=== PATIENT | male | born 1955 | race Caucasian/White ===

== ENCOUNTER 2017-10-23 11:50 | Inpatient (IN) | payer MEDICAID ==
--- NOTE | 2017-10-23 12:35 | C.PDOC ---
History Of Present Illness <Esmer Cruz - Last Filed: 10/23/17 15:45> <Chandler Cottrell - Last Filed: 10/24/17 00:23> 62 year old male with a PMHx of HTN, EtOH abuse, BPH, and hiatal hernia presents to the ED with complaints of generalized myalgia since this morning. Patient states last drink was yesterday. Patient is poor historian. Patient denies fever, nausea, vomiting, diarrhea, focal pain, or any other complaints at this time. POOR HISTORIAN CO GEN MYALGIA SINCE THIS MORNING. NO FEVER. PMH of HTN, EtOH abuse, BPH, HIATAL HERNIA. PS LAST DRINK YESTERDAY. DENIES FOCAL PAIN, NVD ROS LIMITED EXAM MOD DIST HEENT NO FASICULATION LUNGS NEG ABD NEG CV RRR SINUS TACH NEURO +INTENTION TREMOR RUE "I ALWAYS HAVE THIS" NO SZ, AO3, CALM APPROPRIATE\\ REMAINDER NEG (Esmer Cruz) History Per: Patient History/Exam Limitations: other (patient poor historian) Onset/Duration Of Symptoms: Hrs Current Symptoms Are (Timing): Still Present Recent travel outside of the [place]: No Additional History Per: Prior Records <Esmer Cruz - Last Filed: 10/23/17 15:45> <Chandler Cottrell - Last Filed: 10/24/17 00:23> Time Seen by Provider: 10/23/17 11:55 Past Medical History Reviewed: Historical Data, Nursing Documentation, Vital Signs - Medical History PMH: Benign Prostatic Hyperplasia, Depression, Gastritis, HTN Surgical History: Appendectomy Family History: States: Unknown Family Hx - Social History Hx Tobacco Use: No Hx Alcohol Use: Yes Hx Substance Use: No - Immunization History Hx Tetanus Toxoid Vaccination: No Hx Influenza Vaccination: No Hx Pneumococcal Vaccination: No <Esmer Cruz - Last Filed: 10/23/17 15:45> Vital Signs: Last Vital Signs Temp 98.9 F 10/23/17 23:31 Pulse 105 H 10/23/17 23:31 Resp 16 10/23/17 23:31 BP 103/65 10/23/17 23:31 Pulse Ox 97 10/23/17 23:31 - [facility] Procedures ALCOHOL DETOXIFICATION (07/27/14) DETOXIFICATION SERVICES FOR SUBSTANCE ABUSE TREATMENT (10/11/17) Review Of Systems Review Of Systems: ROS cannot be obtained secondary to pt's inabilty to answer questions. (ROS limited, patient poor historian) <Esmre Cruz - Last Filed: 10/23/17 15:45> Physical Exam - Physical Exam Appears: Non-toxic, In Acute Distress (Patient appears to be in moderate ) Skin: Warm, Dry Head: Atraumatic, Normacephalic, No Tenderness Eye(s): bilateral: Normal Inspection, PERRL, EOMI Oral Mucosa: Moist Tongue: Other (no fasiculation) Neck: Supple Chest: Symmetrical, No Deformity Cardiovascular: Rhythm Regular (sinus tachycardia ), No Murmur Respiratory: No Rales, No Rhonchi, No Wheezing, Other (clear to auscultation bilaterally) Gastrointestinal/Abdominal: Soft, No Tenderness, No Distention, No Guarding, No Rebound Extremity: Normal ROM, No Tenderness Neurological/Psych: Oriented x3, No Normal Speech, Other (Patient is calm and appropriate. + intention tremor, patient states "I always have this.") <Esmer Cruz - Last Filed: 10/23/17 15:45> ED Course And Treatment - Laboratory Results Result Diagrams: 10/23/17 13:17 10/23/17 13:43 ECG: Interpreted By Me ECG Rhythm: Sinus Tachycardia Rate From EC O2 Sat by Pulse Oximetry: 98 (RA) Pulse Ox Interpretation: Normal - Radiology CXR: Interpreted by Me, Viewed By Me CXR Interpretation: Yes: No Acute Disease Nexus Criteria: Negative Progress Note: CXR, labs, and blood work were ordered. Patient was given Toradol. <Esmer Cruz - Last Filed: 10/23/17 15:45> - Laboratory Results Result Diagrams: 10/23/17 13:17 10/23/17 13:43 <Chandler Cottrell - Last Filed: 10/24/17 00:23> Progress - Data Reviewed Data Reviewed: Lab, Diagnostic imaging, EKG, Old records <Esmer Cruz - Last Filed: 10/23/17 15:45> <Chandler Cottrell - Last Filed: 10/24/17 00:23> - Re-Evaluation Re-evaluation Note: 10/23/17 15:45 EXAM IMPROVED, TREMORS RESOLVED. D/W DR Radha VALADEZ AWARE OF ER FINDINGS WILL ADMIT (Esmer Cruz) Medical Decision Making <Esmer Cruz - Last Filed: 10/23/17 15:45> <Chandler Cottrell - Last Filed: 10/24/17 00:23> Medical Decision Makin: blood tranfusion pending, this MD explained extensively risks and benefits to pt, and written consent acquired Librium 50 mg for tremulousness from ETOH w/d ordered and prn for floor ordered. (Chandler Cottrell) Disposition Counseled Patient/Family Regarding: Studies Performed, Diagnosis - Disposition Disposition Time: 15:43 - POA Present On Arrival: None <Esmer Cruz - Last Filed: 10/23/17 15:45> <Chandler Cottrell - Last Filed: 10/24/17 00:23> - Disposition Disposition: HOSPITALIZED Condition: STABLE - Clinical Impression Clinical Impression: Alcohol withdrawal, Abdominal pain - Scribe Statement The provider has reviewed the documentation as recorded by the Scribe <AnthonyEsmer - Last Filed: 10/23/17 15:45> <Chandler Cottrell - Last Filed: 10/24/17 00:23> - Scribe Statement Noa Pruitt All medical record entries made by the Scribe were at my direction and personally dictated by me. I have reviewed the chart and agree that the record accurately reflects my personal performance of the history, physical exam, medical decision making, and the department course for this patient. I have also personally directed, reviewed, and agree with the discharge instructions and disposition. (Esmer Cruz) Decision To Admit - Pt Status Changed To: Hospital Disposition Of: Observation - . Bed Request Type: Telemetry Admitting Physician: Manish Valadez <Esmer Cruz - Last Filed: 10/23/17 15:45> <Chandler Cottrell - Last Filed: 10/24/17 00:23> - . Patient Diagnosis: Alcohol withdrawal, Abdominal pain
[2017-10-23] MEDS ORDERED: Sodium Chloride 0.9% 1,000 ML IV ONE (12:37)
[2017-10-23 13:24] LABS: BASO # 0.1 K/uL (0.0-0.2); BASO % 0.9 % (0.0-2.0); EOS # 0.1 K/uL (0.0-0.7); EOS % 1.6 % (0.0-4.0); HEMATOCRIT 25.9 % (35.0-51.0); LYMPH # 0.3 K/uL (1.0-4.3); LYMPH % 3.5 % (20.0-40.0); MEAN CELL VOLUME 72.5 fL (80.0-94.0); MEAN CORPUSCULAR HEMOGLOBIN 22.1 pg (27.0-31.0); MEAN CORPUSCULAR HGB CONC 30.5 g/dL (33.0-37.0); MEAN PLATELET VOLUME 8.5 fL (7.2-11.7); MONO # 0.3 K/uL (0.0-0.8); MONO % 3.1 % (0.0-10.0); NRBC % 0.1 % (0.0-2.0); RED CELL DISTRIBUTION WIDTH 20.7 % (11.5-14.5); WHITE BLOOD COUNT 9.1 K/uL (4.8-10.8)
[2017-10-23 13:29] LABS: PLATELET COUNT 393 K/uL (130-400)
[2017-10-23 13:33] LABS: RBC URINE 1 /hpf (0-3); URINE BILIRUBIN NEGATIVE (NEGATIVE); URINE BLOOD NEGATIVE (NEGATIVE); URINE COLOR Amber (YELLOW); URINE GLUCOSE (UA) NORMAL (Normal); URINE KETONE TRACE mg/dL (NEGATIVE); URINE LEUKOCYTE ESTERASE NEG Leu/uL (Negative); URINE PROTEIN NEGATIVE (NEGATIVE)
[2017-10-23 13:46] LABS: BASOPHIL 1 % (0-2); EOSINOPHIL 2 % (0-4); NEUTROPHIL 84 % (50-75); TOTAL CELLS COUNTED 100
[2017-10-23 14:00] LABS: ALKALINE PHOSPHATASE 79 U/L (38-126); ALT/SGPT 44 U/L (21-72); AST/SGOT 24 U/L (17-59); BILIRUBIN,TOTAL 0.6 mg/dL (0.2-1.3); BLOOD UREA NITROGEN 16 mg/dL (9-20); CARBON DIOXIDE 27 mmol/L (22-30); CHLORIDE 104 mmol/L (98-107); GFR AFRICAN-AMERICAN > 60; GLUCOSE,RANDOM 94 mg/dL (75-110); SODIUM 135 mmol/L (132-148); TOTAL PROTEIN 6.8 g/dL (6.3-8.3)
[2017-10-23 14:01] LABS: ALB/GLOB RATIO 0.8 (1.0-2.1)
--- NOTE | 2017-10-23 14:23 | RAD ---
PROCEDURE: CHEST RADIOGRAPH, 1 VIEW HISTORY: SOB COMPARISON: 07/21/2014 FINDINGS: LUNGS: Clear. PLEURA: No pneumothorax or pleural fluid seen. CARDIOVASCULAR: No radiographic findings to suggest acute or significant cardiovascular disease. OSSEOUS STRUCTURES: No significant abnormalities. VISUALIZED UPPER ABDOMEN: Normal. OTHER FINDINGS: None. IMPRESSION: No active disease. No acute/significant interval changes. Concordant results with the preliminary interpretation rendered by the emergency department physician procedure.
--- NOTE | 2017-10-23 19:04 | CP.PCM.HP ---
History of Present Illness - History of Present Illness History of Present Illness: A 62-year-old male with PMH-BPH, depression, HTN, alcohol abuse, hiatus hernia and gastritis presents to the ER with C/O-generalized body ache. C/O-generalized body ache since last 1 day. C/ nasal congestion for last 1 day. No C/ bowel bladder disturbances, abdominal pain, fever, chills, rigors, headache, yellowish discoloration of urine and sclera. Patient is a poor historian. He says he has no control over his drinking. His last drink was yesterday. Present on Admission - Present on Admission Any Indicators Present on Admission: No Past Patient History - Past Medical History & Family History Past Medical History?: Yes - Past Social History Smoking Status: Never Smoked - CARDIAC Hx Hypertension: Yes - PULMONARY Hx Respiratory Disorders: No - NEUROLOGICAL Hx Seizures: No - HEENT Hx HEENT Problems: No - RENAL Hx Chronic Kidney Disease: No - ENDOCRINE/METABOLIC Hx Endocrine Disorders: No - HEMATOLOGICAL/ONCOLOGICAL Hx Human Immunodeficiency Virus (HIV): No - INTEGUMENTARY Hx Dermatological Problems: No - MUSCULOSKELETAL/RHEUMATOLOGICAL Hx Musculoskeletal Disorders: No Hx Falls: No - GASTROINTESTINAL Hx Gastritis: Yes - GENITOURINARY/GYNECOLOGICAL Hx Sexually Transmitted Disorders: No - PSYCHIATRIC Hx Depression: Yes Hx Substance Use: No - SURGICAL HISTORY Hx Appendectomy: Yes - ANESTHESIA Hx Anesthesia: Yes Hx Anesthesia Reactions: No Hx Malignant Hyperthermia: No Meds Allergies/Adverse Reactions: Allergies Allergy/AdvReac Type Severity Reaction Status Date / Time No Known Allergies Allergy Verified 06/07/16 20:08 Physical Exam - Constitutional Appears: Well - Head Exam Head Exam: ATRAUMATIC, NORMAL INSPECTION, NORMOCEPHALIC - Eye Exam Eye Exam: EOMI, Normal appearance, PERRL Pupil Exam: NORMAL ACCOMODATION, PERRL - ENT Exam ENT Exam: Mucous Membranes Moist, Normal Exam - Neck Exam Neck exam: Positive for: Normal Inspection - Respiratory Exam Respiratory Exam: Decreased Breath Sounds - Cardiovascular Exam Cardiovascular Exam: REGULAR RHYTHM, +S1, +S2 - GI/Abdominal Exam GI & Abdominal Exam: Diminished Bowel Sounds, Soft - Rectal Exam Rectal Exam: Deferred Results - Vital Signs Recent Vital Signs: Last Vital Signs Temp 98.5 F 10/23/17 18:00 Pulse 104 H 10/23/17 18:00 Resp 16 10/23/17 18:00 BP 107/74 10/23/17 18:00 Pulse Ox 96 10/23/17 18:00 - Labs Result Diagrams: 10/30/17 06:46 10/30/17 06:46 Labs: Laboratory Results - last 24 hr 10/23/17 10/23/17 10/23/17 12:38 13:17 13:17 WBC 9.1 RBC 3.57 L Hgb 7.9 L Hct 25.9 L MCV 72.5 L MCH 22.1 L MCHC 30.5 L RDW 20.7 H Plt Count 393 D MPV 8.5 Neut % (Auto) 90.9 H Lymph % (Auto) 3.5 L [place] % (Auto) 3.1 Eos % (Auto) 1.6 Baso % (Auto) 0.9 Neut # 8.3 H Lymph # 0.3 L [place] # 0.3 Eos # 0.1 Baso # 0.1 Neutrophils % (Manual) 84 H Band Neutrophils % 9 H Lymphocytes % (Manual) 4 L Monocytes % (Manual) TEST NOT PERFORMED Eosinophils % (Manual) 2 Basophils % (Manual) 1 Platelet Estimate Normal Hypochromasia (manual) Moderate Poikilocytosis (manual Slight Anisocytosis (manual) Moderate Ovalocytes Slight Sodium Potassium Chloride Carbon Dioxide Anion Gap BUN Creatinine Est GFR ( Amer) Est GFR (Non-Af Amer) POC Glucose (mg/dL) Random Glucose Calcium Total Bilirubin AST ALT Alkaline Phosphatase Total Protein Albumin Globulin Albumin/Globulin Ratio Urine Color Damari Urine Clarity Hazy Urine pH 5.0 Ur Specific [place] 1.021 Urine Protein Negative Urine Glucose (UA) Normal Urine Ketones Trace Urine Blood Negative Urine Nitrate Negative Urine Bilirubin Negative Urine Urobilinogen 2.0 Ur Leukocyte Esterase Neg Urine RBC (Auto) 1 Ur Squamous Epith Cells 1 Amorphous Sediment Rare H Hyaline Casts 6-10 H Influenza Typ A,B (EIA) Negative for flu a/b 10/23/17 10/23/17 13:43 13:55 WBC RBC Hgb Hct MCV MCH MCHC RDW Plt Count MPV Neut % (Auto) Lymph % (Auto) [place] % (Auto) Eos % (Auto) Baso % (Auto) Neut # Lymph # [place] # Eos # Baso # Neutrophils % (Manual) Band Neutrophils % Lymphocytes % (Manual) Monocytes % (Manual) Eosinophils % (Manual) Basophils % (Manual) Platelet Estimate Hypochromasia (manual) Poikilocytosis (manual Anisocytosis (manual) Ovalocytes Sodium 135 Potassium 4.0 Chloride 104 Carbon Dioxide 27 Anion Gap 9 L BUN 16 Creatinine 1.1 Est GFR ( Amer) > 60 Est GFR (Non-Af Amer) > 60 POC Glucose (mg/dL) 92 Random Glucose 94 Calcium 8.0 L Total Bilirubin 0.6 AST 24 ALT 44 Alkaline Phosphatase 79 Total Protein 6.8 Albumin 3.1 L Globulin 3.7 Albumin/Globulin Ratio 0.8 L Urine Color Urine Clarity Urine pH Ur Specific [place] Urine Protein Urine Glucose (UA) Urine Ketones Urine Blood Urine Nitrate Urine Bilirubin Urine Urobilinogen Ur Leukocyte Esterase Urine RBC (Auto) Ur Squamous Epith Cells Amorphous Sediment Hyaline Casts Influenza Typ A,B (EIA)
[2017-10-23] MEDS ORDERED: Naproxen 550 mg Tab PO ONE (20:15)
[2017-10-23] MEDS: Naproxen 550 mg Tab PO PRN (20:18)
[2017-10-23 21:17] LABS: INR 1.2
[2017-10-24 00:47] LABS: FOLATE 8.3 ng/mL
--- NOTE | 2017-10-24 07:51 | CP.PCM.PN ---
Addendum entered and electronically signed by Jaime Zhang DO 10/24/17 14:10: spoke to Dr. Cooley; he is recommending that the patient f/u with [facility] on [facility] for outpatient rehabilitation f/u UDS to see if he has taken any opiates; if not will be OK to give naltrexone here in hospital; however he will need to f/u with psychiatrist/ rehab facility as an outpatient to continue with medical therapy for EtOH addiction. Addendum entered and electronically signed by Jaime Zhang DO 10/24/17 13:02: patient responded appropriately to 1unit [facility] Original Note: <Jaime Zhang - Last Filed: 10/24/17 11:30> Subjective - Date & Time of Evaluation Date of Evaluation: 10/24/17 Time of Evaluation: 11:32 - Subjective Subjective: PGY2 Medicine Note for Dr. Radha Valadez; all management as per Dr. Radha Valadez This patient was seen and examined at bedside; denies fevers/chills, IRWIN, SOB, abdominal pain, N/V/D, dysuria/freq/urg or lower extremity pain. States he has no self control over drinking and desires medication to aid him in quitting his addiction; will consult psychiatry. Objective - Vital Signs/Intake and Output Vital Signs (last 24 hours): Temp Pulse Resp BP Pulse Ox 98.4 F 95 H 20 99/64 L 98 10/24/17 03:30 10/24/17 03:40 10/24/17 03:30 10/24/17 03:30 10/24/17 03:30 Intake and Output: 10/24/17 10/24/17 06:59 18:59 Intake Total 425 Output Total 800 Balance -375 - Medications Medications: Current Medications Allopurinol (Zyloprim) 100 mg PO DAILY [place] Chlordiazepoxide (Librium) 50 mg PO Q4H PRN PRN Reason: Agitation Enoxaparin Sodium (Lovenox) 40 mg SC DAILY [facility] Finasteride (Proscar) 5 mg PO DAILY [facility] Folic Acid (Folic Acid) 1 mg PO DAILY [facility] Losartan Potassium (Cozaar) 100 mg PO DAILY [facility] Metoprolol Tartrate (Lopressor) 50 mg PO BID [facility] Multivitamins (Hexavitamin) 1 tab PO DAILY [facility] Naproxen (Anaprox Ds) 500 mg PO BID PRN PRN Reason: Pain, moderate (4-7) Last Admin: 10/23/17 20:18 Dose: 500 mg Pantoprazole Sodium (Protonix Ec Tab) 40 mg PO DAILY [place] Tamsulosin HCl (Flomax) 0.8 mg PO DAILY [facility] Thiamine HCl (Vitamin B1 Tab) 100 mg PO BID [place] - Labs Labs: 10/23/17 13:17 10/23/17 13:43 PT 13.3 SECONDS (9.7-12.2) H 10/23/17 21:03 INR 1.2 10/23/17 21:03 APTT 29 SECONDS (21-34) 10/23/17 21:03 - Constitutional Appears: Non-toxic - Head Exam Head Exam: ATRAUMATIC - Eye Exam Eye Exam: EOMI - ENT Exam ENT Exam: Mucous Membranes Moist - Neck Exam Neck Exam: Full ROM - Respiratory Exam Respiratory Exam: Clear to Ausculation Bilateral - Cardiovascular Exam Cardiovascular Exam: REGULAR RHYTHM - GI/Abdominal Exam GI & Abdominal Exam: Soft - Extremities Exam Extremities Exam: absent: Calf Tenderness - Back Exam Back Exam: absent: CVA tenderness (L), CVA tenderness (R) - Neurological Exam Neurological Exam: Awake - Psychiatric Exam Psychiatric exam: Normal Affect - Skin Skin Exam: Warm Assessment and Plan - Assessment and Plan (Free Text) Assessment: EtOH Withdrawal -Thiamine/Folate/MV daily -Librium Taper -once stable patient can be d/c home/to outpatient rehab as per psych on previous admission; he does not meet inpatient criteria -patient is not in DT/having seizures/actively withdrawing on current taper -patient is tolerating PO Pancytopenia most likely 2/2 to chronic EtOH Bone marrow toxicity -patient has no active bleeding; hgb is lower than previous admissions; s/p 1 unit of PRBC -will continue to monitor; patient advised to stop drinking -f/u heme onc recs Type 4 paraesophageal hernia -patient will likely need surgical repair; surgery recommended outpatient tx on last admission -patient was optimized for surgery as per cardiology on last admission - No cardiovascular contraindication to the planned surgery as outpatient ECHO (10/15/17): LV is normal size, EF 60-65%, LV diastolic function is abnormal - Grade I abnormal relaxation pattern. Mild tricuspid regurgitation noted. CHF (diastolic dysfunction);chronic as per last ECHO (10/15/17): LV is normal size, EF 60-65%, LV diastolic function is abnormal - Grade I abnormal relaxation pattern. Mild tricuspid regurgitation noted. - Pt refused prescriptions for Beta lucinda/ALEXANDER inhibitor - advised patient to follow up with outpatient call center assistant, Dr. Awad recommended because he saw patient in hospital Prophylaxis Protonix Lovenox Heart Healthy Diet All management as per Dr. Radha Valadez All medical management as per Dr. Radha Valadez <Manish Valadez S - Last Filed: 11/01/17 13:19> Objective - Vital Signs/Intake and Output Vital Signs (last 24 hours): Temp Pulse Resp BP Pulse Ox 98.7 F 84 20 106/67 95 11/01/17 07:35 11/01/17 09:31 11/01/17 07:35 11/01/17 09:31 11/01/17 07:35 - Labs Labs: 10/30/17 06:46 10/30/17 06:46 PT 13.3 SECONDS (9.7-12.2) H 10/23/17 21:03 INR 1.2 10/23/17 21:03 APTT 29 SECONDS (21-34) 10/23/17 21:03 Attending/Attestation - Attestation I have personally seen and examined this patient.: Yes I have fully participated in the care of the patient.: Yes I have reviewed all pertinent clinical information, including history, physical exam and plan: Yes Notes (Text): Patient examined. Patient has no self control over drinking and desires any medications to help him quit drinking. Psychiatric consultation. EKG normal. Chest x-ray normal. Laboratory investigations normal. Thiamine, folic acid and chlordiazepoxide. Supportive care.
[2017-10-24] MEDS: Enoxaparin 40 mg Syringe SC SCH (10:16)
[2017-10-24] MEDS: Multiple Vitamins Tab PO SCH (10:16)
[2017-10-24] MEDS: Pantoprazole 40 mg EC Tab PO SCH (10:17)
[2017-10-24 11:35] LABS: BASO # 0.1 K/uL (0.0-0.2); EOS # 0.6 K/uL (0.0-0.7); EOS % 8.8 % (0.0-4.0); HEMATOCRIT 29.9 % (35.0-51.0); LYMPH # 1.1 K/uL (1.0-4.3); LYMPH % 16.5 % (20.0-40.0); MEAN CELL VOLUME 74.7 fL (80.0-94.0); MEAN CORPUSCULAR HEMOGLOBIN 22.6 pg (27.0-31.0); MEAN CORPUSCULAR HGB CONC 30.2 g/dL (33.0-37.0); MEAN PLATELET VOLUME 8.7 fL (7.2-11.7); MONO # 0.5 K/uL (0.0-0.8); NRBC % 0.1 % (0.0-2.0); RED CELL DISTRIBUTION WIDTH 20.9 % (11.5-14.5); WHITE BLOOD COUNT 6.4 K/uL (4.8-10.8)
--- NOTE | 2017-10-24 13:30 | CP.PCM.CON ---
History of Present Illness - History of Present Illness History of Present Illness: INFECTIOUS DISEASE CONSULT; HPI 62 year old male with a PMHx of HTN, EtOH abuse, Gastritis, BPH, hiatal hernia and depression who presents to the ED with complaints of generalized myalgia since 1day Patient states last drink was yesterday. Patient is poor historian.pt c/o nasal congestion,running nose and sinus congestion. Patient denies fever, nausea, vomiting, diarrhea, focal pain, or any other complaints at this time except for abdominal pains. PT ADMITTED 10/09/17 FOR ABDOMINAL PAINS AND FOUND TO HAVE GRADE 1V PARAESOPHAGEAL HERNIA.PT LEFT HOSPITAL AMA. CXR ON ADMISSION SHOWS NAD. patient also was found to have low H&H on admission with a hemoglobin of 7.9. Patient received 1 unit of packed red blood cells. Patient alcohol level was less than 10. Patient also was found to have eosinophilia of 8% on cbc. PMH: Benign Prostatic Hyperplasia, Depression, Gastritis, HTN, Grade IV paraesophageal hernia Meds: As per EMR Surgical History: Appendectomy Family History: States: Unknown Family Hx - Social History Hx Tobacco Use: No Hx Alcohol Use: Yes Hx Substance Use: No - Immunization History Hx Tetanus Toxoid Vaccination: No Hx Influenza Vaccination: No Hx Pneumococcal Vaccination: No Allergy;NKA Review of Systems - Constitutional Constitutional: Lethargy. absent: Headache - EENT Eyes: Dry Eye. absent: Other Visual Disturbances Nose/Mouth/Throat: Nasal Congestion, Post Nasal Drip, Sinus Pressure, Dry Mouth , Neck Pain - Cardiovascular Cardiovascular: absent: Chest Pain, Dyspnea - Respiratory Respiratory: Excessive Mucous Production. absent: Cough, Change in Mucous Color - Gastrointestinal Gastrointestinal: Abdominal Pain. absent: Constipation, Diarrhea, Nausea, Vomiting - Genitourinary Genitourinary: absent: Dysuria, Hematuria - Musculoskeletal Musculoskeletal: Arthralgias, Myalgias, Neck Pain - Neurological Neurological: absent: Dizziness, Headaches - Hematologic/Lymphatic Hematologic: As Per HPI. absent: Easy Bruising, Lymphadenopathy Past Patient History - Past Medical History & Family History Past Medical History?: Yes - Past Social History Smoking Status: Never Smoked - CARDIAC Hx Hypertension: Yes - PULMONARY Hx Respiratory Disorders: No - NEUROLOGICAL Hx Seizures: No - HEENT Hx HEENT Problems: No - RENAL Hx Chronic Kidney Disease: No - ENDOCRINE/METABOLIC Hx Endocrine Disorders: No - HEMATOLOGICAL/ONCOLOGICAL Hx Human Immunodeficiency Virus (HIV): No - INTEGUMENTARY Hx Dermatological Problems: No - MUSCULOSKELETAL/RHEUMATOLOGICAL Hx Falls: Yes - GASTROINTESTINAL Hx Gastritis: Yes - GENITOURINARY/GYNECOLOGICAL Hx Sexually Transmitted Disorders: No - PSYCHIATRIC Hx Substance Use: No - SURGICAL HISTORY Hx Appendectomy: Yes - ANESTHESIA Hx Anesthesia: Yes Hx Anesthesia Reactions: No Hx Malignant Hyperthermia: No Meds Allergies/Adverse Reactions: Allergies Allergy/AdvReac Type Severity Reaction Status Date / Time No Known Allergies Allergy Verified 06/07/16 20:08 - Medications Medications: Current Medications Allopurinol (Zyloprim) 100 mg PO DAILY [facility] Last Admin: 10/24/17 10:17 Dose: 100 mg Chlordiazepoxide (Librium) 50 mg PO Q4H PRN PRN Reason: Agitation Enoxaparin Sodium (Lovenox) 40 mg SC DAILY [facility] Last Admin: 10/24/17 10:16 Dose: 40 mg Finasteride (Proscar) 5 mg PO DAILY [facility] Last Admin: 10/24/17 10:17 Dose: 5 mg Folic Acid (Folic Acid) 1 mg PO DAILY [facility] Last Admin: 10/24/17 10:16 Dose: 1 mg Losartan Potassium (Cozaar) 100 mg PO DAILY [facility] Last Admin: 10/24/17 10:15 Dose: 100 mg Metoprolol Tartrate (Lopressor) 50 mg PO BID [facility] Last Admin: 10/24/17 10:20 Dose: 50 mg Multivitamins (Hexavitamin) 1 tab PO DAILY [facility] Last Admin: 10/24/17 10:16 Dose: 1 tab Naproxen (Anaprox Ds) 500 mg PO BID PRN PRN Reason: Pain, moderate (4-7) Last Admin: 10/23/17 20:18 Dose: 500 mg Pantoprazole Sodium (Protonix Ec Tab) 40 mg PO DAILY [facility] Last Admin: 10/24/17 10:17 Dose: 40 mg Tamsulosin HCl (Flomax) 0.8 mg PO DAILY [facility] Last Admin: 10/24/17 10:15 Dose: 0.8 mg Thiamine HCl (Vitamin B1 Tab) 100 mg PO BID [facility] Last Admin: 10/24/17 10:20 Dose: 100 mg Physical Exam - Constitutional Appears: No Acute Distress - Head Exam Head Exam: NORMAL INSPECTION - Eye Exam Eye Exam: EOMI, PERRL - ENT Exam ENT Exam: Normal Oropharynx - Neck Exam Neck exam: Positive for: Normal Inspection - Respiratory Exam Respiratory Exam: Clear to Auscultation Bilateral - Cardiovascular Exam Cardiovascular Exam: REGULAR RHYTHM, +S1, +S2 - GI/Abdominal Exam GI & Abdominal Exam: Normal Bowel Sounds, Soft. absent: Organomegaly - Extremities Exam Extremities exam: Positive for: pedal pulses present. Negative for: calf tenderness, pedal edema - Neurological Exam Neurological exam: Alert, CN II-XII Intact, Reflexes Normal - Psychiatric Exam Psychiatric exam: Normal Mood - Skin Skin Exam: Normal Color, Pallor, Warm Results - Vital Signs Recent Vital Signs: Last Vital Signs Temp 98.2 F 10/24/17 07:00 Pulse 90 10/24/17 07:00 Resp 20 10/24/17 07:00 BP 113/74 10/24/17 07:00 Pulse Ox 98 10/24/17 07:00 - Labs Result Diagrams: 10/24/17 11:31 10/23/17 13:43 Labs: Laboratory Results - last 24 hr 10/23/17 10/23/17 10/23/17 12:38 13:17 13:17 WBC RBC Hgb Hct MCV MCH MCHC RDW Plt Count MPV Neut % (Auto) Lymph % (Auto) [place] % (Auto) Eos % (Auto) Baso % (Auto) Neut # Lymph # [place] # Eos # Baso # Neutrophils % (Manual) 84 H Band Neutrophils % 9 H Lymphocytes % (Manual) 4 L Monocytes % (Manual) TEST NOT PERFORMED Eosinophils % (Manual) 2 Basophils % (Manual) 1 Platelet Estimate Normal Hypochromasia (manual) Moderate Poikilocytosis (manual Slight Anisocytosis (manual) Moderate Ovalocytes Slight Retic Count PT INR APTT Sodium Potassium Chloride Carbon Dioxide Anion Gap BUN Creatinine Est GFR ( Amer) Est GFR (Non-Af Amer) POC Glucose (mg/dL) Random Glucose Calcium Ferritin Total Bilirubin AST ALT Alkaline Phosphatase Total Creatine Kinase Total Protein Albumin Globulin Albumin/Globulin Ratio Vitamin B12 Folate Urine Color [place]ari Urine Clarity Hazy Urine pH 5.0 Ur Specific [place] 1.021 Urine Protein Negative Urine Glucose (UA) Normal Urine Ketones Trace Urine Blood Negative Urine Nitrate Negative Urine Bilirubin Negative Urine Urobilinogen 2.0 Ur Leukocyte Esterase Neg Urine RBC (Auto) 1 Ur Squamous Epith Cells 1 Amorphous Sediment Rare H Hyaline Casts 6-10 H Alcohol, Quantitative Influenza Typ A,B (EIA) Negative for flu a/b Blood Type Antibody Screen 10/23/17 10/23/17 10/23/17 13:43 13:55 20:20 WBC RBC Hgb Hct MCV MCH MCHC RDW Plt Count MPV Neut % (Auto) Lymph % (Auto) [place] % (Auto) Eos % (Auto) Baso % (Auto) Neut # Lymph # [place] # Eos # Baso # Neutrophils % (Manual) Band Neutrophils % Lymphocytes % (Manual) Monocytes % (Manual) Eosinophils % (Manual) Basophils % (Manual) Platelet Estimate Hypochromasia (manual) Poikilocytosis (manual Anisocytosis (manual) Ovalocytes Retic Count PT INR APTT Sodium 135 Potassium 4.0 Chloride 104 Carbon Dioxide 27 Anion Gap 9 L BUN 16 Creatinine 1.1 Est GFR ( Amer) > 60 Est GFR (Non-Af Amer) > 60 POC Glucose (mg/dL) 92 Random Glucose 94 Calcium 8.0 L Ferritin Total Bilirubin 0.6 AST 24 ALT 44 Alkaline Phosphatase 79 Total Creatine Kinase 31 L Total Protein 6.8 Albumin 3.1 L Globulin 3.7 Albumin/Globulin Ratio 0.8 L Vitamin B12 Folate Urine Color Urine Clarity Urine pH Ur Specific [place] Urine Protein Urine Glucose (UA) Urine Ketones Urine Blood Urine Nitrate Urine Bilirubin Urine Urobilinogen Ur Leukocyte Esterase Urine RBC (Auto) Ur Squamous Epith Cells Amorphous Sediment Hyaline Casts Alcohol, Quantitative Influenza Typ A,B (EIA) Blood Type Antibody Screen 10/23/17 10/23/17 10/23/17 20:55 21:03 23:33 WBC RBC Hgb Hct MCV MCH MCHC RDW Plt Count MPV Neut % (Auto) Lymph % (Auto) [place] % (Auto) Eos % (Auto) Baso % (Auto) Neut # Lymph # [place] # Eos # Baso # Neutrophils % (Manual) Band Neutrophils % Lymphocytes % (Manual) Monocytes % (Manual) Eosinophils % (Manual) Basophils % (Manual) Platelet Estimate Hypochromasia (manual) Poikilocytosis (manual Anisocytosis (manual) Ovalocytes Retic Count 2.2 H PT 13.3 H INR 1.2 APTT 29 Sodium Potassium Chloride Carbon Dioxide Anion Gap BUN Creatinine Est GFR ( Amer) Est GFR (Non-Af Amer) POC Glucose (mg/dL) Random Glucose Calcium Ferritin Total Bilirubin AST ALT Alkaline Phosphatase Total Creatine Kinase Total Protein Albumin Globulin Albumin/Globulin Ratio Vitamin B12 Folate Urine Color Urine Clarity Urine pH Ur Specific [place] Urine Protein Urine Glucose (UA) Urine Ketones Urine Blood Urine Nitrate Urine Bilirubin Urine Urobilinogen Ur Leukocyte Esterase Urine RBC (Auto) Ur Squamous Epith Cells Amorphous Sediment Hyaline Casts Alcohol, Quantitative Influenza Typ A,B (EIA) Blood Type B POSITIVE Antibody Screen Negative 10/23/17 10/24/17 10/24/17 23:33 02:57 11:31 WBC 6.4 RBC 4.00 L Hgb 9.0 L Hct 29.9 L MCV 74.7 L D MCH 22.6 L MCHC 30.2 L RDW 20.9 H Plt Count 362 MPV 8.7 Neut % (Auto) 65.7 Lymph % (Auto) 16.5 L [place] % (Auto) 8.0 Eos % (Auto) 8.8 H Baso % (Auto) 1.0 Neut # 4.2 Lymph # 1.1 [place] # 0.5 Eos # 0.6 Baso # 0.1 Neutrophils % (Manual) Band Neutrophils % Lymphocytes % (Manual) Monocytes % (Manual) Eosinophils % (Manual) Basophils % (Manual) Platelet Estimate Hypochromasia (manual) Poikilocytosis (manual Anisocytosis (manual) Ovalocytes Retic Count PT INR APTT Sodium Potassium Chloride Carbon Dioxide Anion Gap BUN Creatinine Est GFR ( Amer) Est GFR (Non-Af Amer) POC Glucose (mg/dL) Random Glucose Calcium Ferritin 19.4 Total Bilirubin AST ALT Alkaline Phosphatase Total Creatine Kinase Total Protein Albumin Globulin Albumin/Globulin Ratio Vitamin B12 511 Folate 8.3 Urine Color Urine Clarity Urine pH Ur Specific [place] Urine Protein Urine Glucose (UA) Urine Ketones Urine Blood Urine Nitrate Urine Bilirubin Urine Urobilinogen Ur Leukocyte Esterase Urine RBC (Auto) Ur Squamous Epith Cells Amorphous Sediment Hyaline Casts Alcohol, Quantitative < 10 Influenza Typ A,B (EIA) Blood Type Antibody Screen - Imaging and Cardiology Chest x-ray Status: Report reviewed by me (no active disease) Assessment & Plan (1) Acute viral syndrome Status: Acute (2) Abdominal pain Status: Acute (3) Alcohol abuse Status: Acute (4) Anemia Status: Acute (5) Hiatal hernia without gangrene and obstruction Status: Acute (6) Alcohol dependence Status: Chronic Priority: High - Assessment and Plan (Free Text) Plan: PLAN; ATYPICAL TITERS. INFLUENZA a AND b ANTIBODY. CT OF THE SINUSES WITHOUT CONTRAST RULE OUT SINUSITIS. START TAMIFLU 75 MG BY MOUTH TWICE A DAY FOR 5 DAYS. 10/24/17 ADD iv [id number] MG ONCE A DAY DAILY. 10/24/17 HEMATOLOGY WORKUP FOR ANEMIA STOOLS FOR OVA AND PARASITES 3 FOR EOSINOPHILIA. PATIENT HAS CHRONIC GASTRITIS FROM ALCOHOL ABUSE. CONSIDER EGD TO RULE OUT h. PYLORI GASTRITIS/VERSUS PEPTIC ULCER DISEASE. PER PMD. wILL FOLLOW ALONG WITH YOU AND MAKE RECOMMENDATIONS NEEDED.
--- NOTE | 2017-10-24 14:11 | CP.PCM.PCO ---
Physician Communication Note - Physician Communication Note Physician Communication Note: Spoke with Dr. Lainez. Recommend IOP in [place] where he can get NLTX
--- NOTE | 2017-10-24 18:39 | CP.PCM.PN ---
Subjective - Date & Time of Evaluation Date of Evaluation: 10/24/17 Time of Evaluation: 12:20 - Subjective Subjective: clinically same Objective - Vital Signs/Intake and Output Vital Signs (last 24 hours): Temp Pulse Resp BP Pulse Ox 98.1 F 80 20 111/72 96 10/24/17 15:17 10/24/17 15:17 10/24/17 15:17 10/24/17 15:17 10/24/17 15:17 Intake and Output: 10/24/17 10/24/17 06:59 18:59 Intake Total 425 Output Total 800 Balance -375 - Medications Medications: Current Medications Allopurinol (Zyloprim) 100 mg PO DAILY [facility] Last Admin: 10/24/17 10:17 Dose: 100 mg Chlordiazepoxide (Librium) 50 mg PO Q4H PRN PRN Reason: Agitation Enoxaparin Sodium (Lovenox) 40 mg SC DAILY [facility] Last Admin: 10/24/17 10:16 Dose: 40 mg Finasteride (Proscar) 5 mg PO DAILY [facility] Last Admin: 10/24/17 10:17 Dose: 5 mg Folic Acid (Folic Acid) 1 mg PO DAILY [facility] Last Admin: 10/24/17 10:16 Dose: 1 mg Losartan Potassium (Cozaar) 100 mg PO DAILY [facility] Last Admin: 10/24/17 10:15 Dose: 100 mg Metoprolol Tartrate (Lopressor) 50 mg PO BID [facility] Last Admin: 10/24/17 17:30 Dose: 50 mg Multivitamins (Hexavitamin) 1 tab PO DAILY [facility] Last Admin: 10/24/17 10:16 Dose: 1 tab Naproxen (Anaprox Ds) 500 mg PO BID PRN PRN Reason: Pain, moderate (4-7) Last Admin: 10/23/17 20:18 Dose: 500 mg Pantoprazole Sodium (Protonix Ec Tab) 40 mg PO DAILY [facility] Last Admin: 10/24/17 10:17 Dose: 40 mg Tamsulosin HCl (Flomax) 0.8 mg PO DAILY [facility] Last Admin: 10/24/17 10:15 Dose: 0.8 mg Thiamine HCl (Vitamin B1 Tab) 100 mg PO BID [facility] Last Admin: 10/24/17 17:30 Dose: 100 mg - Labs Labs: 10/24/17 11:31 10/23/17 13:43 PT 13.3 SECONDS (9.7-12.2) H 10/23/17 21:03 INR 1.2 10/23/17 21:03 APTT 29 SECONDS (21-34) 10/23/17 21:03 - Constitutional Appears: Well - Head Exam Head Exam: ATRAUMATIC, NORMAL INSPECTION, NORMOCEPHALIC - Eye Exam Eye Exam: EOMI, Normal appearance, PERRL Pupil Exam: NORMAL ACCOMODATION, PERRL - ENT Exam ENT Exam: Mucous Membranes Moist, Normal Exam - Neck Exam Neck Exam: Full ROM, Normal Inspection. absent: Lymphadenopathy - Respiratory Exam Respiratory Exam: Decreased Breath Sounds - Cardiovascular Exam Cardiovascular Exam: REGULAR RHYTHM, +S1, +S2 - GI/Abdominal Exam GI & Abdominal Exam: Soft, Diminished Bowel Sounds - Rectal Exam Rectal Exam: Deferred Assessment and Plan (1) Abdominal pain Status: Acute (2) Abdominal pain Status: Acute (3) Acute pansinusitis Status: Acute (4) Acute viral syndrome Status: Acute (5) Alcohol abuse Status: Acute (6) Alcohol intoxication Status: Acute (7) Alcohol intoxication Status: Acute (8) Alcohol withdrawal Status: Acute (9) Anemia Status: Acute (10) BPH (benign prostatic hyperplasia) Status: Acute (11) Dehydration Status: Acute (12) Depressed Status: Acute (13) Gastritis due to alcohol without hemorrhage Status: Acute (14) HTN (hypertension) Status: Acute (15) HTN (hypertension) Status: Acute (16) Hiatal hernia without gangrene and obstruction Status: Acute (17) Prophylactic measure Status: Acute (18) Renal insufficiency Status: Acute (19) Withdrawal symptoms, alcohol Status: Acute (20) Alcohol dependence Status: Chronic - Assessment and Plan (Free Text) Plan: Patient examined. Dr. Rodas consult done. Advised CT of sinuses to rule out sinusitis. Avelox 400 mg once a day. Influenza A and B antibody negative. Continue thiamine, multivitamins, folic acid and chlordiazepoxide. Metoprolol and losartan. Supportive care.
--- NOTE | 2017-10-24 19:34 | CP.PCM.CON ---
History of Present Illness - History of Present Illness History of Present Illness: 62 year old male with a history of HTN, BPH, alcoholism, admitted with fatigue and diffuse body aches, found to be anemic. The patient does report to intermittent hematchozia and dark stool. He continues to drink daily and says he gets shaky when he stops. He is s/p PRBC transfusion and reports to feeling better. Past medical history: HTN, BPH, alcoholism Past surgical history: Appendectomy Family history: Denies hematologic and oncologic problems Social history: Denies tobacco, drinks rum daily, denies illicit drug use. Allergies: NKA Review of systems: All remaining review of systems including HEENT, cardiovacsular, respiratory, gastrointestinal, genitourinnary, musculoskeletal, dermatologic, neurologic, and psychiatric are negative unless mentioned in the HPI. Past Patient History - Past Medical History & Family History Past Medical History?: Yes - Past Social History Smoking Status: Never Smoked - CARDIAC Hx Hypertension: Yes - PULMONARY Hx Respiratory Disorders: No - NEUROLOGICAL Hx Seizures: No - HEENT Hx HEENT Problems: No - RENAL Hx Chronic Kidney Disease: No - ENDOCRINE/METABOLIC Hx Endocrine Disorders: No - HEMATOLOGICAL/ONCOLOGICAL Hx Human Immunodeficiency Virus (HIV): No - INTEGUMENTARY Hx Dermatological Problems: No - MUSCULOSKELETAL/RHEUMATOLOGICAL Hx Falls: Yes - GASTROINTESTINAL Hx Gastritis: Yes - GENITOURINARY/GYNECOLOGICAL Hx Sexually Transmitted Disorders: No - PSYCHIATRIC Hx Substance Use: No - SURGICAL HISTORY Hx Appendectomy: Yes - ANESTHESIA Hx Anesthesia: Yes Hx Anesthesia Reactions: No Hx Malignant Hyperthermia: No Meds Allergies/Adverse Reactions: Allergies Allergy/AdvReac Type Severity Reaction Status Date / Time No Known Allergies Allergy Verified 06/07/16 20:08 - Medications Medications: Current Medications Allopurinol (Zyloprim) 100 mg PO DAILY [facility] Last Admin: 10/24/17 10:17 Dose: 100 mg Chlordiazepoxide (Librium) 50 mg PO Q4H PRN PRN Reason: Agitation Enoxaparin Sodium (Lovenox) 40 mg SC DAILY [facility] Last Admin: 10/24/17 10:16 Dose: 40 mg Ferric Sodium Gluconate Complex (Ferrlecit) 125 mg IVPB DAILY [facility] Stop: 11/01/17 20:01 Finasteride (Proscar) 5 mg PO DAILY [facility] Last Admin: 10/24/17 10:17 Dose: 5 mg Folic Acid (Folic Acid) 1 mg PO DAILY [facility] Last Admin: 10/24/17 10:16 Dose: 1 mg Losartan Potassium (Cozaar) 100 mg PO DAILY [facility] Last Admin: 10/24/17 10:15 Dose: 100 mg Metoprolol Tartrate (Lopressor) 50 mg PO BID [facility] Last Admin: 10/24/17 17:30 Dose: 50 mg Multivitamins (Hexavitamin) 1 tab PO DAILY [facility] Last Admin: 10/24/17 10:16 Dose: 1 tab Naproxen (Anaprox Ds) 500 mg PO BID PRN PRN Reason: Pain, moderate (4-7) Last Admin: 10/23/17 20:18 Dose: 500 mg Pantoprazole Sodium (Protonix Ec Tab) 40 mg PO DAILY [facility] Last Admin: 10/24/17 10:17 Dose: 40 mg Tamsulosin HCl (Flomax) 0.8 mg PO DAILY [facility] Last Admin: 10/24/17 10:15 Dose: 0.8 mg Thiamine HCl (Vitamin B1 Tab) 100 mg PO BID [facility] Last Admin: 10/24/17 17:30 Dose: 100 mg Physical Exam - Head Exam Head Exam: ATRAUMATIC - Eye Exam Eye Exam: Normal appearance - ENT Exam ENT Exam: Mucous Membranes Dry - Respiratory Exam Respiratory Exam: NORMAL BREATHING PATTERN - Cardiovascular Exam Cardiovascular Exam: +S1, +S2 - GI/Abdominal Exam GI & Abdominal Exam: Normal Bowel Sounds - Extremities Exam Extremities exam: Positive for: normal inspection - Neurological Exam Neurological exam: Oriented x3 - Psychiatric Exam Psychiatric exam: Normal Affect, Normal Mood - Skin Skin Exam: Warm Results - Vital Signs Recent Vital Signs: Last Vital Signs Temp 98.1 F 10/24/17 15:17 Pulse 80 10/24/17 15:17 Resp 20 10/24/17 15:17 BP 111/72 10/24/17 15:17 Pulse Ox 96 10/24/17 15:17 - Labs Result Diagrams: 10/24/17 11:31 10/23/17 13:43 Labs: Laboratory Results - last 24 hr 10/23/17 10/23/17 10/23/17 20:20 20:55 21:03 WBC RBC Hgb Hct MCV MCH MCHC RDW Plt Count MPV Neut % (Auto) Lymph % (Auto) [place] % (Auto) Eos % (Auto) Baso % (Auto) Neut # Lymph # [place] # Eos # Baso # Retic Count PT 13.3 H INR 1.2 APTT 29 Ferritin Total Creatine Kinase 31 L Vitamin B12 Folate Alcohol, Quantitative Blood Type B POSITIVE Antibody Screen Negative 10/23/17 10/23/17 10/24/17 23:33 23:33 02:57 WBC RBC Hgb Hct MCV MCH MCHC RDW Plt Count MPV Neut % (Auto) Lymph % (Auto) [place] % (Auto) Eos % (Auto) Baso % (Auto) Neut # Lymph # [place] # Eos # Baso # Retic Count 2.2 H PT INR APTT Ferritin 19.4 Total Creatine Kinase Vitamin B12 511 Folate 8.3 Alcohol, Quantitative < 10 Blood Type Antibody Screen 10/24/17 11:31 WBC 6.4 RBC 4.00 L Hgb 9.0 L Hct 29.9 L MCV 74.7 L D MCH 22.6 L MCHC 30.2 L RDW 20.9 H Plt Count 362 MPV 8.7 Neut % (Auto) 65.7 Lymph % (Auto) 16.5 L [place] % (Auto) 8.0 Eos % (Auto) 8.8 H Baso % (Auto) 1.0 Neut # 4.2 Lymph # 1.1 [place] # 0.5 Eos # 0.6 Baso # 0.1 Retic Count PT INR APTT Ferritin Total Creatine Kinase Vitamin B12 Folate Alcohol, Quantitative Blood Type Antibody Screen Assessment & Plan (1) Anemia Assessment and Plan: work up consistent with iron deficiency anemia s/p PRBC transfusion will start IV iron will need GI evaluation for EGD/colonoscopy; can be done as outpatient if H/H stabilizes Thank you for this interesting consult. Status: Acute
[2017-10-24] MEDS: Ferric Sodium Gluconat Complex 62.5 mg/5 ml Vial IVPB SCH (20:35)
--- NOTE | 2017-10-24 22:21 | CARD ---
APPROVED REPORT EKG Measurement Heart [id number] <Conclusion> Sinus tachycardia Otherwise normal ECG
[2017-10-24] MEDS: Moxifloxacin IV 400mg/250ml NS 400 MG/250 ML BAG IVPB SCH (23:09)
[2017-10-25] MEDS: Pantoprazole 40 mg EC Tab PO SCH (10:38)
[2017-10-25] MEDS: Multiple Vitamins Tab PO SCH (10:39)
[2017-10-25] MEDS: Enoxaparin 40 mg Syringe SC SCH (10:39)
--- NOTE | 2017-10-25 11:15 | CP.PCM.PN ---
<Jay Hargrove - Last Filed: 10/25/17 13:40> Subjective - Date & Time of Evaluation Date of Evaluation: 10/25/17 Time of Evaluation: 10:59 - Subjective Subjective: PGY2 Medicine Note for Dr. Radha Valadez's service: Patient seen and examined at bedside. Nursing reports no acute events overnight. Patient reports a lifelong history of drinking, and admits struggling to control his addiction. Per EMR, psychiatrist, Dr. Cooley, spoke with patient yesterday, and recommends outpatient follow with [facility] for outpatient rehab. Pt reported runny nose, congestion, and myalgias last night. Patient says these symptoms started "the previous day." Pt denies fever, chills, abdominal pain, nausea, vomiting, diarrhea, focal pain. Objective - Vital Signs/Intake and Output Vital Signs (last 24 hours): Temp Pulse Resp BP Pulse Ox 98.7 F 85 20 142/82 95 10/24/17 23:15 10/25/17 04:16 10/24/17 23:15 10/24/17 23:15 10/24/17 23:15 Intake and Output: 10/25/17 10/25/17 06:59 18:59 Intake Total 450 Output Total 300 Balance 150 - Medications Medications: Current Medications Allopurinol (Zyloprim) 100 mg PO DAILY [facility] Last Admin: 10/25/17 10:38 Dose: 100 mg Chlordiazepoxide (Librium) 50 mg PO Q4H PRN PRN Reason: Agitation Enoxaparin Sodium (Lovenox) 40 mg SC DAILY [facility] Last Admin: 10/25/17 10:39 Dose: 40 mg Finasteride (Proscar) 5 mg PO DAILY [facility] Last Admin: 10/25/17 10:39 Dose: 5 mg Folic Acid (Folic Acid) 1 mg PO DAILY [facility] Last Admin: 10/25/17 10:39 Dose: 1 mg Moxifloxacin HCl (Avelox Iv 400mg/250ml Ns) 400 mg in 250 mls @ 167 mls/hr IVPB Q24H [facility] Last Admin: 10/24/17 23:09 Dose: 167 mls/hr Ferric Sodium Gluconate Complex 125 mg/ Sodium Chloride 110 mls @ 110 mls/hr IVPB DAILY [facility] Stop: 11/02/17 11:01 Losartan Potassium (Cozaar) 100 mg PO DAILY [facility] Last Admin: 10/25/17 10:38 Dose: 100 mg Metoprolol Tartrate (Lopressor) 50 mg PO BID [facility] Last Admin: 10/25/17 10:39 Dose: 50 mg Multivitamins (Hexavitamin) 1 tab PO DAILY [facility] Last Admin: 10/25/17 10:39 Dose: 1 tab Naproxen (Anaprox Ds) 500 mg PO BID PRN PRN Reason: Pain, moderate (4-7) Last Admin: 10/23/17 20:18 Dose: 500 mg Oseltamivir Phosphate (Tamiflu Cap) 75 mg PO BID [facility] Stop: 10/29/17 22:47 Last Admin: 10/25/17 10:38 Dose: 75 mg Pantoprazole Sodium (Protonix Ec Tab) 40 mg PO DAILY [facility] Last Admin: 10/25/17 10:38 Dose: 40 mg Tamsulosin HCl (Flomax) 0.8 mg PO DAILY [facility] Last Admin: 10/25/17 10:38 Dose: 0.8 mg Thiamine HCl (Vitamin B1 Tab) 100 mg PO BID [facility] Last Admin: 10/25/17 10:39 Dose: 100 mg - Labs Labs: 10/24/17 11:31 10/23/17 13:43 PT 13.3 SECONDS (9.7-12.2) H 10/23/17 21:03 INR 1.2 10/23/17 21:03 APTT 29 SECONDS (21-34) 10/23/17 21:03 - Constitutional Appears: Non-toxic, No Acute Distress Assessment and Plan - Assessment and Plan (Free Text) Plan: EtOH Withdrawal Alcohol level: < 10 on admission -Thiamine/Folate/MV daily - Librium PRN -once stable patient can be d/c home/to outpatient rehab as per psych on previous admission; he does not meet inpatient criteria -patient is not in DT/having seizures/actively withdrawing -patient is tolerating PO - lipase 73 Myalgia/Congestion Pt afebrile, No WBC 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 Tirado, verito cabrales - start IV iron ( - 11/02) Type 4 paraesophageal hernia -patient will likely need surgical repair; surgery recommended outpatient tx on last admission, pt left AMA -patient was optimized for surgery as per cardiology on last admission - No cardiovascular contraindication to the planned surgery as outpatient ECHO (10/15/17): LV is normal size, EF 60-65%, LV diastolic function is abnormal - Grade I abnormal relaxation pattern. Mild tricuspid regurgitation noted. CHF (diastolic dysfunction);chronic as per last ECHO (10/15/17): LV is normal size, EF 60-65%, LV diastolic function is abnormal - Grade I abnormal relaxation pattern. Mild tricuspid regurgitation noted. Metoprolol 50mg PO BID Cozaar 100mg PO Daily BPH Tamsulosin 0.8mg PO Daily Finasteride 5mg PO Daily Electrolyte Abnormality MG 1.6, repleted Prophylaxis Protonix Lovenox Heart Healthy Diet Jay Hargrove PGY-2 All management as per Dr. Radha Valadez <Manish Valadez - Last Filed: 11/01/17 13:26> Objective - Vital Signs/Intake and Output Vital Signs (last 24 hours): Temp Pulse Resp BP Pulse Ox 98.7 F 84 20 106/67 95 11/01/17 07:35 11/01/17 09:31 11/01/17 07:35 11/01/17 09:31 11/01/17 07:35 - Labs Labs: 10/30/17 06:46 10/30/17 06:46 PT 13.3 SECONDS (9.7-12.2) H 10/23/17 21:03 INR 1.2 10/23/17 21:03 APTT 29 SECONDS (21-34) 10/23/17 21:03 Assessment and Plan (1) Abdominal pain Status: Acute (2) Abdominal pain Status: Acute (3) Acute pansinusitis Status: Acute (4) Acute viral syndrome Status: Acute (5) Alcohol abuse Status: Acute (6) Alcohol intoxication Status: Acute (7) Alcohol intoxication Status: Acute (8) Alcohol withdrawal Status: Acute (9) Anemia Status: Acute (10) BPH (benign prostatic hyperplasia) Status: Acute (11) Dehydration Status: Acute (12) Depressed Status: Acute (13) Gastritis due to alcohol without hemorrhage Status: Acute (14) HTN (hypertension) Status: Acute (15) HTN (hypertension) Status: Acute (16) Hiatal hernia without gangrene and obstruction Status: Acute (17) Prophylactic measure Status: Acute (18) Renal insufficiency Status: Acute (19) Withdrawal symptoms, alcohol Status: Acute (20) Alcohol dependence Status: Chronic Attending/Attestation - Attestation I have personally seen and examined this patient.: Yes I have fully participated in the care of the patient.: Yes I have reviewed all pertinent clinical information, including history, physical exam and plan: Yes Notes (Text): Patient examined. Dr. Tirado consult done. Workup consistent with iron deficiency anemia. Will require GI evaluation with EGD/colonoscopy as an outpatient. Moxifloxacin started. Thiamine, multivitamin, folic acid and chlordiazepoxide. Oseltamivir for 7 days. Supportive care.
[2017-10-25] MEDS: Ferric Sodium Gluconat Complex 125 MG in Sodium Chloride 0.9% 100 ML IVPB SCH (12:07)
[2017-10-25 13:02] LABS: BASO # 0.1 K/uL (0.0-0.2); BASO % 1.3 % (0.0-2.0); EOS # 0.6 K/uL (0.0-0.7); EOS % 9.3 % (0.0-4.0); HEMATOCRIT 28.8 % (35.0-51.0); LYMPH # 1.5 K/uL (1.0-4.3); LYMPH % 24.4 % (20.0-40.0); MEAN CELL VOLUME 75.1 fL (80.0-94.0); MEAN CORPUSCULAR HEMOGLOBIN 22.4 pg (27.0-31.0); MEAN CORPUSCULAR HGB CONC 29.8 g/dL (33.0-37.0); MEAN PLATELET VOLUME 8.8 fL (7.2-11.7); MONO # 0.6 K/uL (0.0-0.8); MONO % 9.2 % (0.0-10.0); NRBC % 0.2 % (0.0-2.0); RED CELL DISTRIBUTION WIDTH 20.7 % (11.5-14.5); WHITE BLOOD COUNT 6.3 K/uL (4.8-10.8)
[2017-10-25 13:06] LABS: ALKALINE PHOSPHATASE 69 U/L (38-126); ALT/SGPT 39 U/L (21-72); AST/SGOT 21 U/L (17-59); BILIRUBIN,TOTAL 0.4 mg/dL (0.2-1.3); BLOOD UREA NITROGEN 14 mg/dL (9-20); CALCIUM 8.1 mg/dl (8.6-10.4); CARBON DIOXIDE 29 mmol/L (22-30); CHLORIDE 106 mmol/L (98-107); GFR AFRICAN-AMERICAN > 60; GLUCOSE,RANDOM 68 mg/dL (75-110); MAGNESIUM 1.6 mg/dL (1.6-2.3); PHOSPHOROUS 4.5 mg/dL (2.5-4.5); POTASSIUM 4.5 mmol/L (3.6-5.2); SODIUM 140 mmol/L (132-148)
[2017-10-25 13:10] LABS: ALB/GLOB RATIO 0.8 (1.0-2.1)
[2017-10-25] MEDS ORDERED: Magnesium Sulfate 1 gm in D5W 1 GM/100 ML BAG IVPB ONE (13:28)
[2017-10-25] MEDS: Ferric Sodium Gluconat Complex 62.5 mg/5 ml Vial IVPB SCH (13:41)
--- NOTE | 2017-10-25 14:24 | CT ---
HISTORY: Sinusitis. COMPARISON: Comparison made with CT scan of the brain dated 04/06/2016. TECHNIQUE: Contiguous helical/transaxial CT images of the paranasal sinuses were obtained. Coronal and sagittal reformats were generated. Radiation dose: Total exam DLP = mGy-cm. This CT exam was performed using one or more of the following dose reduction techniques: Automated exposure control, adjustment of the mA and/or kV according to patient size, and/or use of iterative reconstruction technique. . FINDINGS: The paranasal sinuses are well-developed. Re- demonstrated is complete opacification of the left maxillary sinus with sclerosis and thickening of the posterolateral wall consistent with chronic inflammation. There is mild mucosal thickening within the right maxillary antrum improved since prior exam. Sclerosis and thickening of the posterolateral and to a lesser degree anterolateral wall of the right maxillary antrum noted. Mild moderate mucosal thickening within the ethmoid air complex extending superiorly into the left aspect of the frontal sinus which is completely opacified. Minor mucosal thickening inferior margin right frontal sinus. There is also mild mucosal thickening within sphenoid sinus. The ostiomeatal complexes are occluded. Additionally, there is occlusion of the frontal recesses . Sphenoethmoidal recesses are patent. IMPRESSION: There is complete opacification of the left maxillary antrum and left chamber frontal sinus with moderate mucosal thickening ethmoid air complex thickening. There is also mild mucosal thickening right maxillary antrum and minor mucosal thickening in the sphenoid sinus the ostiomeatal complexes are occluded as are both frontal recesses
--- NOTE | 2017-10-25 19:44 | CP.PCM.PN ---
Subjective - Date & Time of Evaluation Date of Evaluation: 10/25/17 Time of Evaluation: 11:40 - Subjective Subjective: clinically same Objective - Vital Signs/Intake and Output Vital Signs (last 24 hours): Temp Pulse Resp BP Pulse Ox 98.3 F 80 20 125/79 95 10/25/17 16:00 10/25/17 18:19 10/25/17 16:00 10/25/17 18:19 10/25/17 16:00 Intake and Output: 10/25/17 10/26/17 18:59 06:59 Intake Total 700 Output Total 800 Balance -100 - Medications Medications: Current Medications Allopurinol (Zyloprim) 100 mg PO DAILY [facility] Last Admin: 10/25/17 10:38 Dose: 100 mg Chlordiazepoxide (Librium) 50 mg PO Q4H PRN PRN Reason: Agitation Enoxaparin Sodium (Lovenox) 40 mg SC DAILY [facility] Last Admin: 10/25/17 10:39 Dose: 40 mg Finasteride (Proscar) 5 mg PO DAILY [facility] Last Admin: 10/25/17 10:39 Dose: 5 mg Folic Acid (Folic Acid) 1 mg PO DAILY [facility] Last Admin: 10/25/17 10:39 Dose: 1 mg Moxifloxacin HCl (Avelox Iv 400mg/250ml Ns) 400 mg in 250 mls @ 167 mls/hr IVPB Q24H [facility] Last Admin: 10/24/17 23:09 Dose: 167 mls/hr Ferric Sodium Gluconate Complex 125 mg/ Sodium Chloride 110 mls @ 110 mls/hr IVPB DAILY [facility] Stop: 11/02/17 11:01 Last Admin: 10/25/17 12:07 Dose: 110 mls/hr Losartan Potassium (Cozaar) 100 mg PO DAILY [facility] Last Admin: 10/25/17 10:38 Dose: 100 mg Metoprolol Tartrate (Lopressor) 50 mg PO BID [facility] Last Admin: 10/25/17 18:19 Dose: 50 mg Multivitamins (Hexavitamin) 1 tab PO DAILY [facility] Last Admin: 10/25/17 10:39 Dose: 1 tab Naproxen (Anaprox Ds) 500 mg PO BID PRN PRN Reason: Pain, moderate (4-7) Last Admin: 10/23/17 20:18 Dose: 500 mg Oseltamivir Phosphate (Tamiflu Cap) 75 mg PO BID [facility] Stop: 10/29/17 22:47 Last Admin: 10/25/17 18:19 Dose: 75 mg Pantoprazole Sodium (Protonix Ec Tab) 40 mg PO DAILY [facility] Last Admin: 10/25/17 10:38 Dose: 40 mg Tamsulosin HCl (Flomax) 0.8 mg PO DAILY [facility] Last Admin: 10/25/17 10:38 Dose: 0.8 mg Thiamine HCl (Vitamin B1 Tab) 100 mg PO BID [facility] Last Admin: 10/25/17 18:18 Dose: 100 mg - Labs Labs: 10/25/17 12:53 10/25/17 12:53 PT 13.3 SECONDS (9.7-12.2) H 10/23/17 21:03 INR 1.2 10/23/17 21:03 APTT 29 SECONDS (21-34) 10/23/17 21:03 - Constitutional Appears: Well - Head Exam Head Exam: ATRAUMATIC, NORMAL INSPECTION, NORMOCEPHALIC - Eye Exam Eye Exam: EOMI, Normal appearance, PERRL Pupil Exam: NORMAL ACCOMODATION, PERRL - ENT Exam ENT Exam: Mucous Membranes Moist, Normal Exam - Neck Exam Neck Exam: Full ROM, Normal Inspection. absent: Lymphadenopathy - Respiratory Exam Respiratory Exam: Decreased Breath Sounds - Cardiovascular Exam Cardiovascular Exam: REGULAR RHYTHM, +S1, +S2 - GI/Abdominal Exam GI & Abdominal Exam: Soft, Diminished Bowel Sounds - Rectal Exam Rectal Exam: Deferred Assessment and Plan (1) Abdominal pain Status: Acute (2) Abdominal pain Status: Acute (3) Acute pansinusitis Status: Acute (4) Acute viral syndrome Status: Acute (5) Alcohol abuse Status: Acute (6) Alcohol intoxication Status: Acute (7) Alcohol intoxication Status: Acute (8) Alcohol withdrawal Status: Acute (9) Anemia Status: Acute (10) BPH (benign prostatic hyperplasia) Status: Acute (11) Dehydration Status: Acute (12) Depressed Status: Acute (13) Gastritis due to alcohol without hemorrhage Status: Acute (14) HTN (hypertension) Status: Acute (15) HTN (hypertension) Status: Acute (16) Hiatal hernia without gangrene and obstruction Status: Acute (17) Prophylactic measure Status: Acute (18) Renal insufficiency Status: Acute (19) Withdrawal symptoms, alcohol Status: Acute (20) Alcohol dependence Status: Chronic - Assessment and Plan (Free Text) Plan: Patient examined. CT of sinuses suggestive of complete opacification of the left maxillary antrum and left chamber of frontal sinus with moderate mucosal thickening of ethmoidal air complex. Mild mucosal thickening of the right maxillary antrum noted. Continue oseltamivir and moxifloxacin. Chlordiazepoxide. Thiamine, multivitamins and folic acid. Supportive care.
--- NOTE | 2017-10-25 20:50 | CP.PCM.PN ---
Subjective - Date & Time of Evaluation Date of Evaluation: 10/25/17 Time of Evaluation: 17:00 - Subjective Subjective: Feeling better Objective - Vital Signs/Intake and Output Vital Signs (last 24 hours): Temp Pulse Resp BP Pulse Ox 98.3 F 80 20 125/79 95 10/25/17 16:00 10/25/17 18:19 10/25/17 16:00 10/25/17 18:19 10/25/17 16:00 Intake and Output: 10/25/17 10/26/17 18:59 06:59 Intake Total 700 Output Total 800 Balance -100 - Medications Medications: Current Medications Allopurinol (Zyloprim) 100 mg PO DAILY [facility] Last Admin: 10/25/17 10:38 Dose: 100 mg Chlordiazepoxide (Librium) 50 mg PO Q4H PRN PRN Reason: Agitation Enoxaparin Sodium (Lovenox) 40 mg SC DAILY [facility] Last Admin: 10/25/17 10:39 Dose: 40 mg Finasteride (Proscar) 5 mg PO DAILY [facility] Last Admin: 10/25/17 10:39 Dose: 5 mg Folic Acid (Folic Acid) 1 mg PO DAILY [facility] Last Admin: 10/25/17 10:39 Dose: 1 mg Moxifloxacin HCl (Avelox Iv 400mg/250ml Ns) 400 mg in 250 mls @ 167 mls/hr IVPB Q24H [facility] Last Admin: 10/24/17 23:09 Dose: 167 mls/hr Ferric Sodium Gluconate Complex 125 mg/ Sodium Chloride 110 mls @ 110 mls/hr IVPB DAILY [facility] Stop: 11/02/17 11:01 Last Admin: 10/25/17 12:07 Dose: 110 mls/hr Losartan Potassium (Cozaar) 100 mg PO DAILY [facility] Last Admin: 10/25/17 10:38 Dose: 100 mg Metoprolol Tartrate (Lopressor) 50 mg PO BID [facility] Last Admin: 10/25/17 18:19 Dose: 50 mg Multivitamins (Hexavitamin) 1 tab PO DAILY [facility] Last Admin: 10/25/17 10:39 Dose: 1 tab Naproxen (Anaprox Ds) 500 mg PO BID PRN PRN Reason: Pain, moderate (4-7) Last Admin: 10/23/17 20:18 Dose: 500 mg Oseltamivir Phosphate (Tamiflu Cap) 75 mg PO BID [facility] Stop: 10/29/17 22:47 Last Admin: 10/25/17 18:19 Dose: 75 mg Pantoprazole Sodium (Protonix Ec Tab) 40 mg PO DAILY [facility] Last Admin: 10/25/17 10:38 Dose: 40 mg Tamsulosin HCl (Flomax) 0.8 mg PO DAILY [facility] Last Admin: 10/25/17 10:38 Dose: 0.8 mg Thiamine HCl (Vitamin B1 Tab) 100 mg PO BID [facility] Last Admin: 10/25/17 18:18 Dose: 100 mg - Labs Labs: 10/25/17 12:53 10/25/17 12:53 PT 13.3 SECONDS (9.7-12.2) H 10/23/17 21:03 INR 1.2 10/23/17 21:03 APTT 29 SECONDS (21-34) 10/23/17 21:03 - Head Exam Head Exam: ATRAUMATIC - Eye Exam Eye Exam: Normal appearance - ENT Exam ENT Exam: Mucous Membranes Dry - Respiratory Exam Respiratory Exam: NORMAL BREATHING PATTERN - Cardiovascular Exam Cardiovascular Exam: +S1, +S2 - GI/Abdominal Exam GI & Abdominal Exam: Normal Bowel Sounds Assessment and Plan (1) Anemia Assessment & Plan: work up consistent with iron deficiency anemia s/p PRBC transfusion will start IV iron will need GI evaluation for EGD/colonoscopy; can be done as outpatient if H/H stabilizes Status: Acute
[2017-10-25] MEDS: Moxifloxacin IV 400mg/250ml NS 400 MG/250 ML BAG IVPB SCH (22:26)
--- NOTE | 2017-10-25 23:03 | CP.PCM.PN ---
Subjective - Date & Time of Evaluation Date of Evaluation: 10/25/17 Time of Evaluation: 23:03 - Subjective Subjective: afebrile, Feeling much better Less myalgias. +ve nasal congestion. Still complains off abdominal pains, but no nausea vomiting or diarrhea. Objective - Vital Signs/Intake and Output Vital Signs (last 24 hours): Temp Pulse Resp BP Pulse Ox 98.3 F 80 20 125/79 95 10/25/17 16:00 10/25/17 18:19 10/25/17 16:00 10/25/17 18:19 10/25/17 16:00 Intake and Output: 10/25/17 10/26/17 18:59 06:59 Intake Total 700 Output Total 800 Balance -100 - Medications Medications: Current Medications Allopurinol (Zyloprim) 100 mg PO DAILY [facility] Last Admin: 10/25/17 10:38 Dose: 100 mg Chlordiazepoxide (Librium) 50 mg PO Q4H PRN PRN Reason: Agitation Enoxaparin Sodium (Lovenox) 40 mg SC DAILY [facility] Last Admin: 10/25/17 10:39 Dose: 40 mg Finasteride (Proscar) 5 mg PO DAILY [facility] Last Admin: 10/25/17 10:39 Dose: 5 mg Folic Acid (Folic Acid) 1 mg PO DAILY [facility] Last Admin: 10/25/17 10:39 Dose: 1 mg Moxifloxacin HCl (Avelox Iv 400mg/250ml Ns) 400 mg in 250 mls @ 167 mls/hr IVPB Q24H [facility] Last Admin: 10/25/17 22:26 Dose: 167 mls/hr Ferric Sodium Gluconate Complex 125 mg/ Sodium Chloride 110 mls @ 110 mls/hr IVPB DAILY [facility] Stop: 11/02/17 11:01 Last Admin: 10/25/17 12:07 Dose: 110 mls/hr Losartan Potassium (Cozaar) 100 mg PO DAILY [facility] Last Admin: 10/25/17 10:38 Dose: 100 mg Metoprolol Tartrate (Lopressor) 50 mg PO BID [facility] Last Admin: 10/25/17 18:19 Dose: 50 mg Multivitamins (Hexavitamin) 1 tab PO DAILY [facility] Last Admin: 10/25/17 10:39 Dose: 1 tab Naproxen (Anaprox Ds) 500 mg PO BID PRN PRN Reason: Pain, moderate (4-7) Last Admin: 10/23/17 20:18 Dose: 500 mg Oseltamivir Phosphate (Tamiflu Cap) 75 mg PO BID [facility] Stop: 10/29/17 22:47 Last Admin: 10/25/17 18:19 Dose: 75 mg Pantoprazole Sodium (Protonix Ec Tab) 40 mg PO DAILY [facility] Last Admin: 10/25/17 10:38 Dose: 40 mg Tamsulosin HCl (Flomax) 0.8 mg PO DAILY [facility] Last Admin: 10/25/17 10:38 Dose: 0.8 mg Thiamine HCl (Vitamin B1 Tab) 100 mg PO BID [facility] Last Admin: 10/25/17 18:18 Dose: 100 mg - Labs Labs: 10/25/17 12:53 10/25/17 12:53 PT 13.3 SECONDS (9.7-12.2) H 10/23/17 21:03 INR 1.2 10/23/17 21:03 APTT 29 SECONDS (21-34) 10/23/17 21:03 - Constitutional Appears: No Acute Distress - Head Exam Head Exam: NORMAL INSPECTION - Eye Exam Eye Exam: EOMI, PERRL - ENT Exam ENT Exam: Normal Oropharynx - Neck Exam Neck Exam: Normal Inspection. absent: Meningismus - Respiratory Exam Respiratory Exam: Clear to Ausculation Bilateral, NORMAL BREATHING PATTERN - Cardiovascular Exam Cardiovascular Exam: REGULAR RHYTHM, +S1, +S2 - GI/Abdominal Exam GI & Abdominal Exam: Soft, Tenderness (epigastric and upper quadrants.), Normal Bowel Sounds. absent: Organomegaly, Rebound - Extremities Exam Extremities Exam: Normal Capillary Refill, Pedal Edema. absent: Calf Tenderness - Neurological Exam Neurological Exam: Awake, CN II-XII Intact, Oriented x3 - Psychiatric Exam Psychiatric exam: Normal Mood - Skin Skin Exam: Normal Color, Warm Assessment and Plan (1) Acute pansinusitis Assessment & Plan: CT sinuse-10/25/17 Complete opacification of left maxillary antrum/left frontal sinus with thickening of ethmoid air complex thickening. Also mild mucosal thickening of right maxillary antrum sphenoid sinus/osteomeatal complexes are excluded. ( see full report ) Continue IV Avelox 400 mg once a day daily.10/24/17. CAN SWITCH TO BY MOUTH ONCE ABDOMINAL PAIN RESOLVED. ENT EVALUATION IF OK WITH PMD. Status: Acute (2) Acute viral syndrome Assessment & Plan: CONTINUE BY MOUTH TAMIFLU 75 MG TWICE A DAY FOR 5 DAYS. F/U INFLUENZA a AND b SEROLOGY. Status: Acute (3) Abdominal pain Assessment & Plan: GI WORKUP /?SURGERY EVAL FOR LARGE PARA-ESOPHAGEAL HERNIA. Status: Acute (4) Alcohol abuse Assessment & Plan: PSYCH ON BOARD. Status: Acute (5) Anemia Assessment & Plan: PER HEMATOLOGY. Status: Acute (6) Hiatal hernia without gangrene and obstruction Status: Acute (7) Alcohol dependence Status: Chronic
--- NOTE | 2017-10-26 09:40 | CP.PCM.PN ---
<Jaime Zhang - Last Filed: 10/26/17 13:59> Subjective - Date & Time of Evaluation Date of Evaluation: 10/26/17 Time of Evaluation: 09:39 - Subjective Subjective: PGY2 Medicine Note for Dr. Radha Valadez; all management as per Dr. Radha Valadez Patient seen and examined at bedside; reports improved nasal congestion although still has trouble breathing through nose; denies any other symptoms; denies fevers/chills, IRWIN, CP, SOb, abdominal pain, N/V/d, tremors, dysuria/freq/ urg, or lower extremity pain. Objective - Vital Signs/Intake and Output Vital Signs (last 24 hours): Temp Pulse Resp BP Pulse Ox 98.4 F 84 20 133/81 97 10/26/17 07:55 10/26/17 07:55 10/26/17 07:55 10/26/17 07:55 10/26/17 07:55 Intake and Output: 10/26/17 10/26/17 06:59 18:59 Intake Total 500 Output Total 750 Balance -250 - Medications Medications: Current Medications Allopurinol (Zyloprim) 100 mg PO DAILY [facility] Last Admin: 10/25/17 10:38 Dose: 100 mg Chlordiazepoxide (Librium) 50 mg PO Q4H PRN PRN Reason: Agitation Enoxaparin Sodium (Lovenox) 40 mg SC DAILY [facility] Last Admin: 10/25/17 10:39 Dose: 40 mg Finasteride (Proscar) 5 mg PO DAILY [facility] Last Admin: 10/25/17 10:39 Dose: 5 mg Fluticasone Propionate (Flonase) 2 spr ULISES Q3H [facility] Folic Acid (Folic Acid) 1 mg PO DAILY [facility] Last Admin: 10/25/17 10:39 Dose: 1 mg Moxifloxacin HCl (Avelox Iv 400mg/250ml Ns) 400 mg in 250 mls @ 167 mls/hr IVPB Q24H [facility] Last Admin: 10/25/17 22:26 Dose: 167 mls/hr Ferric Sodium Gluconate Complex 125 mg/ Sodium Chloride 110 mls @ 110 mls/hr IVPB DAILY [facility] Stop: 11/02/17 11:01 Last Admin: 10/25/17 12:07 Dose: 110 mls/hr Losartan Potassium (Cozaar) 100 mg PO DAILY [facility] Last Admin: 10/25/17 10:38 Dose: 100 mg Metoprolol Tartrate (Lopressor) 50 mg PO BID [facility] Last Admin: 10/25/17 18:19 Dose: 50 mg Multivitamins (Hexavitamin) 1 tab PO DAILY [facility] Last Admin: 10/25/17 10:39 Dose: 1 tab Naproxen (Anaprox Ds) 500 mg PO BID PRN PRN Reason: Pain, moderate (4-7) Last Admin: 10/23/17 20:18 Dose: 500 mg Oseltamivir Phosphate (Tamiflu Cap) 75 mg PO BID [facility] Stop: 10/29/17 22:47 Last Admin: 10/25/17 18:19 Dose: 75 mg Pantoprazole Sodium (Protonix Ec Tab) 40 mg PO DAILY [facility] Last Admin: 10/25/17 10:38 Dose: 40 mg Tamsulosin HCl (Flomax) 0.8 mg PO DAILY [facility] Last Admin: 10/25/17 10:38 Dose: 0.8 mg Thiamine HCl (Vitamin B1 Tab) 100 mg PO BID [facility] Last Admin: 10/25/17 18:18 Dose: 100 mg - Labs Labs: 10/25/17 12:53 10/25/17 12:53 PT 13.3 SECONDS (9.7-12.2) H 10/23/17 21:03 INR 1.2 10/23/17 21:03 APTT 29 SECONDS (21-34) 10/23/17 21:03 - Constitutional Appears: Non-toxic - Eye Exam Eye Exam: EOMI - ENT Exam ENT Exam: Mucous Membranes Moist - Neck Exam Neck Exam: Full ROM - Respiratory Exam Respiratory Exam: Clear to Ausculation Bilateral, NORMAL BREATHING PATTERN. absent: Rales, Rhonchi, Wheezes - Cardiovascular Exam Cardiovascular Exam: REGULAR RHYTHM, +S1, +S2 - GI/Abdominal Exam GI & Abdominal Exam: Soft, Normal Bowel Sounds - Extremities Exam Extremities Exam: Full ROM, Pedal Edema. absent: Calf Tenderness - Back Exam Back Exam: absent: CVA tenderness (L), CVA tenderness (R) - Neurological Exam Neurological Exam: Alert, Awake, Oriented x3 - Psychiatric Exam Psychiatric exam: Normal Affect - Skin Skin Exam: Warm Assessment and Plan - Assessment and Plan (Free Text) Assessment: EtOH Withdrawal;resolved Alcohol level: < 10 on admission -Thiamine/Folate/MV daily - Librium PRN -once stable patient can be d/c home/to outpatient rehab as per psych on previous admission; he does not meet inpatient criteria -patient is not in DT/having seizures/actively withdrawing -patient is tolerating PO - lipase 73 Myalgia/Congestion Pt afebrile, No WBC Dr. 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 Tirado, help appreciated - start IV iron ( - 11/02) Type 4 paraesophageal hernia -patient will likely need surgical repair; surgery recommended outpatient tx on last admission, pt left AMA -patient was optimized for surgery as per cardiology on last admission - No cardiovascular contraindication to the planned surgery as outpatient ECHO (10/15/17): LV is normal size, EF 60-65%, LV diastolic function is abnormal - Grade I abnormal relaxation pattern. Mild tricuspid regurgitation noted. CHF (diastolic dysfunction);chronic as per last ECHO (10/15/17): LV is normal size, EF 60-65%, LV diastolic function is abnormal - Grade I abnormal relaxation pattern. Mild tricuspid regurgitation noted. Metoprolol 50mg PO BID Cozaar 100mg PO Daily BPH Tamsulosin 0.8mg PO Daily Finasteride 5mg PO Daily Electrolyte Abnormality MG 1.6, repleted Prophylaxis Protonix Lovenox Heart Healthy Diet Dispo: once patient has been out of EtOH withdrawal for the day he can be d/c home can take augmentin 875mg PO BID for a total of 10 days Flonase as needed Sodium Chloride/Salt water Sprays as needed as well +/- Netti Pot All management as per Dr. Radha Valadez <Manish Valadez - Last Filed: 11/01/17 13:31> Objective - Vital Signs/Intake and Output Vital Signs (last 24 hours): Temp Pulse Resp BP Pulse Ox 98.7 F 84 20 106/67 95 11/01/17 07:35 11/01/17 09:31 11/01/17 07:35 11/01/17 09:31 11/01/17 07:35 - Labs Labs: 10/30/17 06:46 10/30/17 06:46 PT 13.3 SECONDS (9.7-12.2) H 10/23/17 21:03 INR 1.2 10/23/17 21:03 APTT 29 SECONDS (21-34) 10/23/17 21:03 Assessment and Plan (1) Abdominal pain Status: Acute (2) Abdominal pain Status: Acute (3) Acute pansinusitis Status: Acute (4) Acute viral syndrome Status: Acute (5) Alcohol abuse Status: Acute (6) Alcohol intoxication Status: Acute (7) Alcohol intoxication Status: Acute (8) Alcohol withdrawal Status: Acute (9) Anemia Status: Acute (10) BPH (benign prostatic hyperplasia) Status: Acute (11) Dehydration Status: Acute (12) Depressed Status: Acute (13) Gastritis due to alcohol without hemorrhage Status: Acute (14) HTN (hypertension) Status: Acute (15) HTN (hypertension) Status: Acute (16) Hiatal hernia without gangrene and obstruction Status: Acute (17) Prophylactic measure Status: Acute (18) Renal insufficiency Status: Acute (19) Withdrawal symptoms, alcohol Status: Acute (20) Alcohol dependence Status: Chronic Attending/Attestation - Attestation I have personally seen and examined this patient.: Yes I have fully participated in the care of the patient.: Yes I have reviewed all pertinent clinical information, including history, physical exam and plan: Yes Notes (Text): Patient examined. Condition still present. Mildly reduced. Overall patient is feeling better. Continue oseltamivir and moxifloxacin. Chlordiazepoxide, thiamine, folic acid and multivitamins stop Supportive care.
[2017-10-26] MEDS: Fluticasone Nasal 50 mcg/Spray NAS SCH ×2 (10:00→18:09)
[2017-10-26] MEDS ORDERED: Influenza Vaccine 60 mcg/0.5 mL SYR (4YR UP) IM ONE (10:00)
[2017-10-26] MEDS: Pantoprazole 40 mg EC Tab PO SCH (10:31)
[2017-10-26] MEDS: Multiple Vitamins Tab PO SCH (10:31)
[2017-10-26] MEDS: Ferric Sodium Gluconat Complex 125 MG in Sodium Chloride 0.9% 100 ML IVPB SCH (10:31)
[2017-10-26] MEDS: Enoxaparin 40 mg Syringe SC SCH (10:32)
--- NOTE | 2017-10-26 17:42 | CP.PCM.PN ---
Subjective - Date & Time of Evaluation Date of Evaluation: 10/26/17 Time of Evaluation: 10:20 - Subjective Subjective: clinically same Objective - Vital Signs/Intake and Output Vital Signs (last 24 hours): Temp Pulse Resp BP Pulse Ox 98.4 F 84 20 133/81 97 10/26/17 07:55 10/26/17 07:55 10/26/17 07:55 10/26/17 07:55 10/26/17 07:55 Intake and Output: 10/26/17 10/26/17 06:59 18:59 Intake Total 500 650 Output Total 750 700 Balance -250 -50 - Medications Medications: Current Medications Allopurinol (Zyloprim) 100 mg PO DAILY [facility] Last Admin: 10/26/17 10:31 Dose: 100 mg Chlordiazepoxide (Librium) 50 mg PO Q4H PRN PRN Reason: Agitation Enoxaparin Sodium (Lovenox) 40 mg SC DAILY [facility] Last Admin: 10/26/17 10:32 Dose: 40 mg Finasteride (Proscar) 5 mg PO DAILY [facility] Last Admin: 10/26/17 10:31 Dose: 5 mg Fluticasone Propionate (Flonase) 0 spr ULISES BID [facility] Last Admin: 10/26/17 10:00 Dose: Not Given Folic Acid (Folic Acid) 1 mg PO DAILY [facility] Last Admin: 10/26/17 10:31 Dose: 1 mg Moxifloxacin HCl (Avelox Iv 400mg/250ml Ns) 400 mg in 250 mls @ 167 mls/hr IVPB Q24H [facility] Last Admin: 10/25/17 22:26 Dose: 167 mls/hr Ferric Sodium Gluconate Complex 125 mg/ Sodium Chloride 110 mls @ 110 mls/hr IVPB DAILY [facility] Stop: 11/02/17 11:01 Last Admin: 10/26/17 10:31 Dose: 110 mls/hr Losartan Potassium (Cozaar) 100 mg PO DAILY [facility] Last Admin: 10/26/17 10:32 Dose: 100 mg Metoprolol Tartrate (Lopressor) 50 mg PO BID [facility] Last Admin: 10/26/17 10:31 Dose: 50 mg Multivitamins (Hexavitamin) 1 tab PO DAILY [facility] Last Admin: 10/26/17 10:31 Dose: 1 tab Naproxen (Anaprox Ds) 500 mg PO BID PRN PRN Reason: Pain, moderate (4-7) Last Admin: 10/23/17 20:18 Dose: 500 mg Oseltamivir Phosphate (Tamiflu Cap) 75 mg PO BID [facility] Stop: 10/29/17 22:47 Last Admin: 10/26/17 10:32 Dose: 75 mg Pantoprazole Sodium (Protonix Ec Tab) 40 mg PO DAILY [facility] Last Admin: 10/26/17 10:31 Dose: 40 mg Tamsulosin HCl (Flomax) 0.8 mg PO DAILY [facility] Last Admin: 10/26/17 10:31 Dose: 0.8 mg Thiamine HCl (Vitamin B1 Tab) 100 mg PO BID [facility] Last Admin: 10/26/17 10:31 Dose: 100 mg - Labs Labs: 10/25/17 12:53 10/25/17 12:53 PT 13.3 SECONDS (9.7-12.2) H 10/23/17 21:03 INR 1.2 10/23/17 21:03 APTT 29 SECONDS (21-34) 10/23/17 21:03 - Constitutional Appears: Well - Head Exam Head Exam: ATRAUMATIC, NORMAL INSPECTION, NORMOCEPHALIC - Eye Exam Eye Exam: EOMI, Normal appearance, PERRL Pupil Exam: NORMAL ACCOMODATION, PERRL - ENT Exam ENT Exam: Mucous Membranes Moist, Normal Exam - Neck Exam Neck Exam: Full ROM, Normal Inspection. absent: Lymphadenopathy - Respiratory Exam Respiratory Exam: Clear to Ausculation Bilateral, NORMAL BREATHING PATTERN - Cardiovascular Exam Cardiovascular Exam: REGULAR RHYTHM, +S1, +S2. absent: Murmur - GI/Abdominal Exam GI & Abdominal Exam: Soft, Normal Bowel Sounds. absent: Tenderness - Rectal Exam Rectal Exam: Deferred Assessment and Plan (1) Abdominal pain Status: Acute (2) Abdominal pain Status: Acute (3) Acute pansinusitis Status: Acute (4) Acute viral syndrome Status: Acute (5) Alcohol abuse Status: Acute (6) Alcohol intoxication Status: Acute (7) Alcohol intoxication Status: Acute (8) Alcohol withdrawal Status: Acute (9) Anemia Status: Acute (10) BPH (benign prostatic hyperplasia) Status: Acute (11) Dehydration Status: Acute (12) Depressed Status: Acute (13) Gastritis due to alcohol without hemorrhage Status: Acute (14) HTN (hypertension) Status: Acute (15) HTN (hypertension) Status: Acute (16) Hiatal hernia without gangrene and obstruction Status: Acute (17) Prophylactic measure Status: Acute (18) Renal insufficiency Status: Acute (19) Withdrawal symptoms, alcohol Status: Acute (20) Alcohol dependence Status: Chronic - Assessment and Plan (Free Text) Plan: Patient examined. Patient states he has mild abdominal discomfort. Continue antibiotics moxifloxacin and oseltamivir. Chlordiazepoxide and thiamine. Multivitamins, metoprolol and losartan. Supportive care.
--- NOTE | 2017-10-26 21:26 | CP.PCM.PN ---
Subjective - Date & Time of Evaluation Date of Evaluation: 10/26/17 Time of Evaluation: 16:00 - Subjective Subjective: Has abdominal discomfort Objective - Vital Signs/Intake and Output Vital Signs (last 24 hours): Temp Pulse Resp BP Pulse Ox 98.1 F 67 20 123/79 95 10/26/17 15:00 10/26/17 15:00 10/26/17 15:00 10/26/17 15:00 10/26/17 15:00 Intake and Output: 10/26/17 10/27/17 18:59 06:59 Intake Total 650 Output Total 700 Balance -50 - Medications Medications: Current Medications Allopurinol (Zyloprim) 100 mg PO DAILY [facility] Last Admin: 10/26/17 10:31 Dose: 100 mg Chlordiazepoxide (Librium) 50 mg PO Q4H PRN PRN Reason: Agitation Enoxaparin Sodium (Lovenox) 40 mg SC DAILY [facility] Last Admin: 10/26/17 10:32 Dose: 40 mg Finasteride (Proscar) 5 mg PO DAILY [facility] Last Admin: 10/26/17 10:31 Dose: 5 mg Fluticasone Propionate (Flonase) 0 spr ULISES BID [facility] Last Admin: 10/26/17 18:09 Dose: 1 spray Folic Acid (Folic Acid) 1 mg PO DAILY [facility] Last Admin: 10/26/17 10:31 Dose: 1 mg Moxifloxacin HCl (Avelox Iv 400mg/250ml Ns) 400 mg in 250 mls @ 167 mls/hr IVPB Q24H [facility] Last Admin: 10/25/17 22:26 Dose: 167 mls/hr Ferric Sodium Gluconate Complex 125 mg/ Sodium Chloride 110 mls @ 110 mls/hr IVPB DAILY [facility] Stop: 11/02/17 11:01 Last Admin: 10/26/17 10:31 Dose: 110 mls/hr Losartan Potassium (Cozaar) 100 mg PO DAILY [facility] Last Admin: 10/26/17 10:32 Dose: 100 mg Metoprolol Tartrate (Lopressor) 50 mg PO BID [facility] Last Admin: 10/26/17 18:09 Dose: 50 mg Multivitamins (Hexavitamin) 1 tab PO DAILY [facility] Last Admin: 10/26/17 10:31 Dose: 1 tab Naproxen (Anaprox Ds) 500 mg PO BID PRN PRN Reason: Pain, moderate (4-7) Last Admin: 10/23/17 20:18 Dose: 500 mg Oseltamivir Phosphate (Tamiflu Cap) 75 mg PO BID [facility] Stop: 10/29/17 22:47 Last Admin: 10/26/17 18:09 Dose: 75 mg Pantoprazole Sodium (Protonix Ec Tab) 40 mg PO DAILY [facility] Last Admin: 10/26/17 10:31 Dose: 40 mg Tamsulosin HCl (Flomax) 0.8 mg PO DAILY [facility] Last Admin: 10/26/17 10:31 Dose: 0.8 mg Thiamine HCl (Vitamin B1 Tab) 100 mg PO BID [facility] Last Admin: 10/26/17 18:10 Dose: 100 mg - Labs Labs: 10/25/17 12:53 10/25/17 12:53 PT 13.3 SECONDS (9.7-12.2) H 10/23/17 21:03 INR 1.2 10/23/17 21:03 APTT 29 SECONDS (21-34) 10/23/17 21:03 - Head Exam Head Exam: ATRAUMATIC - Eye Exam Eye Exam: Normal appearance - ENT Exam ENT Exam: Mucous Membranes Dry - Respiratory Exam Respiratory Exam: NORMAL BREATHING PATTERN - Cardiovascular Exam Cardiovascular Exam: +S1, +S2 - GI/Abdominal Exam GI & Abdominal Exam: Normal Bowel Sounds Assessment and Plan (1) Anemia Assessment & Plan: work up consistent with iron deficiency anemia s/p PRBC transfusion will start IV iron will need GI evaluation for EGD/colonoscopy; can be done as outpatient if H/H stabilizes Status: Acute
[2017-10-26] MEDS: Moxifloxacin IV 400mg/250ml NS 400 MG/250 ML BAG IVPB SCH (22:06)
--- NOTE | 2017-10-27 07:12 | CP.PCM.PN ---
<Maurice Serrano - Last Filed: 10/27/17 10:58> Subjective - Date & Time of Evaluation Date of Evaluation: 10/27/17 Time of Evaluation: 09:25 - Subjective Subjective: Medicine note- Dr. Valadez's service Patient was seen and examined at bedside. Patient reports that he does not feel well. Patient states he is tolerating a liquid diet and is trying to tolerate more solid food. He denies any nausea, vomiting, fevers, chills. No events overnight, per nursing. Objective - Vital Signs/Intake and Output Vital Signs (last 24 hours): Temp Pulse Resp BP Pulse Ox 98.1 F 61 20 123/79 95 10/26/17 15:00 10/27/17 04:50 10/26/17 15:00 10/26/17 15:00 10/26/17 15:00 Intake and Output: 10/27/17 10/27/17 06:59 18:59 Intake Total 700 Balance 700 - Medications Medications: Current Medications Allopurinol (Zyloprim) 100 mg PO DAILY [facility] Last Admin: 10/26/17 10:31 Dose: 100 mg Chlordiazepoxide (Librium) 50 mg PO Q4H PRN PRN Reason: Agitation Enoxaparin Sodium (Lovenox) 40 mg SC DAILY [facility] Last Admin: 10/26/17 10:32 Dose: 40 mg Finasteride (Proscar) 5 mg PO DAILY [facility] Last Admin: 10/26/17 10:31 Dose: 5 mg Fluticasone Propionate (Flonase) 0 spr ULISES BID [facility] Last Admin: 10/26/17 18:09 Dose: 1 spray Folic Acid (Folic Acid) 1 mg PO DAILY [facility] Last Admin: 10/26/17 10:31 Dose: 1 mg Moxifloxacin HCl (Avelox Iv 400mg/250ml Ns) 400 mg in 250 mls @ 167 mls/hr IVPB Q24H [facility] Last Admin: 10/26/17 22:06 Dose: 167 mls/hr Ferric Sodium Gluconate Complex 125 mg/ Sodium Chloride 110 mls @ 110 mls/hr IVPB DAILY [facility] Stop: 11/02/17 11:01 Last Admin: 10/26/17 10:31 Dose: 110 mls/hr Losartan Potassium (Cozaar) 100 mg PO DAILY [facility] Last Admin: 12/14/17 10:32 Dose: 100 mg Metoprolol Tartrate (Lopressor) 50 mg PO BID [facility] Last Admin: 10/26/17 18:09 Dose: 50 mg Multivitamins (Hexavitamin) 1 tab PO DAILY [facility] Last Admin: 10/26/17 10:31 Dose: 1 tab Naproxen (Anaprox Ds) 500 mg PO BID PRN PRN Reason: Pain, moderate (4-7) Last Admin: 10/23/17 20:18 Dose: 500 mg Oseltamivir Phosphate (Tamiflu Cap) 75 mg PO BID [facility] Stop: 10/29/17 22:47 Last Admin: 10/26/17 18:09 Dose: 75 mg Pantoprazole Sodium (Protonix Ec Tab) 40 mg PO DAILY [facility] Last Admin: 10/26/17 10:31 Dose: 40 mg Tamsulosin HCl (Flomax) 0.8 mg PO DAILY [facility] Last Admin: 10/26/17 10:31 Dose: 0.8 mg Thiamine HCl (Vitamin B1 Tab) 100 mg PO BID [facility] Last Admin: 10/26/17 18:10 Dose: 100 mg - Labs Labs: 10/25/17 12:53 10/25/17 12:53 PT 13.3 SECONDS (9.7-12.2) H 10/23/17 21:03 INR 1.2 10/23/17 21:03 APTT 29 SECONDS (21-34) 10/23/17 21:03 - Constitutional Appears: Non-toxic, No Acute Distress - Head Exam Head Exam: ATRAUMATIC, NORMAL INSPECTION, NORMOCEPHALIC - Eye Exam Pupil Exam: NORMAL ACCOMODATION - ENT Exam ENT Exam: Mucous Membranes Moist - Respiratory Exam Respiratory Exam: Clear to Ausculation Bilateral, NORMAL BREATHING PATTERN. absent: Rhonchi, Wheezes - Cardiovascular Exam Cardiovascular Exam: REGULAR RHYTHM, +S1, +S2 - GI/Abdominal Exam GI & Abdominal Exam: Soft, Tenderness, Normal Bowel Sounds. absent: Guarding, Diminished Bowel Sounds, Hypoactive Bowel Sounds - Extremities Exam Extremities Exam: Normal Capillary Refill, Normal Inspection - Neurological Exam Neurological Exam: Alert, Awake, Oriented x3 - Psychiatric Exam Psychiatric exam: Normal Affect, Normal Mood - Skin Skin Exam: Dry, Intact, Normal Color, Warm Assessment and Plan - Assessment and Plan (Free Text) Assessment: EtOH Withdrawal;resolved Alcohol level: < 10 on admission -Thiamine/Folate/MV daily - Librium PRN -once stable patient can be d/c home/to outpatient rehab as per psych on previous admission; he does not meet inpatient criteria -patient is not in DT/having seizures/actively withdrawing -patient is tolerating PO - lipase 73 Myalgia/Congestion Pt afebrile, No WBC Dr. 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 Tirado, help appreciated - start IV iron ( - 11/02) Type 4 paraesophageal hernia -patient will likely need surgical repair; surgery recommended outpatient tx on last admission, pt left AMA -patient was optimized for surgery as per cardiology on last admission - No cardiovascular contraindication to the planned surgery as outpatient ECHO (10/15/17): LV is normal size, EF 60-65%, LV diastolic function is abnormal - Grade I abnormal relaxation pattern. Mild tricuspid regurgitation noted. CHF (diastolic dysfunction);chronic as per last ECHO (10/15/17): LV is normal size, EF 60-65%, LV diastolic function is abnormal - Grade I abnormal relaxation pattern. Mild tricuspid regurgitation noted. Metoprolol 50mg PO BID Cozaar 100mg PO Daily BPH Tamsulosin 0.8mg PO Daily Finasteride 5mg PO Daily Electrolyte Abnormality MG 1.6, repleted Prophylaxis Protonix Lovenox Heart Healthy Diet Dispo: once patient has been out of EtOH withdrawal for the day he can be d/c home can take augmentin 875mg PO BID for a total of 10 days Flonase as needed Sodium Chloride/Salt water Sprays as needed as well +/- Netti Pot All management as per Dr. Radha Valadez <Manish Valadez - Last Filed: 11/01/17 13:35> Objective - Vital Signs/Intake and Output Vital Signs (last 24 hours): Temp Pulse Resp BP Pulse Ox 98.7 F 84 20 106/67 95 11/01/17 07:35 11/01/17 09:31 11/01/17 07:35 11/01/17 09:31 11/01/17 07:35 - Labs Labs: 10/30/17 06:46 10/30/17 06:46 PT 13.3 SECONDS (9.7-12.2) H 10/23/17 21:03 INR 1.2 10/23/17 21:03 APTT 29 SECONDS (21-34) 10/23/17 21:03 Assessment and Plan (1) Abdominal pain Status: Acute (2) Abdominal pain Status: Acute (3) Acute pansinusitis Status: Acute (4) Acute viral syndrome Status: Acute (5) Alcohol abuse Status: Acute (6) Alcohol intoxication Status: Acute (7) Alcohol intoxication Status: Acute (8) Alcohol withdrawal Status: Acute (9) Anemia Status: Acute (10) BPH (benign prostatic hyperplasia) Status: Acute (11) Dehydration Status: Acute (12) Depressed Status: Acute (13) Gastritis due to alcohol without hemorrhage Status: Acute (14) HTN (hypertension) Status: Acute (15) HTN (hypertension) Status: Acute (16) Hiatal hernia without gangrene and obstruction Status: Acute (17) Prophylactic measure Status: Acute (18) Renal insufficiency Status: Acute (19) Withdrawal symptoms, alcohol Status: Acute (20) Alcohol dependence Status: Chronic Attending/Attestation - Attestation I have personally seen and examined this patient.: Yes I have fully participated in the care of the patient.: Yes I have reviewed all pertinent clinical information, including history, physical exam and plan: Yes Notes (Text): Patient examined. Patient is slightly uncomfortable. Continue antibiotic moxifloxacin and oseltamivir. Metoprolol, losartan. Chlordiazepoxide, thiamine, folic acid, iron and multivitamins. Supportive care.
[2017-10-27 07:54] LABS: BASO # 0.1 K/uL (0.0-0.2); BASO % 1.3 % (0.0-2.0); EOS # 0.4 K/uL (0.0-0.7); EOS % 5.5 % (0.0-4.0); HEMATOCRIT 30.2 % (35.0-51.0); LYMPH % 27.9 % (20.0-40.0); MEAN CELL VOLUME 75.5 fL (80.0-94.0); MEAN CORPUSCULAR HEMOGLOBIN 22.9 pg (27.0-31.0); MEAN CORPUSCULAR HGB CONC 30.3 g/dL (33.0-37.0); MEAN PLATELET VOLUME 8.4 fL (7.2-11.7); MONO # 0.9 K/uL (0.0-0.8); MONO % 12.3 % (0.0-10.0); NRBC % 0.3 % (0.0-2.0); RED CELL DISTRIBUTION WIDTH 21.2 % (11.5-14.5); WHITE BLOOD COUNT 7.1 K/uL (4.8-10.8)
[2017-10-27 08:09] LABS: ALKALINE PHOSPHATASE 67 U/L (38-126); ALT/SGPT 40 U/L (21-72); AST/SGOT 22 U/L (17-59); BILIRUBIN,TOTAL 0.4 mg/dL (0.2-1.3); BLOOD UREA NITROGEN 13 mg/dL (9-20); CALCIUM 8.3 mg/dl (8.6-10.4); CARBON DIOXIDE 29 mmol/L (22-30); CHLORIDE 104 mmol/L (98-107); GFR AFRICAN-AMERICAN > 60; GLUCOSE,RANDOM 70 mg/dL (75-110); MAGNESIUM 1.6 mg/dL (1.6-2.3); PHOSPHOROUS 4.9 mg/dL (2.5-4.5); POTASSIUM 4.1 mmol/L (3.6-5.2); SODIUM 138 mmol/L (132-148)
[2017-10-27 08:11] LABS: ALB/GLOB RATIO 1.1 (1.0-2.1)
[2017-10-27] MEDS: Pantoprazole 40 mg EC Tab PO SCH (11:47)
[2017-10-27] MEDS: Multiple Vitamins Tab PO SCH (11:48)
[2017-10-27] MEDS: Fluticasone Nasal 50 mcg/Spray NAS SCH ×2 (11:48→17:38)
[2017-10-27] MEDS: Enoxaparin 40 mg Syringe SC SCH (11:49)
[2017-10-27] MEDS: Ferric Sodium Gluconat Complex 125 MG in Sodium Chloride 0.9% 100 ML IVPB SCH (13:49)
--- NOTE | 2017-10-27 19:32 | CP.PCM.PN ---
Subjective - Date & Time of Evaluation Date of Evaluation: 10/27/17 Time of Evaluation: 09:20 - Subjective Subjective: clinically same Objective - Vital Signs/Intake and Output Vital Signs (last 24 hours): Temp Pulse Resp BP Pulse Ox 98.2 F 75 18 125/82 95 10/27/17 16:00 10/27/17 16:00 10/27/17 16:00 10/27/17 16:00 10/27/17 16:00 Intake and Output: 10/27/17 10/28/17 18:59 06:59 Intake Total 700 Output Total 1000 Balance -300 - Medications Medications: Current Medications Allopurinol (Zyloprim) 100 mg PO DAILY [facility] Last Admin: 10/27/17 11:48 Dose: 100 mg Chlordiazepoxide (Librium) 50 mg PO Q4H PRN PRN Reason: Agitation Enoxaparin Sodium (Lovenox) 40 mg SC DAILY [facility] Last Admin: 10/27/17 11:49 Dose: 40 mg Finasteride (Proscar) 5 mg PO DAILY [facility] Last Admin: 10/27/17 11:48 Dose: 5 mg Fluticasone Propionate (Flonase) 0 spr ULISES BID [facility] Last Admin: 10/27/17 17:38 Dose: 1 spray Folic Acid (Folic Acid) 1 mg PO DAILY [facility] Last Admin: 10/27/17 11:48 Dose: 1 mg Moxifloxacin HCl (Avelox Iv 400mg/250ml Ns) 400 mg in 250 mls @ 167 mls/hr IVPB Q24H [facility] Last Admin: 10/26/17 22:06 Dose: 167 mls/hr Ferric Sodium Gluconate Complex 125 mg/ Sodium Chloride 110 mls @ 110 mls/hr IVPB DAILY [facility] Stop: 11/02/17 11:01 Last Admin: 10/27/17 13:49 Dose: 110 mls/hr Losartan Potassium (Cozaar) 100 mg PO DAILY [facility] Last Admin: 10/27/17 11:48 Dose: 100 mg Metoprolol Tartrate (Lopressor) 50 mg PO BID [facility] Last Admin: 10/27/17 17:32 Dose: 50 mg Multivitamins (Hexavitamin) 1 tab PO DAILY [facility] Last Admin: 10/27/17 11:48 Dose: 1 tab Naproxen (Anaprox Ds) 500 mg PO BID PRN PRN Reason: Pain, moderate (4-7) Last Admin: 10/23/17 20:18 Dose: 500 mg Oseltamivir Phosphate (Tamiflu Cap) 75 mg PO BID [facility] Stop: 10/29/17 22:47 Last Admin: 10/27/17 17:32 Dose: 75 mg Pantoprazole Sodium (Protonix Ec Tab) 40 mg PO DAILY [facility] Last Admin: 10/27/17 11:47 Dose: 40 mg Tamsulosin HCl (Flomax) 0.8 mg PO DAILY [facility] Last Admin: 10/27/17 11:48 Dose: 0.8 mg Thiamine HCl (Vitamin B1 Tab) 100 mg PO BID [facility] Last Admin: 10/27/17 17:40 Dose: 100 mg - Labs Labs: 10/27/17 07:39 10/27/17 07:39 PT 13.3 SECONDS (9.7-12.2) H 10/23/17 21:03 INR 1.2 10/23/17 21:03 APTT 29 SECONDS (21-34) 10/23/17 21:03 - Constitutional Appears: Well - Head Exam Head Exam: ATRAUMATIC, NORMAL INSPECTION, NORMOCEPHALIC - Eye Exam Eye Exam: EOMI, Normal appearance, PERRL Pupil Exam: NORMAL ACCOMODATION, PERRL - ENT Exam ENT Exam: Mucous Membranes Moist, Normal Exam - Neck Exam Neck Exam: Full ROM, Normal Inspection. absent: Lymphadenopathy - Respiratory Exam Respiratory Exam: Clear to Ausculation Bilateral, NORMAL BREATHING PATTERN - Cardiovascular Exam Cardiovascular Exam: REGULAR RHYTHM, +S1, +S2. absent: Murmur - GI/Abdominal Exam GI & Abdominal Exam: Soft, Normal Bowel Sounds. absent: Tenderness - Rectal Exam Rectal Exam: Deferred Assessment and Plan (1) Abdominal pain Status: Acute (2) Abdominal pain Status: Acute (3) Acute pansinusitis Status: Acute (4) Acute viral syndrome Status: Acute (5) Alcohol abuse Status: Acute (6) Alcohol intoxication Status: Acute (7) Alcohol intoxication Status: Acute (8) Alcohol withdrawal Status: Acute (9) Anemia Status: Acute (10) BPH (benign prostatic hyperplasia) Status: Acute (11) Dehydration Status: Acute (12) Depressed Status: Acute (13) Gastritis due to alcohol without hemorrhage Status: Acute (14) HTN (hypertension) Status: Acute (15) HTN (hypertension) Status: Acute (16) Hiatal hernia without gangrene and obstruction Status: Acute (17) Prophylactic measure Status: Acute (18) Renal insufficiency Status: Acute (19) Withdrawal symptoms, alcohol Status: Acute (20) Alcohol dependence Status: Chronic - Assessment and Plan (Free Text) Plan: Patient examined. Patient is better. Able to take orally liquids and some solids. Repeat laboratory investigation shows an Hb of 9.1. Continue antibiotics, chlordiazepoxide and thiamine. Supportive care.
--- NOTE | 2017-10-27 22:00 | CP.PCM.PN ---
Subjective - Date & Time of Evaluation Date of Evaluation: 10/27/17 Time of Evaluation: 18:15 - Subjective Subjective: Tolerating more PO intake Objective - Vital Signs/Intake and Output Vital Signs (last 24 hours): Temp Pulse Resp BP Pulse Ox 98.2 F 75 18 125/82 95 10/27/17 16:00 10/27/17 16:00 10/27/17 16:00 10/27/17 16:00 10/27/17 16:00 Intake and Output: 10/27/17 10/28/17 18:59 06:59 Intake Total 700 Output Total 1000 Balance -300 - Medications Medications: Current Medications Allopurinol (Zyloprim) 100 mg PO DAILY [facility] Last Admin: 10/27/17 11:48 Dose: 100 mg Chlordiazepoxide (Librium) 50 mg PO Q4H PRN PRN Reason: Agitation Enoxaparin Sodium (Lovenox) 40 mg SC DAILY [facility] Last Admin: 10/27/17 11:49 Dose: 40 mg Finasteride (Proscar) 5 mg PO DAILY [facility] Last Admin: 10/27/17 11:48 Dose: 5 mg Fluticasone Propionate (Flonase) 0 spr ULISES BID [facility] Last Admin: 10/27/17 17:38 Dose: 1 spray Folic Acid (Folic Acid) 1 mg PO DAILY [facility] Last Admin: 10/27/17 11:48 Dose: 1 mg Moxifloxacin HCl (Avelox Iv 400mg/250ml Ns) 400 mg in 250 mls @ 167 mls/hr IVPB Q24H [facility] Last Admin: 10/26/17 22:06 Dose: 167 mls/hr Ferric Sodium Gluconate Complex 125 mg/ Sodium Chloride 110 mls @ 110 mls/hr IVPB DAILY [facility] Stop: 11/02/17 11:01 Last Admin: 10/27/17 13:49 Dose: 110 mls/hr Losartan Potassium (Cozaar) 100 mg PO DAILY [facility] Last Admin: 10/27/17 11:48 Dose: 100 mg Metoprolol Tartrate (Lopressor) 50 mg PO BID [facility] Last Admin: 10/27/17 17:32 Dose: 50 mg Multivitamins (Hexavitamin) 1 tab PO DAILY [facility] Last Admin: 10/27/17 11:48 Dose: 1 tab Naproxen (Anaprox Ds) 500 mg PO BID PRN PRN Reason: Pain, moderate (4-7) Last Admin: 10/23/17 20:18 Dose: 500 mg Oseltamivir Phosphate (Tamiflu Cap) 75 mg PO BID [facility] Stop: 10/29/17 22:47 Last Admin: 10/27/17 17:32 Dose: 75 mg Pantoprazole Sodium (Protonix Ec Tab) 40 mg PO DAILY [facility] Last Admin: 10/27/17 11:47 Dose: 40 mg Tamsulosin HCl (Flomax) 0.8 mg PO DAILY [facility] Last Admin: 10/27/17 11:48 Dose: 0.8 mg Thiamine HCl (Vitamin B1 Tab) 100 mg PO BID [facility] Last Admin: 10/27/17 17:40 Dose: 100 mg - Labs Labs: 10/27/17 07:39 10/27/17 07:39 PT 13.3 SECONDS (9.7-12.2) H 10/23/17 21:03 INR 1.2 10/23/17 21:03 APTT 29 SECONDS (21-34) 10/23/17 21:03 - Head Exam Head Exam: ATRAUMATIC - Eye Exam Eye Exam: Normal appearance - ENT Exam ENT Exam: Mucous Membranes Dry - Respiratory Exam Respiratory Exam: NORMAL BREATHING PATTERN - Cardiovascular Exam Cardiovascular Exam: +S1, +S2 - GI/Abdominal Exam GI & Abdominal Exam: Normal Bowel Sounds Assessment and Plan (1) Anemia Assessment & Plan: work up consistent with iron deficiency anemia s/p PRBC transfusion on IV iron will need GI evaluation for EGD/colonoscopy Status: Acute
--- NOTE | 2017-10-27 22:43 | CP.PCM.PN ---
Subjective - Date & Time of Evaluation Date of Evaluation: 10/27/17 Time of Evaluation: 22:43 - Subjective Subjective: AFEBRILE, STATES HE IS TRYING TO EAT MORE. C/O ABDOMINAL DISCOMFORT. MYALGIA IMPROVED LESS NASAL CONGESTION. Objective - Vital Signs/Intake and Output Vital Signs (last 24 hours): Temp Pulse Resp BP Pulse Ox 98.2 F 75 18 125/82 95 10/27/17 16:00 10/27/17 16:00 10/27/17 16:00 10/27/17 16:00 10/27/17 16:00 Intake and Output: 10/27/17 10/28/17 18:59 06:59 Intake Total 700 Output Total 1000 Balance -300 - Medications Medications: Current Medications Allopurinol (Zyloprim) 100 mg PO DAILY [facility] Last Admin: 10/27/17 11:48 Dose: 100 mg Chlordiazepoxide (Librium) 50 mg PO Q4H PRN PRN Reason: Agitation Enoxaparin Sodium (Lovenox) 40 mg SC DAILY [facility] Last Admin: 10/27/17 11:49 Dose: 40 mg Finasteride (Proscar) 5 mg PO DAILY [facility] Last Admin: 10/27/17 11:48 Dose: 5 mg Fluticasone Propionate (Flonase) 0 spr ULISES BID [facility] Last Admin: 10/27/17 17:38 Dose: 1 spray Folic Acid (Folic Acid) 1 mg PO DAILY [facility] Last Admin: 10/27/17 11:48 Dose: 1 mg Moxifloxacin HCl (Avelox Iv 400mg/250ml Ns) 400 mg in 250 mls @ 167 mls/hr IVPB Q24H [facility] Last Admin: 10/26/17 22:06 Dose: 167 mls/hr Ferric Sodium Gluconate Complex 125 mg/ Sodium Chloride 110 mls @ 110 mls/hr IVPB DAILY [facility] Stop: 11/02/17 11:01 Last Admin: 10/27/17 13:49 Dose: 110 mls/hr Losartan Potassium (Cozaar) 100 mg PO DAILY [facility] Last Admin: 10/27/17 11:48 Dose: 100 mg Metoprolol Tartrate (Lopressor) 50 mg PO BID [facility] Last Admin: 10/27/17 17:32 Dose: 50 mg Multivitamins (Hexavitamin) 1 tab PO DAILY [facility] Last Admin: 10/27/17 11:48 Dose: 1 tab Naproxen (Anaprox Ds) 500 mg PO BID PRN PRN Reason: Pain, moderate (4-7) Last Admin: 10/23/17 20:18 Dose: 500 mg Oseltamivir Phosphate (Tamiflu Cap) 75 mg PO BID [facility] Stop: 10/29/17 22:47 Last Admin: 10/27/17 17:32 Dose: 75 mg Pantoprazole Sodium (Protonix Ec Tab) 40 mg PO DAILY [facility] Last Admin: 10/27/17 11:47 Dose: 40 mg Tamsulosin HCl (Flomax) 0.8 mg PO DAILY [facility] Last Admin: 10/27/17 11:48 Dose: 0.8 mg Thiamine HCl (Vitamin B1 Tab) 100 mg PO BID [facility] Last Admin: 10/27/17 17:40 Dose: 100 mg - Labs Labs: 10/27/17 07:39 10/27/17 07:39 PT 13.3 SECONDS (9.7-12.2) H 10/23/17 21:03 INR 1.2 10/23/17 21:03 APTT 29 SECONDS (21-34) 10/23/17 21:03 - Constitutional Appears: No Acute Distress - Head Exam Head Exam: NORMAL INSPECTION - Eye Exam Eye Exam: EOMI, PERRL - ENT Exam ENT Exam: Normal Oropharynx - Neck Exam Neck Exam: Normal Inspection. absent: Meningismus - Respiratory Exam Respiratory Exam: Clear to Ausculation Bilateral, NORMAL BREATHING PATTERN - Cardiovascular Exam Cardiovascular Exam: REGULAR RHYTHM, +S1, +S2 - GI/Abdominal Exam GI & Abdominal Exam: Soft, Tenderness (MILD TENDERNESS EPIGASTRIUM. ), Normal Bowel Sounds - Extremities Exam Extremities Exam: Normal Capillary Refill. absent: Calf Tenderness, Pedal Edema - Psychiatric Exam Psychiatric exam: Normal Mood - Skin Skin Exam: Normal Color, Warm Assessment and Plan (1) Acute pansinusitis Assessment & Plan: CT sinuse-10/25/17 Complete opacification of left maxillary antrum/left frontal sinus with thickening of ethmoid air complex thickening. Also mild mucosal thickening of right maxillary antrum sphenoid sinus/osteomeatal complexes are excluded. ( see full report ) Continue IV Avelox 400 mg once a day daily.10/24/17. CAN SWITCH TO BY MOUTH AUGMENTIN 875 BID X 10DAYS ONCE ABLE TO TOLERATE FOOD. Status: Acute (2) Acute viral syndrome Assessment & Plan: COMPLETE PO TAMIFLUE 75MG PO BID X TOTAL OF 5 DAYS. 10/24/17. Status: Acute (3) Abdominal pain Status: Acute (4) Alcohol abuse Status: Acute (5) Anemia Status: Acute (6) Hiatal hernia without gangrene and obstruction Status: Acute (7) Alcohol dependence Status: Chronic
[2017-10-27] MEDS: Moxifloxacin IV 400mg/250ml NS 400 MG/250 ML BAG IVPB SCH (22:49)
[2017-10-28] MEDS: Multiple Vitamins Tab PO SCH (09:34)
[2017-10-28] MEDS: Pantoprazole 40 mg EC Tab PO SCH (09:34)
[2017-10-28] MEDS: Fluticasone Nasal 50 mcg/Spray NAS SCH ×2 (09:34→17:22)
[2017-10-28] MEDS: Enoxaparin 40 mg Syringe SC SCH (09:35)
[2017-10-28] MEDS: Ferric Sodium Gluconat Complex 125 MG in Sodium Chloride 0.9% 100 ML IVPB SCH (09:57)
--- NOTE | 2017-10-28 16:36 | CP.PCM.PN ---
Subjective - Date & Time of Evaluation Date of Evaluation: 10/28/17 Time of Evaluation: 09:40 - Subjective Subjective: clinically same Objective - Vital Signs/Intake and Output Vital Signs (last 24 hours): Temp Pulse Resp BP Pulse Ox 97.9 F 73 20 120/72 97 10/28/17 09:02 10/28/17 09:02 10/28/17 09:02 10/28/17 09:02 10/28/17 09:02 Intake and Output: 10/28/17 10/28/17 06:59 18:59 Intake Total 490 Output Total 300 Balance -300 490 - Medications Medications: Current Medications Allopurinol (Zyloprim) 100 mg PO DAILY [facility] Last Admin: 10/28/17 09:34 Dose: 100 mg Chlordiazepoxide (Librium) 50 mg PO Q4H PRN PRN Reason: Agitation Enoxaparin Sodium (Lovenox) 40 mg SC DAILY [facility] Last Admin: 10/28/17 09:35 Dose: 40 mg Finasteride (Proscar) 5 mg PO DAILY [facility] Last Admin: 10/28/17 09:34 Dose: 5 mg Fluticasone Propionate (Flonase) 0 spr ULISES BID [facility] Last Admin: 10/28/17 09:34 Dose: 1 spray Folic Acid (Folic Acid) 1 mg PO DAILY [facility] Last Admin: 10/28/17 09:34 Dose: 1 mg Moxifloxacin HCl (Avelox Iv 400mg/250ml Ns) 400 mg in 250 mls @ 167 mls/hr IVPB Q24H [facility] Last Admin: 10/27/17 22:49 Dose: 167 mls/hr Ferric Sodium Gluconate Complex 125 mg/ Sodium Chloride 110 mls @ 110 mls/hr IVPB DAILY [facility] Stop: 11/02/17 11:01 Last Admin: 10/28/17 09:57 Dose: 110 mls/hr Losartan Potassium (Cozaar) 100 mg PO DAILY [facility] Last Admin: 10/28/17 09:34 Dose: 100 mg Metoprolol Tartrate (Lopressor) 50 mg PO BID [facility] Last Admin: 10/28/17 09:34 Dose: 50 mg Multivitamins (Hexavitamin) 1 tab PO DAILY [facility] Last Admin: 10/28/17 09:34 Dose: 1 tab Naproxen (Anaprox Ds) 500 mg PO BID PRN PRN Reason: Pain, moderate (4-7) Last Admin: 10/23/17 20:18 Dose: 500 mg Oseltamivir Phosphate (Tamiflu Cap) 75 mg PO BID [facility] Stop: 10/29/17 22:47 Last Admin: 10/28/17 09:34 Dose: 75 mg Pantoprazole Sodium (Protonix Ec Tab) 40 mg PO DAILY [facility] Last Admin: 10/28/17 09:34 Dose: 40 mg Tamsulosin HCl (Flomax) 0.8 mg PO DAILY [facility] Last Admin: 10/28/17 09:34 Dose: 0.8 mg Thiamine HCl (Vitamin B1 Tab) 100 mg PO BID [facility] Last Admin: 10/28/17 09:38 Dose: 100 mg - Labs Labs: 10/27/17 07:39 10/27/17 07:39 PT 13.3 SECONDS (9.7-12.2) H 10/23/17 21:03 INR 1.2 10/23/17 21:03 APTT 29 SECONDS (21-34) 10/23/17 21:03 - Constitutional Appears: Well - Head Exam Head Exam: ATRAUMATIC, NORMAL INSPECTION, NORMOCEPHALIC - Eye Exam Eye Exam: EOMI, Normal appearance, PERRL Pupil Exam: NORMAL ACCOMODATION, PERRL - ENT Exam ENT Exam: Mucous Membranes Moist, Normal Exam - Neck Exam Neck Exam: Full ROM, Normal Inspection. absent: Lymphadenopathy - Respiratory Exam Respiratory Exam: Decreased Breath Sounds - Cardiovascular Exam Cardiovascular Exam: REGULAR RHYTHM, +S1, +S2 - GI/Abdominal Exam GI & Abdominal Exam: Soft, Diminished Bowel Sounds - Rectal Exam Rectal Exam: Deferred Assessment and Plan (1) Abdominal pain Status: Acute (2) Abdominal pain Status: Acute (3) Acute pansinusitis Status: Acute (4) Acute viral syndrome Status: Acute (5) Alcohol abuse Status: Acute (6) Alcohol intoxication Status: Acute (7) Alcohol intoxication Status: Acute (8) Alcohol withdrawal Status: Acute (9) Anemia Status: Acute (10) BPH (benign prostatic hyperplasia) Status: Acute (11) Dehydration Status: Acute (12) Depressed Status: Acute (13) Gastritis due to alcohol without hemorrhage Status: Acute (14) HTN (hypertension) Status: Acute (15) HTN (hypertension) Status: Acute (16) Hiatal hernia without gangrene and obstruction Status: Acute (17) Prophylactic measure Status: Acute (18) Renal insufficiency Status: Acute (19) Withdrawal symptoms, alcohol Status: Acute (20) Alcohol dependence Status: Chronic - Assessment and Plan (Free Text) Plan: Patient examined. Patient is mild abdominal discomfort but is trying to. Nasal condition is improved. Moxifloxacin and oseltamivir. Losartan metoprolol. Thiamine, multivitamins, folic acid and chlordiazepoxide. Supportive care.
--- NOTE | 2017-10-28 21:05 | CP.PCM.PN ---
Subjective - Date & Time of Evaluation Date of Evaluation: 10/28/17 Time of Evaluation: 19:00 - Subjective Subjective: Feeling better Objective - Vital Signs/Intake and Output Vital Signs (last 24 hours): Temp Pulse Resp BP Pulse Ox 98.8 F 70 20 124/75 94 L 10/28/17 15:24 10/28/17 15:24 10/28/17 15:24 10/28/17 15:24 10/28/17 15:24 Intake and Output: 10/28/17 10/29/17 18:59 06:59 Intake Total 490 Balance 490 - Medications Medications: Current Medications Allopurinol (Zyloprim) 100 mg PO DAILY [facility] Last Admin: 10/28/17 09:34 Dose: 100 mg Chlordiazepoxide (Librium) 50 mg PO Q4H PRN PRN Reason: Agitation Enoxaparin Sodium (Lovenox) 40 mg SC DAILY [facility] Last Admin: 10/28/17 09:35 Dose: 40 mg Finasteride (Proscar) 5 mg PO DAILY [facility] Last Admin: 10/28/17 09:34 Dose: 5 mg Fluticasone Propionate (Flonase) 0 spr ULISES BID [facility] Last Admin: 10/28/17 17:22 Dose: 1 spray Folic Acid (Folic Acid) 1 mg PO DAILY [facility] Last Admin: 10/28/17 09:34 Dose: 1 mg Moxifloxacin HCl (Avelox Iv 400mg/250ml Ns) 400 mg in 250 mls @ 167 mls/hr IVPB Q24H [facility] Last Admin: 10/27/17 22:49 Dose: 167 mls/hr Ferric Sodium Gluconate Complex 125 mg/ Sodium Chloride 110 mls @ 110 mls/hr IVPB DAILY [facility] Stop: 11/02/17 11:01 Last Admin: 10/28/17 09:57 Dose: 110 mls/hr Losartan Potassium (Cozaar) 100 mg PO DAILY [facility] Last Admin: 10/28/17 09:34 Dose: 100 mg Metoprolol Tartrate (Lopressor) 50 mg PO BID [facility] Last Admin: 10/28/17 17:23 Dose: 50 mg Multivitamins (Hexavitamin) 1 tab PO DAILY [facility] Last Admin: 10/28/17 09:34 Dose: 1 tab Naproxen (Anaprox Ds) 500 mg PO BID PRN PRN Reason: Pain, moderate (4-7) Last Admin: 10/23/17 20:18 Dose: 500 mg Oseltamivir Phosphate (Tamiflu Cap) 75 mg PO BID [facility] Stop: 10/29/17 22:47 Last Admin: 10/28/17 17:23 Dose: 75 mg Pantoprazole Sodium (Protonix Ec Tab) 40 mg PO DAILY [facility] Last Admin: 10/28/17 09:34 Dose: 40 mg Tamsulosin HCl (Flomax) 0.8 mg PO DAILY [facility] Last Admin: 10/28/17 09:34 Dose: 0.8 mg Thiamine HCl (Vitamin B1 Tab) 100 mg PO BID [facility] Last Admin: 10/28/17 17:23 Dose: 100 mg - Labs Labs: 10/27/17 07:39 10/27/17 07:39 PT 13.3 SECONDS (9.7-12.2) H 10/23/17 21:03 INR 1.2 10/23/17 21:03 APTT 29 SECONDS (21-34) 10/23/17 21:03 - Head Exam Head Exam: ATRAUMATIC - Eye Exam Eye Exam: Normal appearance - ENT Exam ENT Exam: Mucous Membranes Dry - Respiratory Exam Respiratory Exam: NORMAL BREATHING PATTERN - Cardiovascular Exam Cardiovascular Exam: +S1, +S2 - GI/Abdominal Exam GI & Abdominal Exam: Normal Bowel Sounds Assessment and Plan (1) Anemia Assessment & Plan: work up consistent with iron deficiency anemia s/p PRBC transfusion on IV iron will need GI evaluation for EGD/colonoscopy Status: Acute
[2017-10-28] MEDS: Moxifloxacin IV 400mg/250ml NS 400 MG/250 ML BAG IVPB SCH (23:12)
--- NOTE | 2017-10-29 09:31 | CP.PCM.PN ---
Subjective - Date & Time of Evaluation Date of Evaluation: 10/29/17 Time of Evaluation: 09:20 - Subjective Subjective: clinically same Objective - Vital Signs/Intake and Output Vital Signs (last 24 hours): Temp Pulse Resp BP Pulse Ox 98.0 F 67 20 99/61 L 94 L 10/29/17 09:13 10/29/17 09:13 10/29/17 09:13 10/29/17 09:13 10/29/17 09:13 Intake and Output: 10/29/17 10/29/17 06:59 18:59 Intake Total 610 Output Total 500 Balance 110 - Medications Medications: Current Medications Allopurinol (Zyloprim) 100 mg PO DAILY [facility] Last Admin: 10/28/17 09:34 Dose: 100 mg Chlordiazepoxide (Librium) 50 mg PO Q4H PRN PRN Reason: Agitation Last Admin: 10/29/17 08:45 Dose: 50 mg Enoxaparin Sodium (Lovenox) 40 mg SC DAILY [facility] Last Admin: 10/28/17 09:35 Dose: 40 mg Finasteride (Proscar) 5 mg PO DAILY [facility] Last Admin: 10/28/17 09:34 Dose: 5 mg Fluticasone Propionate (Flonase) 0 spr ULISES BID [facility] Last Admin: 10/28/17 17:22 Dose: 1 spray Folic Acid (Folic Acid) 1 mg PO DAILY [facility] Last Admin: 10/28/17 09:34 Dose: 1 mg Moxifloxacin HCl (Avelox Iv 400mg/250ml Ns) 400 mg in 250 mls @ 167 mls/hr IVPB Q24H [facility] Last Admin: 10/28/17 23:12 Dose: 167 mls/hr Ferric Sodium Gluconate Complex 125 mg/ Sodium Chloride 110 mls @ 110 mls/hr IVPB DAILY [facility] Stop: 11/02/17 11:01 Last Admin: 10/28/17 09:57 Dose: 110 mls/hr Losartan Potassium (Cozaar) 100 mg PO DAILY [facility] Last Admin: 10/28/17 09:34 Dose: 100 mg Metoprolol Tartrate (Lopressor) 50 mg PO BID [facility] Last Admin: 10/28/17 17:23 Dose: 50 mg Multivitamins (Hexavitamin) 1 tab PO DAILY [facility] Last Admin: 10/28/17 09:34 Dose: 1 tab Naproxen (Anaprox Ds) 500 mg PO BID PRN PRN Reason: Pain, moderate (4-7) Last Admin: 10/23/17 20:18 Dose: 500 mg Oseltamivir Phosphate (Tamiflu Cap) 75 mg PO BID [facility] Stop: 10/29/17 22:47 Last Admin: 10/28/17 17:23 Dose: 75 mg Pantoprazole Sodium (Protonix Ec Tab) 40 mg PO DAILY [facility] Last Admin: 10/28/17 09:34 Dose: 40 mg Tamsulosin HCl (Flomax) 0.8 mg PO DAILY [facility] Last Admin: 10/28/17 09:34 Dose: 0.8 mg Thiamine HCl (Vitamin B1 Tab) 100 mg PO BID [facility] Last Admin: 10/28/17 17:23 Dose: 100 mg - Labs Labs: 10/27/17 07:39 10/27/17 07:39 PT 13.3 SECONDS (9.7-12.2) H 10/23/17 21:03 INR 1.2 10/23/17 21:03 APTT 29 SECONDS (21-34) 10/23/17 21:03 - Constitutional Appears: Well - Head Exam Head Exam: ATRAUMATIC, NORMAL INSPECTION, NORMOCEPHALIC - Eye Exam Eye Exam: EOMI, Normal appearance, PERRL Pupil Exam: NORMAL ACCOMODATION, PERRL - ENT Exam ENT Exam: Mucous Membranes Moist, Normal Exam - Neck Exam Neck Exam: Full ROM, Normal Inspection. absent: Lymphadenopathy - Respiratory Exam Respiratory Exam: Decreased Breath Sounds - Cardiovascular Exam Cardiovascular Exam: REGULAR RHYTHM, +S1, +S2 - GI/Abdominal Exam GI & Abdominal Exam: Soft, Diminished Bowel Sounds - Rectal Exam Rectal Exam: Deferred Assessment and Plan (1) Abdominal pain Status: Acute (2) Abdominal pain Status: Acute (3) Acute pansinusitis Status: Acute (4) Acute viral syndrome Status: Acute (5) Alcohol abuse Status: Acute (6) Alcohol intoxication Status: Acute (7) Alcohol intoxication Status: Acute (8) Alcohol withdrawal Status: Acute (9) Anemia Status: Acute (10) BPH (benign prostatic hyperplasia) Status: Acute (11) Dehydration Status: Acute (12) Depressed Status: Acute (13) Gastritis due to alcohol without hemorrhage Status: Acute (14) HTN (hypertension) Status: Acute (15) HTN (hypertension) Status: Acute (16) Hiatal hernia without gangrene and obstruction Status: Acute (17) Prophylactic measure Status: Acute (18) Renal insufficiency Status: Acute (19) Withdrawal symptoms, alcohol Status: Acute (20) Alcohol dependence Status: Chronic - Assessment and Plan (Free Text) Plan: Patient examined. The patient is feeling better. Continue all medications.
[2017-10-29] MEDS: Pantoprazole 40 mg EC Tab PO SCH (10:02)
[2017-10-29] MEDS: Multiple Vitamins Tab PO SCH (10:02)
[2017-10-29] MEDS: Fluticasone Nasal 50 mcg/Spray NAS SCH ×2 (10:02→17:45)
[2017-10-29] MEDS: Enoxaparin 40 mg Syringe SC SCH (10:03)
[2017-10-29] MEDS: Ferric Sodium Gluconat Complex 125 MG in Sodium Chloride 0.9% 100 ML IVPB SCH (10:31)
[2017-10-29 11:14] LABS: BASO # 0.1 K/uL (0.0-0.2); BASO % 1.2 % (0.0-2.0); EOS # 0.2 K/uL (0.0-0.7); EOS % 3.1 % (0.0-4.0); HEMATOCRIT 32.1 % (35.0-51.0); LYMPH # 1.7 K/uL (1.0-4.3); LYMPH % 20.7 % (20.0-40.0); MEAN CORPUSCULAR HEMOGLOBIN 23.7 pg (27.0-31.0); MEAN CORPUSCULAR HGB CONC 30.5 g/dL (33.0-37.0); MEAN PLATELET VOLUME 8.4 fL (7.2-11.7); MONO # 0.9 K/uL (0.0-0.8); MONO % 11.7 % (0.0-10.0); NRBC % 0.2 % (0.0-2.0); RED CELL DISTRIBUTION WIDTH 22.3 % (11.5-14.5); WHITE BLOOD COUNT 8.1 K/uL (4.8-10.8)
[2017-10-29 11:17] LABS: MEAN CELL VOLUME 77.7 fL (80.0-94.0)
[2017-10-29 11:37] LABS: ALB/GLOB RATIO 1.1 (1.0-2.1); ALKALINE PHOSPHATASE 67 U/L (38-126); ALT/SGPT 40 U/L (21-72); AST/SGOT 27 U/L (17-59); BILIRUBIN,TOTAL 0.3 mg/dL (0.2-1.3); BLOOD UREA NITROGEN 16 mg/dL (9-20); CARBON DIOXIDE 27 mmol/L (22-30); CHLORIDE 103 mmol/L (98-107); GFR AFRICAN-AMERICAN > 60; GLUCOSE,RANDOM 133 mg/dL (75-110); MAGNESIUM 1.6 mg/dL (1.6-2.3); PHOSPHOROUS 3.8 mg/dL (2.5-4.5); POTASSIUM 3.9 mmol/L (3.6-5.2); SODIUM 136 mmol/L (132-148); TOTAL PROTEIN 6.1 g/dL (6.3-8.3)
[2017-10-29] MEDS: Naproxen 550 mg Tab PO PRN (17:49)
[2017-10-29] MEDS: Moxifloxacin IV 400mg/250ml NS 400 MG/250 ML BAG IVPB SCH (22:16)
--- NOTE | 2017-10-29 22:38 | CP.PCM.PN ---
Subjective - Date & Time of Evaluation Date of Evaluation: 10/29/17 Time of Evaluation: 22:38 - Subjective Subjective: afebrile, feeling better. c/o abdominal discomfort. states able to tolerate small portions of food. Objective - Vital Signs/Intake and Output Vital Signs (last 24 hours): Temp Pulse Resp BP Pulse Ox 98.1 F 73 20 116/72 95 10/29/17 17:00 10/29/17 20:12 10/29/17 17:00 10/29/17 17:00 10/29/17 17:00 - Medications Medications: Current Medications Allopurinol (Zyloprim) 100 mg PO DAILY [facility] Last Admin: 10/29/17 10:04 Dose: 100 mg Chlordiazepoxide (Librium) 50 mg PO Q4H PRN PRN Reason: Agitation Last Admin: 10/29/17 08:45 Dose: 50 mg Enoxaparin Sodium (Lovenox) 40 mg SC DAILY [facility] Last Admin: 10/29/17 10:03 Dose: 40 mg Finasteride (Proscar) 5 mg PO DAILY [facility] Last Admin: 10/29/17 10:03 Dose: 5 mg Fluticasone Propionate (Flonase) 0 spr ULISES BID [facility] Last Admin: 10/29/17 17:45 Dose: 1 spray Folic Acid (Folic Acid) 1 mg PO DAILY [facility] Last Admin: 10/29/17 10:03 Dose: 1 mg Moxifloxacin HCl (Avelox Iv 400mg/250ml Ns) 400 mg in 250 mls @ 167 mls/hr IVPB Q24H [facility] Last Admin: 10/29/17 22:16 Dose: 167 mls/hr Ferric Sodium Gluconate Complex 125 mg/ Sodium Chloride 110 mls @ 110 mls/hr IVPB DAILY [facility] Stop: 11/02/17 11:01 Last Admin: 10/29/17 10:31 Dose: 110 mls/hr Losartan Potassium (Cozaar) 100 mg PO DAILY [facility] Last Admin: 10/29/17 10:04 Dose: Not Given Metoprolol Tartrate (Lopressor) 50 mg PO BID [facility] Last Admin: 10/29/17 17:51 Dose: Not Given Multivitamins (Hexavitamin) 1 tab PO DAILY [facility] Last Admin: 10/29/17 10:02 Dose: 1 tab Naproxen (Anaprox Ds) 500 mg PO BID PRN PRN Reason: Pain, moderate (4-7) Last Admin: 10/29/17 17:49 Dose: 500 mg Oseltamivir Phosphate (Tamiflu Cap) 75 mg PO BID [facility] Stop: 10/29/17 22:47 Last Admin: 10/29/17 17:46 Dose: 75 mg Pantoprazole Sodium (Protonix Ec Tab) 40 mg PO DAILY [facility] Last Admin: 10/29/17 10:02 Dose: 40 mg Tamsulosin HCl (Flomax) 0.8 mg PO DAILY [facility] Last Admin: 10/29/17 10:02 Dose: 0.8 mg Thiamine HCl (Vitamin B1 Tab) 100 mg PO BID [facility] Last Admin: 10/29/17 17:46 Dose: 100 mg - Labs Labs: 10/29/17 11:07 10/29/17 11:07 PT 13.3 SECONDS (9.7-12.2) H 10/23/17 21:03 INR 1.2 10/23/17 21:03 APTT 29 SECONDS (21-34) 10/23/17 21:03 - Constitutional Appears: No Acute Distress - Head Exam Head Exam: NORMAL INSPECTION - Eye Exam Eye Exam: EOMI, PERRL - ENT Exam ENT Exam: Mucous Membranes Moist, Normal Oropharynx - Neck Exam Neck Exam: Normal Inspection - Respiratory Exam Respiratory Exam: Clear to Ausculation Bilateral - Cardiovascular Exam Cardiovascular Exam: REGULAR RHYTHM, +S1, +S2 - GI/Abdominal Exam GI & Abdominal Exam: Soft, Tenderness (epigastrie and umblical region.) - Extremities Exam Extremities Exam: absent: Calf Tenderness, Pedal Edema - Neurological Exam Neurological Exam: Awake, CN II-XII Intact, Oriented x3 - Psychiatric Exam Psychiatric exam: Normal Mood - Skin Skin Exam: Normal Color, Warm Assessment and Plan (1) Acute pansinusitis Assessment & Plan: CT sinuse-10/25/17 Complete opacification of left maxillary antrum/left frontal sinus with thickening of ethmoid air complex thickening. Also mild mucosal thickening of right maxillary antrum sphenoid sinus/osteomeatal complexes are excluded. ( see full report ) Continue IV Avelox 400 mg once a day daily.10/24/17. x 21days can switch to po augmentin 875mg po bid on discharge for rest of the days left. Status: Acute (2) Acute viral syndrome Assessment & Plan: Influenza negative at admission - influenza a/b antibodies were elevated - Tamiflu treatment completed Legionella negative Status: Acute (3) Abdominal pain Assessment & Plan: as per GI/ AND SURGERY. Status: Acute (4) Alcohol abuse Status: Acute (5) Anemia Assessment & Plan: HEMATOLOGY ON BOARD. Status: Acute (6) Hiatal hernia without gangrene and obstruction Status: Acute (7) Alcohol dependence Status: Chronic
[2017-10-30 06:57] LABS: BASO # 0.1 K/uL (0.0-0.2); BASO % 1.3 % (0.0-2.0); EOS # 0.3 K/uL (0.0-0.7); EOS % 3.5 % (0.0-4.0); HEMATOCRIT 34.7 % (35.0-51.0); LYMPH # 1.8 K/uL (1.0-4.3); LYMPH % 24.5 % (20.0-40.0); MEAN CELL VOLUME 77.2 fL (80.0-94.0); MEAN CORPUSCULAR HEMOGLOBIN 23.7 pg (27.0-31.0); MEAN CORPUSCULAR HGB CONC 30.6 g/dL (33.0-37.0); MEAN PLATELET VOLUME 8.2 fL (7.2-11.7); MONO # 0.8 K/uL (0.0-0.8); MONO % 11.3 % (0.0-10.0); NRBC % 0.2 % (0.0-2.0); RED CELL DISTRIBUTION WIDTH 23.4 % (11.5-14.5); WHITE BLOOD COUNT 7.5 K/uL (4.8-10.8)
[2017-10-30 07:31] LABS: ALB/GLOB RATIO 1.1 (1.0-2.1); ALKALINE PHOSPHATASE 71 U/L (38-126); ALT/SGPT 40 U/L (21-72); AST/SGOT 33 U/L (17-59); BILIRUBIN,TOTAL 0.3 mg/dL (0.2-1.3); BLOOD UREA NITROGEN 19 mg/dL (9-20); CALCIUM 8.4 mg/dl (8.6-10.4); CARBON DIOXIDE 29 mmol/L (22-30); CHLORIDE 105 mmol/L (98-107); GFR AFRICAN-AMERICAN > 60; GLUCOSE,RANDOM 79 mg/dL (75-110); MAGNESIUM 1.8 mg/dL (1.6-2.3); PHOSPHOROUS 4.7 mg/dL (2.5-4.5); POTASSIUM 4.5 mmol/L (3.6-5.2); SODIUM 139 mmol/L (132-148); TOTAL PROTEIN 6.3 g/dL (6.3-8.3)
[2017-10-30] MEDS: Enoxaparin 40 mg Syringe SC SCH (09:44)
[2017-10-30] MEDS: Multiple Vitamins Tab PO SCH (09:44)
[2017-10-30] MEDS: Pantoprazole 40 mg EC Tab PO SCH (09:44)
[2017-10-30] MEDS: Fluticasone Nasal 50 mcg/Spray NAS SCH ×2 (09:46→20:22)
[2017-10-30] MEDS: Ferric Sodium Gluconat Complex 125 MG in Sodium Chloride 0.9% 100 ML IVPB SCH (09:51)
--- NOTE | 2017-10-30 12:45 | CP.PCM.PN ---
<Lance Stpehens S - Last Filed: 10/30/17 12:40> Subjective - Date & Time of Evaluation Date of Evaluation: 10/30/17 Time of Evaluation: 12:41 - Subjective Subjective: Progress Note for Dr. Valadez's Service Pt was seen and examined at bedside today. He reports that he does not feel well. He continues to have abdominal pain and states that he is only able to tolerate small amounts of food at a time. He explains that he feels like his throat is full when he swallows, detailing a globus sensation. He states that he was told he would need an EGD once he is discharged as this is an outpatient procedure. He denies F/C/CP/SOB/V/D/C. He does have abdominal pain that is located on the left side, upper and lower quadrants. Objective - Vital Signs/Intake and Output Vital Signs (last 24 hours): Temp Pulse Resp BP Pulse Ox 97.9 F 79 20 126/70 98 10/30/17 08:02 10/30/17 08:02 10/30/17 08:02 10/30/17 08:02 10/30/17 08:02 Intake and Output: 10/30/17 10/30/17 06:59 18:59 Intake Total 610 Output Total 200 Balance 410 - Medications Medications: Current Medications Allopurinol (Zyloprim) 100 mg PO DAILY [facility] Last Admin: 10/30/17 09:44 Dose: 100 mg Chlordiazepoxide (Librium) 50 mg PO Q4H PRN PRN Reason: Agitation Last Admin: 10/29/17 08:45 Dose: 50 mg Enoxaparin Sodium (Lovenox) 40 mg SC DAILY [facility] Last Admin: 10/30/17 09:44 Dose: 40 mg Finasteride (Proscar) 5 mg PO DAILY [facility] Last Admin: 10/30/17 09:44 Dose: 5 mg Fluticasone Propionate (Flonase) 0 spr ULISES BID [facility] Last Admin: 10/30/17 09:46 Dose: 1 spray Folic Acid (Folic Acid) 1 mg PO DAILY [facility] Last Admin: 10/30/17 09:44 Dose: 1 mg Moxifloxacin HCl (Avelox Iv 400mg/250ml Ns) 400 mg in 250 mls @ 167 mls/hr IVPB Q24H [facility] Last Admin: 10/29/17 22:16 Dose: 167 mls/hr Ferric Sodium Gluconate Complex 125 mg/ Sodium Chloride 110 mls @ 110 mls/hr IVPB DAILY [facility] Stop: 11/02/17 11:01 Last Admin: 10/30/17 09:51 Dose: 110 mls/hr Losartan Potassium (Cozaar) 100 mg PO DAILY [facility] Metoprolol Tartrate (Lopressor) 50 mg PO BID [facility] Last Admin: 10/30/17 09:46 Dose: 50 mg Multivitamins (Hexavitamin) 1 tab PO DAILY [facility] Last Admin: 10/30/17 09:44 Dose: 1 tab Naproxen (Anaprox Ds) 500 mg PO BID PRN PRN Reason: Pain, moderate (4-7) Last Admin: 10/29/17 17:49 Dose: 500 mg Pantoprazole Sodium (Protonix Ec Tab) 40 mg PO DAILY [facility] Last Admin: 10/30/17 09:44 Dose: 40 mg Tamsulosin HCl (Flomax) 0.8 mg PO DAILY [facility] Last Admin: 10/30/17 09:44 Dose: 0.8 mg Thiamine HCl (Vitamin B1 Tab) 100 mg PO BID [facility] Last Admin: 10/30/17 09:44 Dose: 100 mg - Labs Labs: 10/30/17 06:46 10/30/17 06:46 PT 13.3 SECONDS (9.7-12.2) H 10/23/17 21:03 INR 1.2 10/23/17 21:03 APTT 29 SECONDS (21-34) 10/23/17 21:03 - Constitutional Appears: No Acute Distress - Head Exam Head Exam: ATRAUMATIC, NORMAL INSPECTION - Eye Exam Eye Exam: EOMI Pupil Exam: NORMAL ACCOMODATION - ENT Exam ENT Exam: Mucous Membranes Moist - Respiratory Exam Respiratory Exam: Clear to Ausculation Bilateral. absent: Rales, Rhonchi, Wheezes - Cardiovascular Exam Cardiovascular Exam: REGULAR RHYTHM, +S1 - GI/Abdominal Exam GI & Abdominal Exam: Soft, Tenderness (TTP on left side). absent: Mass, Rebound - Neurological Exam Neurological Exam: Alert, Awake, Oriented x3 - Skin Skin Exam: Dry, Intact, Warm Assessment and Plan - Assessment and Plan (Free Text) Plan: EtOH Withdrawal- resolved Asymptomatic - patient is not in DT/having seizures/actively withdrawing Alcohol level: < 10 on admission -Thiamine/Folate/MV daily - Librium PRN - once stable patient can be d/c home/to outpatient rehab as per psych on previous admission; he does not meet inpatient criteria - patient is tolerating PO- small meals - lipase 73 10/25/17 Myalgia/Congestion Pt afebrile, No WBC Dr. Rodas, ID data power consultant Avelox 400mg IV DAily -can switch to Augmentin 875mg PO BID for 10 days upon d/c CT sinus shows pansinusitis mycoplasma negative Influenza negative at admission - influenza a/b antibodies were elevated - Tamiflu treatment completed Legionella negative Pancytopenia most likely 2/2 to chronic EtOH Bone marrow toxicity -Improving- hgb 10.6 (10/30/2017) -patient has no active bleeding; hgb is lower than previous admissions; s/p 1 unit of PRBC - Hgb stable this AM form yesterday - stool occult: negative; Hemoccult at bedside negative -will continue to monitor; patient advised to stop drinking - Consult placed to Heme onc, Dr. Tirado, help appreciated start IV iron ( - 11/02) Type 4 paraesophageal hernia -patient will likely need surgical repair; surgery recommended outpatient tx on last admission, pt left AMA -patient was optimized for surgery as per cardiology on last admission - No cardiovascular contraindication to the planned surgery as outpatient ECHO (10/15/17): LV is normal size, EF 60-65%, LV diastolic function is abnormal - Grade I abnormal relaxation pattern. Mild tricuspid regurgitation noted. CHF (diastolic dysfunction);chronic as per last ECHO (10/15/17): LV is normal size, EF 60-65%, LV diastolic function is abnormal - Grade I abnormal relaxation pattern. Mild tricuspid regurgitation noted. Metoprolol 50mg PO BID Cozaar 100mg PO Daily BPH Tamsulosin 0.8mg PO Daily Finasteride 5mg PO Daily Electrolyte Abnormality Resolved MG 1.8 Prophylaxis Protonix Lovenox Heart Healthy Diet Psych evaluated this patient and recommending IOP in where he can get NLTX. Dr. Valadez would like an evaluation of this patient prior to discharge. Dispo: once patient has been out of EtOH withdrawal for the day he can be d/c home can take augmentin 875mg PO BID for a total of 10 days Flonase as needed Sodium Chloride/Salt water Sprays as needed as well +/- Netti Pot Case discussed with Dr. Valadez. All management as per Dr. Radha Valadez <RoryManish - Last Filed: 11/01/17 13:55> Objective - Vital Signs/Intake and Output Vital Signs (last 24 hours): Temp Pulse Resp BP Pulse Ox 98.7 F 84 20 106/67 95 11/01/17 07:35 11/01/17 09:31 11/01/17 07:35 11/01/17 09:31 11/01/17 07:35 - Labs Labs: 10/30/17 06:46 10/30/17 06:46 PT 13.3 SECONDS (9.7-12.2) H 10/23/17 21:03 INR 1.2 10/23/17 21:03 APTT 29 SECONDS (21-34) 10/23/17 21:03 Assessment and Plan (1) Abdominal pain Status: Acute (2) Abdominal pain Status: Acute (3) Acute pansinusitis Status: Acute (4) Acute viral syndrome Status: Acute (5) Alcohol abuse Status: Acute (6) Alcohol intoxication Status: Acute (7) Alcohol intoxication Status: Acute (8) Alcohol withdrawal Status: Acute (9) Anemia Status: Acute (10) BPH (benign prostatic hyperplasia) Status: Acute (11) Dehydration Status: Acute (12) Depressed Status: Acute (13) Gastritis due to alcohol without hemorrhage Status: Acute (14) HTN (hypertension) Status: Acute (15) HTN (hypertension) Status: Acute (16) Hiatal hernia without gangrene and obstruction Status: Acute (17) Prophylactic measure Status: Acute (18) Renal insufficiency Status: Acute (19) Withdrawal symptoms, alcohol Status: Acute (20) Alcohol dependence Status: Chronic Attending/Attestation - Attestation I have personally seen and examined this patient.: Yes I have fully participated in the care of the patient.: Yes I have reviewed all pertinent clinical information, including history, physical exam and plan: Yes Notes (Text): Patient examined. Patient is feeling better. Today is the last day of oseltamivir. Moxifloxacin. Antihypertensive meds. Thiamine, multivitamins, chlordiazepoxide and folic acid. Supportive care.
--- NOTE | 2017-10-30 18:30 | CP.PCM.PN ---
Subjective - Date & Time of Evaluation Date of Evaluation: 10/30/17 Time of Evaluation: 18:30 - Subjective Subjective: AFEBRILE , NO NEW COMPLAINTS. LABS REVIEWED; LFTS N. Objective - Vital Signs/Intake and Output Vital Signs (last 24 hours): Temp Pulse Resp BP Pulse Ox 98.4 F 66 18 100/64 95 10/30/17 15:21 10/30/17 15:21 10/30/17 15:21 10/30/17 15:21 10/30/17 15:21 Intake and Output: 10/30/17 10/30/17 06:59 18:59 Intake Total 610 Output Total 200 Balance 410 - Medications Medications: Current Medications Allopurinol (Zyloprim) 100 mg PO DAILY [facility] Last Admin: 10/30/17 09:44 Dose: 100 mg Chlordiazepoxide (Librium) 50 mg PO Q4H PRN PRN Reason: Agitation Last Admin: 10/29/17 08:45 Dose: 50 mg Enoxaparin Sodium (Lovenox) 40 mg SC DAILY [facility] Last Admin: 10/30/17 09:44 Dose: 40 mg Finasteride (Proscar) 5 mg PO DAILY [facility] Last Admin: 10/30/17 09:44 Dose: 5 mg Fluticasone Propionate (Flonase) 0 spr ULISES BID [facility] Last Admin: 10/30/17 09:46 Dose: 1 spray Folic Acid (Folic Acid) 1 mg PO DAILY [facility] Last Admin: 10/30/17 09:44 Dose: 1 mg Moxifloxacin HCl (Avelox Iv 400mg/250ml Ns) 400 mg in 250 mls @ 167 mls/hr IVPB Q24H [facility] Last Admin: 10/29/17 22:16 Dose: 167 mls/hr Ferric Sodium Gluconate Complex 125 mg/ Sodium Chloride 110 mls @ 110 mls/hr IVPB DAILY [facility] Stop: 11/02/17 11:01 Last Admin: 10/30/17 09:51 Dose: 110 mls/hr Losartan Potassium (Cozaar) 100 mg PO DAILY [facility] Metoprolol Tartrate (Lopressor) 50 mg PO BID [facility] Multivitamins (Hexavitamin) 1 tab PO DAILY [facility] Last Admin: 10/30/17 09:44 Dose: 1 tab Naproxen (Anaprox Ds) 500 mg PO BID PRN PRN Reason: Pain, moderate (4-7) Last Admin: 10/29/17 17:49 Dose: 500 mg Pantoprazole Sodium (Protonix Ec Tab) 40 mg PO DAILY [facility] Last Admin: 10/30/17 09:44 Dose: 40 mg Tamsulosin HCl (Flomax) 0.8 mg PO DAILY [facility] Last Admin: 10/30/17 09:44 Dose: 0.8 mg Thiamine HCl (Vitamin B1 Tab) 100 mg PO BID [facility] Last Admin: 10/30/17 18:25 Dose: 100 mg - Labs Labs: 10/30/17 06:46 10/30/17 06:46 PT 13.3 SECONDS (9.7-12.2) H 10/23/17 21:03 INR 1.2 10/23/17 21:03 APTT 29 SECONDS (21-34) 10/23/17 21:03 - Constitutional Appears: No Acute Distress - Head Exam Head Exam: NORMAL INSPECTION - Eye Exam Eye Exam: EOMI, PERRL - ENT Exam ENT Exam: Normal Oropharynx - Neck Exam Neck Exam: Normal Inspection - Respiratory Exam Respiratory Exam: Clear to Ausculation Bilateral - Cardiovascular Exam Cardiovascular Exam: REGULAR RHYTHM, +S1, +S2 - GI/Abdominal Exam GI & Abdominal Exam: Soft, Tenderness (EPIGASTRIC AND UMBLICAL REGION), Normal Bowel Sounds - Extremities Exam Extremities Exam: Normal Capillary Refill. absent: Calf Tenderness, Pedal Edema - Neurological Exam Neurological Exam: Awake, CN II-XII Intact, Normal Gait, Oriented x3, Reflexes Normal - Psychiatric Exam Psychiatric exam: Normal Mood - Skin Skin Exam: Normal Color, Warm Assessment and Plan (1) Acute pansinusitis Assessment & Plan: Continue IV Avelox 400 mg once a day daily.10/24/17. x 21days can switch to po augmentin 875mg po bid on discharge for rest of the days left. Status: Acute Status: Acute (2) Acute viral syndrome Assessment & Plan: Influenza negative at admission - influenza a/b antibodies were elevated - Tamiflu treatment completed Legionella negative Status: Acute Status: Acute (3) Abdominal pain Assessment & Plan: PER GI/SURGERY. Status: Acute (4) Alcohol abuse Status: Acute (5) Anemia Assessment & Plan: W/U PER HEMATOLOGY. ON IRON SUPPLEMENTS Status: Acute (6) Hiatal hernia without gangrene and obstruction Status: Acute (7) Alcohol dependence Status: Chronic
--- NOTE | 2017-10-30 19:23 | CP.PCM.PN ---
Subjective - Date & Time of Evaluation Date of Evaluation: 10/30/17 Time of Evaluation: 10:20 - Subjective Subjective: clinically same Objective - Vital Signs/Intake and Output Vital Signs (last 24 hours): Temp Pulse Resp BP Pulse Ox 98.4 F 66 18 100/64 95 10/30/17 15:21 10/30/17 15:21 10/30/17 15:21 10/30/17 15:21 10/30/17 15:21 - Medications Medications: Current Medications Allopurinol (Zyloprim) 100 mg PO DAILY [facility] Last Admin: 10/30/17 09:44 Dose: 100 mg Chlordiazepoxide (Librium) 50 mg PO Q4H PRN PRN Reason: Agitation Last Admin: 10/29/17 08:45 Dose: 50 mg Enoxaparin Sodium (Lovenox) 40 mg SC DAILY [facility] Last Admin: 10/30/17 09:44 Dose: 40 mg Finasteride (Proscar) 5 mg PO DAILY [facility] Last Admin: 10/30/17 09:44 Dose: 5 mg Fluticasone Propionate (Flonase) 0 spr ULISES BID [facility] Last Admin: 10/30/17 09:46 Dose: 1 spray Folic Acid (Folic Acid) 1 mg PO DAILY [facility] Last Admin: 10/30/17 09:44 Dose: 1 mg Moxifloxacin HCl (Avelox Iv 400mg/250ml Ns) 400 mg in 250 mls @ 167 mls/hr IVPB Q24H [facility] Last Admin: 10/29/17 22:16 Dose: 167 mls/hr Ferric Sodium Gluconate Complex 125 mg/ Sodium Chloride 110 mls @ 110 mls/hr IVPB DAILY [facility] Stop: 11/02/17 11:01 Last Admin: 10/30/17 09:51 Dose: 110 mls/hr Losartan Potassium (Cozaar) 100 mg PO DAILY [facility] Metoprolol Tartrate (Lopressor) 50 mg PO BID [facility] Multivitamins (Hexavitamin) 1 tab PO DAILY [facility] Last Admin: 10/30/17 09:44 Dose: 1 tab Naproxen (Anaprox Ds) 500 mg PO BID PRN PRN Reason: Pain, moderate (4-7) Last Admin: 10/29/17 17:49 Dose: 500 mg Pantoprazole Sodium (Protonix Ec Tab) 40 mg PO DAILY [facility] Last Admin: 10/30/17 09:44 Dose: 40 mg Tamsulosin HCl (Flomax) 0.8 mg PO DAILY [facility] Last Admin: 10/30/17 09:44 Dose: 0.8 mg Thiamine HCl (Vitamin B1 Tab) 100 mg PO BID [facility] Last Admin: 10/30/17 18:25 Dose: 100 mg - Labs Labs: 10/30/17 06:46 10/30/17 06:46 PT 13.3 SECONDS (9.7-12.2) H 10/23/17 21:03 INR 1.2 10/23/17 21:03 APTT 29 SECONDS (21-34) 10/23/17 21:03 - Constitutional Appears: Well - Head Exam Head Exam: ATRAUMATIC, NORMAL INSPECTION, NORMOCEPHALIC - Eye Exam Eye Exam: EOMI, Normal appearance, PERRL Pupil Exam: NORMAL ACCOMODATION, PERRL - ENT Exam ENT Exam: Mucous Membranes Moist, Normal Exam - Neck Exam Neck Exam: Full ROM, Normal Inspection. absent: Lymphadenopathy - Respiratory Exam Respiratory Exam: Decreased Breath Sounds - Cardiovascular Exam Cardiovascular Exam: REGULAR RHYTHM, +S1, +S2 - GI/Abdominal Exam GI & Abdominal Exam: Soft, Diminished Bowel Sounds - Rectal Exam Rectal Exam: Deferred Assessment and Plan (1) Abdominal pain Status: Acute (2) Abdominal pain Status: Acute (3) Acute pansinusitis Status: Acute (4) Acute viral syndrome Status: Acute (5) Alcohol abuse Status: Acute (6) Alcohol intoxication Status: Acute (7) Alcohol intoxication Status: Acute (8) Alcohol withdrawal Status: Acute (9) Anemia Status: Acute (10) BPH (benign prostatic hyperplasia) Status: Acute (11) Dehydration Status: Acute (12) Depressed Status: Acute (13) Gastritis due to alcohol without hemorrhage Status: Acute (14) HTN (hypertension) Status: Acute (15) HTN (hypertension) Status: Acute (16) Hiatal hernia without gangrene and obstruction Status: Acute (17) Prophylactic measure Status: Acute (18) Renal insufficiency Status: Acute (19) Withdrawal symptoms, alcohol Status: Acute (20) Alcohol dependence Status: Chronic - Assessment and Plan (Free Text) Plan: Patient examined. Patient is feeling better. No fresh complaints. Continue losartan and metoprolol. Moxifloxacin. Thiamine, folic acid, multivitamins and chlordiazepoxide.
[2017-10-30] MEDS: Moxifloxacin IV 400mg/250ml NS 400 MG/250 ML BAG IVPB SCH (22:04)
--- NOTE | 2017-10-31 00:09 | CP.PCM.PN ---
Subjective - Date & Time of Evaluation Date of Evaluation: 10/30/17 Time of Evaluation: 19:30 - Subjective Subjective: Feeling better Objective - Vital Signs/Intake and Output Vital Signs (last 24 hours): Temp Pulse Resp BP Pulse Ox 98.4 F 76 18 104/69 95 10/30/17 15:21 10/30/17 22:09 10/30/17 15:21 10/30/17 22:09 10/30/17 15:21 Intake and Output: 10/30/17 10/31/17 18:59 06:59 Intake Total 800 Output Total 600 Balance 200 - Medications Medications: Current Medications Allopurinol (Zyloprim) 100 mg PO DAILY [facility] Last Admin: 10/30/17 09:44 Dose: 100 mg Chlordiazepoxide (Librium) 50 mg PO Q4H PRN PRN Reason: Agitation Last Admin: 10/29/17 08:45 Dose: 50 mg Enoxaparin Sodium (Lovenox) 40 mg SC DAILY [facility] Last Admin: 10/30/17 09:44 Dose: 40 mg Finasteride (Proscar) 5 mg PO DAILY [facility] Last Admin: 10/30/17 09:44 Dose: 5 mg Fluticasone Propionate (Flonase) 0 spr ULISES BID [facility] Last Admin: 10/30/17 20:22 Dose: 1 spray Folic Acid (Folic Acid) 1 mg PO DAILY [facility] Last Admin: 10/30/17 09:44 Dose: 1 mg Moxifloxacin HCl (Avelox Iv 400mg/250ml Ns) 400 mg in 250 mls @ 167 mls/hr IVPB Q24H [facility] Last Admin: 10/30/17 22:04 Dose: 167 mls/hr Ferric Sodium Gluconate Complex 125 mg/ Sodium Chloride 110 mls @ 110 mls/hr IVPB DAILY [facility] Stop: 11/02/17 11:01 Last Admin: 10/30/17 09:51 Dose: 110 mls/hr Losartan Potassium (Cozaar) 100 mg PO DAILY [facility] Metoprolol Tartrate (Lopressor) 50 mg PO BID [facility] Last Admin: 10/30/17 22:08 Dose: Not Given Multivitamins (Hexavitamin) 1 tab PO DAILY [facility] Last Admin: 10/30/17 09:44 Dose: 1 tab Naproxen (Anaprox Ds) 500 mg PO BID PRN PRN Reason: Pain, moderate (4-7) Last Admin: 10/29/17 17:49 Dose: 500 mg Pantoprazole Sodium (Protonix Ec Tab) 40 mg PO DAILY [facility] Last Admin: 10/30/17 09:44 Dose: 40 mg Tamsulosin HCl (Flomax) 0.8 mg PO DAILY [facility] Last Admin: 10/30/17 09:44 Dose: 0.8 mg Thiamine HCl (Vitamin B1 Tab) 100 mg PO BID [facility] Last Admin: 10/30/17 18:25 Dose: 100 mg - Labs Labs: 10/30/17 06:46 10/30/17 06:46 PT 13.3 SECONDS (9.7-12.2) H 10/23/17 21:03 INR 1.2 10/23/17 21:03 APTT 29 SECONDS (21-34) 10/23/17 21:03 - Head Exam Head Exam: ATRAUMATIC - Eye Exam Eye Exam: Normal appearance - ENT Exam ENT Exam: Mucous Membranes Dry - Respiratory Exam Respiratory Exam: NORMAL BREATHING PATTERN - Cardiovascular Exam Cardiovascular Exam: +S1, +S2 - GI/Abdominal Exam GI & Abdominal Exam: Normal Bowel Sounds Assessment and Plan (1) Anemia Assessment & Plan: work up consistent with iron deficiency anemia s/p PRBC transfusion on IV iron will need GI evaluation for EGD/colonoscopy Status: Acute
[2017-10-31 01:33] VITALS: RESP 20
[2017-10-31] MEDS: Enoxaparin 40 mg Syringe SC SCH (09:57)
[2017-10-31] MEDS: Pantoprazole 40 mg EC Tab PO SCH (09:57)
[2017-10-31] MEDS: Multiple Vitamins Tab PO SCH (09:57)
[2017-10-31] MEDS: Fluticasone Nasal 50 mcg/Spray NAS SCH ×2 (09:59→17:29)
[2017-10-31] MEDS: Ferric Sodium Gluconat Complex 125 MG in Sodium Chloride 0.9% 100 ML IVPB SCH (10:37)
--- NOTE | 2017-10-31 14:36 | CP.PCM.PCO ---
Physician Communication Note - Physician Communication Note Physician Communication Note: Pt has been here 7 days. No need for detox. SW to refer to rehab or IOP
--- NOTE | 2017-10-31 14:58 | CP.PCM.PN ---
<Lance Stephens S - Last Filed: 10/31/17 14:55> Subjective - Date & Time of Evaluation Date of Evaluation: 10/31/17 Time of Evaluation: 14:56 - Subjective Subjective: Progress Note for Dr. Valadez's Service Pt was seen and examined at bedside today. He reports that he does not feel well. He continues to have abdominal pain. He denies F/C/CP/SOB/V/D/C. He does have abdominal pain that is located on the left side, upper and lower quadrants. I discussed with the patient his living arrangement for when he is discharged. He insists that he must stay in the hospital because he does not have anywhere to go. I explained to him that he is not acutely ill and there is no reason for him to be hospitalized. He explains that he cannot walk so he is unable to leave the hospital. Objective - Vital Signs/Intake and Output Vital Signs (last 24 hours): Temp Pulse Resp BP Pulse Ox 98.7 F 72 20 94/60 L 96 10/31/17 07:40 10/31/17 08:00 10/31/17 07:40 10/31/17 07:40 10/31/17 07:40 Intake and Output: 10/31/17 10/31/17 06:59 18:59 Intake Total 800 Output Total 1600 Balance -800 - Medications Medications: Current Medications Allopurinol (Zyloprim) 100 mg PO DAILY [facility] Last Admin: 10/31/17 09:57 Dose: 100 mg Finasteride (Proscar) 5 mg PO DAILY [facility] Last Admin: 10/31/17 09:57 Dose: 5 mg Fluticasone Propionate (Flonase) 0 spr ULISES BID [facility] Last Admin: 10/31/17 09:59 Dose: 1 spray Folic Acid (Folic Acid) 1 mg PO DAILY [facility] Last Admin: 10/31/17 09:57 Dose: 1 mg Moxifloxacin HCl (Avelox Iv 400mg/250ml Ns) 400 mg in 250 mls @ 167 mls/hr IVPB Q24H [facility] Last Admin: 10/30/17 22:04 Dose: 167 mls/hr Ferric Sodium Gluconate Complex 125 mg/ Sodium Chloride 110 mls @ 110 mls/hr IVPB DAILY [facility] Stop: 11/02/17 11:01 Last Admin: 10/31/17 10:37 Dose: 110 mls/hr Losartan Potassium (Cozaar) 100 mg PO DAILY [facility] Last Admin: 10/31/17 09:58 Dose: Not Given Metoprolol Tartrate (Lopressor) 50 mg PO BID [facility] Last Admin: 10/31/17 10:00 Dose: Not Given Multivitamins (Hexavitamin) 1 tab PO DAILY [facility] Last Admin: 10/31/17 09:57 Dose: 1 tab Naproxen (Anaprox Ds) 500 mg PO BID PRN PRN Reason: Pain, moderate (4-7) Last Admin: 10/29/17 17:49 Dose: 500 mg Pantoprazole Sodium (Protonix Ec Tab) 40 mg PO DAILY [facility] Last Admin: 10/31/17 09:57 Dose: 40 mg Tamsulosin HCl (Flomax) 0.8 mg PO DAILY [facility] Last Admin: 10/31/17 09:57 Dose: 0.8 mg Thiamine HCl (Vitamin B1 Tab) 100 mg PO BID [facility] Last Admin: 10/31/17 09:57 Dose: 100 mg - Labs Labs: 10/30/17 06:46 10/30/17 06:46 PT 13.3 SECONDS (9.7-12.2) H 10/23/17 21:03 INR 1.2 10/23/17 21:03 APTT 29 SECONDS (21-34) 10/23/17 21:03 - Constitutional Appears: No Acute Distress - Head Exam Head Exam: ATRAUMATIC, NORMAL INSPECTION - Eye Exam Eye Exam: EOMI - ENT Exam ENT Exam: Mucous Membranes Moist - Respiratory Exam Respiratory Exam: Clear to Ausculation Bilateral, NORMAL BREATHING PATTERN - Cardiovascular Exam Cardiovascular Exam: REGULAR RHYTHM, +S1, +S2 - GI/Abdominal Exam GI & Abdominal Exam: Soft, Tenderness (mildly tender with deep palpation), Hyperactive Bowel Sounds - Neurological Exam Neurological Exam: Alert, Awake, Oriented x3 - Skin Skin Exam: Dry, Intact Assessment and Plan - Assessment and Plan (Free Text) Plan: EtOH Withdrawal- resolved Asymptomatic - patient is not in DT/having seizures/actively withdrawing Alcohol level: < 10 on admission -Thiamine/Folate/MV daily - Librium PRN - patient is tolerating PO- small meals - lipase 73 10/25/17 - Pt is stable and does not meet criteria for inpatient detox. He was evaluated by Dr. Ozden and will need outpatient rehab. Myalgia/Congestion Pt afebrile, No WBC Dr. Rodas, [place] aerodynamic consultant Avelox 400mg IV DAily -can switch to Augmentin 875mg PO BID for 10 days upon d/c CT sinus shows pansinusitis mycoplasma negative Influenza negative at admission - influenza a/b antibodies were elevated - Tamiflu treatment completed Legionella negative Naproxen PRN pain Pancytopenia most likely 2/2 to chronic EtOH Bone marrow toxicity -Improving- hgb 10.6 (10/30/2017) -patient has no active bleeding; hgb is lower than previous admissions; s/p 1 unit of PRBC - Hgb stable this AM form yesterday - stool occult: negative; Hemoccult at bedside negative -will continue to monitor; patient advised to stop drinking - Consult placed to Heme onc, Dr. Tirado, help appreciated start IV iron ( - 11/02)- iron deficiency anemia Type 4 paraesophageal hernia -patient will likely need surgical repair; surgery recommended outpatient tx on last admission, pt left AMA -patient was optimized for surgery as per cardiology on last admission - No cardiovascular contraindication to the planned surgery as outpatient ECHO (10/15/17): LV is normal size, EF 60-65%, LV diastolic function is abnormal - Grade I abnormal relaxation pattern. Mild tricuspid regurgitation noted. -He will need follow up with GI for EGD outpatient Gout Controlled Allopurinol 100mg PO daily CHF (diastolic dysfunction);chronic as per last ECHO (10/15/17): LV is normal size, EF 60-65%, LV diastolic function is abnormal - Grade I abnormal relaxation pattern. Mild tricuspid regurgitation noted. Metoprolol 50mg PO BID Cozaar 100mg PO Daily BPH Tamsulosin 0.8mg PO Daily Finasteride 5mg PO Daily Electrolyte Abnormality Resolved MG 1.8 Prophylaxis Protonix Lovenox Heart Healthy Diet Patient has been evaluated by psych and he does not meet inpatient detox criteria. He was evaluated by PT and [facility] was recommended. Case was discussed with s/w who is trying to find him placement at [facility]. Patient will be discharged once he is accepted. Case discussed with Dr. Valadez. All management as per Dr. Radha Valadez <Manish Valadez - Last Filed: 11/01/17 14:00> Objective - Vital Signs/Intake and Output Vital Signs (last 24 hours): Temp Pulse Resp BP Pulse Ox 98.7 F 84 20 106/67 95 11/01/17 07:35 11/01/17 09:31 11/01/17 07:35 11/01/17 09:31 11/01/17 07:35 - Labs Labs: 10/30/17 06:46 10/30/17 06:46 PT 13.3 SECONDS (9.7-12.2) H 10/23/17 21:03 INR 1.2 10/23/17 21:03 APTT 29 SECONDS (21-34) 10/23/17 21:03 Assessment and Plan (1) Abdominal pain Status: Acute (2) Abdominal pain Status: Acute (3) Acute pansinusitis Status: Acute (4) Acute viral syndrome Status: Acute (5) Alcohol abuse Status: Acute (6) Alcohol intoxication Status: Acute (7) Alcohol intoxication Status: Acute (8) Alcohol withdrawal Status: Acute (9) Anemia Status: Acute (10) BPH (benign prostatic hyperplasia) Status: Acute (11) Dehydration Status: Acute (12) Depressed Status: Acute (13) Gastritis due to alcohol without hemorrhage Status: Acute (14) HTN (hypertension) Status: Acute (15) HTN (hypertension) Status: Acute (16) Hiatal hernia without gangrene and obstruction Status: Acute (17) Prophylactic measure Status: Acute (18) Renal insufficiency Status: Acute (19) Withdrawal symptoms, alcohol Status: Acute (20) Alcohol dependence Status: Chronic Attending/Attestation - Attestation I have personally seen and examined this patient.: Yes I have fully participated in the care of the patient.: Yes I have reviewed all pertinent clinical information, including history, physical exam and plan: Yes Notes (Text): Patient examined. Patient continues to have abdominal pain. Patient's wants to stay in the hospital as he has nowhere else to go. Patient has been explained that he will does not require further hospital stay. Laboratory investigation shows a raised hemoglobin to 10.6. Continue all medications. Moxifloxacin, thiamine.
--- NOTE | 2017-10-31 18:47 | CP.PCM.PN ---
Subjective - Date & Time of Evaluation Date of Evaluation: 10/31/17 Time of Evaluation: 14:00 - Subjective Subjective: Feeling better Objective - Vital Signs/Intake and Output Vital Signs (last 24 hours): Temp Pulse Resp BP Pulse Ox 98.5 F 78 20 102/74 94 L 10/31/17 16:00 10/31/17 16:00 10/31/17 16:00 10/31/17 16:00 10/31/17 16:00 Intake and Output: 10/31/17 10/31/17 06:59 18:59 Intake Total 800 Output Total 1600 Balance -800 - Medications Medications: Current Medications Allopurinol (Zyloprim) 100 mg PO DAILY [facility] Last Admin: 10/31/17 09:57 Dose: 100 mg Enoxaparin Sodium (Lovenox) 40 mg SC DAILY [facility] Finasteride (Proscar) 5 mg PO DAILY [facility] Last Admin: 10/31/17 09:57 Dose: 5 mg Fluticasone Propionate (Flonase) 0 spr ULISES BID [facility] Last Admin: 10/31/17 17:29 Dose: 1 spray Folic Acid (Folic Acid) 1 mg PO DAILY [facility] Last Admin: 10/31/17 09:57 Dose: 1 mg Ferric Sodium Gluconate Complex 125 mg/ Sodium Chloride 110 mls @ 110 mls/hr IVPB DAILY [facility] Stop: 11/02/17 11:01 Last Admin: 10/31/17 10:37 Dose: 110 mls/hr Losartan Potassium (Cozaar) 100 mg PO DAILY [facility] Last Admin: 10/31/17 09:58 Dose: Not Given Metoprolol Tartrate (Lopressor) 50 mg PO BID [facility] Last Admin: 10/31/17 17:29 Dose: Not Given Moxifloxacin HCl (Avelox) 400 mg PO Q24H [facility] Multivitamins (Hexavitamin) 1 tab PO DAILY [facility] Last Admin: 10/31/17 09:57 Dose: 1 tab Naproxen (Anaprox Ds) 500 mg PO BID PRN PRN Reason: Pain, moderate (4-7) Last Admin: 10/29/17 17:49 Dose: 500 mg Pantoprazole Sodium (Protonix Ec Tab) 40 mg PO DAILY [facility] Last Admin: 10/31/17 09:57 Dose: 40 mg Tamsulosin HCl (Flomax) 0.8 mg PO DAILY [facility] Last Admin: 10/31/17 09:57 Dose: 0.8 mg Thiamine HCl (Vitamin B1 Tab) 100 mg PO BID [facility] Last Admin: 10/31/17 17:29 Dose: 100 mg - Labs Labs: 10/30/17 06:46 10/30/17 06:46 PT 13.3 SECONDS (9.7-12.2) H 10/23/17 21:03 INR 1.2 10/23/17 21:03 APTT 29 SECONDS (21-34) 10/23/17 21:03 - Head Exam Head Exam: ATRAUMATIC - Eye Exam Eye Exam: Normal appearance - ENT Exam ENT Exam: Mucous Membranes Dry - Respiratory Exam Respiratory Exam: NORMAL BREATHING PATTERN - Cardiovascular Exam Cardiovascular Exam: +S1, +S2 - GI/Abdominal Exam GI & Abdominal Exam: Normal Bowel Sounds Assessment and Plan (1) Anemia Assessment & Plan: work up consistent with iron deficiency anemia s/p PRBC transfusion on IV iron outpatient GI evaluation for EGD/colonoscopy Status: Acute
--- NOTE | 2017-10-31 19:17 | CP.PCM.PN ---
Subjective - Date & Time of Evaluation Date of Evaluation: 10/31/17 Time of Evaluation: 11:20 - Subjective Subjective: clinically same Objective - Vital Signs/Intake and Output Vital Signs (last 24 hours): Temp Pulse Resp BP Pulse Ox 98.5 F 78 20 102/74 94 L 10/31/17 16:00 10/31/17 16:00 10/31/17 16:00 10/31/17 16:00 10/31/17 16:00 - Medications Medications: Current Medications Allopurinol (Zyloprim) 100 mg PO DAILY [facility] Last Admin: 10/31/17 09:57 Dose: 100 mg Enoxaparin Sodium (Lovenox) 40 mg SC DAILY [facility] Finasteride (Proscar) 5 mg PO DAILY [facility] Last Admin: 10/31/17 09:57 Dose: 5 mg Fluticasone Propionate (Flonase) 0 spr ULISES BID [facility] Last Admin: 10/31/17 17:29 Dose: 1 spray Folic Acid (Folic Acid) 1 mg PO DAILY [facility] Last Admin: 10/31/17 09:57 Dose: 1 mg Ferric Sodium Gluconate Complex 125 mg/ Sodium Chloride 110 mls @ 110 mls/hr IVPB DAILY [facility] Stop: 11/02/17 11:01 Last Admin: 10/31/17 10:37 Dose: 110 mls/hr Losartan Potassium (Cozaar) 100 mg PO DAILY [facility] Last Admin: 10/31/17 09:58 Dose: Not Given Metoprolol Tartrate (Lopressor) 50 mg PO BID [facility] Last Admin: 10/31/17 17:29 Dose: Not Given Moxifloxacin HCl (Avelox) 400 mg PO Q24H [facility] Multivitamins (Hexavitamin) 1 tab PO DAILY [facility] Last Admin: 10/31/17 09:57 Dose: 1 tab Naproxen (Anaprox Ds) 500 mg PO BID PRN PRN Reason: Pain, moderate (4-7) Last Admin: 10/29/17 17:49 Dose: 500 mg Pantoprazole Sodium (Protonix Ec Tab) 40 mg PO DAILY [facility] Last Admin: 10/31/17 09:57 Dose: 40 mg Tamsulosin HCl (Flomax) 0.8 mg PO DAILY [facility] Last Admin: 10/31/17 09:57 Dose: 0.8 mg Thiamine HCl (Vitamin B1 Tab) 100 mg PO BID [facility] Last Admin: 10/31/17 17:29 Dose: 100 mg - Labs Labs: 10/30/17 06:46 10/30/17 06:46 PT 13.3 SECONDS (9.7-12.2) H 10/23/17 21:03 INR 1.2 10/23/17 21:03 APTT 29 SECONDS (21-34) 10/23/17 21:03 - Constitutional Appears: Well - Head Exam Head Exam: ATRAUMATIC, NORMAL INSPECTION, NORMOCEPHALIC - Eye Exam Eye Exam: EOMI, Normal appearance, PERRL Pupil Exam: NORMAL ACCOMODATION, PERRL - ENT Exam ENT Exam: Mucous Membranes Moist, Normal Exam - Neck Exam Neck Exam: Full ROM, Normal Inspection. absent: Lymphadenopathy - Respiratory Exam Respiratory Exam: Decreased Breath Sounds - Cardiovascular Exam Cardiovascular Exam: REGULAR RHYTHM, +S1, +S2 - GI/Abdominal Exam GI & Abdominal Exam: Soft, Diminished Bowel Sounds - Rectal Exam Rectal Exam: Deferred Assessment and Plan (1) Abdominal pain Status: Acute (2) Abdominal pain Status: Acute (3) Acute pansinusitis Status: Acute (4) Acute viral syndrome Status: Acute (5) Alcohol abuse Status: Acute (6) Alcohol intoxication Status: Acute (7) Alcohol intoxication Status: Acute (8) Alcohol withdrawal Status: Acute (9) Anemia Status: Acute (10) BPH (benign prostatic hyperplasia) Status: Acute (11) Dehydration Status: Acute (12) Depressed Status: Acute (13) Gastritis due to alcohol without hemorrhage Status: Acute (14) HTN (hypertension) Status: Acute (15) HTN (hypertension) Status: Acute (16) Hiatal hernia without gangrene and obstruction Status: Acute (17) Prophylactic measure Status: Acute (18) Renal insufficiency Status: Acute (19) Withdrawal symptoms, alcohol Status: Acute (20) Alcohol dependence Status: Chronic - Assessment and Plan (Free Text) Plan: Patient examined. Patient is fit for discharge. Continue moxifloxacin orally. Thiamine, multivitamin, folic acid and supportive care.
[2017-11-01 07:52] VITALS: TEMP 98.7; O2SAT 95
[2017-11-01] MEDS ORDERED: Ferric Sodium Gluconat Complex 62.5 mg/5 ml Vial ONE (09:23)
[2017-11-01] MEDS: Multiple Vitamins Tab PO SCH (09:55)
[2017-11-01] MEDS: Pantoprazole 40 mg EC Tab PO SCH (09:55)
[2017-11-01] MEDS: Fluticasone Nasal 50 mcg/Spray NAS SCH (09:56)
[2017-11-01] MEDS ORDERED: Enoxaparin 40 mg Syringe SC SCH (10:00)
[2017-11-01] MEDS: Ferric Sodium Gluconat Complex 125 MG in Sodium Chloride 0.9% 100 ML IVPB SCH (10:10)
[2017-11-01 10:35] VITALS: BP 106/67; PULSE 84
--- NOTE | 2017-11-01 14:55 | CP.PCM.PN ---
Subjective - Date & Time of Evaluation Date of Evaluation: 11/01/17 Time of Evaluation: 10:50 - Subjective Subjective: Patient wanted to leave AMA. He said he had "things to do" and wanted to leave. He stated he would follow up with Dr. Radha Valadez in his clinic today at 3PM. Patient was awake alert and oriented. His risks were explained to him and he signed the AMA form. This form was also signed by his nurse and placed in the chart. His IVs were removed. Objective - Vital Signs/Intake and Output Vital Signs (last 24 hours): Temp Pulse Resp BP Pulse Ox 98.7 F 84 20 106/67 95 11/01/17 07:35 11/01/17 09:31 11/01/17 07:35 11/01/17 09:31 11/01/17 07:35 - Labs Labs: 10/30/17 06:46 10/30/17 06:46 PT 13.3 SECONDS (9.7-12.2) H 10/23/17 21:03 INR 1.2 10/23/17 21:03 APTT 29 SECONDS (21-34) 10/23/17 21:03
--- NOTE | 2017-11-03 08:13 | PCM.HF ---
Heart Failure Core Measure - Heart Failure Ejection Fraction: 40 % or Greater ALEXANDER Inhibitor Prescribed: No Contraindication/Reason for not providing: on alexander Beta-Timothy Prescribed: Metoprolol Succinate Angiotensin II Receptor Timothy Prescribed: Yes AnticoagulationTherapy for Atrial Fibrillation/Atrialflutter: No Contraindication/Reason for not providing: no hx of a fib / thrombocytopenia Aldosterone Antagonist Prescribed: No Contraindication/Reason for not providing: EF>45 Hydralazine Nitrate Prescribed: No Contraindication/Reason for not providing: EF>45 Implantable Cardioverter Defibrillator Therapy: No Contraindication/Reason for not providing: EF>45 Cardiac Resynchronization Therapy Prescribed: No Contraindication/Reason for not providing: EF>45 - Follow up Will be discharged to: Home Follow Up Date (must be within 7 days from discharge): 11/03/17 Follow Up Time: 09:00
== END 2017-11-01 11:20 | disposition left against medical advice (07) | DRG 749 ==
LOC: C.ER 11:50 → C.9E 15:44 → C.6T 23:14 → OBSVTOIN 10-26 13:35 → C.6T 10-27 10:40
PROVIDERS: ADMIT Internal Medicine Nephrology; ATTEND Internal Medicine Nephrology
PROC: 30233N1 Transfusion of Nonautologous Red Blood Cells into Peripheral Vein, Percutaneous Approach (ICD-10-PCS; principal; 2017-10-24)
DX: F10.220 Alcohol dependence with intoxication, uncomplicated (principal); D61.818 Other pancytopenia; D72.1 Eosinophilia; I50.32 Chronic diastolic (congestive) heart failure; I07.1 Rheumatic tricuspid insufficiency; I11.0 Hypertensive heart disease with heart failure; E86.0 Dehydration; F10.230 Alcohol dependence with withdrawal, uncomplicated; D50.9 Iron deficiency anemia, unspecified; B34.9 Viral infection, unspecified; J01.40 Acute pansinusitis, unspecified; K29.20 Alcoholic gastritis without bleeding; K44.9 Diaphragmatic hernia without obstruction or gangrene; N28.9 Disorder of kidney and ureter, unspecified; N40.0 Benign prostatic hyperplasia without lower urinary tract symptoms; Z90.49 Acquired absence of other specified parts of digestive tract

== ENCOUNTER 2017-11-12 18:08 | Emergency (ER) | payer MEDICAID ==
--- NOTE | 2017-11-12 19:10 | C.PDOC ---
History Of Present Illness <Kayla Morejon - Last Filed: 11/12/17 21:54> <Chandler Cottrell - Last Filed: 11/13/17 04:48> 62 year old male with a Hx of arthritis and ETOH abuse presents to the ER with a complaint of upper back pain, bilateral shoulder pain, and right leg pain for the past 2 days. Patient reports he has been taking naproxen with no relief to pain. Denies recent trauma, weakness, or numbness. (Kayla Morejon) History Per: Patient History/Exam Limitations: no limitations Onset/Duration Of Symptoms: Days Current Symptoms Are (Timing): Still Present Recent travel outside of the [place]: No <Kayla Morejon - Last Filed: 11/12/17 21:54> <Chandler Cottrell - Last Filed: 11/13/17 04:48> Time Seen by Provider: 11/12/17 18:19 Chief Complaint (Nursing): Back Pain Past Medical History Reviewed: Historical Data, Nursing Documentation, Vital Signs - Medical History PMH: Benign Prostatic Hyperplasia, Depression, Gastritis, HTN Surgical History: Appendectomy Family History: States: Unknown Family Hx - Social History Hx Tobacco Use: No Hx Alcohol Use: Yes Hx Substance Use: No - Immunization History Hx Tetanus Toxoid Vaccination: No Hx Influenza Vaccination: No Hx Pneumococcal Vaccination: No <Kayla Morejon - Last Filed: 11/12/17 21:54> Vital Signs: Last Vital Signs Temp 98 F 11/13/17 03:13 Pulse 64 11/13/17 03:13 Resp 16 11/13/17 03:13 BP 130/83 11/13/17 03:13 Pulse Ox 98 11/13/17 03:13 - [facility] Procedures ALCOHOL DETOXIFICATION (07/27/14) DETOXIFICATION SERVICES FOR SUBSTANCE ABUSE TREATMENT (10/11/17) TRANSFUSE NONAUT RED BLOOD CELLS IN PERIPH VEIN, PERC (10/26/17) Review Of Systems Musculoskeletal: Positive for: Shoulder Pain, Back Pain, Leg Pain Neurological: Negative for: Weakness, Numbness <Kayla Morejon - Last Filed: 11/12/17 21:54> Physical Exam - Physical Exam Appears: Non-toxic, No Acute Distress, Other (ETOH on breath) Skin: Normal Color, Warm, Dry Head: Atraumatic, Normacephalic, No Abrasion, No Laceration Eye(s): bilateral: Normal Inspection, EOMI Nose: Normal Oral Mucosa: Moist Neck: Normal ROM Chest: Symmetrical Cardiovascular: Rhythm Regular Respiratory: Normal Breath Sounds, No Wheezing Back: Normal Inspection, No Vertebral Tenderness, Paraspinal Tenderness ( Trapezius) Extremity: Normal ROM, Tenderness (Bilateral shoulders, mildly to right knee), No Deformity, No Swelling Neurological/Psych: Oriented x3, Normal Speech Gait: Steady <Kayla Morejon - Last Filed: 11/12/17 21:54> ED Course And Treatment O2 Sat by Pulse Oximetry: 95 (room air) Pulse Ox Interpretation: Normal <Kayla Morejon - Last Filed: 11/12/17 21:54> Reevaluation Time: 06:00 Reassessment Condition: Improved <Chandler Cottrell - Last Filed: 11/13/17 04:48> Medical Decision Making <Kayla Morejon - Last Filed: 11/12/17 21:54> <Chandler Cottrell - Last Filed: 11/13/17 04:48> Medical Decision Making: Plan: * Toradol On reevaluation, patient is sleeping and in no distress. Patient states he is homeless and has nowhere to go. Attempt to contact [facility], however patient is mildly intoxicated and will not accept. Plan is to let patient rest and sober in safe ED. 2200 Patient care transferred to DR Cottrell (Kayla Morejon) signed over @ 2200, pending sobriety in AM 0600 well, stable gait (Chandler Cottrell) Disposition Counseled Patient/Family Regarding: Diagnosis, Need For Followup, Rx Given - Disposition Disposition Time: 22:00 - POA Present On Arrival: None <Kayla Morejon - Last Filed: 11/12/17 21:54> Doctor Will See Patient In The: Office Counseled Patient/Family Regarding: Studies Performed - Disposition Disposition Time: 06:00 <Chandler Cottrell Last Filed: 11/13/17 04:48> - Disposition Referrals: [facility] [Outside] [facility] [Outside] Condition: GOOD Prescriptions: Cane 1 each MC DAILY #1 each Ibuprofen [Motrin] 600 mg PO Q8 #30 tab Instructions: Alcohol Intoxication (DC), Arthralgia (ED) Forms: 1Lay (Azeri) Print Language: KHMER - Clinical Impression Clinical Impression: Arthralgia, Alcohol abuse, Alcohol intoxication - PA / CHILD CENTER ASSISTANT / Resident Statement MD/DO has reviewed & agrees with the documentation as recorded. - Scribe Statement The provider has reviewed the documentation as recorded by the Scribe <Kayla Morejon - Last Filed: 11/12/17 21:54> <Chandler Cottrell - Last Filed: 11/13/17 04:48> - Scribe Statement Sabino Lyon All medical record entries made by the Scribe were at my direction and personally dictated by me. I have reviewed the chart and agree that the record accurately reflects my personal performance of the history, physical exam, medical decision making, and the department course for this patient. I have also personally directed, reviewed, and agree with the discharge instructions and disposition. (Kayla Morejon)
[2017-11-12 23:34] VITALS: RESP 16; TEMP 98; O2SAT 98
[2017-11-13 05:57] VITALS: BP 132/82; PULSE 65
== END 2017-11-13 06:00 | disposition home or self-care (01) ==
LOC: C.ER 18:08
DX: M25.512 Pain in left shoulder (principal); M25.511 Pain in right shoulder; F10.129 Alcohol abuse with intoxication, unspecified; Y90.9 Presence of alcohol in blood, level not specified; Z59.0 Homelessness
CPT/HCPCS: 96372; 99285; J1885

== ENCOUNTER 2017-11-15 21:38 | Emergency (ER) | payer MEDICAID ==
--- NOTE | 2017-11-15 22:46 | C.PDOC ---
History Of Present Illness 62 year old male presents to the ED c/o CP and depression. Patient arrives to the ED intoxicated, with ETOH on breath. Patient denies SI/HI, hallucinations, physical complaints. Pt is undomiciled. Chief Complaint (Nursing): Chest Pain History Per: Patient History/Exam Limitations: no limitations Onset/Duration Of Symptoms: Hrs Current Symptoms Are (Timing): Gone Pain Scale Rating Of: 2 Quality: Sharp, "Pain" Modifying Factors: None Exacerbating Factors: None Recent travel outside of the [place]: No Additional History Per: Patient Past Medical History Reviewed: Historical Data, Nursing Documentation, Vital Signs Vital Signs: Last Vital Signs Temp 97.9 F 11/15/17 22:48 Pulse 81 11/16/17 05:52 Resp 16 11/16/17 05:52 BP 108/58 L 11/16/17 05:52 Pulse Ox 95 11/16/17 05:52 - Medical History PMH: Benign Prostatic Hyperplasia, Depression, Gastritis, HTN Denies: Diabetes, Hepatitis, HIV, Chronic Kidney Disease, Seizures, Sexually Transmitted Disease Surgical History: Appendectomy - [facility] Procedures ALCOHOL DETOXIFICATION (07/27/14) DETOXIFICATION SERVICES FOR SUBSTANCE ABUSE TREATMENT (10/11/17) TRANSFUSE NONAUT RED BLOOD CELLS IN PERIPH VEIN, PERC (10/26/17) Family History: States: Unknown Family Hx - Social History Hx Tobacco Use: No Hx Alcohol Use: Yes Hx Substance Use: No - Immunization History Hx Tetanus Toxoid Vaccination: No Hx Influenza Vaccination: No Hx Pneumococcal Vaccination: No Review Of Systems Constitutional: Negative for: Fever, Chills Eyes: Negative for: Pain ENT: Negative for: Ear Pain Cardiovascular: Positive for: Chest Pain. Negative for: Palpitations Respiratory: Negative for: Cough, Shortness of Breath, SOB with Excertion Gastrointestinal: Negative for: Nausea, Vomiting, Abdominal Pain, Constipation Genitourinary: Negative for: Dysuria Musculoskeletal: Negative for: Neck Pain Skin: Negative for: Rash Neurological: Negative for: Weakness, Numbness Psych: Negative for: Depression, Suicidal ideation Physical Exam - Physical Exam Appears: Non-toxic, Other (Intoxciated) Skin: Normal Color, Warm, Dry Head: Atraumatic, Normacephalic Eye(s): bilateral: Normal Inspection Ear(s): Bilateral: Normal Nose: No Discharge, No Epistaxis, No Deformity Oral Mucosa: Moist Tongue: Normal Appearing Lips: Normal Appearing Teeth: Normal Dentition Neck: Normal ROM, Supple Chest: Symmetrical Cardiovascular: Rhythm Regular, No Murmur Respiratory: Normal Breath Sounds, No Rales, No Rhonchi, No Wheezing Gastrointestinal/Abdominal: Soft, No Tenderness, No Guarding, No Rebound Extremity: Normal ROM, No Pedal Edema, No Deformity, No Swelling Extremity: Bilateral: Atraumatic Neurological/Psych: Oriented x3 Gait: Steady ED Course And Treatment - Laboratory Results Result Diagrams: 11/15/17 23:55 11/15/17 23:55 ECG: Interpreted By Me, Viewed By Me ECG Rhythm: Sinus Rhythm Interpretation Of ECG: NSR 80 RI 162, Qrs 180, Qt 372, Qtc 429, right axis, no ischemic changes Rate From EC O2 Sat by Pulse Oximetry: 98 (On RA) Pulse Ox Interpretation: Normal Medical Decision Making Medical Decision Making: Plan: * EKG * CXR * labs * unremarkable * Magnesium 1.4 -replaced * * trop neg x 2 * cxr neg * ekg unremarkable Disposition - Disposition [place]errals: [facility] [place] [facility] [place] [facility] [Outside] [facility] [place] [Outside] Disposition: HOME/ ROUTINE Disposition Time: 02:00 Condition: STABLE Additional Instructions: retunr if symptoms return or worsen Instructions: Chest Pain (ED) Forms: General Discharge Instructions, [facility] (Telugu) - Clinical Impression Clinical Impression: Pleuritic pain, Alcohol intoxication - Scribe Statement The provider has reviewed the documentation as recorded by the Scribe Chris Torres All medical record entries made by the Scribe were at my direction and personally dictated by me. I have reviewed the chart and agree that the record accurately reflects my personal performance of the history, physical exam, medical decision making, and the department course for this patient. I have also personally directed, reviewed, and agree with the discharge instructions and disposition.
[2017-11-15 22:53] VITALS: TEMP 97.9
[2017-11-16 00:11] LABS: BASO % 0.7 % (0.0-2.0); EOS # 0.3 K/uL (0.0-0.7); HEMOGLOBIN 11.3 g/dL (12.0-18.0); LYMPH # 1.8 K/uL (1.0-4.3); LYMPH % 36.4 % (20.0-40.0); MEAN CELL VOLUME 80.9 fL (80.0-94.0); MEAN CORPUSCULAR HEMOGLOBIN 25.3 pg (27.0-31.0); MEAN CORPUSCULAR HGB CONC 31.3 g/dL (33.0-37.0); MEAN PLATELET VOLUME 8.1 fL (7.2-11.7); MONO # 0.5 K/uL (0.0-0.8); NEUT # 2.3 K/uL (1.8-7.0); NEUT % 45.9 % (50.0-75.0); RBC 4.46 Mil/uL (4.40-5.90); RED CELL DISTRIBUTION WIDTH 26.9 % (11.5-14.5); WHITE BLOOD COUNT 4.9 K/uL (4.8-10.8)
[2017-11-16 00:33] LABS: ALBUMIN 3.7 g/dL (3.5-5.0); ALT/SGPT 31 U/L (21-72); AST/SGOT 35 U/L (17-59); BLOOD UREA NITROGEN 15 mg/dL (9-20); CALCIUM 8.1 mg/dl (8.6-10.4); GFR AFRICAN-AMERICAN > 60; GFR NON-AFRICAN AMERICAN > 60; MAGNESIUM 1.4 mg/dL (1.6-2.3)
[2017-11-16 00:45] LABS: B-TYPE NATRIURETIC PEPTIDE 81.8 pg/mL (0-900)
[2017-11-16] MEDS: Magnesium Sulfate 1 gm in D5W 1 GM/100 ML BAG IVPB ONE (02:40)
[2017-11-16] MEDS ORDERED: Magnesium Sulfate 1 gm in D5W 1 GM/100 ML BAG IVPB ONE (02:43)
[2017-11-16 05:53] VITALS: BP 108/58; PULSE 81; RESP 16
--- NOTE | 2017-11-16 07:56 | RAD ---
HISTORY: SOB COMPARISON: Chest x-ray 10/23/2017. CT abdomen pelvis 05/31/2014. TECHNIQUE: Chest PA and lateral FINDINGS: LUNGS: No focal consolidation is seen. Mild bibasilar atelectasis. PLEURA: No pleural effusion is identified. CARDIOVASCULAR: Heart size is within normal limits. OSSEOUS STRUCTURES: No acute fracture identified. VISUALIZED UPPER ABDOMEN: [id number] hiatal hernia. OTHER FINDINGS: None. IMPRESSION: Mild bibasilar atelectasis. Again seen is a moderate to large hiatal hernia.
--- NOTE | 2017-11-16 13:59 | CARD ---
APPROVED REPORT EKG Measurement Heart [id number] PA 162P [id number] <Conclusion> Normal sinus rhythm Right axis deviation ST & T wave abnormality, consider inferior ischemia Abnormal ECG
[2017-11-17 02:01] VITALS: O2SAT 98
== END 2017-11-16 07:13 | disposition home or self-care (01) ==
LOC: C.ER 21:38
DX: F10.129 Alcohol abuse with intoxication, unspecified (principal); Y90.8 Blood alcohol level of 240 mg/100 ml or more; R07.81 Pleurodynia; I10 Essential (primary) hypertension; N40.0 Benign prostatic hyperplasia without lower urinary tract symptoms
CPT/HCPCS: 71046; 80053; 80320; 82948; 83735; 83880; 84484; 85025; 93005; 96374; 99285; J3475

== ENCOUNTER 2017-11-17 20:10 | Emergency (ER) | payer MEDICAID ==
[2017-11-17 21:08] VITALS: RESP 20
--- NOTE | 2017-11-17 23:18 | C.PDOC ---
History Of Present Illness <Chandler Cottrell - Last Filed: 11/17/17 23:14> <Katie Ortiz - Last Filed: 11/18/17 05:31> 62 years old obese male brought himself to ED intoxicated and complaints of difficulty urinating because he has a big prostate. Patient admits to excessive alcohol use and denies any physical complaints. ETOH on breath. (Chandler Cottrell) History Per: Patient History/Exam Limitations: no limitations Onset/Duration Of Symptoms: Hrs Current Symptoms Are (Timing): Still Present Modifying Factor(s): Alcohol Associated Symptoms: denies: Anger, Depression, Suicidal Thoughts Involuntary Hold By: None Recent travel outside of the [place]: No <Chandler Cottrell - Last Filed: 11/17/17 23:14> <Katie Ortiz - Last Filed: 11/18/17 05:31> Time Seen by Provider: 11/17/17 22:02 Chief Complaint (Nursing): Substance Abuse Past Medical History Reviewed: Historical Data, Nursing Documentation, Vital Signs - Medical History PMH: Benign Prostatic Hyperplasia, Depression, Gastritis, HTN Surgical History: Appendectomy Family History: States: No Known Family Hx - Social History Hx Tobacco Use: No Hx Alcohol Use: Yes Hx Substance Use: No - Immunization History Hx Tetanus Toxoid Vaccination: No Hx Influenza Vaccination: No Hx Pneumococcal Vaccination: No <Chandler Cottrell - Last Filed: 11/17/17 23:14> Vital Signs: Last Vital Signs Temp 98.2 F 11/18/17 03:51 Pulse 89 11/18/17 03:51 Resp 20 11/18/17 03:51 BP 141/83 11/18/17 03:51 Pulse Ox 95 11/18/17 03:51 - [facility] Procedures ALCOHOL DETOXIFICATION (07/27/14) DETOXIFICATION SERVICES FOR SUBSTANCE ABUSE TREATMENT (10/11/17) TRANSFUSE NONAUT RED BLOOD CELLS IN PERIPH VEIN, PERC (10/26/17) Review Of Systems Genitourinary: Positive for: Dysuria Skin: Negative for: Rash Neurological: Negative for: Weakness Psych: Negative for: Depression, Suicidal ideation <Chandler Cottrell - Last Filed: 11/17/17 23:14> Physical Exam - Physical Exam Appears: Non-toxic, Other (Awkae and alert; ETOH on breath) Skin: Warm, Dry Head: Atraumatic, Normacephalic Eye(s): bilateral: Normal Inspection Oral Mucosa: Moist Neck: Supple Chest: Symmetrical, No Tenderness Cardiovascular: Rhythm Regular Respiratory: No Rales, No Rhonchi, No Wheezing Gastrointestinal/Abdominal: Soft, No Tenderness Neurological/Psych: Oriented x3, Normal Speech, Normal Cognition <Chandler Cottrell - Last Filed: 11/17/17 23:14> ED Course And Treatment O2 Sat by Pulse Oximetry: 93 (Room air ) Pulse Ox Interpretation: Normal <Chandler Cottrell - Last Filed: 11/17/17 23:14> Pulse Ox Interpretation: Normal Reevaluation Time: 05:30 Reassessment Condition: Improved <Katie Ortiz - Last Filed: 11/18/17 05:31> Medical Decision Making <Chandler Cottrell - Last Filed: 11/17/17 23:14> <Katie Ortiz - Last Filed: 11/18/17 05:31> Medical Decision Making: Ordered EKG and Urinalysis. (Chandler Cottrell) Disposition <Chandler Cottrell - Last Filed: 11/17/17 23:14> Counseled Patient/Family Regarding: Studies Performed, Diagnosis - Disposition Disposition Time: 05:30 <Katie Ortiz - Last Filed: 11/18/17 05:31> - Disposition Disposition: HOME/ ROUTINE Condition: FAIR Forms: [facility] (Danish), General Discharge Instructions - Clinical Impression Clinical Impression: Alcohol intoxication - Scribe Statement The provider has reviewed the documentation as recorded by the Scribe <Chandler Cottrell - Last Filed: 11/17/17 23:14> <Katie Ortiz - Last Filed: 11/18/17 05:31> - Scribe Statement Rajendra Franklin All medical record entries made by the Scribe were at my direction and personally dictated by me. I have reviewed the chart and agree that the record accurately reflects my personal performance of the history, physical exam, medical decision making, and the department course for this patient. I have also personally directed, reviewed, and agree with the discharge instructions and disposition. (Chandler Cottrell)
[2017-11-18 06:47] VITALS: BP 129/87; PULSE 104; TEMP 97.9; O2SAT 96
== END 2017-11-18 06:49 | disposition home or self-care (01) ==
LOC: C.ER 20:10
DX: F10.129 Alcohol abuse with intoxication, unspecified (principal); Y90.9 Presence of alcohol in blood, level not specified; N40.1 Benign prostatic hyperplasia with lower urinary tract symptoms

== ENCOUNTER 2017-11-18 21:32 | Emergency (ER) | payer MEDICAID ==
--- NOTE | 2017-11-18 21:34 | C.PDOC ---
History Of Present Illness Patient was brought in to ED by two [employer] after finding him lying on the street. Patient is intoxicated and has a strong smell of ETOH on breath; he admits to drinking alcohol all day. Patient has no obvious signs of trauma and was in the hospital yesterday for similar symptoms. Denies any physical complaints. Time Seen by Provider: 11/18/17 21:34 History Per: Patient History/Exam Limitations: no limitations Onset/Duration Of Symptoms: Hrs Current Symptoms Are (Timing): Still Present Suicide/Self Injury Attempted (Context): None Modifying Factor(s): Alcohol Associated Symptoms: denies: Anger, Suicidal Thoughts Recent travel outside of the [place]: No Past Medical History Reviewed: Historical Data, Nursing Documentation, Vital Signs Vital Signs: Last Vital Signs Temp 97.6 F 11/18/17 21:38 Pulse 84 11/19/17 04:35 Resp 16 11/19/17 04:35 BP 108/74 11/19/17 04:35 Pulse Ox 96 11/19/17 04:35 - Medical History PMH: Benign Prostatic Hyperplasia, Depression, Gastritis, HTN Surgical History: Appendectomy - [facility] Procedures ALCOHOL DETOXIFICATION (07/27/14) DETOXIFICATION SERVICES FOR SUBSTANCE ABUSE TREATMENT (10/11/17) TRANSFUSE NONAUT RED BLOOD CELLS IN PERIPH VEIN, PERC (10/26/17) Family History: States: Unknown Family Hx - Social History Hx Tobacco Use: No Hx Alcohol Use: Yes Hx Substance Use: No - Immunization History Hx Tetanus Toxoid Vaccination: No Hx Influenza Vaccination: No Hx Pneumococcal Vaccination: No Review Of Systems Neurological: Negative for: Weakness Psych: Negative for: Suicidal ideation Physical Exam - Physical Exam Appears: Non-toxic, Other (Awake and alert; Strong ETOH smell on breath) Skin: Warm, Dry Head: Normacephalic Eye(s): bilateral: Normal Inspection Ear(s): Bilateral: Normal Oral Mucosa: Moist Teeth: Other (Poor dentition) Neck: Supple Chest: Symmetrical, No Tenderness Cardiovascular: Rhythm Regular Respiratory: Normal Breath Sounds, No Rales, No Rhonchi, No Wheezing Gastrointestinal/Abdominal: No Bowel Sounds, Soft, No Tenderness Neurological/Psych: Oriented x3, Normal Speech, Normal Cognition ED Course And Treatment - Laboratory Results Result Diagrams: 11/18/17 21:42 11/18/17 21:42 Progress Note: Ordered Urinalysis, blood work, CXR, and CT of Cervical Spine and Head. Disposition Counseled Patient/Family Regarding: Studies Performed, Diagnosis, Need For Followup - Disposition Referrals: [facility] [Outside] Disposition: HOME/ ROUTINE Disposition Time: 21:34 Condition: FAIR Instructions: Alcohol Intoxication (DC) - Clinical Impression Clinical Impression: Alcohol intoxication - Scribe Statement The provider has reviewed the documentation as recorded by the Scribe Rajendra Franklin All medical record entries made by the Trinidadibyon were at my direction and personally dictated by me. I have reviewed the chart and agree that the record accurately reflects my personal performance of the history, physical exam, medical decision making, and the department course for this patient. I have also personally directed, reviewed, and agree with the discharge instructions and disposition.
[2017-11-18 21:37] VITALS: BMI 27.8
[2017-11-18 21:45] LABS: HEMOGLOBIN 11.9 g/dL (12.0-18.0); LYMPH # 2.7 K/uL (1.0-4.3); LYMPH % 43.9 % (20.0-40.0); MONO # 0.6 K/uL (0.0-0.8); NEUT # 2.5 K/uL (1.8-7.0)
[2017-11-18 21:50] LABS: BASO % 0.6 % (0.0-2.0); EOS # 0.3 K/uL (0.0-0.7); EOS % 5.4 % (0.0-4.0); MEAN CELL VOLUME 82.1 fL (80.0-94.0); MEAN CORPUSCULAR HEMOGLOBIN 26.1 pg (27.0-31.0); MEAN CORPUSCULAR HGB CONC 31.8 g/dL (33.0-37.0); MEAN PLATELET VOLUME 8.2 fL (7.2-11.7); MONO % 9.7 % (0.0-10.0); NEUT % 40.4 % (50.0-75.0); NRBC % 0.2 % (0.0-2.0); RBC 4.57 Mil/uL (4.40-5.90); RED CELL DISTRIBUTION WIDTH 27.2 % (11.5-14.5); WHITE BLOOD COUNT 6.2 K/uL (4.8-10.8)
[2017-11-18 21:57] LABS: URINE BILIRUBIN NEGATIVE (NEGATIVE); URINE BLOOD NEGATIVE (NEGATIVE); URINE CLARITY Clear (Clear); URINE COLOR Colorless (YELLOW); URINE GLUCOSE (UA) NORMAL (Normal); URINE LEUKOCYTE ESTERASE NEG Leu/uL (Negative); URINE NITRATE NEGATIVE (NEGATIVE); URINE PROTEIN NEGATIVE (NEGATIVE); URINE UROBILINOGEN NORMAL mg/dL (0.2-1.0)
[2017-11-18 22:03] LABS: ALB/GLOB RATIO 1.1 (1.0-2.1); ALBUMIN 3.9 g/dL (3.5-5.0); ALT/SGPT 25 U/L (21-72); AST/SGOT 25 U/L (17-59); BLOOD UREA NITROGEN 15 mg/dL (9-20); CALCIUM 8.2 mg/dl (8.6-10.4); GFR AFRICAN-AMERICAN > 60; GFR NON-AFRICAN AMERICAN > 60
[2017-11-18] MEDS ORDERED: Sodium Chloride 0.9% 1,000 ML IV ONE (22:04)
[2017-11-18 22:18] LABS: BARBITURATES, UR NEGATIVE (NEGATIVE); BENZODIAZEPINES, UR NEGATIVE (NEGATIVE); PHENCYCLIDINE, UR NEGATIVE (NEGATIVE)
--- NOTE | 2017-11-18 22:28 | CT ---
EXAM: CT Head Without Intravenous Contrast CLINICAL HISTORY: 62 years old, male; Injury or trauma; Fall; Initial encounter; Blunt trauma (contusions or hematomas); Consciousness not specified TECHNIQUE: Axial computed tomography images of the head/brain without intravenous contrast. All CT scans at this facility use one or more dose reduction techniques, viz.: automated exposure control; ma/kV adjustment per patient size (including targeted exams where dose is matched to indication; i.e. head); or iterative reconstruction technique. Coronal and sagittal reformatted images were created and reviewed. COMPARISON: No relevant prior studies available. FINDINGS: Brain: Moderate atrophy. No intracranial hemorrhage. No mass. Minimal decreased attenuation within periventricular white matter. No edema. Ventricles: No hydrocephalus. Bones/joints: No acute fracture. Soft tissues: Unremarkable. Vasculature: Minimal atherosclerotic disease of intracranial arteries. Sinuses: Complete opacification of LEFT frontal, visualized left maxillary sinuses. Partial opacification of LEFT ethmoid sinus. Mild to moderate mucosal thickening/minimal fluid of RIGHT maxillary sinus. Scattered minimal mucosal thickening of remaining sinuses. Mastoid air cells: No mastoid effusion. Orbits: Unremarkable as visualized. IMPRESSION: 1. No intracranial hemorrhage. 2. Nonspecific white matter changes. 3. Sinus disease. 4. Incidental/non-acute findings are described above.
[2017-11-18 22:32] LABS: OPIATES, UR NEGATIVE (NEGATIVE)
--- NOTE | 2017-11-18 22:34 | CT ---
EXAM: CT Cervical Spine Without Intravenous Contrast CLINICAL HISTORY: 62 years old, male; Injury or trauma; Fall; Initial encounter; Sprain or strain, cervical ligaments TECHNIQUE: Axial computed tomography images of the cervical spine without intravenous contrast. All CT scans at this facility use one or more dose reduction techniques, viz.: automated exposure control; ma/kV adjustment per patient size (including targeted exams where dose is matched to indication; i.e. head); or iterative reconstruction technique. Coronal and sagittal reformatted images were created and reviewed. COMPARISON: No relevant prior studies available. FINDINGS: Vertebrae: No acute fracture. Reversal of cervical lordosis. Degenerative anterolisthesis of upper cervical spine. Facet osteoarthrosis. Discs/spinal canal/neural foramina: Mild degenerative disc disease within upper cervical spine. Moderate degenerative disc disease within mid cervical spine. Moderate to severe degenerative disc disease within lower cervical spine. Mild indentation thecal sac/cord mid cervical spine. Mild indentation thecal sac/cord lower cervical spine. Neuroforaminal narrowing with mid and lower cervical spine. Soft tissues: Unremarkable. Vasculature: Mild atherosclerotic disease of aorta. Sinuses: Complete opacification of visualized LEFT maxillary sinus. Partial opacification of visualized LEFT ethmoid sinus. Moderate mucosal thickening/minimal fluid of RIGHT maxillary sinus. Scattered minimal mucosal thickening of remaining sinuses. Mastoid air cells: Minimal fluid within mastoids. Lung apices: Unremarkable as visualized. IMPRESSION: 1. No fracture. 2. Incidental/non-acute findings are described above.
[2017-11-19 06:38] VITALS: TEMP 97.8
[2017-11-19 07:28] VITALS: O2SAT 97
--- NOTE | 2017-11-19 08:19 | RAD ---
PROCEDURE: CHEST RADIOGRAPH, 1 VIEW HISTORY: Detox/Psy COMPARISON: Comparison is made with 11/16/2017 FINDINGS: LUNGS: Left lower lobe opacity is again noted likely represent atelectasis. Large hiatus hernia is again noted at cardiac silhouette PLEURA: No pneumothorax or pleural fluid seen. CARDIOVASCULAR: The cardiac silhouette is enlarged. OSSEOUS STRUCTURES: No significant abnormalities. VISUALIZED UPPER ABDOMEN: Normal. OTHER FINDINGS: None. IMPRESSION: Left lung base opacity likely atelectasis. Re- demonstrated is large hiatus hernia.
[2017-11-19 09:22] VITALS: BP 135/84; PULSE 100; RESP 18
== END 2017-11-19 09:39 | disposition home or self-care (01) ==
LOC: C.ER 21:32
DX: F10.129 Alcohol abuse with intoxication, unspecified (principal); Y90.8 Blood alcohol level of 240 mg/100 ml or more
CPT/HCPCS: 70450; 71045; 72125; 80053; 80320; 80324; 80345; 80346; 80349; 80353; 80358; 80361; 81001; 82948; 83992; 85025; 96360; 99285; J7040

== ENCOUNTER 2017-11-20 20:13 | Emergency (ER) | payer MEDICAID ==
[2017-11-20 20:13] VITALS: BMI 27.8
[2017-11-20 20:41] VITALS: BP 132/75
--- NOTE | 2017-11-20 20:56 | C.PDOC ---
History Of Present Illness 62 year old male, whose PMHx incldues chronic alcoholism, walks into the ED via taxi for evaluation, stating his blood pressure is elevated. Patient has had 5 previous visits over the past 8 days. He admits to alcohol use earlier today and has no other complaints at this time. Patient states he is not homeless. Time Seen by Provider: 11/20/17 20:50 Chief Complaint (Nursing): Substance Abuse History Per: Patient History/Exam Limitations: no limitations Onset/Duration Of Symptoms: Hrs Current Symptoms Are (Timing): Still Present Suicide/Self Injury Attempted (Context): None Modifying Factor(s): Alcohol Associated Symptoms: denies: Suicidal Thoughts, Suicidal Plan Involuntary Hold By: None Recent travel outside of the [place]: No Additional History Per: Patient Past Medical History Reviewed: Historical Data, Nursing Documentation, Vital Signs Vital Signs: Last Vital Signs Temp 98.3 F 11/20/17 20:39 Pulse 98 H 11/20/17 20:39 Resp 20 11/20/17 20:39 BP 132/75 11/20/17 20:39 Pulse Ox 98 11/20/17 21:21 - Medical History PMH: Benign Prostatic Hyperplasia, Depression, Gastritis, HTN Denies: Diabetes, Hepatitis, HIV, Chronic Kidney Disease, Seizures, Sexually Transmitted Disease Surgical History: Appendectomy - [facility] Procedures ALCOHOL DETOXIFICATION (07/27/14) DETOXIFICATION SERVICES FOR SUBSTANCE ABUSE TREATMENT (10/11/17) TRANSFUSE NONAUT RED BLOOD CELLS IN PERIPH VEIN, PERC (10/26/17) Family History: States: Unknown Family Hx - Social History Hx Tobacco Use: No Hx Alcohol Use: Yes Hx Substance Use: No - Immunization History Hx Tetanus Toxoid Vaccination: No Hx Influenza Vaccination: No Hx Pneumococcal Vaccination: No Review Of Systems Constitutional: Positive for: Other (elevated blood pressure ) Psych: Negative for: Suicidal ideation Physical Exam - Physical Exam Appears: Non-toxic, No Acute Distress, Other (obese, evasive ) Skin: Normal Color, Warm, Dry, No Other (obvious injuries ) Head: Atraumatic, Normacephalic Eye(s): bilateral: Normal Inspection Oral Mucosa: Moist Neck: Supple Chest: Symmetrical, No Deformity, No Tenderness Cardiovascular: Rhythm Regular, No Murmur Respiratory: Normal Breath Sounds, No Rales, No Rhonchi, No Wheezing Extremity: Normal ROM, Capillary Refill (less than 2 seconds ) Neurological/Psych: Other (awake, alert and arousable to touch and verbal stimuli ) Gait: Steady ED Course And Treatment O2 Sat by Pulse Oximetry: 98 (on RA) Pulse Ox Interpretation: Normal Medical Decision Making Medical Decision Making: typical alcohol abuse Came to ED in a taxi which he paid for. obviously has money for taxi and liquor considering this is his 5th ED eval for intoxication in the past 8 days and extensive h/o same. and pt coherent and has funds to find alternative arrangements for the night and despite the cold weather is a SAFE discharge to his apartment in [place] Disposition Doctor Will See Patient In The: Office Counseled Patient/Family Regarding: Studies Performed, Diagnosis - Disposition Referrals: [facility] [Outside] [facility] [Outside] [facility] [Outside] [facility] [Outside] Disposition: HOME/ ROUTINE Disposition Time: 20:56 Condition: GOOD Additional Instructions: Ya no abusas del alcohol Sigue con los ayudos del abuso del alcohol: llama o' presenta en las clinicas. Instructions: Abuse of Alcohol (ED) Forms: [facility] (Martiniquais) Print Language: IRAQI - Clinical Impression Clinical Impression: Alcohol abuse, Malingering - Scribe Statement The provider has reviewed the documentation as recorded by the Scribe (Evelia Valadez) Provider Attestation: All medical record entries made by the Scribe were at my direction and personally dictated by me. I have reviewed the chart and agree that the record accurately reflects my personal performance of the history, physical exam, medical decision making, and the department course for this patient. I have also personally directed, reviewed, and agree with the discharge instructions and disposition.
[2017-11-20 22:05] VITALS: PULSE 90; RESP 19; TEMP 97.9; O2SAT 97
== END 2017-11-20 22:06 | disposition home or self-care (01) ==
LOC: C.ER 20:13
DX: F10.10 Alcohol abuse, uncomplicated (principal); Y90.9 Presence of alcohol in blood, level not specified; Z76.5 Malingerer [conscious simulation]

== ENCOUNTER 2018-01-11 23:07 | Emergency (ER) | payer MEDICAID ==
[2018-01-11 23:08] VITALS: BMI 27.8
--- NOTE | 2018-01-12 00:16 | C.PDOC ---
History Of Present Illness <Chandler Cottrell E - Last Filed: 01/12/18 00:36> <Naseem Box - Last Filed: 01/12/18 01:41> 62yo male, brought to ER by EMS for evaluation after patient was found publicly intoxicated. Patient unable to walk and with slurred speech. Patient unable to provide history due to intoxicated state. (Chandler Cottrell) History Per: EMS History/Exam Limitations: intoxication <Chandler Cottrell E - Last Filed: 01/12/18 00:36> <Naseem Box - Last Filed: 01/12/18 01:41> Time Seen by Provider: 01/11/18 23:41 Chief Complaint (Nursing): Substance Abuse Past Medical History Reviewed: Historical Data, Nursing Documentation, Vital Signs - Medical History PMH: Benign Prostatic Hyperplasia, Depression, Gastritis, HTN Denies: Diabetes, Hepatitis, HIV, Chronic Kidney Disease, Seizures, Sexually Transmitted Disease Surgical History: Appendectomy Family History: States: Unknown Family Hx - Social History Hx Tobacco Use: No Hx Alcohol Use: Yes Hx Substance Use: No - Immunization History Hx Tetanus Toxoid Vaccination: No Hx Influenza Vaccination: No Hx Pneumococcal Vaccination: No <Chandler Cottrell - Last Filed: 01/12/18 00:36> Vital Signs: Last Vital Signs Temp 98.3 F 01/11/18 23:20 Pulse 71 01/11/18 23:20 Resp 18 01/11/18 23:20 BP 118/71 01/11/18 23:20 Pulse Ox 98 01/12/18 00:37 - [facility] Procedures ALCOHOL DETOXIFICATION (07/27/14) DETOXIFICATION SERVICES FOR SUBSTANCE ABUSE TREATMENT (10/11/17) TRANSFUSE NONAUT RED BLOOD CELLS IN PERIPH VEIN, PERC (10/26/17) Review Of Systems Review Of Systems: ROS cannot be obtained secondary to pt's inabilty to answer questions. (intoxicated) <Chandler Cottrell - Last Filed: 01/12/18 00:36> Physical Exam - Physical Exam Appears: No Acute Distress Skin: Normal Color, Warm, Dry Head: Atraumatic Cardiovascular: Rhythm Regular Respiratory: Normal Breath Sounds Extremity: No Deformity Neurological/Psych: Other (obtunded) <Chandler Cottrell - Last Filed: 01/12/18 00:36> ED Course And Treatment O2 Sat by Pulse Oximetry: 98 (RA) Pulse Ox Interpretation: Normal - CT Scan/US head CT Other Rad Studies (CT/US): Radiology Report Reviewed (neg) <Chandler Cottrell - Last Filed: 01/12/18 00:36> - CT Scan/US head CT Other Rad Studies (CT/US): Radiology Report Reviewed CT/US Interpretation: EXAM: CT Head Without Intravenous Contrast. CLINICAL HISTORY: 62 years old, male; Pain; Headache and other: Detox; Patient HX: ; Additional info: Intox,. change of ms. TECHNIQUE: Axial computed tomography images of the head/brain without intravenous contrast. All CT scans at. this facility use one or more dose reduction techniques, viz.: automated exposure control; ma/kV. adjustment per patient size (including targeted exams where dose is matched to indication; i.e. head);. or iterative reconstruction technique. COMPARISON: CT - HEAD W/O CONTRAST 2017-11-18 22:01. FINDINGS: Brain: Moderate atrophy. No intracranial hemorrhage. No mass. Minimal decreased attenuation. within periventricular white matter. No definite edema. Ventricles: No hydrocephalus. Bones/joints: No acute fracture. Soft tissues: Unremarkable. Vasculature: Mild atherosclerotic disease of intracranial arteries. Sinuses: Complete opacification of LEFT frontal sinus. Complete opacification of visualized LEFT. maxillary sinus. Moderate mucosal thickening of RIGHT maxillary sinus. Partial opacification of. LEFT ethmoid sinus. Scattered minimal to mild mucosal thickening of remaining sinuses. Mastoid air cells: Minimal fluid within mastoids. Orbits: Unremarkable as visualized. IMPRESSION: 1. Nonspecific white matter changes. Acute infarction may be CT occult within first 24 hours. If a. focal deficit persists, consider followup CT or MRI for further evaluation. 2. Sinus disease. 3. Incidental/non-acute findings are described above. <Naseem Box - Last Filed: 01/12/18 01:41> Medical Decision Making <Chandler Cottrell - Last Filed: 01/12/18 00:36> <Naseem Box - Last Filed: 01/12/18 01:41> Medical Decision Making: Plan: -- CT head w/o contrast 0100: easily arousable to painful stimulus improving head CT neg Signed over to overnight MD (Chandler Cottrell) Disposition - Disposition Disposition Time: 01:00 <Chandler Cottrell - Last Filed: 01/12/18 00:36> <Naseem Box - Last Filed: 01/12/18 01:41> - Disposition Condition: FAIR Forms: [facility] (Grenadian) - Clinical Impression Clinical Impression: Alcohol intoxication - Scribe Statement The provider has reviewed the documentation as recorded by the Scribe (Angelica Alvarez) <Chandler Cottrell - Last Filed: 01/12/18 00:36> <Naseem Box - Last Filed: 01/12/18 01:41> - Scribe Statement Provider Attestation: All medical record entries made by the Scribe were at my direction and personally dictated by me. I have reviewed the chart and agree that the record accurately reflects my personal performance of the history, physical exam, medical decision making, and the department course for this patient. I have also personally directed, reviewed, and agree with the discharge instructions and disposition. (Chandler oCttrell) Physician Patient Turnover Patient Signed Over To: Naseem Box Handoff Comments: dispo in AM when sober <Chandler Cottrell - Last Filed: 01/12/18 00:36>
--- NOTE | 2018-01-12 01:28 | CT ---
EXAM: CT Head Without Intravenous Contrast CLINICAL HISTORY: 62 years old, male; Pain; Headache and other: Detox; Patient HX: 11-18-17; Additional info: Intox, change of ms TECHNIQUE: Axial computed tomography images of the head/brain without intravenous contrast. All CT scans at this facility use one or more dose reduction techniques, viz.: automated exposure control; ma/kV adjustment per patient size (including targeted exams where dose is matched to indication; i.e. head); or iterative reconstruction technique. COMPARISON: CT - HEAD W/O CONTRAST 2017-11-18 22:01 FINDINGS: Brain: Moderate atrophy. No intracranial hemorrhage. No mass. Minimal decreased attenuation within periventricular white matter. No definite edema. Ventricles: No hydrocephalus. Bones/joints: No acute fracture. Soft tissues: Unremarkable. Vasculature: Mild atherosclerotic disease of intracranial arteries. Sinuses: Complete opacification of LEFT frontal sinus. Complete opacification of visualized LEFT maxillary sinus. Moderate mucosal thickening of RIGHT maxillary sinus. Partial opacification of LEFT ethmoid sinus. Scattered minimal to mild mucosal thickening of remaining sinuses. Mastoid air cells: Minimal fluid within mastoids. Orbits: Unremarkable as visualized. IMPRESSION: 1. Nonspecific white matter changes. Acute infarction may be CT occult within first 24 hours. If a focal deficit persists, consider followup CT or MRI for further evaluation. 2. Sinus disease. 3. Incidental/non-acute findings are described above.
[2018-01-12 05:41] VITALS: BP 119/76; PULSE 98; RESP 22; TEMP 98.2; O2SAT 98
== END 2018-01-12 06:13 | disposition home or self-care (01) ==
LOC: C.ER 23:07
DX: F10.129 Alcohol abuse with intoxication, unspecified (principal); Y90.9 Presence of alcohol in blood, level not specified

== ENCOUNTER 2018-08-31 22:44 | Emergency (ER) | payer MEDICAID ==
[2018-08-31 22:44] VITALS: BMI 27.8
--- NOTE | 2018-08-31 23:33 | C.PDOC ---
History Of Present Illness 63 year old male is brought to the ED by EMS for evaluation of urinary retention. Patient states he was drinking tonight and has not been able to void due to having a large prostate. However while in the ED patient voided 300 ccs. Patient denies SI/HI, hallucinations, nausea, vomit, diarrhea, weakness, numbness, dysuria, hematuria. Time Seen by Provider: 08/31/18 23:33 Chief Complaint (Nursing): Male Genitourinary History Per: Patient, EMS History/Exam Limitations: intoxication Onset/Duration Of Symptoms: Hrs Current Symptoms Are (Timing): Still Present Suicide/Self Injury Attempted (Context): None Modifying Factor(s): Alcohol Associated Symptoms: denies: Depression, Suicidal Thoughts, Suicidal Plan Recent travel outside of the [place]: No Additional History Per: Patient, EMS Past Medical History Reviewed: Historical Data, Nursing Documentation, Vital Signs Vital Signs: Last Vital Signs Temp 97.9 F 08/31/18 22:49 Pulse 95 H 08/31/18 22:49 Resp 18 08/31/18 22:49 BP 127/86 08/31/18 22:49 Pulse Ox 95 08/31/18 22:49 - Medical History PMH: Benign Prostatic Hyperplasia, Depression, Gastritis, HTN Denies: Diabetes, Hepatitis, HIV, Chronic Kidney Disease, Seizures, Sexually Transmitted Disease Surgical History: Appendectomy - [facility] Procedures ALCOHOL DETOXIFICATION (07/27/14) DETOXIFICATION SERVICES FOR SUBSTANCE ABUSE TREATMENT (10/11/17) TRANSFUSE NONAUT RED BLOOD CELLS IN PERIPH VEIN, PERC (10/26/17) Family History: States: Unknown Family Hx - Social History Hx Tobacco Use: No Hx Alcohol Use: Yes Hx Substance Use: No - Immunization History Hx Tetanus Toxoid Vaccination: No Hx Influenza Vaccination: No Hx Pneumococcal Vaccination: No Review Of Systems Constitutional: Negative for: Fever, Chills Cardiovascular: Negative for: Chest Pain Respiratory: Negative for: Shortness of Breath Gastrointestinal: Negative for: Nausea, Vomiting, Abdominal Pain Genitourinary: Positive for: Other (retention). Negative for: Dysuria, Hematuria Neurological: Negative for: Weakness, Numbness Psych: Negative for: Depression, Suicidal ideation Physical Exam - Physical Exam Appears: Non-toxic, No Acute Distress Skin: Warm, Dry Head: Normacephalic Eye(s): bilateral: Normal Inspection Neck: Supple Chest: Symmetrical Cardiovascular: Rhythm Regular Respiratory: No Rales, No Rhonchi, No Wheezing Gastrointestinal/Abdominal: Soft, No Tenderness, No Guarding, No Rebound Extremity: Bilateral: Atraumatic, Normal Color And Temperature, Normal ROM Neurological/Psych: Oriented x3, Normal Speech Gait: Steady ED Course And Treatment O2 Sat by Pulse Oximetry: 95 (ON RA) Pulse Ox Interpretation: Normal Reevaluation Time: 05:36 Reassessment Condition: Improved Disposition Counseled Patient/Family Regarding: Studies Performed, Diagnosis, Need For Followup - Disposition Referrals: [facility] at [facility] [Outside] Disposition: HOSPITALIZED Disposition Time: 23:33 Condition: FAIR Instructions: Alcohol Abuse and Alcoholism (DC) Forms: [employer] (Italian) - Clinical Impression Clinical Impression: Alcohol intoxication, Alcohol abuse - Scribe Statement The provider has reviewed the documentation as recorded by the Scribe Chris Torres All medical record entries made by the Scribe were at my direction and personally dictated by me. I have reviewed the chart and agree that the record accurately reflects my personal performance of the history, physical exam, medical decision making, and the department course for this patient. I have also personally directed, reviewed, and agree with the discharge instructions and disposition.
[2018-09-01 02:22] VITALS: RESP 20
[2018-09-01 06:25] VITALS: BP 131/73; PULSE 86; TEMP 98.3; O2SAT 98
== END 2018-09-01 06:28 | disposition home or self-care (01) ==
LOC: C.ER 22:44
DX: F10.129 Alcohol abuse with intoxication, unspecified (principal)

== ENCOUNTER 2018-09-02 19:40 | Emergency (ER) | payer MEDICAID ==
[2018-09-02 19:41] VITALS: BMI 27.8
--- NOTE | 2018-09-02 20:18 | C.PDOC ---
History Of Present Illness 63 year old male presents to the ED for alcohol intoxication. Patient reports drinking all day. Contrary to triage, patient denies any chest pain. He reports he wants a place to rest. Denies any SI/HI. Time Seen by Provider: 09/02/18 20:18 Chief Complaint (Nursing): Chest Pain History Per: Patient History/Exam Limitations: no limitations Current Symptoms Are (Timing): Gone Exacerbating Factors: None Past Medical History Reviewed: Historical Data, Nursing Documentation, Vital Signs Vital Signs: Last Vital Signs Temp 97.9 F 09/02/18 20:00 Pulse 85 09/02/18 20:00 Resp 11 L 09/02/18 20:00 BP 149/92 H 09/02/18 20:00 Pulse Ox 92 L 09/02/18 20:00 - Medical History PMH: Benign Prostatic Hyperplasia, Depression, Gastritis, HTN Denies: Diabetes, Hepatitis, HIV, Chronic Kidney Disease, Seizures, Sexually Transmitted Disease Surgical History: Appendectomy - [facility] Procedures ALCOHOL DETOXIFICATION (07/27/14) DETOXIFICATION SERVICES FOR SUBSTANCE ABUSE TREATMENT (10/11/17) TRANSFUSE NONAUT RED BLOOD CELLS IN PERIPH VEIN, PERC (10/26/17) Family History: States: No Known Family Hx - Social History Hx Tobacco Use: No Hx Alcohol Use: Yes Hx Substance Use: No - Immunization History Hx Tetanus Toxoid Vaccination: No Hx Influenza Vaccination: No Hx Pneumococcal Vaccination: No Review Of Systems Except As Marked, All Systems Reviewed And Found Negative. Cardiovascular: Negative for: Chest Pain, Palpitations Psych: Negative for: Depression, Suicidal ideation Physical Exam - Physical Exam Appears: Non-toxic Skin: Warm, Dry Head: Normacephalic Eye(s): bilateral: Normal Inspection Neck: Supple Chest: Symmetrical, No Tenderness Cardiovascular: Rhythm Regular Respiratory: Normal Breath Sounds, No Rales, No Rhonchi, No Wheezing Gastrointestinal/Abdominal: Soft, No Tenderness Extremity: Normal ROM Neurological/Psych: Oriented x3, Normal Speech Gait: Steady ED Course And Treatment - Laboratory Results Result Diagrams: 09/02/18 20:34 09/02/18 20:34 ECG: Interpreted By Me, Viewed By Me ECG Rhythm: Sinus Rhythm (79), Nonspecific Changes O2 Sat by Pulse Oximetry: 92 (RA) Pulse Ox Interpretation: Normal - Radiology CXR: Interpreted by Me, Viewed By Me CXR Interpretation: No: Infiltrates, Fracture, Pnemothorax Progress Note: Blood and urine collected and sent to the lab for analysis. EKG and CXR ordered and reviewed. Aspirin 325mg PO given. Reevaluation Time: 05:10 Reassessment Condition: Improved Disposition Counseled Patient/Family Regarding: Studies Performed, Diagnosis, Need For F ollowup - Disposition Referrals: [facility] [Outside] Disposition: HOME/ ROUTINE Disposition Time: 20:18 Condition: FAIR Instructions: Alcohol Abuse and Alcoholism (DC) Forms: [employer] (Faroese) - Clinical Impression Clinical Impression: Alcohol intoxication - Scribe Statement The provider has reviewed the documentation as recorded by the Scribe Valencia Ca All medical record entries made by the Scribe were at my direction and personally dictated by me. I have reviewed the chart and agree that the record accurately reflects my personal performance of the history, physical exam, medical decision making, and the department course for this patient. I have also personally directed, reviewed, and agree with the discharge instructions and disposition.
[2018-09-02] MEDS ORDERED: Aspirin 325 mg EC Tablets PO STA (20:19)
[2018-09-02] MEDS ORDERED: Aspirin 325 mg EC Tablets PO ONE (20:39)
[2018-09-02 20:44] LABS: BASO % 1.4 % (0.0-2.0); EOS # 0.2 K/uL (0.0-0.7); EOS % 4.8 % (0.0-4.0); HEMOGLOBIN 12.3 g/dL (12.0-18.0); LYMPH # 0.9 K/uL (1.0-4.3); LYMPH % 29.2 % (20.0-40.0); MEAN CORPUSCULAR HEMOGLOBIN 34.8 pg (27.0-31.0); MEAN CORPUSCULAR HGB CONC 33.8 g/dL (33.0-37.0); MEAN PLATELET VOLUME 8.9 fL (7.2-11.7); MONO # 0.3 K/uL (0.0-0.8); MONO % 11.1 % (0.0-10.0); NEUT # 1.7 K/uL (1.8-7.0); NEUT % 53.5 % (50.0-75.0); NRBC % 0.3 % (0.0-2.0); RBC 3.53 Mil/uL (4.40-5.90); RED CELL DISTRIBUTION WIDTH 16.3 % (11.5-14.5); WHITE BLOOD COUNT 3.2 K/uL (4.8-10.8)
[2018-09-02 20:45] LABS: MEAN CELL VOLUME 102.9 fL (80.0-94.0)
[2018-09-02 20:47] LABS: URINE CLARITY CLEAR (Clear); URINE COLOR YELLOW (YELLOW); URINE GLUCOSE (UA) NORMAL (Normal)
[2018-09-02 20:48] LABS: URINE BILIRUBIN NEGATIVE (NEGATIVE); URINE BLOOD NEGATIVE (NEGATIVE); URINE LEUKOCYTE ESTERASE NEG Leu/uL (Negative); URINE PROTEIN NEGATIVE (NEGATIVE); URINE UROBILINOGEN NORMAL mg/dL (0.2-1.0)
[2018-09-02 20:50] LABS: INR 1.1; PROTHROMBIN TIME 12.1 SECONDS (9.7-12.2)
[2018-09-02 20:53] LABS: ALB/GLOB RATIO 1.3 (1.0-2.1); ALT/SGPT 54 U/L (21-72); AST/SGOT 115 U/L (17-59); BLOOD UREA NITROGEN 12 mg/dL (9-20); CALCIUM 8.6 mg/dl (8.6-10.4); GFR NON-AFRICAN AMERICAN > 60; LIPASE 77 U/L (23-300)
[2018-09-02 21:01] LABS: BARBITURATES, UR NEGATIVE (NEGATIVE); BENZODIAZEPINES, UR NEGATIVE (NEGATIVE); OPIATES, UR NEGATIVE (NEGATIVE); PHENCYCLIDINE, UR NEGATIVE (NEGATIVE)
[2018-09-02 21:04] LABS: B-TYPE NATRIURETIC PEPTIDE 70.6 pg/mL (0-900)
[2018-09-03 04:34] VITALS: RESP 20
[2018-09-03 06:00] VITALS: BP 142/77; PULSE 78; TEMP 97.1; O2SAT 98
--- NOTE | 2018-09-03 08:41 | RAD ---
Date of service: 09/02/2018 HISTORY: chest pain COMPARISON: 02/06/2018 FINDINGS: LUNGS: Large hiatal hernia. Moderate venous congestion. Prominent airspace opacification in the left mid to lower lung zone with associated left pleural effusion. PLEURA: As above. CARDIOVASCULAR: Aortic atherosclerotic calcification present Cardiomegaly. OSSEOUS STRUCTURES: Degenerative changes in the spine and shoulders. VISUALIZED UPPER ABDOMEN: Normal. OTHER FINDINGS: None. IMPRESSION: Large hiatal hernia. Moderate venous congestion. Prominent airspace opacification in the left mid to lower lung zone with associated left pleural effusion.
--- NOTE | 2018-09-04 19:17 | CARD ---
APPROVED REPORT Date of service: 09/02/2018 EKG Measurement Heart [id number] <Conclusion> Normal sinus rhythm Normal ECG
== END 2018-09-03 06:10 | disposition home or self-care (01) ==
LOC: C.ER 19:40
DX: F10.129 Alcohol abuse with intoxication, unspecified (principal); Y90.8 Blood alcohol level of 240 mg/100 ml or more; I10 Essential (primary) hypertension; F32.9 Major depressive disorder, single episode, unspecified; N40.0 Benign prostatic hyperplasia without lower urinary tract symptoms

== ENCOUNTER 2018-09-23 20:50 | Emergency (ER) | payer MEDICAID ==
[2018-09-23 20:50] VITALS: BMI 27.8
[2018-09-23] MEDS ORDERED: Sucralfate 1 gm/10 ml Oral Susp UD PO STA (21:25)
--- NOTE | 2018-09-23 21:31 | C.PDOC ---
History Of Present Illness 63 year old male presents to the ED complaining of sore throat for a few days. Reports he is not able to tolerate PO intake due to the pain. Denies any fever, chills, cough, shortness of breath, n/v/d, or any other associated symptoms. Also notes feeling anxious. Denies any SI/HI. Chief Complaint (Nursing): Anxiety History Per: Patient History/Exam Limitations: no limitations Onset/Duration Of Symptoms: Days Current Symptoms Are (Timing): Still Present PMH - Medical History PMH: Denies: Neuro Disorder, HEENT Problems, GI Disorders, Resp Disorders, MS Disorders - Family History Family History: States: Unknown Family Hx - Immunization History Hx Tetanus Toxoid Vaccination: No Hx Influenza Vaccination: No Hx Pneumococcal Vaccination: No Disposition - Disposition Forms: [employer] (Panamanian) - Scribe Statement The provider has reviewed the documentation as recorded by the Scribe Valencia Ca All medical record entries made by the Scribe were at my direction and personally dictated by me. I have reviewed the chart and agree that the record accurately reflects my personal performance of the history, physical exam, medical decision making, and the department course for this patient. I have also personally directed, reviewed, and agree with the discharge instructions and disposition.
--- NOTE | 2018-09-23 21:34 | C.PDOC ---
History Of Present Illness 63 year old male presents to the ED complaining of sore throat for a few days. Reports he is not able to tolerate PO intake due to the pain. Denies any fever, chills, cough, ear pain, shortness of breath, n/v/d, or any other associated symptoms. Also notes feeling anxious. Denies any SI/HI. Chief Complaint (Nursing): Anxiety History/Exam Limitations: no limitations Onset/Duration Of Symptoms: Days Current Symptoms Are (Timing): Still Present Past Medical History Reviewed: Historical Data, Nursing Documentation, Vital Signs Vital Signs: Last Vital Signs Temp 98.3 F 09/23/18 21:07 Pulse 110 H 09/23/18 21:07 Resp 20 09/23/18 21:07 BP 132/85 09/23/18 21:07 Pulse Ox - Medical History PMH: Benign Prostatic Hyperplasia, Depression, Gastritis, HTN Denies: Diabetes, Hepatitis, HIV, Chronic Kidney Disease, Seizures, Sexually Transmitted Disease Surgical History: Appendectomy - [facility] Procedures ALCOHOL DETOXIFICATION (07/27/14) DETOXIFICATION SERVICES FOR SUBSTANCE ABUSE TREATMENT (10/11/17) TRANSFUSE NONAUT RED BLOOD CELLS IN PERIPH VEIN, PERC (10/26/17) Family History: States: No Known Family Hx - Social History Hx Tobacco Use: No Hx Alcohol Use: Yes Hx Substance Use: No - Immunization History Hx Tetanus Toxoid Vaccination: No Hx Influenza Vaccination: No Hx Pneumococcal Vaccination: No Review Of Systems Except As Marked, All Systems Reviewed And Found Negative. Constitutional: Negative for: Fever, Chills ENT: Positive for: Throat Pain. Negative for: Ear Pain Respiratory: Negative for: Cough, Shortness of Breath Gastrointestinal: Negative for: Nausea, Vomiting, Diarrhea Psych: Positive for: Anxiety. Negative for: Suicidal ideation, Other (homicidal ideation) Physical Exam - Physical Exam Appears: Non-toxic, Other (alcohol smell on breath) Skin: Warm, Dry Head: Normacephalic Eye(s): bilateral: Normal Inspection Ear(s): Bilateral: Normal Nose: Normal Oral Mucosa: Moist Lips: Normal Appearing Gingiva: Normal Appearing Throat: Normal, No Erythema, No Exudate Neck: Decreased ROM, Supple Chest: Symmetrical Cardiovascular: Rhythm Regular Respiratory: Normal Breath Sounds, No Rales, No Rhonchi, No Wheezing Gastrointestinal/Abdominal: Soft, Tenderness (epigastric tenderness), No Guarding, No Rebound Extremity: Normal ROM Neurological/Psych: Oriented x3, Normal Speech Gait: Steady ED Course And Treatment - Laboratory Results Result Diagrams: 09/23/18 22:42 09/23/18 22:42 Medical Decision Making Medical Decision Making: Plan - Bloodwork - Pepcid 20mg PO - Carafate Oral Susp - UA Disposition Counseled Patient/Family Regarding: Diagnosis - Disposition Referrals: [facility] [Outside] Disposition: HOME/ ROUTINE Disposition Time: 05:49 Condition: STABLE Instructions: Alcohol Abuse and Alcoholism (DC) Forms: [facility] (Maori), Gen Discharge Inst Canadian Print Language: MARTINIQUAIS - POA Present On Arrival: None - Clinical Impression Clinical Impression: Alcohol abuse - Scribe Statement The provider has reviewed the documentation as recorded by the Scribe Valencia Ca All medical record entries made by the Scribe were at my direction and person ally dictated by me. I have reviewed the chart and agree that the record accurately reflects my personal performance of the history, physical exam, medical decision making, and the department course for this patient. I have also personally directed, reviewed, and agree with the discharge instructions and disposition.
[2018-09-23 22:45] LABS: BASO # 0.1 K/uL (0.0-0.2); BASO % 1.3 % (0.0-2.0); EOS # 0.3 K/uL (0.0-0.7); EOS % 5.6 % (0.0-4.0); HEMOGLOBIN 12.7 g/dL (12.0-18.0); LYMPH # 1.6 K/uL (1.0-4.3); LYMPH % 31.1 % (20.0-40.0); MEAN CELL VOLUME 98.8 fL (80.0-94.0); MEAN CORPUSCULAR HGB CONC 32.4 g/dL (33.0-37.0); MEAN PLATELET VOLUME 8.4 fL (7.2-11.7); MONO # 0.4 K/uL (0.0-0.8); MONO % 8.5 % (0.0-10.0); NEUT # 2.8 K/uL (1.8-7.0); NEUT % 53.5 % (50.0-75.0); NRBC % 0.2 % (0.0-2.0); RBC 3.98 Mil/uL (4.40-5.90); RED CELL DISTRIBUTION WIDTH 16.1 % (11.5-14.5); WHITE BLOOD COUNT 5.2 K/uL (4.8-10.8)
[2018-09-23 22:49] LABS: URINE BACTERIA OCC (<OCC); URINE BILIRUBIN NEGATIVE (NEGATIVE); URINE BLOOD NEGATIVE (NEGATIVE); URINE CLARITY Clear (Clear); URINE COLOR Yellow (YELLOW); URINE GLUCOSE (UA) NORMAL (Normal); URINE LEUKOCYTE ESTERASE 2+ Leu/uL (Negative); URINE PROTEIN NEGATIVE (NEGATIVE); URINE UROBILINOGEN NORMAL mg/dL (0.2-1.0)
[2018-09-23 23:02] LABS: ALB/GLOB RATIO 1.3 (1.0-2.1); ALBUMIN 3.7 g/dL (3.5-5.0); ALT/SGPT 33 U/L (21-72); AST/SGOT 46 U/L (17-59); BARBITURATES, UR NEGATIVE (NEGATIVE); BENZODIAZEPINES, UR NEGATIVE (NEGATIVE); BLOOD UREA NITROGEN 11 mg/dL (9-20); CALCIUM 8.1 mg/dl (8.6-10.4); GFR NON-AFRICAN AMERICAN > 60; LIPASE 93 U/L (23-300); OPIATES, UR NEGATIVE (NEGATIVE); PHENCYCLIDINE, UR NEGATIVE (NEGATIVE)
[2018-09-24 06:21] VITALS: BP 136/82; PULSE 89; RESP 22; TEMP 98.9; O2SAT 100
== END 2018-09-24 06:14 | disposition home or self-care (01) ==
LOC: C.ER 20:50
DX: F10.10 Alcohol abuse, uncomplicated (principal); Y90.8 Blood alcohol level of 240 mg/100 ml or more

== ENCOUNTER 2018-11-01 14:19 | Emergency (ER) | payer MEDICAID ==
[2018-11-01 14:19] VITALS: BMI 27.8
--- NOTE | 2018-11-01 14:50 | C.PDOC ---
History Of Present Illness Information limited due to intoxication 63 y/o male pt presents to the ER c/o difficulty swallowing. Contrary to triage, pt denies chest pain and SOB. Pt reports he has difficulty swallowing but is able to consume alcohol. Pt has multiple ER visits for same complaint. Pt has not other physical complaints. Time Seen by Provider: 11/01/18 14:49 Chief Complaint (Nursing): Chest Pain History Per: Patient History/Exam Limitations: no limitations Onset/Duration Of Symptoms: Hrs Current Symptoms Are (Timing): Still Present Past Medical History Reviewed: Historical Data, Nursing Documentation, Vital Signs Vital Signs: Last Vital Signs Temp 98.6 F 11/01/18 14:29 Pulse 80 11/01/18 14:29 Resp 19 11/01/18 14:29 BP 161/97 H 11/01/18 14:29 Pulse Ox 97 11/01/18 14:29 - Medical History PMH: Benign Prostatic Hyperplasia, Depression, Gastritis, HTN Surgical History: Appendectomy - [facility] Procedures ALCOHOL DETOXIFICATION (07/27/14) DETOXIFICATION SERVICES FOR SUBSTANCE ABUSE TREATMENT (10/11/17) TRANSFUSE NONAUT RED BLOOD CELLS IN PERIPH VEIN, PERC (10/26/17) Family History: States: No Known Family Hx - Social History Hx Tobacco Use: No Hx Alcohol Use: Yes Hx Substance Use: No - Immunization History Hx Tetanus Toxoid Vaccination: No Hx Influenza Vaccination: No Hx Pneumococcal Vaccination: No Review Of Systems Except As Marked, All Systems Reviewed And Found Negative. ENT: Positive for: Other (difficulty swallowing) Cardiovascular: Negative for: Chest Pain Respiratory: Negative for: Shortness of Breath Physical Exam - Physical Exam Appears: Non-toxic, No Acute Distress, Other (grossly intoxicated ) Skin: Warm, Dry Head: Normacephalic Eye(s): bilateral: Normal Inspection, EOMI Oral Mucosa: Moist Throat: Normal Neck: Normal ROM, Supple Chest: Symmetrical Cardiovascular: Rhythm Regular Respiratory: Normal Breath Sounds, No Rales, No Rhonchi, No Wheezing Gastrointestinal/Abdominal: Soft, No Tenderness Extremity: Normal ROM (x4) Neurological/Psych: Oriented x3, Normal Speech ED Course And Treatment ECG: Interpreted By Me ECG Rhythm: Sinus Rhythm ECG Interpretation: Normal Rate From EC O2 Sat by Pulse Oximetry: 97 (RA) Pulse Ox Interpretation: Normal Progress Note: Impression: alcohol intoxication. Plans: -- keep NPO except meds Progress - Re-Evaluation Re-evaluation Note: 11/01/18 18:56 CLEAR SPEECH STEADY GAIT NO ACUTE INTOX - Data Reviewed Data Reviewed: EKG, Old records Disposition Counseled Patient/Family Regarding: Studies Performed, Diagnosis, Need For Followup - Disposition Referrals: [facility] [Outside] [facility] [Outside] Disposition: HOME/ ROUTINE Disposition Time: 18:57 Condition: IMPROVED Instructions: Alcohol Abuse and Alcoholism (DC) Forms: [employer] (Sri Lankan) - Clinical Impression Clinical Impression: Alcohol abuse - Scribe Statement The provider has reviewed the documentation as recorded by the Scribe Burton Do Provider Attestation: All medical record entries made by the Scribe were at my direction and personally dictated by me. I have reviewed the chart and agree that the record accurately reflects my personal performance of the history, physical exam, medical decision making, and the department course for this patient. I have also personally directed, reviewed, and agree with the discharge instructions and disposition.
[2018-11-01 18:12] VITALS: BP 158/92; PULSE 83; RESP 20; TEMP 98.3
[2018-11-01 18:58] VITALS: O2SAT 97
--- NOTE | 2018-11-02 11:59 | CARD ---
APPROVED REPORT Date of service: 11/01/2018 EKG Measurement Heart [id number] <Conclusion> Normal sinus rhythm Possible Left atrial enlargement Borderline ECG
== END 2018-11-01 19:35 | disposition home or self-care (01) ==
LOC: C.ER 14:19
DX: F10.10 Alcohol abuse, uncomplicated (principal); I10 Essential (primary) hypertension; N40.0 Benign prostatic hyperplasia without lower urinary tract symptoms

== ENCOUNTER 2018-11-04 20:04 | Emergency (ER) | payer MEDICAID ==
[2018-11-04 20:04] VITALS: BMI 27.8
--- NOTE | 2018-11-04 21:14 | C.PDOC ---
History Of Present Illness 63 year old male presents to the ER via EMS for public intoxication, found at [facility], has many prior evaluations for same. Patient has baseline shaking, no seizure activity, shaking increases when he talks. Offers no complaints at this time. Time Seen by Provider: 11/04/18 20:32 Chief Complaint (Nursing): Substance Abuse History Per: Patient, EMS History/Exam Limitations: no limitations Onset/Duration Of Symptoms: Hrs Suicide/Self Injury Attempted (Context): None Modifying Factor(s): Alcohol Involuntary Hold By: None Recent travel outside of the [place]: No Past Medical History Reviewed: Historical Data, Nursing Documentation, Vital Signs Vital Signs: Last Vital Signs Temp 98.4 F 11/04/18 20:10 Pulse 85 11/04/18 20:10 Resp 19 11/04/18 20:10 BP 136/51 L 11/04/18 20:10 Pulse Ox 96 11/04/18 20:10 - Medical History PMH: Benign Prostatic Hyperplasia, Depression, Gastritis, HTN Denies: Diabetes, Hepatitis, HIV, Chronic Kidney Disease, Seizures, Sexually Transmitted Disease Surgical History: Appendectomy - [facility] Procedures ALCOHOL DETOXIFICATION (07/27/14) DETOXIFICATION SERVICES FOR SUBSTANCE ABUSE TREATMENT (10/11/17) TRANSFUSE NONAUT RED BLOOD CELLS IN PERIPH VEIN, PERC (10/26/17) Family History: States: Unknown Family Hx - Social History Hx Tobacco Use: No Hx Alcohol Use: Yes Hx Substance Use: No - Immunization History Hx Tetanus Toxoid Vaccination: No Hx Influenza Vaccination: No Hx Pneumococcal Vaccination: No Review Of Systems Constitutional: Negative for: Fever, Chills Cardiovascular: Negative for: Chest Pain, Palpitations Respiratory: Negative for: Cough, Shortness of Breath Gastrointestinal: Negative for: Nausea, Vomiting Neurological: Positive for: Other (Shaking, baseline) Physical Exam - Physical Exam Appears: Non-toxic, Other (ETOH on breath, stuperous) Skin: Normal Color, Warm, Dry Head: Atraumatic, Normacephalic Eye(s): bilateral: Normal Inspection Oral Mucosa: Moist Chest: Symmetrical, No Tenderness Cardiovascular: Rhythm Regular Respiratory: Normal Breath Sounds, No Rales, No Rhonchi, No Wheezing Gastrointestinal/Abdominal: Soft, No Tenderness Back: No CVA Tenderness Extremity: Normal ROM (x4) Neurological/Psych: Oriented x3, Other (Mild tremors) ED Course And Treatment O2 Sat by Pulse Oximetry: 96 (Room air) Pulse Ox Interpretation: Normal Reevaluation Time: 23:44 Reassessment Condition: Improved Disposition Doctor Will See Patient In The: Office Counseled Patient/Family Regarding: Studies Performed, Diagnosis - Disposition Disposition: HOME/ ROUTINE Disposition Time: 23:44 Condition: GOOD Forms: [facility] (Uzbek) - Clinical Impression Clinical Impression: Alcohol abuse - Scribe Statement The provider has reviewed the documentation as recorded by the Scribyon Lyon All medical record entries made by the Trinidadibyon were at my direction and per sonally dictated by me. I have reviewed the chart and agree that the record accurately reflects my personal performance of the history, physical exam, medical decision making, and the department course for this patient. I have also personally directed, reviewed, and agree with the discharge instructions and disposition.
[2018-11-04 23:51] VITALS: BP 118/82; PULSE 76; RESP 18; TEMP 97.9; O2SAT 97
== END 2018-11-05 00:27 | disposition home or self-care (01) ==
LOC: C.ER 20:04
DX: F10.10 Alcohol abuse, uncomplicated (principal); Y90.9 Presence of alcohol in blood, level not specified

== ENCOUNTER 2018-11-05 01:32 | Emergency (ER) | payer MEDICAID ==
[2018-11-05 01:33] VITALS: BMI 27.8
[2018-11-05 01:58] VITALS: PULSE 89
--- NOTE | 2018-11-05 03:12 | C.PDOC ---
History Of Present Illness 63 year old male presents to the ER requesting a place to spend the night. Patient was seen here earlier and states the shelters were already closed by the time he got there. He is requesting to spend the night in the ER until the snow stops. Denies any complaints at this time. Time Seen by Provider: 11/05/18 02:35 Chief Complaint (Nursing): Medical Clearance History Per: Patient History/Exam Limitations: no limitations Onset/Duration Of Symptoms: Hrs Current Symptoms Are (Timing): Still Present Recent travel outside of the [place]: No Past Medical History Reviewed: Historical Data, Nursing Documentation, Vital Signs Vital Signs: Last Vital Signs Temp 97.7 F 11/05/18 01:42 Pulse 89 11/05/18 01:42 Resp 20 11/05/18 01:42 BP 126/86 11/05/18 01:42 Pulse Ox 96 11/05/18 01:42 - Medical History PMH: Benign Prostatic Hyperplasia, Depression, Gastritis, HTN Denies: Diabetes, Hepatitis, HIV, Chronic Kidney Disease, Seizures, Sexually Transmitted Disease Surgical History: Appendectomy - [facility] Procedures ALCOHOL DETOXIFICATION (07/27/14) DETOXIFICATION SERVICES FOR SUBSTANCE ABUSE TREATMENT (10/11/17) TRANSFUSE NONAUT RED BLOOD CELLS IN PERIPH VEIN, PERC (10/26/17) Family History: States: Unknown Family Hx - Social History Hx Tobacco Use: No Hx Alcohol Use: Yes Hx Substance Use: No - Immunization History Hx Tetanus Toxoid Vaccination: No Hx Influenza Vaccination: No Hx Pneumococcal Vaccination: No Review Of Systems Except As Marked, All Systems Reviewed And Found Negative. Physical Exam - Physical Exam Additional Physical Exam Comments: Constitutional: No acute distress. Head: Normocephalic. Atraumatic. Eyes: PERRL. ENT: Moist mucous membranes. Neck: Supple. Cardiovascular: Regular rate. Radial pulse 2+ bilaterally. Chest: No tenderness. Respiratory: Clear to auscultation bilaterally. GI: Soft. Nontender. Nondistended. Back: No CVA tenderness. Musculoskeletal: No tenderness or swelling of extremities. Skin: No rash. Neurologic: Alert, no focal deficit. ED Course And Treatment O2 Sat by Pulse Oximetry: 96 Disposition - Disposition Disposition: HOME/ ROUTINE Disposition Time: 05:30 Condition: STABLE Forms: [facility] (Wallisian) - Clinical Impression Clinical Impression: Medical assessment - Scribe Statement The provider has reviewed the documentation as recorded by the Trinidadibyon Lyon All medical record entries made by the Selene were at my direction and personally dictated by me. I have reviewed the chart and agree that the record accurately reflects my personal performance of the history, physical exam, medical decision making, and the department course for this patient. I have also personally directed, reviewed, and agree with the discharge instructions and disposition.
[2018-11-05 05:44] VITALS: BP 133/70; RESP 18; TEMP 98.4; O2SAT 97
== END 2018-11-05 06:07 | disposition home or self-care (01) ==
LOC: C.ER 01:32
DX: Z00.00 Encounter for general adult medical examination without abnormal findings (principal); I10 Essential (primary) hypertension; N40.0 Benign prostatic hyperplasia without lower urinary tract symptoms

== ENCOUNTER 2018-11-13 19:04 | Emergency (ER) | payer MEDICAID ==
[2018-11-13 19:04] VITALS: BMI 27.8
--- NOTE | 2018-11-13 21:34 | C.PDOC ---
History Of Present Illness 63 year old male presents to the ER via ems for public intoxication. Patient with bizarre shaking with is voluntary. No seizure activity. Time Seen by Provider: 11/13/18 19:21 Chief Complaint (Nursing): Substance Abuse History Per: Patient, EMS History/Exam Limitations: no limitations Onset/Duration Of Symptoms: Hrs Current Symptoms Are (Timing): Still Present Suicide/Self Injury Attempted (Context): None Modifying Factor(s): Alcohol Involuntary Hold By: None Recent travel outside of the [place]: No Past Medical History Reviewed: Historical Data, Nursing Documentation, Vital Signs Vital Signs: Last Vital Signs Temp 98.7 F 11/13/18 19:12 Pulse 104 H 11/13/18 19:12 Resp 22 11/13/18 19:12 BP 156/99 H 11/13/18 19:12 Pulse Ox 97 11/13/18 19:12 - Medical History PMH: Benign Prostatic Hyperplasia, Depression, Gastritis, HTN Denies: Diabetes, Hepatitis, HIV, Chronic Kidney Disease, Seizures, Sexually Transmitted Disease Surgical History: Appendectomy - [facility] Procedures ALCOHOL DETOXIFICATION (07/27/14) DETOXIFICATION SERVICES FOR SUBSTANCE ABUSE TREATMENT (10/11/17) TRANSFUSE NONAUT RED BLOOD CELLS IN PERIPH VEIN, PERC (10/26/17) Family History: States: Unknown Family Hx - Social History Hx Tobacco Use: No Hx Alcohol Use: Yes Hx Substance Use: No - Immunization History Hx Tetanus Toxoid Vaccination: No Hx Influenza Vaccination: No Hx Pneumococcal Vaccination: No Review Of Systems Constitutional: Positive for: Other (ETOH intoxication). Negative for: Fever, Chills Cardiovascular: Negative for: Chest Pain, Palpitations Respiratory: Negative for: Cough, Shortness of Breath Gastrointestinal: Negative for: Nausea, Vomiting Neurological: Negative for: Weakness, Numbness Physical Exam - Physical Exam Appears: Non-toxic, No Acute Distress, Other ( male, ETOH on breath, voluntary shaking, gave way to sleeping after a few hours) Skin: Normal Color, Warm, Dry Head: Atraumatic, Normacephalic Eye(s): bilateral: Normal Inspection Oral Mucosa: Moist Neck: Normal, Supple Chest: Symmetrical, No Tenderness Cardiovascular: Rhythm Regular Respiratory: Normal Breath Sounds, No Rales, No Rhonchi, No Wheezing Gastrointestinal/Abdominal: Soft, No Tenderness Neurological/Psych: Oriented x3, Normal Speech ED Course And Treatment O2 Sat by Pulse Oximetry: 97 (Room air) Pulse Ox Interpretation: Normal Medical Decision Making Medical Decision Making: persistent alcohol abuse many similar presentations for same Disposition Doctor Will See Patient In The: Office Counseled Patient/Family Regarding: Studies Performed, Diagnosis - Disposition Referrals: Alcoholics Anonymous [Outside] [facility] [place] [Outside] [facility] [Outside] [facility] [employer] [place] [Outside] [facility] [Outside] [place] [employer] [Outside] Disposition: HOME/ ROUTINE Disposition Time: 21:32 Condition: GOOD Instructions: Alcohol Use - When Is Drinking a Problem?, Alcohol Abuse and Alcoholism (DC) Forms: [employer] (Filipino) - Clinical Impression Clinical Impression: Alcohol abuse - Scribe Statement The provider has reviewed the documentation as recorded by the Scribe Sabino Lyon All medical record entries made by the Scribe were at my direction and personally dictated by me. I have reviewed the chart and agree that the record accurately reflects my personal performance of the history, physical exam, medical decision making, and the department course for this patient. I have also personally directed, reviewed, and agree with the discharge instructions and disposition.
[2018-11-13 22:01] VITALS: BP 142/82; PULSE 75; RESP 18; TEMP 98.1
[2018-11-13 23:21] VITALS: O2SAT 97
== END 2018-11-13 22:01 | disposition home or self-care (01) ==
LOC: C.ER 19:04
DX: F10.10 Alcohol abuse, uncomplicated (principal); I10 Essential (primary) hypertension; N40.0 Benign prostatic hyperplasia without lower urinary tract symptoms

== ENCOUNTER 2018-12-15 06:28 | Emergency (ER) | payer MEDICAID ==
[2018-12-15 06:30] VITALS: BMI 27.8
[2018-12-15] MEDS ORDERED: Mineral Oil Enema 135 ml RC ONE (07:22)
--- NOTE | 2018-12-15 07:49 | C.PDOC ---
History Of Present Illness 63 year old male presents to the ED presents to the ED for evaluation of constipation for a few days and rectal pain that began 1 day ago. Denies rectal bleeding, nausea, vomiting, and any other associated symptoms. Time Seen by Provider: 12/15/18 07:13 Chief Complaint (Nursing): Abdominal Pain History Per: Patient History/Exam Limitations: no limitations Onset/Duration Of Symptoms: Days Current Symptoms Are (Timing): Still Present Associated Symptoms: denies: Fever, Chills, Nausea, Vomiting Recent travel outside of the [place]: No Past Medical History Reviewed: Historical Data, Nursing Documentation, Vital Signs Vital Signs: Last Vital Signs Temp 98.6 F 12/15/18 06:48 Pulse 99 H 12/15/18 06:48 Resp 20 12/15/18 06:48 BP 169/85 H 12/15/18 06:48 Pulse Ox 99 12/15/18 06:48 - Medical History PMH: Benign Prostatic Hyperplasia, Depression, Gastritis, HTN Denies: Diabetes, Hepatitis, HIV, Chronic Kidney Disease, Seizures, Sexually Transmitted Disease Surgical History: Appendectomy - [facility] Procedures ALCOHOL DETOXIFICATION (07/27/14) DETOXIFICATION SERVICES FOR SUBSTANCE ABUSE TREATMENT (10/11/17) TRANSFUSE NONAUT RED BLOOD CELLS IN PERIPH VEIN, PERC (10/26/17) Family History: States: Unknown Family Hx - Social History Hx Tobacco Use: No Hx Alcohol Use: Yes Hx Substance Use: No - Immunization History Hx Tetanus Toxoid Vaccination: No Hx Influenza Vaccination: Yes Hx Pneumococcal Vaccination: No Review Of Systems Except As Marked, All Systems Reviewed And Found Negative. Constitutional: Negative for: Fever, Chills Gastrointestinal: Positive for: Constipation. Negative for: Nausea, Vomiting Physical Exam - Physical Exam Appears: Well, Non-toxic, No Acute Distress Skin: Warm, Dry Head: Atraumatic, Normacephalic Eye(s): bilateral: Normal Inspection Oral Mucosa: Moist Neck: Normal ROM Chest: Symmetrical Cardiovascular: Rhythm Regular, No Murmur Respiratory: Normal Breath Sounds, No Rales, No Rhonchi, No Wheezing Gastrointestinal/Abdominal: Normal Exam, Soft, No Tenderness Rectal: Other (hard stool in rectum. light brown color.) Extremity: Normal ROM (x4) Neurological/Psych: Oriented x3, Normal Speech, Normal Cognition ED Course And Treatment O2 Sat by Pulse Oximetry: 99 (RA) Pulse Ox Interpretation: Normal Medical Decision Making Medical Decision Making: Initial plan: -Fleet Enema -Mineral Oil Progress/Update: Patient stable for discharge home. Prescribed Magnesium Citrate and Fleet Enema. Advised to return to the ED if symptoms worsen. Disposition Counseled Patient/Family Regarding: Diagnosis, Need For Followup, Rx Given - Disposition Disposition: HOME/ ROUTINE Disposition Time: 07:47 Condition: STABLE Prescriptions: Magnesium Citrate [[facility] Magnesium Citrate] 300 ml PO ONCE #1 bottle Phosphate Enema [Fleet Enema 135 Ml] 135 ml RC ONCE 1 Days #1 nma Instructions: Constipation in Adults Forms: [facility] (Chilean), Gen Discharge Inst Barbadian - POA Present On Arrival: None - Clinical Impression Clinical Impression: Constipation - Scribe Statement The provider has reviewed the documentation as recorded by the Scribe (Lucy Stroud) Provider Attestation: All medical record entries made by the Scribe were at my direction and personally dictated by me. I have reviewed the chart and agree that the record accurately reflects my personal performance of the history, physical exam, medical decision making, and the department course for this patient. I have also personally directed, reviewed, and agree with the discharge instructions and disposition.
[2018-12-15 08:02] VITALS: BP 164/93; PULSE 90; RESP 17; TEMP 99
[2018-12-15 08:21] VITALS: O2SAT 99
== END 2018-12-15 08:20 | disposition home or self-care (01) ==
LOC: C.ER 06:28
DX: K59.00 Constipation, unspecified (principal); I10 Essential (primary) hypertension; F32.9 Major depressive disorder, single episode, unspecified; N40.0 Benign prostatic hyperplasia without lower urinary tract symptoms

== ENCOUNTER 2018-12-24 17:49 | Inpatient (IN) | payer MEDICAID ==
[2018-12-24 18:14] VITALS: BMI 29.9
--- NOTE | 2018-12-24 19:28 | C.PDOC ---
History Of Present Illness 63 year old male presents to the ED c/o dysphagia that has been going on for the past 3-4 days. Patient reports he is not able to swallow liquids or solids. Patient states he drinks on a regular basis. Patient denies fever, chills, n ausea, vomit, diarrhea, rash, lip swelling, tongue swelling. Time Seen by Provider: 12/24/18 19:28 Chief Complaint (Nursing): ENT Problem History Per: Patient History/Exam Limitations: no limitations Onset/Duration Of Symptoms: Days (3-4) Current Symptoms Are (Timing): Still Present Severity: Moderate Pain Scale Rating Of: 4 Reports Recently: Seen In ED Recent travel outside of the [place]: No Additional History Per: Patient Past Medical History Reviewed: Historical Data, Nursing Documentation, Vital Signs Vital Signs: Last Vital Signs Temp 98.0 F 12/24/18 18:14 Pulse 105 H 12/24/18 18:14 Resp 18 12/24/18 18:14 BP 145/102 H 12/24/18 18:14 Pulse Ox 97 12/24/18 18:14 - Medical History PMH: Benign Prostatic Hyperplasia, Depression, Gastritis, HTN Denies: Diabetes, Hepatitis, HIV, Chronic Kidney Disease, Seizures, Sexually Transmitted Disease Surgical History: Appendectomy - [facility] Procedures ALCOHOL DETOXIFICATION (07/27/14) DETOXIFICATION SERVICES FOR SUBSTANCE ABUSE TREATMENT (10/11/17) TRANSFUSE NONAUT RED BLOOD CELLS IN PERIPH VEIN, PERC (10/26/17) Family History: States: Unknown Family Hx - Social History Hx Tobacco Use: No Hx Alcohol Use: Yes Hx Substance Use: No - Immunization History Hx Tetanus Toxoid Vaccination: No Hx Influenza Vaccination: Yes Hx Pneumococcal Vaccination: No Review Of Systems Constitutional: Negative for: Fever, Chills ENT: Positive for: Other (dysphagia). Negative for: Nose Discharge, Throat Pain, Throat Swelling Cardiovascular: Negative for: Chest Pain, Palpitations Respiratory: Negative for: Shortness of Breath Gastrointestinal: Negative for: Nausea, Vomiting, Abdominal Pain Musculoskeletal: Negative for: Back Pain Skin: Negative for: Rash Neurological: Negative for: Weakness, Numbness Psych: Negative for: Anxiety Physical Exam - Physical Exam Appears: Non-toxic, No Acute Distress Skin: Warm, Dry Head: Normacephalic Eye(s): bilateral: Normal Inspection Oral Mucosa: Moist Lips: Normal Appearing Throat: No Erythema, No Exudate, No Drooling Neck: Supple Chest: Symmetrical Cardiovascular: Rhythm Regular Respiratory: No Rales, No Rhonchi, No Wheezing Gastrointestinal/Abdominal: Soft, No Tenderness, No Guarding, No Rebound Back: Normal Inspection Extremity: Normal ROM Extremity: Bilateral: Atraumatic, Normal Color And Temperature, Normal ROM Neurological/Psych: Oriented x3, Normal Speech, Normal Cognition Gait: Steady ED Course And Treatment - Laboratory Results Result Diagrams: 12/24/18 20:07 12/24/18 20:46 O2 Sat by Pulse Oximetry: 97 (ON RA) Pulse Ox Interpretation: Normal - CT Scan/US CT chest Other Rad Studies (CT/US): Read By Radiologist, Radiology Report Reviewed CT/US Interpretation: EXAM: CT Chest with Intravenous Contrast. CLINICAL HISTORY: Att esophagus. TECHNIQUE: Axial computed tomography images of the chest with intravenous contrast. 0.00 mGy-cm. CONTRAST: With; Visipaque 320- 100ml. COMPARISON: None provided. FINDINGS: BREASTS: Mild bilateral gynecomastia is noted. LUNGS: The lungs are clear. No pulmonary mass. PLEURAL SPACES: No pneumothorax evident. No pleural effusions. HEAR T/VASCULATURE: No cardiomegaly. No pericardial effusion. Minor atherosclerotic vascular plaquing is present. MEDIASTINUM: Mucosal wall thickening throughout the course of the esophagus compatible with diffuse esophagitis. LYMPH NODES: No lymphadenopathy is evident. BONES: No focal osseous abnormality or acute fracture. UPPER ABDOMEN: The visualized upper abdomen demonstrates the presence of a large hiatal hernia containing a partially herniated intrathoracic stomach. There is also hepatomegaly present. The liver measured an estimated 18.5 cm in the midclavicular line. There is associated diffuse hepatic steatosis also present. IMPRESSION: 1. Evidence of diffuse esophagitis. 2. A very large hiatal hernia is noted which contains a partially herniated intrathoracic stomach. 3. Minor atherosclerotic vascular plaquing. 4. Mild bilateral gynecomastia. 5. Hepatomegaly with associated hepatic steatosis. Measurement is given above. . Electronically signed on Dec 24, 2018 11:11:40 PM EST by: Marco Escalera M.D., PRACHI Certified By ABR & CBC[facility]. Fellowship Trained MRI and CT Specialist Progress Note: Plan: - CT chest. - EKG. - Labs. - Protonix 40 mg IVP. - Reglan 10 mg IVP. - IV fluids. - UA Disposition Discussed With : Hillary Pastor Comment: acceptd the pt on her service and took over the care at 12:16 AM Doctor Will See Patient In The: Hospital Counseled Patient/Family Regarding: Studies Performed, Diagnosis - Disposition Disposition: HOSPITALIZED Disposition Time: 19:28 Condition: FAIR Forms: [facility] (Sinhala) - Clinical Impression Clinical Impression: Abdominal pain, Hiatal hernia, Esophagitis, acute - Scribe Statement The provider has reviewed the documentation as recorded by the Scribe Chris Torres All medical record entries made by the Scribe were at my direction and personally dictated by me. I have reviewed the chart and agree that the record accurately reflects my personal performance of the history, physical exam, medical decision making, and the department course for this patient. I have also personally directed, reviewed, and agree with the discharge instructions and disposition. Decision To Admit - Pt Status Changed To: Hospital Disposition Of: Inpatient - Admit Certification Admit to Inpatient:: After my assessment, the patient will require hospitalization for at least two midnights. This is because of the severity of symptoms shown, intensity of services needed, and/or the medical risk in this patient being treated as an outpatient. - InPatient: Physician Admission Certification: I certify that this patient requires 2 or more midnights of care for the following reason:: After my assessment, the patient will require hospitalization for at least two midnights. This is because of the severity of symptoms shown, intensity of services needed, and/or the medical risk in this patient being treated as an outpatient. - . Bed Request Type: Regular Admitting Physician: Hillary Pastor Patient Diagnosis: Abdominal pain, Hiatal hernia, Esophagitis, acute
[2018-12-24] MEDS ORDERED: Sodium Chloride 0.9% 1,000 ML IV ONE (19:29)
[2018-12-24] MEDS ORDERED: Sodium Chloride 0.9% 1,000 ML ONE (20:03)
[2018-12-24 20:10] LABS: BASO # 0.1 K/uL (0.0-0.2); EOS % 0.2 % (0.0-4.0); HEMOGLOBIN 14.4 g/dL (12.0-18.0); LYMPH % 11.3 % (20.0-40.0); MEAN CELL VOLUME 99.4 fL (80.0-94.0); MEAN CORPUSCULAR HEMOGLOBIN 32.9 pg (27.0-31.0); MEAN CORPUSCULAR HGB CONC 33.1 g/dL (33.0-37.0); MONO # 0.9 K/uL (0.0-0.8); MONO % 10.2 % (0.0-10.0); NEUT # 7.1 K/uL (1.8-7.0); NEUT % 77.3 % (50.0-75.0); NRBC % 0.1 % (0.0-2.0); RBC 4.38 Mil/uL (4.40-5.90); RED CELL DISTRIBUTION WIDTH 19.9 % (11.5-14.5); WHITE BLOOD COUNT 9.2 K/uL (4.8-10.8)
[2018-12-24 21:10] LABS: ALB/GLOB RATIO 1.3 (1.0-2.1); ALBUMIN 4.6 g/dL (3.5-5.0); CALCIUM 9.7 mg/dl (8.6-10.4)
[2018-12-24 21:58] LABS: SQUAMOUS EPITHIAL < 1 /hpf (0-5); URINE BACTERIA RARE (<OCC)
[2018-12-24 22:02] LABS: PH,URINE 5.5 (5.0-8.0); URINE BILIRUBIN MODERATE (NEGATIVE); URINE BLOOD NEGATIVE (NEGATIVE); URINE CLARITY CLEAR (Clear); URINE COLOR YELLOW (YELLOW); URINE GLUCOSE (UA) NEGATIVE (Normal); URINE PROTEIN 30 mg/dL (NEGATIVE); URINE UROBILINOGEN 0.2 mg/dL (0.2-1.0)
[2018-12-24 22:03] LABS: URINE LEUKOCYTE ESTERASE NEGATIVE Leu/uL (Negative)
[2018-12-24] MEDS ORDERED: Iodixanol 320 MG/ML 200 ML BOTTLE IV ONE (22:16)
[2018-12-25] MEDS ORDERED: Sodium Chloride 0.9% 1,000 ML IV ONE (00:19)
[2018-12-25] MEDS: Pantoprazole 80 MG in Sodium Chloride 0.9% 100 ML IVP SCH ×2 (00:55→13:03)
[2018-12-25] MEDS: Enoxaparin 40 mg Syringe SC SCH (10:44)
--- NOTE | 2018-12-25 10:57 | CT ---
Date of service: 12/24/2018 CT chest with IV contrast Indication: att esophagus Technique: Contiguous axial images were obtained through the chest with intravenous contrast enhancement. Sagittal and coronal reconstructions were generated and reviewed. This CT exam was performed using 1 or more of the following dose reduction techniques: Automated exposure control, adjustment of the MAA and/or kV according to patient size, and/or use of iterative reconstruction technique. IV contrast: 100 mL Visipaque 320 IV Radiation dose (DLP): 318.18 MGy-cm. Comparison: Chest x-ray performed 09/02/18 Findings: Visualized portions of the inferior thyroid gland appear unremarkable. The mediastinal and hilar vascular structures appear within normal limits. The heart appears within normal limits of size. Irregularly thick-walled esophagus. Fluid within the esophagus consistent with gastroesophageal reflux. Large hiatal hernia with partially herniated intrathoracic stomach. No focal consolidation. No pleural effusion. No pneumothorax. Bilateral gynecomastia. Degenerative changes. Osseous demineralization. Impression: Irregularly thick-walled esophagus, possibly related to esophagitis; correlate clinically and suggest follow-up with endoscopy if indicated. Gastroesophageal reflux. Large hiatal hernia with partially herniated intrathoracic stomach. Hepatomegaly. Hypoattenuation of the liver compatible with hepatic steatosis. Additional findings as above. Preliminary impression was provided by [facility].
[2018-12-25 14:32] LABS: BARBITURATES, UR NEGATIVE (NEGATIVE); BENZODIAZEPINES, UR NEGATIVE (NEGATIVE); OPIATES, UR NEGATIVE (NEGATIVE); PHENCYCLIDINE, UR NEGATIVE (NEGATIVE)
[2018-12-25] MEDS: Pantoprazole 80 MG in Sodium Chloride 0.9% 100 ML IVPB SCH (21:00)
[2018-12-25] MEDS ORDERED: Multivitamin (MVI) 10 ML, Thiamine 100 MG, Folic Acid 1 MG in Sodium Chloride 0.9% 1,00... IV ONE (21:00)
--- NOTE | 2018-12-25 22:17 | PCM.PSYCH ---
Initial Psychiatric Evaluation - Initial Psychiatric Evaluation Type of Admission: Voluntary Legal Status: Capacity Chief Complaint (in patient's own words): I am feeling down.' History of Present Illness and Precipitating Events: Patient seen and chart reviewed. 63 year old male presents to the ED c/o dysphagia that has been going on for the past 3-4 days. Patient reports he is not able to swallow liquids or solids. Patient states he drinks on a regular basis. Today psychiatry was consulted. Patient reports a long history of drinking. He reports drinking 1 pint of alcohol a day. He has been drinking for several years. He states that he has never been to detox or rehab before. He reports being a little uneasy and "shakey" when he doesnt drink. He reports withdrawal symptoms including nausea, shakes, anxiety, headaches and sweating. He denies any prior seizures, blackouts, or DTs. He reports depressed mood but denies any feelings of hopelessness or helplessness. He denies any suicidal ideation or any homicidal ideation. He denies any auditory hallucinations or any paranoia. He denies any tobacco use, and illicit drug use. He is , retired on disability with 2 children who are adults. PMHx: BPH, HTN, gastritis, HTN PSHx:Appendectomy Current Medications: Active Medications Generic Name Dose Route Start Last Admin Trade Name Sera PRN Reason Stop Dose Admin Docusate Sodium 100 mg 12/25/18 14:00 12/25/18 17:31 Colace PO 100 mg TID [facility] Administration Enoxaparin Sodium 40 mg 12/25/18 10:00 12/25/18 10:44 Lovenox SC 40 mg DAILY [facility] Administration Fluconazole 100 mg 12/26/18 10:00 Diflucan PO DAILY [facility] Protocol Pantoprazole Sodium 80 mg/ 100 mls @ 10 mls/hr 12/25/18 21:00 12/25/18 21:00 Sodium Chloride IVPB 10 mls/hr .Q10H [facility] Administration 8 MG/HR Multivitamins/Vitamin C 10 ml/ 1,011.2 mls @ 100 mls/hr 12/25/18 21:00 12/25/18 21:00 Thiamine HCl 100 mg/ Folic IV 12/26/18 07:06 100 mls/hr Acid 1 mg/ Sodium Chloride ONCE ONE Administration Lorazepam 0.25 mg 12/25/18 01:23 12/25/18 01:49 Ativan IVP 0.25 mg Q6H PRN Administration Symptoms of alcohol withdrawl Pneumococcal Polyvalent Vaccine 0.5 ml 12/27/18 10:00 Pneumovax 23 Vaccine IM 12/27/18 10:01 .ONCE ONE Past Psychiatric History - Past Psychiatric History Previous Treatment History: None Pertinent Medical Hx (Current Medical&Sleep Prob, Allergies): Allergies Allergy/AdvReac Type Severity Reaction Status Date / Time No Known Allergies Allergy Verified 12/24/18 18:13 Losartan/Hydrochlorothiazide [Losartan-Hctz 100-12.5 mg Tab] 1 each PO DAILY 02/06/18 Review of Systems - Review of Systems All systems: reviewed and no additional remarkable complaints except - Psychiatric Psychiatric: Anxiety, Irritability. absent: Suicidal Ideation Mental Status Examination - Personal Presentation Personal Presentation: Looks stated age - Affect Affect: Constricted - Motor Activity Motor Activity: Calm - Reliability in Providing Information Reliability in Providing Information: Fair - Speech Speech: Organized - Mood Mood: Anxious - Formal Thought Process Formal Thought Process: No Impairment - Obsessions/Compulsions Obsessions: No Compulsions: No - Cognitive Functions Orientation: Person, Place, Situation, Time Sensorium: Alert Attention/Concentration: Attentive Abstract Thinking: [place] Estimate of Intelligence: Below average Judgement: Imparied, as evidence by: Poor judgement, Intact, as evidence by: Insight regarding need for hospitalization - Risk Risk: Withdrawal, Diminished functioning - Limitations Limitations: Living alone DSM 5 DX - DSM 5 DSM 5 Diagnosis: Alcohol use disorder severe Alcohol withdrawal Depressive disorder - Recommended/Plan of Treatment Treatment Recommendations and Plan of Treatment: Alcohol use disorder severe Alcohol withdrawal Depressive disorder Supportive therapy Psychoeducation Continue Ativan for alcohol withdrawal Remeron for depression Trazodone for insomnia Psychiatric follow-up as needed - Smoking Cessation Smoking Cessation Initiated: No
--- NOTE | 2018-12-26 03:35 | HP ---
12/25/18 The patient is a 63-year-old male.seen and examined at bed side on 12/25/18 . this hand p is for 12/25/18 CHIEF COMPLAINT: Cannot eat or swallow. HISTORY OF PRESENT ILLNESS: Mr. Sandro Miranda is a 63-year-old male with past medical history of BPH, hypercholesterolemia, depression, gastritis, hypertension, came with dysphagia that has been going on for the past three to four days. The patient reports he is not able to swallow liquid or solid. He drinks on a regular basis alcohol. The patient denies fever or chills. No nausea, vomiting, or diarrhea. No rash. No swelling of the legs or tongue. No hematuria or hematochezia. We admitted the patient. Consult called with Dr. Babar Mccarthy, junior java developer and Dr. Lisa Scales for depression. Getting Ativan and lactulose. PAST MEDICAL HISTORY: BPH, hypercholesterolemia, depression, gastritis, hypertension, and appendectomy. FAMILY HISTORY: Unknown. SOCIAL HISTORY: Tobacco, no. Alcohol, yes. Substance abuse, no. As per patient. REVIEW OF SYSTEMS: The patient was seen and examined at the bedside, complaining about dysphagia. No fever. No chest pain. No palpitation. No shortness of breath. No nausea, vomiting, or abdominal pain. No back pain. No rash. No weakness of the lower extremity or anxiety. PHYSICAL EXAMINATION: VITAL SIGNS: Temperature 98, pulse 105, respiratory rate 18, blood pressure 145/102, and pulse oxymetry 97. HEENT: Head: Normocephalic, atraumatic. Eyes: PERRLA. Extraocular muscles intact. Conjunctivae clear. Nose patent. Mucous membranes moist. NECK: Supple. No carotid bruit. No JVD or thyromegaly. CHEST: Bilaterally symmetrical. HEART: S1 and S2 positive. LUNGS: Clear to auscultation. ABDOMEN: Soft. Bowel sounds present. No organomegaly. EXTREMITIES: No edema. No cyanosis. NEUROLOGIC: The patient is awake and alert, follows simple commands. LABORATORY DATA: White blood cells 9.2, hemoglobin 14.4, hematocrit 42.5, platelets 251. Sodium 140, potassium 4.2, BUN 24, creatinine 1.5, glucose 96. ASSESSMENT AND PLAN: Mr. Sandro Miranda is a 63-year-old male with hypochloremia, came with dysphagia. Computerized tomography scan done. It shows diffuse esophagitis, a very large hiatal hernia which contains partially herniated intrathoracic stomach, bilateral mild gynecomastia, hepatomegaly with associated hepatic steatosis, history of benign prostatic hyperplasia, depression, hypertension, gastritis. We admitted the patient. History of constipation, history of ethanol abuse. Gastroenterology consult called, Dr. Mccarthy and consult called with Dr. Lisa Scales for ethanol abuse. Repeat laboratories. We will follow up. Hillary Pastor MD [facility]
[2018-12-26] MEDS: Pantoprazole 80 MG in Sodium Chloride 0.9% 100 ML IVPB SCH (09:09)
[2018-12-26] MEDS: Enoxaparin 40 mg Syringe SC SCH (09:14)
[2018-12-26 11:53] LABS: BASO # 0.1 K/uL (0.0-0.2); BASO % 0.9 % (0.0-2.0); EOS # 0.1 K/uL (0.0-0.7); EOS % 2.3 % (0.0-4.0); HEMOGLOBIN 14.1 g/dL (12.0-18.0); LYMPH # 1.3 K/uL (1.0-4.3); LYMPH % 21.7 % (20.0-40.0); MEAN CORPUSCULAR HEMOGLOBIN 32.3 pg (27.0-31.0); MEAN PLATELET VOLUME 9.3 fL (7.2-11.7); MONO # 0.6 K/uL (0.0-0.8); MONO % 9.9 % (0.0-10.0); NEUT % 65.2 % (50.0-75.0); RBC 4.37 Mil/uL (4.40-5.90); WHITE BLOOD COUNT 6.1 K/uL (4.8-10.8)
[2018-12-26 12:02] LABS: INR 1.3
[2018-12-26 12:13] LABS: IRON 106 ug/dL (49-181)
[2018-12-26 12:23] LABS: LDL CHOLESTEROL 84 mg/dL (0-129)
[2018-12-26 12:24] LABS: % IRON SATURATION 34 (20-55); TOTAL IRON BINDING CAPACITY 310 ug/dL (250-450)
[2018-12-26 12:27] LABS: ALB/GLOB RATIO 1.2 (1.0-2.1); ALBUMIN 4.1 g/dL (3.5-5.0); ALT/SGPT 21 U/L (21-72); AST/SGOT 37 U/L (17-59); BLOOD UREA NITROGEN 14 mg/dL (9-20); CALCIUM 9.2 mg/dl (8.6-10.4); GFR NON-AFRICAN AMERICAN > 60; HDL CHOLESTEROL 88 mg/dL (30-70)
[2018-12-26 13:14] LABS: FOLATE > 20.0 ng/mL
[2018-12-26] MEDS ORDERED: Lidocaine 4% (Laryng-O-Jet) Kit MM ONE (13:50)
[2018-12-26] MEDS ORDERED: Propofol 10 mg/ml Inj (20 ML) ONE (13:51)
[2018-12-27] MEDS ORDERED: Pneumococcal 23-Valent Vaccine IM ONE ×2 (10:00→15:00)
[2018-12-27] MEDS: Enoxaparin 40 mg Syringe SC SCH (10:39)
[2018-12-27] MEDS ORDERED: Barium Sulfate for Susp 96% w/w 176g Bottle PR ONE (11:03)
[2018-12-27] MEDS ORDERED: Barium Sulfate for Susp 98% w/w 340g Bottle ONE (11:03)
--- NOTE | 2018-12-27 11:18 | CP.PCM.CON ---
<Natividad Salgado P - Last Filed: 12/27/18 13:26> History of Present Illness - History of Present Illness History of Present Illness: Consult note for Dr. Hines. A 63 year old male with PMHx of BPH, depression, HTN, alcohol abuse, hiatal hernia and gastritis admitted on 12/24 for dysphagia. Surgery was consulted esophogeal stenosis seen on EGD on 12/26. Patient reports dysphagia to solids for 2-3 weeks that progressively worsened to include inability to tolerate liquids for the past 3-4 days. Associated symptoms include nausea and 50 pound weight loss in the last 3-4 weeks. Patient denies fever, chills, diarrhea, rash, lip swelling, tongue swelling. PMHx: HTN, alcohol use disorder, BPH, depression, hiatal hernia and gastritis PSHx: appendectomy as a child Allergies: NKDA Social: Drinks 1/2 a bottle of vodka "some days", quit smoking one year ago- smoke 1/2ppd for "many years", denies drugs Family: Mother of DM, Father of liver problems PMD: [place] Review of Systems: -Gen: No fever, No chills, No headache, No lethargy, No weakness. -HEENT: +Dysphagia, No dizziness, No change in vision, No sore throat, No nasal congestion, No mucous. -Cardio: No chest pain, No palpitations, No lower extremity edema, No orthopnea. -Resp: No cough, No dyspnea, No hemoptysis, No wheezing, No pain on inspiration. -GI: +nausea/vomiting, No abdominal pain, No diarrhea, No hematochezia, No hematemesis. -: No dysuria, No urinary freq, No incontinence, No hematuria, No change in urinary stream. -MSK: No back pain, No muscle weakness, No radiating pain. -Skin: No itching, No rash, No lesions. -Neuro: No confusion, No numbness, No tingling, No focal weakness, No radicular pain, No syncope. -Psych: + alcohol use Past Patient History - Infectious Disease Hx of Infectious Diseases: None - Past Medical History & Family History Past Medical History?: Yes - Past Social History Smoking Status: Never Smoked - CARDIAC Hx Hypertension: Yes - PULMONARY Hx Respiratory Disorders: No - NEUROLOGICAL Hx Seizures: No - HEENT Hx HEENT Problems: No - RENAL Hx Chronic Kidney Disease: No - ENDOCRINE/METABOLIC Hx Endocrine Disorders: No - HEMATOLOGICAL/ONCOLOGICAL Hx Human Immunodeficiency Virus (HIV): No - INTEGUMENTARY Hx Dermatological Problems: No - MUSCULOSKELETAL/RHEUMATOLOGICAL Hx Musculoskeletal Disorders: No Hx Falls: No - GASTROINTESTINAL Hx Gastritis: Yes - GENITOURINARY/GYNECOLOGICAL Hx Sexually Transmitted Disorders: No - PSYCHIATRIC Hx Depression: Yes Hx Substance Use: No - SURGICAL HISTORY Hx Appendectomy: Yes - ANESTHESIA Hx Anesthesia: Yes Hx Anesthesia Reactions: No Hx Malignant Hyperthermia: No Meds Allergies/Adverse Reactions: Allergies Allergy/AdvReac Type Severity Reaction Status Date / Time No Known Allergies Allergy Verified 12/24/18 18:13 - Medications Medications: Current Medications Amlodipine Besylate (Norvasc) 10 mg PO DAILY [facility] Last Admin: 12/27/18 10:39 Dose: 10 mg Docusate Sodium (Colace) 100 mg PO TID [facility] Last Admin: 12/27/18 10:39 Dose: 100 mg Enoxaparin Sodium (Lovenox) 40 mg SC DAILY [facility] Last Admin: 12/27/18 10:39 Dose: 40 mg Fluconazole (Diflucan) 100 mg PO DAILY [facility]; Protocol Last Admin: 12/27/18 10:39 Dose: 100 mg Lorazepam (Ativan) 0.25 mg IVP Q6H PRN PRN Reason: Symptoms of alcohol withdrawl Last Admin: 12/26/18 18:04 Dose: 0.25 mg Mirtazapine (Remeron) 15 mg PO [facility] Last Admin: 12/26/18 21:48 Dose: 15 mg Pantoprazole Sodium (Protonix Inj) 40 mg IVP Q12H [facility] Last Admin: 12/27/18 07:00 Dose: 40 mg Potassium Chloride (K-Dur 20 Meq Er Tab) 20 meq PO ONCE ONE Stop: 12/27/18 16:01 Trazodone HCl (Desyrel) 50 mg PO [facility] Last Admin: 12/26/18 21:50 Dose: 50 mg Physical Exam - Constitutional Appears: Non-toxic, No Acute Distress - Head Exam Head Exam: ATRAUMATIC, NORMOCEPHALIC - Eye Exam Eye Exam: EOMI, Normal appearance, PERRL - ENT Exam ENT Exam: Mucous Membranes Moist, Normal Oropharynx - Neck Exam Neck exam: Positive for: Full Rom, Normal Inspection - Respiratory Exam Respiratory Exam: Clear to Auscultation Bilateral, NORMAL BREATHING PATTERN. absent: Accessory Muscle Use, Rales, Rhonchi, Wheezes - Cardiovascular Exam Cardiovascular Exam: REGULAR RHYTHM, +S1, +S2 - GI/Abdominal Exam GI & Abdominal Exam: Normal Bowel Sounds, Soft. absent: Distended, Guarding, Rebound, Rigid, Tenderness - Extremities Exam Extremities exam: Positive for: full ROM, normal inspection, pedal edema (trace, LLE), pedal pulses present - Neurological Exam Neurological exam: Alert, CN II-XII Intact, Oriented x3 - Psychiatric Exam Psychiatric exam: Normal Affect - Skin Skin Exam: Dry, Intact, Normal Color, Warm Results - Vital Signs Recent Vital Signs: Last Vital Signs Temp 98.2 F 12/27/18 08:12 Pulse 78 12/27/18 08:12 Resp 20 12/27/18 08:12 BP 132/79 12/27/18 08:12 Pulse Ox 96 12/27/18 08:12 - Labs Result Diagrams: 12/26/18 11:41 12/26/18 11:41 Labs: Laboratory Results - last 24 hr 12/26/18 12/26/18 12/26/18 11:41 11:41 11:41 WBC 6.1 RBC 4.37 L Hgb 14.1 Hct 44.2 MCV 101.0 H MCH 32.3 H MCHC 32.0 L RDW 20.0 H Plt Count 215 MPV 9.3 Neut % (Auto) 65.2 Lymph % (Auto) 21.7 [place] % (Auto) 9.9 Eos % (Auto) 2.3 Baso % (Auto) 0.9 Neut # (Auto) 4.0 Lymph # (Auto) 1.3 [place] # (Auto) 0.6 Eos # (Auto) 0.1 Baso # (Auto) 0.1 PT 14.0 H INR 1.3 APTT 39 H Sodium 139 Potassium 3.5 L Chloride 100 Carbon Dioxide 28 Anion Gap 14 BUN 14 Creatinine 0.9 Est GFR ( Amer) > 60 Est GFR (Non-Af Amer) > 60 Random Glucose 82 Hemoglobin A1c Calcium 9.2 Iron TIBC % Saturation Total Bilirubin 1.2 AST 37 ALT 21 Alkaline Phosphatase 111 Total Protein 7.6 Albumin 4.1 Globulin 3.5 Albumin/Globulin Ratio 1.2 Triglycerides 86 Cholesterol 176 LDL Cholesterol Direct 84 HDL Cholesterol 88 H Vitamin B12 572 Folate > 20.0 TSH 3rd Generation 0.88 HIV 1&2 Antibody Screen 12/26/18 12/26/18 12/26/18 11:41 11:41 11:41 WBC RBC Hgb Hct MCV MCH MCHC RDW Plt Count MPV Neut % (Auto) Lymph % (Auto) [place] % (Auto) Eos % (Auto) Baso % (Auto) Neut # (Auto) Lymph # (Auto) [place] # (Auto) Eos # (Auto) Baso # (Auto) PT INR APTT Sodium Potassium Chloride Carbon Dioxide Anion Gap BUN Creatinine Est GFR ( Amer) Est GFR (Non-Af Amer) Random Glucose Hemoglobin A1c 5.0 Calcium Iron 106 TIBC 310 % Saturation 34 Total Bilirubin AST ALT Alkaline Phosphatase Total Protein Albumin Globulin Albumin/Globulin Ratio Triglycerides Cholesterol LDL Cholesterol Direct HDL Cholesterol Vitamin B12 Folate TSH 3rd Generation HIV 1&2 Antibody Screen Negative Assessment & Plan - Assessment and Plan (Free Text) Assessment: 63 yearold male presents with esophogeal mass with dysphagia Plan: -Requires diagnosis and staging of mass -Repeat biopsy, endoscopic ultrasound, PET scan which can be done outpatient -Patient will follow up with Dr. Harkins, cardiothoracic surgeon -Patient will require feeding tube/jejunostomy -will book and preop patient for monday. -Please document medical clearance Discussed with Dr. Donny Salgado, PGY-1 <Hair Hines - Last Filed: 12/30/18 16:44> Meds - Medications Medications: Current Medications Amlodipine Besylate (Norvasc) 10 mg PO DAILY [facility] Last Admin: 12/30/18 10:47 Dose: 10 mg Docusate Sodium (Colace Liquid) 100 mg PO TID [facility] Last Admin: 12/30/18 13:49 Dose: 100 mg Enoxaparin Sodium (Lovenox) 40 mg SC DAILY [facility] Last Admin: 12/29/18 09:52 Dose: 40 mg Sodium Chloride (Sodium Chloride 0.9%) 1,000 mls @ 125 mls/hr IV .Q8H [facility] Last Admin: 12/30/18 11:57 Dose: 125 mls/hr Mirtazapine (Remeron) 15 mg PO HS [facility] Last Admin: 12/29/18 21:58 Dose: 15 mg Pantoprazole Sodium (Protonix Inj) 40 mg IVP Q12H [facility] Last Admin: 12/30/18 05:56 Dose: 40 mg Trazodone HCl (Desyrel) 50 mg PO HS [facility] Last Admin: 12/29/18 21:58 Dose: 50 mg Results - Vital Signs Recent Vital Signs: Last Vital Signs Temp 98.5 F 12/30/18 08:11 Pulse 67 12/30/18 08:11 Resp 20 12/30/18 08:11 BP 136/80 12/30/18 08:11 Pulse Ox 97 12/30/18 08:11 - Labs Result Diagrams: 12/28/18 11:30 12/28/18 11:30 Attending/Attestation - Attestation I have personally seen and examined this patient.: Yes I have fully participated in the care of the patient.: Yes I have reviewed all pertinent clinical information: Yes Notes (Text): Pt was seen and examined at bedside Agree with above note and assessment Pt with dysphagia and EGD findings of Esophageal stricture Abdomen: Soft, NT, Non distended labs and Radiology reviewed Ass: Dysphagia due to esophageal stricture Plan : F/u path report 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 Risk and benefit explained in detail.
--- NOTE | 2018-12-27 13:22 | RAD ---
Date of service: 12/27/2018 HISTORY: Dysphagia., Esophageal stenosis/narrowing identified on upper endoscopy COMPARISON: 12/24/2018. CT scan TECHNIQUE: Single esophagram was performed. FINDINGS: ESOPHAGUS: Near complete obstructing lesion proximal esophagus approximately 7.5 cm in length. HIATAL HERNIA: Nondiagnostic GASTROESOPHAGEAL REFLUX: Nondiagnostic OTHER FINDINGS: None. IMPRESSION: Near complete obstruction of the proximal esophagus spine annular constricting lesion with only a small lumen and trace contrast identified beyond the lesion certainly primary esophageal neoplasm.
[2018-12-27] MEDS ORDERED: Potassium Chloride 20 mEq ER Tab PO ONE (16:00)
--- NOTE | 2018-12-27 21:45 | PN ---
DATE: 12/27/2018 LOCATION: 351, bed B. SUBJECTIVE: This 63-year-old male post-incomplete upper endoscopy due to obstructive phenomenon is seen and examined in rounds without any significant clinical changes. The entire chart is reviewed. The patient had as ordered upper GI series, official report is still pending. Today's lab result is still pending, but the patient has normal CBC with normal liver function tests. On record, no biopsy could be done as the patient has evidence of small esophageal varices, which may actively bleed during any potential biopsy of this esophageal mass. PHYSICAL EXAMINATION: GENERAL: A 63-year-old male. VITAL SIGNS: Afebrile with pulse of 76, respiratory rate 20 to 22, and blood pressure 136/74. HEENT: Showed pale, dry oral mucous membrane mildly, nonicteric sclerae. LUNGS: Few scattered crepitations. Decreased air entry at bases. HEART: Positive S1 and S2. ABDOMEN: Soft. Bowel sounds are present. No mass or organomegaly. NEUROLOGIC: No reported new neurological deficit. IMPRESSION: 1. 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 2. Known history of hypertension and benign prostatic hypertrophy. 3. Known history of depression. 4. which was confirmed by esophageal x-ray today. SUGGESTIONS: 1. Continue current management. 2. Chest, abdominal and pelvic CAT scan to be repeated. 3. Further recommendation to follow as requested by the cardiothoracic surgeon. Babar Mccarthy MD
--- NOTE | 2018-12-28 07:43 | CP.PCM.PN ---
<Natividad Salgado P - Last Filed: 12/31/18 09:27> Subjective - Date & Time of Evaluation Date of Evaluation: 12/28/18 Time of Evaluation: 07:00 - Subjective Subjective: Progress note for Dr. Hines. Patient was seen and examined at bedside. He is resting in bed comfortably in no acute distress. States he is feeling better. He was able tot tolerate ensure and yogurt yesterday and apple juice this morning. Does report some spitting up, but improved from previous. Denies nausea, vomiting, fever, chills and pain. Objective - Vital Signs/Intake and Output Vital Signs (last 24 hours): Temp Pulse Resp BP Pulse Ox 98.1 F 67 20 124/76 98 12/28/18 00:00 12/28/18 00:00 12/28/18 00:00 12/28/18 00:00 12/28/18 00:00 Intake and Output: 12/28/18 12/28/18 06:59 18:59 Intake Total 300 20 Output Total 300 Balance 300 -280 - Medications Medications: Current Medications Amlodipine Besylate (Norvasc) 10 mg PO DAILY [facility] Last Admin: 12/27/18 10:39 Dose: 10 mg Docusate Sodium (Colace Liquid) 100 mg PO TID [facility] Last Admin: 12/27/18 18:00 Dose: 100 mg Enoxaparin Sodium (Lovenox) 40 mg SC DAILY [facility] Last Admin: 12/27/18 10:39 Dose: 40 mg Fluconazole (Diflucan) 100 mg PO DAILY [facility]; Protocol Last Admin: 12/27/18 10:39 Dose: 100 mg Lorazepam (Ativan) 0.25 mg IVP Q6H PRN PRN Reason: Symptoms of alcohol withdrawl Last Admin: 12/26/18 18:04 Dose: 0.25 mg Mirtazapine (Remeron) 15 mg PO HS [facility] Last Admin: 12/27/18 21:31 Dose: 15 mg Pantoprazole Sodium (Protonix Inj) 40 mg IVP Q12H [facility] Last Admin: 12/28/18 05:43 Dose: 40 mg Trazodone HCl (Desyrel) 50 mg PO HS [facility] Last Admin: 12/27/18 22:15 Dose: 50 mg - Labs Labs: 12/26/18 11:41 12/26/18 11:41 PT 14.0 SECONDS (9.7-12.2) H 12/26/18 11:41 INR 1.3 12/26/18 11:41 APTT 39 SECONDS (21-34) H 12/26/18 11:41 - Constitutional Appears: Non-toxic, No Acute Distress - Head Exam Head Exam: ATRAUMATIC, NORMOCEPHALIC - Eye Exam Eye Exam: Normal appearance - ENT Exam ENT Exam: Mucous Membranes Moist - Neck Exam Neck Exam: Full ROM - Respiratory Exam Respiratory Exam: NORMAL BREATHING PATTERN - GI/Abdominal Exam GI & Abdominal Exam: Soft. absent: Guarding, Rigid, Tenderness, Mass - Extremities Exam Extremities Exam: Full ROM - Neurological Exam Neurological Exam: Alert, Awake, Oriented x3 - Psychiatric Exam Psychiatric exam: Normal Affect - Skin Skin Exam: Dry, Normal Color, Warm Assessment and Plan - Assessment and Plan (Free Text) Assessment: 63 year old male presents with esophogeal mass with dysphagia Plan: -Patient is booked for feeding tube/jejunostomy for Monday12/31/18 -Patient is still undecided on surgery and will talk to his family today. -Medical clearance required. Further recs as per Dr. Donny Salgado, PGY-1 <Hair Hines - Last Filed: 01/06/19 21:35> Objective - Vital Signs/Intake and Output Vital Signs (last 24 hours): Temp Pulse Resp BP Pulse Ox 97.8 F 75 20 137/87 95 01/06/19 15:00 01/06/19 15:00 01/06/19 15:00 01/06/19 15:00 01/06/19 15:00 - Medications Medications: Current Medications Amlodipine Besylate (Norvasc) 10 mg PO DAILY [facility] Last Admin: 01/06/19 11:01 Dose: 10 mg Docusate Sodium (Colace Liquid) 100 mg PO TID [facility] Last Admin: 01/06/19 17:04 Dose: 100 mg Enoxaparin Sodium (Lovenox) 40 mg SC DAILY [facility] Last Admin: 12/29/18 09:52 Dose: 40 mg Lactulose (Enulose) 20 gm PO DAILY PRN PRN Reason: Constipation Last Admin: 01/06/19 14:48 Dose: 20 gm Mirtazapine (Remeron) 15 mg PO [facility] Last Admin: 01/05/19 21:33 Dose: 15 mg Ondansetron HCl (Zofran Inj) 4 mg IVP Q4 PRN PRN Reason: Nausea/Vomiting Pantoprazole Sodium (Protonix Inj) 40 mg IVP Q12H [facility] Last Admin: 01/06/19 17:04 Dose: 40 mg Simethicone (Mylicon Chew Tab) 80 mg PO Q6H PRN PRN Reason: GI distress Trazodone HCl (Desyrel) 50 mg PO [facility] Last Admin: 01/05/19 21:33 Dose: 50 mg - Labs Labs: 01/02/19 06:58 01/02/19 18:23 PT 13.0 SECONDS (9.7-12.2) H 12/31/18 06:24 INR 1.2 12/31/18 06:24 APTT 39 SECONDS (21-34) H 12/26/18 11:41 Attending/Attestation - Attestation I have personally seen and examined this patient.: Yes I have fully participated in the care of the patient.: Yes I have reviewed all pertinent clinical information, including history, physical exam and plan: Yes Notes (Text): Pt was seen and examined at bedside Agree with above note and assessment Pt is stable clinically Want to discuss with family about feeding tube c.w current mx Plan d.w pt in detail.
[2018-12-28] MEDS: Enoxaparin 40 mg Syringe SC SCH (09:42)
[2018-12-28 11:42] LABS: HEMOGLOBIN 13.9 g/dL (12.0-18.0); MEAN CELL VOLUME 100.4 fL (80.0-94.0); MEAN CORPUSCULAR HEMOGLOBIN 32.3 pg (27.0-31.0); MEAN CORPUSCULAR HGB CONC 32.1 g/dL (33.0-37.0); MEAN PLATELET VOLUME 9.2 fL (7.2-11.7); RBC 4.31 Mil/uL (4.40-5.90); RED CELL DISTRIBUTION WIDTH 19.4 % (11.5-14.5); WHITE BLOOD COUNT 6.6 K/uL (4.8-10.8)
[2018-12-28 11:55] LABS: BLOOD UREA NITROGEN 13 mg/dL (9-20); CALCIUM 8.9 mg/dl (8.6-10.4); GFR NON-AFRICAN AMERICAN > 60
--- NOTE | 2018-12-28 13:11 | PN ---
DATE: 12/27/2018 SUBJECTIVE: The patient is a 63-year-old male. The patient was seen and examined on the bedside on 12/27/2018. Looking comfortable. No fever. No chills. No hematuria or hematochezia but upset because he lost some weight. The patient was on clear liquid diet. I advanced for liquid and gave him some nutrients, one can of Boost three times a day. PHYSICAL EXAMINATION VITAL SIGNS: Pulse 73, respiratory rate 20, blood pressure 132/74, temperature 98.6. HEENT: Head: Normocephalic, atraumatic. Eyes: PERRLA. Extraocular muscles are intact. Conjunctivae clear. Nose patent. Mucous membranes moist. NECK: Supple. No carotid bruit, JVD, or thyromegaly. CHEST: Bilaterally symmetrical. HEART: S1 and S2 positive. LUNGS: Clear to auscultation. ABDOMEN: Soft. Bowel sounds present. No organomegaly. EXTREMITIES: No edema. No cyanosis. NEUROLOGICAL: The patient is awake and alert. Moving all four extremities. No focal deficits. MEDICATIONS: Ativan, Colace, trazodone, Diflucan, Lovenox, Norvasc, Protonix, Remeron. LABORATORY DATA: White blood cell 6.1, hemoglobin 14.1, hematocrit 44.2, platelets 215. Sodium 139, potassium 3.5, BUN 14, creatinine 0.9, glucose 82. ASSESSMENT AND PLAN: The patient is a 63-year-old male with hypokalemia replaced, abnormal liver function test. Drug screening negative. Human immunodeficiency virus negative. Came with the dysphagia, seen by Dr. Babar Mccarthy, Bods Developer, went for upper endoscopy. According to Dr. 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 I advanced the diet. Continue present treatment. Waiting for the result of the biopsy. Seen by Dr. Natividad Salgado. The patient is homeless, currently lives in [facility]. History of hiatal hernia and gastritis. The patient lost 50 pounds in three to four weeks. History of alcohol abuse, history of appendectomy. Need ultrasound, PET scan. May be the patient requires a feeding tube or jejunostomy. Need to be followed up with cardiothoracic surgeon. Repeat labs. We will follow up. Hillary Pastor MD MTD[facility]
--- NOTE | 2018-12-28 15:16 | PN ---
DATE: 12/26/2018 SUBJECTIVE: The patient was seen and examined at bedside on 12/26/2018. Looking comfortable. No fever. No chills. No hematuria or hematochezia. No headache. No dizziness. No chest pain. No palpitations, but a little bit anxious that he cannot eat. PHYSICAL EXAMINATION: VITAL SIGNS: Temperature 97.3, pulse 73, blood pressure 159/91, respiratory rate 20. HEENT: Head is normocephalic and atraumatic. Eyes PERRLA. Extraocular muscles are intact. Conjunctivae clear. Nose patent. Mucous membranes are moist. NECK: Supple. No carotid bruits. No JVD or thyromegaly. LUNGS: Clear to auscultation. HEART: S1 and S2 positive. ABDOMEN: Soft. Bowel sounds positive. No organomegaly. EXTREMITIES: No edema. No cyanosis. NEUROLOGIC: The patient is awake and alert. Moving all four extremities. No focal deficits. MEDICATIONS: Ativan, Colace, trazodone, Diflucan, Lovenox, Protonix, Remeron. LABORATORY DATA: White blood cell 6.1, hemoglobin 14.1, hematocrit 44.2, platelets 215. Sodium 130, potassium 3.5, BUN 14, creatinine 0.9, glucose 82. ASSESSMENT AND PLAN: Mr. Sandro Miranda is a 63-year-old male with hypokalemia, replaced; abnormal liver function test, trending down; came with dysphagia, gastrointestinal consult called. The patient was seen by Dr. Babar Mccarthy. He did gastroduodenoscopy, shows esophageal stricture and mass, lesion, esophageal varices. Then esophageal x-ray was done with barium swallow, showed near complete obstruction of the proximal esophagus, supine annular constricting lesion with only a small lumen and trace contrast, identified primarily esophageal neoplasm; history of ethanol abuse; history of large hiatal hernia, which contains partially herniated intrathoracic stomach; bilateral mild gynecomastia; hepatomegaly; history of benign prostatic hypertrophy; depression; hypertension; gastritis; history of constipation. Gastroenterology and Psychiatry is on the case. Repeat labs. We will follow up. Hillary Pastor MD [facility]
--- NOTE | 2018-12-28 15:36 | PN ---
DATE: 12/28/2018 LOCATION: 351, bed B. SUBJECTIVE: This 63-year-old male post upper endoscopy as well as upper GI series with small bowel follow through before seen and examined in rounds with persistent dysphagia, severe. The entire chart is reviewed including the most recent radiology study results. The patient complained of no chest pain, no chills or fevers, or significant shortness of breath. PHYSICAL EXAMINATION: GENERAL: A 63-year-old male. VITAL SIGNS: Afebrile with pulse of 82, respiratory rate 20 to 22 and blood pressure 114/72. HEENT: Showed pale, dry oral mucoid membrane, nonicteric sclerae. LUNGS: Few scattered crepitations. Decreased air entry at bases. HEART: Positive S1 and S2. ABDOMEN: Soft with mild generalized tenderness. No mass or organomegaly. No rebound tenderness or guarding. EXTREMITIES: Without edema, clubbing or cyanosis. NEUROLOGIC: No reported significant clinical changes. IMPRESSION: 1. Dysphagia secondary to esophageal mass lesion. 2. Known history of hypertension, benign prostatic hypertrophy. 3. Reported history of depression. 4. High-grade narrowing of the esophagus secondary to above. SUGGESTIONS: 1. Continue current management. 2. Adjust oral intake. 3. Surgical re-evaluation. The patient has high-grade narrowing of the esophagus. It is difficult to biopsy it due to the presence of what appear to be esophageal varices. Otherwise, the patient will carry excessive high risk of active bleeding. 4. Oncology/Hematology consult. 5. We will follow up closely. Babar Mccarthy MD
--- NOTE | 2018-12-29 08:49 | PN ---
DATE: 12/29/2018 LOCATION: 351, bed B. SUBJECTIVE: This 63-year-old male, seen and examined in rounds without significant clinical changes, with persistent dysphagia, but no reported active bleeding. Surgical evaluation for potential gastrostomy tube insertion was raised. It has to be mentioned that I spoke yesterday with the surgical asst who called me, not the attending manager surgical, explained to him that the patient has esophageal varices attached to or near the esophageal mass lesion and that will make it very difficult and high risky to do any biopsy at the time of my upper endoscopy, I gained his attention to look at my daily notes as well as my endoscopy note. The entire chart is reviewed, and the most recent lab results showed normal CBC as well as normal SMA-18. PHYSICAL EXAMINATION: GENERAL: A 63-year-old male. VITAL SIGNS: Afebrile with pulse of 72, blood pressure of 108/66, respiratory rate 20-22. HEENT: Showed pale dry oral mucous membrane. Nonicteric sclerae. LUNGS: Few scattered crepitation. Decreased air entry at bases. HEART: Positive S1 and S2. ABDOMEN: Soft with slight generalized tenderness. No mass or organomegaly. EXTREMITIES: Without edema, clubbing, or cyanosis. NEUROLOGIC: No reported new neurological deficit, sensory or motor. IMPRESSION: 1. Dysphagia. 2. Esophageal mass lesion with varices. 3. High-grade narrowing of the esophagus at the level of the mass lesion, please see upper gastrointestinal endoscopy as well as upper gastrointestinal series with small bowel follow-through reports. 4. Reported history of hypertension, depression, benign prostatic hypertrophy. SUGGESTIONS: 1. As per the manager surgical, the patient is apparently refusing . 2. No further recommendation at this moment, and the patient to be evaluated fully by the complete surgical team, gastrostomy tube is an option to be inserted surgically. 3. The patient will need oncology, hematology fashion consultant sales. Babar Mccarthy MD
[2018-12-29] MEDS: Enoxaparin 40 mg Syringe SC SCH (09:52)
--- NOTE | 2018-12-29 11:18 | CP.PCM.PN ---
<Aaliyah Callahan - Last Filed: 12/29/18 11:15> Subjective - Date & Time of Evaluation Date of Evaluation: 12/29/18 Time of Evaluation: 07:00 - Subjective Subjective: Surgery: Dr. Hines Pt seen and examined. No acute overnight events. States he feels well and denies any complaints at this time. Pt admits to tolerating liquids. Denies fevers/chills. Objective - Vital Signs/Intake and Output Vital Signs (last 24 hours): Temp Pulse Resp BP Pulse Ox 97.8 F 110 H 20 98/68 L 98 12/29/18 08:39 12/29/18 08:39 12/29/18 08:39 12/29/18 08:39 12/29/18 08:39 Intake and Output: 12/29/18 12/29/18 06:59 18:59 Intake Total 520 Balance 520 - Medications Medications: Current Medications Amlodipine Besylate (Norvasc) 10 mg PO DAILY [facility] Last Admin: 12/29/18 09:52 Dose: Not Given Docusate Sodium (Colace Liquid) 100 mg PO TID [facility] Last Admin: 12/29/18 09:52 Dose: 100 mg Enoxaparin Sodium (Lovenox) 40 mg SC DAILY [facility] Last Admin: 12/29/18 09:52 Dose: 40 mg Mirtazapine (Remeron) 15 mg PO [facility] Last Admin: 12/28/18 22:26 Dose: 15 mg Pantoprazole Sodium (Protonix Inj) 40 mg IVP Q12H [facility] Last Admin: 12/29/18 05:20 Dose: 40 mg Trazodone HCl (Desyrel) 50 mg PO [facility] Last Admin: 12/28/18 22:25 Dose: 50 mg - Labs Labs: 12/28/18 11:30 12/28/18 11:30 PT 14.0 SECONDS (9.7-12.2) H 12/26/18 11:41 INR 1.3 12/26/18 11:41 APTT 39 SECONDS (21-34) H 12/26/18 11:41 - Constitutional Appears: Well, No Acute Distress - Head Exam Head Exam: ATRAUMATIC, NORMOCEPHALIC - Eye Exam Eye Exam: Normal appearance - ENT Exam ENT Exam: Mucous Membranes Moist - Respiratory Exam Respiratory Exam: NORMAL BREATHING PATTERN - Cardiovascular Exam Cardiovascular Exam: RRR - GI/Abdominal Exam GI & Abdominal Exam: Soft. absent: Tenderness - Neurological Exam Neurological Exam: Alert, Awake, Oriented x3 - Skin Skin Exam: Dry, Warm Assessment and Plan - Assessment and Plan (Free Text) Assessment: 63M with obstructing esophageal mass Plan: - plan for feeding jejunostomy Mon - optimize for OR - plan for further definitive surgery pending workup of mass with EUS/biopsy - d/w Dr. Donny Callahan <Hair Hines B - Last Filed: 12/30/18 16:47> Objective - Vital Signs/Intake and Output Vital Signs (last 24 hours): Temp Pulse Resp BP Pulse Ox 98.5 F 67 20 136/80 97 12/30/18 08:11 12/30/18 08:11 12/30/18 08:11 12/30/18 08:11 12/30/18 08:11 Intake and Output: 12/30/18 12/30/18 06:59 18:59 Intake Total 340 1695 Balance 340 1695 - Medications Medications: Current Medications Amlodipine Besylate (Norvasc) 10 mg PO DAILY [facility] Last Admin: 12/30/18 10:47 Dose: 10 mg Docusate Sodium (Colace Liquid) 100 mg PO TID [facility] Last Admin: 12/30/18 13:49 Dose: 100 mg Enoxaparin Sodium (Lovenox) 40 mg SC DAILY [facility] Last Admin: 12/29/18 09:52 Dose: 40 mg Sodium Chloride (Sodium Chloride 0.9%) 1,000 mls @ 125 mls/hr IV .Q8H [facility] Last Admin: 12/30/18 11:57 Dose: 125 mls/hr Mirtazapine (Remeron) 15 mg PO HS [facility] Last Admin: 12/29/18 21:58 Dose: 15 mg Pantoprazole Sodium (Protonix Inj) 40 mg IVP Q12H [facility] Last Admin: 12/30/18 05:56 Dose: 40 mg Trazodone HCl (Desyrel) 50 mg PO HS [facility] Last Admin: 12/29/18 21:58 Dose: 50 mg - Labs Labs: 12/28/18 11:30 12/28/18 11:30 PT 14.0 SECONDS (9.7-12.2) H 12/26/18 11:41 INR 1.3 12/26/18 11:41 APTT 39 SECONDS (21-34) H 12/26/18 11:41 Attending/Attestation - Attestation I have personally seen and examined this patient.: Yes I have fully participated in the care of the patient.: Yes I have reviewed all pertinent clinical information, including history, physical exam and plan: Yes Notes (Text): Pt was seen and examined at bedside Agree with above note and assessment Pt with dysphagia to solid and esophageal stricture Pt is refusing operation Wants to talk to family Will plan for G tube next weeks Plan d.w pt in detail. Risk and benefit explained in detail.
--- NOTE | 2018-12-29 17:39 | RAD ---
Date of service: 12/28/2018 HISTORY: preop COMPARISON: Comparison is made with 09/02/2018 FINDINGS: LUNGS: No evidence of new infiltrate or consolidation in the lungs. PLEURA: No significant pleural effusion identified, no pneumothorax apparent. CARDIOVASCULAR: No aortic atherosclerotic calcification present. Normal cardiac size. No pulmonary vascular congestion. OSSEOUS STRUCTURES: No significant abnormalities. VISUALIZED UPPER ABDOMEN: Normal. OTHER FINDINGS: None. IMPRESSION: No active disease.
--- NOTE | 2018-12-30 08:29 | CP.PCM.PN ---
<Ricardo Londono - Last Filed: 12/30/18 08:25> Subjective - Date & Time of Evaluation Date of Evaluation: 12/30/18 Time of Evaluation: 08:25 - Subjective Subjective: SURGERY NOTE FOR DR. HINES 63M seen and examined at bedside. No acute events overnight. Patient continues to have spit up and not tolerating diet. Objective - Vital Signs/Intake and Output Vital Signs (last 24 hours): Temp Pulse Resp BP Pulse Ox 98.5 F 67 20 136/80 97 12/30/18 08:11 12/30/18 08:11 12/30/18 08:11 12/30/18 08:11 12/30/18 08:11 Intake and Output: 12/30/18 12/30/18 06:59 18:59 Intake Total 340 420 Balance 340 420 - Medications Medications: Current Medications Amlodipine Besylate (Norvasc) 10 mg PO DAILY [facility] Last Admin: 12/29/18 09:52 Dose: Not Given Docusate Sodium (Colace Liquid) 100 mg PO TID [facility] Last Admin: 12/29/18 17:20 Dose: 100 mg Enoxaparin Sodium (Lovenox) 40 mg SC DAILY [facility] Last Admin: 12/29/18 09:52 Dose: 40 mg Mirtazapine (Remeron) 15 mg PO [facility] Last Admin: 12/29/18 21:58 Dose: 15 mg Pantoprazole Sodium (Protonix Inj) 40 mg IVP Q12H [facility] Last Admin: 12/30/18 05:56 Dose: 40 mg Trazodone HCl (Desyrel) 50 mg PO [facility] Last Admin: 12/29/18 21:58 Dose: 50 mg - Labs Labs: 12/28/18 11:30 12/28/18 11:30 PT 14.0 SECONDS (9.7-12.2) H 12/26/18 11:41 INR 1.3 12/26/18 11:41 APTT 39 SECONDS (21-34) H 12/26/18 11:41 - Constitutional Appears: Non-toxic, No Acute Distress - Respiratory Exam Respiratory Exam: Clear to Ausculation Bilateral, NORMAL BREATHING PATTERN - Cardiovascular Exam Cardiovascular Exam: REGULAR RHYTHM, +S1, +S2 - GI/Abdominal Exam GI & Abdominal Exam: Soft. absent: Distended, Firm, Guarding, Rigid, Tendern ess, Rebound - Extremities Exam Extremities Exam: absent: Pedal Edema, Tenderness - Neurological Exam Neurological Exam: Alert, Awake Assessment and Plan - Assessment and Plan (Free Text) Assessment: 63M presents with esophageal stricture 2/2 malignant appearing mass as seen on EGD Plan: - Plan for surgical feeding tube Monday. - Patient will need diagnosis of mass and staging Further recs discuss with Dr. Donny Londono, PGY3 <Hair Hines - Last Filed: 12/30/18 16:48> Objective - Vital Signs/Intake and Output Vital Signs (last 24 hours): Temp Pulse Resp BP Pulse Ox 98.5 F 67 20 136/80 97 12/30/18 08:11 12/30/18 08:11 12/30/18 08:11 12/30/18 08:11 12/30/18 08:11 Intake and Output: 12/30/18 12/30/18 06:59 18:59 Intake Total 340 1695 Balance 340 1695 - Medications Medications: Current Medications Amlodipine Besylate (Norvasc) 10 mg PO DAILY [facility] Last Admin: 12/30/18 10:47 Dose: 10 mg Docusate Sodium (Colace Liquid) 100 mg PO TID [facility] Last Admin: 12/30/18 13:49 Dose: 100 mg Enoxaparin Sodium (Lovenox) 40 mg SC DAILY [facility] Last Admin: 12/29/18 09:52 Dose: 40 mg Sodium Chloride (Sodium Chloride 0.9%) 1,000 mls @ 125 mls/hr IV .Q8H [facility] Last Admin: 12/30/18 11:57 Dose: 125 mls/hr Mirtazapine (Remeron) 15 mg PO HS [facility] Last Admin: 12/29/18 21:58 Dose: 15 mg Pantoprazole Sodium (Protonix Inj) 40 mg IVP Q12H [facility] Last Admin: 12/30/18 05:56 Dose: 40 mg Trazodone HCl (Desyrel) 50 mg PO HS [facility] Last Admin: 12/29/18 21:58 Dose: 50 mg - Labs Labs: 12/28/18 11:30 12/28/18 11:30 PT 14.0 SECONDS (9.7-12.2) H 12/26/18 11:41 INR 1.3 12/26/18 11:41 APTT 39 SECONDS (21-34) H 12/26/18 11:41 Attending/Attestation - Attestation I have personally seen and examined this patient.: Yes I have fully participated in the care of the patient.: Yes I have reviewed all pertinent clinical information, including history, physical exam and plan: Yes Notes (Text): Pt is consenting for feeding tube Will discuss with social service assistant on monday for placement Consent NPO, IVF Plan d.w pt in detail.
[2018-12-30] MEDS ORDERED: Sodium Chloride 0.9% 1,000 ML IV SCH (11:00)
[2018-12-30] MEDS: Sodium Chloride 0.9% 1,000 ML IV SCH (17:40)
--- NOTE | 2018-12-30 18:37 | CP.PCM.CON ---
History of Present Illness - History of Present Illness History of Present Illness: Cardiothoracic Surgery Consult Note A 63 year old male with PMHx of BPH, depression, HTN, alcohol abuse, hiatal hernia and gastritis admitted on 12/24 for dysphagia. Surgery was consulted esophogeal stenosis seen on EGD on 12/26. Patient reports dysphagia to solids for 2-3 weeks that progressively worsened to include inability to tolerate liquids for the past 3-4 days. Associated symptoms include nausea and 50 pound weight loss in the last 3-4 weeks. Patient denies fever, chills, diarrhea, rash, lip swelling, tongue swelling. PMHx: HTN, alcohol use disorder, BPH, depression, hiatal hernia and gastritis PSHx: appendectomy as a child Allergies: NKDA Social: Drinks 1/2 a bottle of vodka "some days", quit smoking one year ago- smoke 1/2ppd for "many years", denies drugs Family: Mother of DM, Father of liver problems PMD: [place] Past Patient History - Infectious Disease Hx of Infectious Diseases: None - Past Medical History & Family History Past Medical History?: Yes - Past Social History Smoking Status: Never Smoked - CARDIAC Hx Hypertension: Yes - PULMONARY Hx Respiratory Disorders: No - NEUROLOGICAL Hx Seizures: No - HEENT Hx HEENT Problems: No - RENAL Hx Chronic Kidney Disease: No - ENDOCRINE/METABOLIC Hx Endocrine Disorders: No - HEMATOLOGICAL/ONCOLOGICAL Hx Human Immunodeficiency Virus (HIV): No - INTEGUMENTARY Hx Dermatological Problems: No - MUSCULOSKELETAL/RHEUMATOLOGICAL Hx Musculoskeletal Disorders: No Hx Falls: No - GASTROINTESTINAL Hx Gastritis: Yes - GENITOURINARY/GYNECOLOGICAL Hx Sexually Transmitted Disorders: No - PSYCHIATRIC Hx Depression: Yes Hx Substance Use: No - SURGICAL HISTORY Hx Appendectomy: Yes - ANESTHESIA Hx Anesthesia: Yes Hx Anesthesia Reactions: No Hx Malignant Hyperthermia: No Meds Allergies/Adverse Reactions: Allergies Allergy/AdvReac Type Severity Reaction Status Date / Time No Known Allergies Allergy Verified 12/24/18 18:13 - Medications Medications: Current Medications Amlodipine Besylate (Norvasc) 10 mg PO DAILY [facility] Last Admin: 12/30/18 10:47 Dose: 10 mg Docusate Sodium (Colace Liquid) 100 mg PO TID [facility] Last Admin: 12/30/18 17:21 Dose: 100 mg Enoxaparin Sodium (Lovenox) 40 mg SC DAILY [facility] Last Admin: 12/29/18 09:52 Dose: 40 mg Sodium Chloride (Sodium Chloride 0.9%) 1,000 mls @ 100 mls/hr IV .Q10H [facility] Mirtazapine (Remeron) 15 mg PO [facility] Last Admin: 12/29/18 21:58 Dose: 15 mg Pantoprazole Sodium (Protonix Inj) 40 mg IVP Q12H [facility] Last Admin: 12/30/18 17:21 Dose: 40 mg Trazodone HCl (Desyrel) 50 mg PO [facility] Last Admin: 12/29/18 21:58 Dose: 50 mg Physical Exam - Constitutional Appears: Non-toxic, No Acute Distress Additional comments: uncomfortable due to spit up - ENT Exam ENT Exam: Mucous Membranes Moist - Respiratory Exam Respiratory Exam: Clear to Auscultation Bilateral, NORMAL BREATHING PATTERN - Cardiovascular Exam Cardiovascular Exam: REGULAR RHYTHM, +S1, +S2 - GI/Abdominal Exam GI & Abdominal Exam: Soft. absent: Distended, Firm, Guarding, Rebound, Rigid, Tenderness - Extremities Exam Extremities exam: Negative for: pedal edema, tenderness - Neurological Exam Neurological exam: Alert, Oriented x3 - Skin Skin Exam: Dry, Intact, Normal Color, Warm Results - Vital Signs Recent Vital Signs: Last Vital Signs Temp 97 F L 12/30/18 16:00 Pulse 88 12/30/18 16:00 Resp 20 12/30/18 16:00 BP 125/82 12/30/18 16:00 Pulse Ox 96 12/30/18 16:00 - Labs Result Diagrams: 12/28/18 11:30 12/28/18 11:30 Assessment & Plan - Assessment and Plan (Free Text) Assessment: 63M presents with esophageal obstruction 2/2 mass Plan: - Plan for surgical feeding tube monday with Dr. Hines - Plan for repeat EGD. Patient needs staging for mass Discussed with Dr. Maryjane Londono, PGY3
--- NOTE | 2018-12-30 20:40 | PN ---
DATE: 12/30/2018 SUBJECTIVE: The patient is 63-year-old male. The patient was seen and examined at bedside on 12/30/2018. Looking comfortable. No fever. No chills. No hematuria or hematochezia, but looking frustrated because he cannot eat, he cannot tolerate diet. No headache. No dizziness. PHYSICAL EXAMINATION: VITAL SIGNS: Temperature 98.5, pulse 57, respiratory rate 20, blood pressure 136/80, pulse oximetry 97%. HEENT: Head: Normocephalic and atraumatic. Eyes: PERRLA. Extraocular muscles are intact. Conjunctivae clear. Nose patent. Mucous membranes are moist. NECK: Supple. No carotid bruits, JVD or thyromegaly. CHEST: Bilaterally symmetrical. HEART: S1 and S2 positive. LUNGS: Clear to auscultation. ABDOMEN: Soft. Bowel sounds positive. No organomegaly. EXTREMITIES: No edema. No cyanosis. NEUROLOGIC: The patient is awake and alert. Moving all four extremities. No focal deficits. MEDICATIONS: Norvasc, Colace, Lovenox, Remeron, Protonix, and trazodone. LABORATORY DATA: White blood cell noted , hemoglobin 13.9, hematocrit 43.3, and platelets 250. Sodium 133, potassium 3.7, BUN 13, creatinine 1.1, and glucose 98. ASSESSMENT AND PLAN: Mr. Sandro Miranda is a 63-year-old male, has esophageal stricture, looks like malignant appearance, seen on EGD by Dr. Mccarthy. Has dysphagia, cannot tolerate food. Waiting for surgical feeding tube placement on Monday. Appreciate Dr. Hines's input. Seen by Dr. Babar Mccarthy, deputy clerk. The patient has high-grade narrowing of the esophagus at the level of the mass lesion, history of ethanol abuse, hypertension, and depression, benign prostatic hypertrophy. Needs biopsy. Gastrointestinal and deep venous thrombosis prophylaxis. Repeat labs. We will follow up. Hillary Pastor MD [facility]
--- NOTE | 2018-12-30 21:05 | PN ---
DATE: 12/29/2018 SUBJECTIVE: The patient is a 63-year-old male. The patient was seen and examined on the bedside on 12/29/2018. Looking comfortable. No fever. No chills. No hematuria. No hematochezia. No headache. No dizziness. No chest pain. No palpitations, but cannot tolerate food due to dysphagia. PHYSICAL EXAMINATION: VITAL SIGNS: Temperature 98.6, pulse 72, blood pressure 110/60, respiratory rate 20. HEENT: Head normocephalic, atraumatic. Eyes: PERRLA. Extraocular muscles intact. Conjunctivae clear. Nose patent. Mucous membranes moist. NECK: Supple. No carotid bruit. No JVD or thyromegaly. CHEST: Bilaterally symmetrical. HEART: S1, S2 positive. LUNGS: Clear to auscultation. ABDOMEN: Soft. Bowel sounds present. No organomegaly. EXTREMITIES: No edema. No cyanosis. NEUROLOGICAL: The patient is awake and alert. Moving all four extremities. No focal deficits. MEDICATIONS: Liquid Colace, trazodone, Lovenox, Norvasc, Protonix, Remeron, LABORATORY DATA: White blood cell 6.6, hemoglobin 13.9, hematocrit 43.3, platelets 215. ASSESSMENT AND PLAN: Mr. Sandro Miranda is a 63-year-old male with history of hypokalemia improved, history of abnormal liver function tests improved, came with the dysphagia. Esophagus x-ray done. Esophagogastroduodenoscopy done by Dr. Babar Mccarthy. The patient has esophageal mass lesion with varices. High-grade narrowing of the esophagus at the level of the mass lesion. Surgical consult called. Looking for placement of PEG tube because the patient lost 50 pounds within one month and making sure that we will get biopsy for final diagnosis. The patient has hypertension, depression, benign prostatic hypertrophy. The patient is homeless. Social workers are on the case. Repeat labs. We will follow up. Hillary Pastor MD MTD[facility]
[2018-12-31] MEDS: Sodium Chloride 0.9% 1,000 ML IV SCH ×2 (03:46→14:00)
[2018-12-31 06:46] LABS: BASO % 0.6 % (0.0-2.0); EOS # 0.2 K/uL (0.0-0.7); EOS % 2.5 % (0.0-4.0); HEMOGLOBIN 13.5 g/dL (12.0-18.0); LYMPH # 1.4 K/uL (1.0-4.3); LYMPH % 21.1 % (20.0-40.0); MEAN CORPUSCULAR HEMOGLOBIN 32.6 pg (27.0-31.0); MEAN CORPUSCULAR HGB CONC 32.3 g/dL (33.0-37.0); MEAN PLATELET VOLUME 9.6 fL (7.2-11.7); MONO # 0.9 K/uL (0.0-0.8); MONO % 13.2 % (0.0-10.0); NEUT # 4.2 K/uL (1.8-7.0); NEUT % 62.6 % (50.0-75.0); NRBC % 0.1 % (0.0-2.0); RBC 4.14 Mil/uL (4.40-5.90); RED CELL DISTRIBUTION WIDTH 18.9 % (11.5-14.5); WHITE BLOOD COUNT 6.8 K/uL (4.8-10.8)
[2018-12-31 06:51] LABS: INR 1.2
[2018-12-31 06:59] LABS: ALB/GLOB RATIO 1.1 (1.0-2.1); ALBUMIN 3.6 g/dL (3.5-5.0); ALT/SGPT 13 U/L (21-72); AST/SGOT 21 U/L (17-59); BLOOD UREA NITROGEN 16 mg/dL (9-20); GFR NON-AFRICAN AMERICAN > 60
--- NOTE | 2018-12-31 07:34 | PN ---
DATE: 12/28/2018 SUBJECTIVE: The patient is a 63-year-old male. The patient was seen and examined on the bedside on 12/28/2018, and he is not sure about his G-tube placement. Want to talk to the family. [place]. Tolerating liquid diet very well. Lost 50 pounds in four weeks. No fever. No chills. No hematuria. No hematochezia. No headache. No dizziness. No chest pain. No palpitations. PHYSICAL EXAMINATION: VITAL SIGNS: Pulse 82, respiratory rate 20, blood pressure 114/72, afebrile. HEENT: Head normocephalic, atraumatic. Eyes: PERRLA. Extraocular muscles are intact. Conjunctivae clear. Nose patent. Mucous membranes moist. NECK: Supple. No carotid bruit. No JVD or thyromegaly. CHEST: Bilaterally symmetrical. HEART: S1 and S2 positive. LUNGS: Clear to auscultation. ABDOMEN: Soft. Bowel sounds present. No organomegaly. EXTREMITIES: No edema. No cyanosis. NEUROLOGICAL: The patient awake and alert. Moving all four extremities. No focal deficits. MEDICATIONS: Colace, trazodone, Lovenox, Norvasc, Protonix, Remeron. LABORATORY DATA: White blood cell is 6.6, hemoglobin 13.9, hematocrit 43.3, platelets 215. Sodium 132, potassium 3.4, BUN 13, creatinine 1.1. ASSESSMENT AND PLAN: The patient is a 63-year-old male with history of hypokalemia, improved; abnormal liver function tests, trending down; toxicology negative; human immunodeficiency virus 1 and 2 antibody screen negative, came with dysphagia, seen by Dr. Babar Mccarthy, Gastroenterology. The patient has dysphagia secondary to esophageal mass lesion, known history of hypertension, benign prostatic hypertrophy, history of depression, high-grade narrowing of the esophagus secondary to esophageal mass lesion. Continue management adjust oral intake. Surgery for the patient. The patient has high-grade narrowing of the esophagus. It is difficult to biopsy due to presence of what appears to be esophageal varices as per Dr. Mccarthy. Discussion done with the patient's nursing staff actually late evening. The patient's family came and Surgical team explained to the family. The patient agreed, now want to go for percutaneous endoscopic gastrostomy tube placement tomorrow. The patient is clear for percutaneous endoscopic gastrostomy tube with moderate risk. Gastrointestinal and deep venous thrombosis prophylaxis. Repeat labs. We will follow up. Hillary Pastor MD
--- NOTE | 2018-12-31 09:40 | CARD ---
APPROVED REPORT Date of service: 12/28/2018 EKG Measurement Heart [id number] <Conclusion> Normal sinus rhythm Normal ECG
--- NOTE | 2018-12-31 15:39 | PN ---
DATE: 12/31/2018 LOCATION: 351, bed B. SUBJECTIVE: This 63-year-old male is seen and examined in rounds without significant clinical changes, still awaiting surgical reevaluation. The entire chart is reviewed and today's lab showed normal CBC with normal SMA-18. PHYSICAL EXAMINATION: GENERAL: A 63-year-old male, awake, alert with complaint of dysphagia. VITAL SIGNS: Afebrile with pulse of 70, respiratory rate 20-22, blood pressure of 140/80. HEENT: Showed pale dry oral mucoid membrane. Nonicteric sclerae. LUNGS: Few scattered crepitation. Decreased air entry at bases. HEART: Positive S1 and S2. ABDOMEN: Soft with mild generalized tenderness. No mass or organomegaly. No rebound tenderness or guarding. EXTREMITIES: Without edema, clubbing or cyanosis. NEUROLOGIC: No reported new neurological deficits, sensory or motor. IMPRESSION: 1. 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 2. Abnormal upper GI with small bowel follow-through. 3. Known history of depression. 4. Known history of hypertension, benign prostatic hypertrophy. SUGGESTIONS: 1. Continue current management. 2. Again, the patient has very high risk of bleeding due to the location of the esophageal mass. 3. Further recommendation to follow and Oncology-Hematology followup is needed. Babar Mccarthy MD
--- NOTE | 2018-12-31 17:19 | CP.PCM.PN ---
<AndreaMakenna - Last Filed: 12/31/18 17:16> Subjective - Date & Time of Evaluation Date of Evaluation: 12/31/18 Time of Evaluation: 12:00 - Subjective Subjective: General Surgery Dr. Hines Pt S&E @bedside. no acute events overnight. plan for J-tube today, however pt anxious and appropriate-sized jejunostomy tube unavailable. plan to reschedule OR in near future. Objective - Vital Signs/Intake and Output Vital Signs (last 24 hours): Temp Pulse Resp BP Pulse Ox 97.4 F L 82 20 130/78 99 12/31/18 16:00 12/31/18 16:00 12/31/18 16:00 12/31/18 16:00 12/31/18 16:00 Intake and Output: 12/31/18 12/31/18 06:59 18:59 Intake Total 1900 810 Balance 1900 810 - Medications Medications: Current Medications Amlodipine Besylate (Norvasc) 10 mg PO DAILY [facility] Last Admin: 12/31/18 11:00 Dose: 10 mg Docusate Sodium (Colace Liquid) 100 mg PO TID [facility] Last Admin: 12/31/18 14:30 Dose: Not Given Enoxaparin Sodium (Lovenox) 40 mg SC DAILY [facility] Last Admin: 12/29/18 09:52 Dose: 40 mg Sodium Chloride (Sodium Chloride 0.9%) 1,000 mls @ 100 mls/hr IV .Q10H [facility] Last Admin: 12/31/18 14:00 Dose: Not Given Mirtazapine (Remeron) 15 mg PO HS [facility] Last Admin: 12/30/18 21:44 Dose: 15 mg Pantoprazole Sodium (Protonix Inj) 40 mg IVP Q12H [facility] Last Admin: 12/31/18 08:51 Dose: 40 mg Trazodone HCl (Desyrel) 50 mg PO HS [facility] Last Admin: 12/30/18 21:43 Dose: 50 mg - Labs Labs: 12/31/18 06:24 12/31/18 06:24 PT 13.0 SECONDS (9.7-12.2) H 12/31/18 06:24 INR 1.2 12/31/18 06:24 APTT 39 SECONDS (21-34) H 12/26/18 11:41 - Constitutional Appears: Non-toxic, No Acute Distress - Head Exam Head Exam: NORMAL INSPECTION - Eye Exam Eye Exam: Normal appearance - ENT Exam ENT Exam: Mucous Membranes Moist - Respiratory Exam Respiratory Exam: NORMAL BREATHING PATTERN. absent: Accessory Muscle Use, Respiratory Distress - Cardiovascular Exam Cardiovascular Exam: REGULAR RHYTHM. absent: Bradycardia, Tachycardia - GI/Abdominal Exam GI & Abdominal Exam: Soft. absent: Distended, Tenderness - Extremities Exam Extremities Exam: Normal Inspection - Neurological Exam Neurological Exam: Alert, Awake, Oriented x3 - Psychiatric Exam Psychiatric exam: Anxious, Normal Affect - Skin Skin Exam: Dry, Intact, Normal Color, Warm Assessment and Plan - Assessment and Plan (Free Text) Assessment: 63 y/o M w/ dysphagia 2/2 esophageal stricture 2/2 malignant appearing mass as seen on EGD Plan: - restart CLD - OR rescheduled once tube available - Patient will need Bx for full workup and staging Pt discussed w/ Dr. Donny Mendez DO PGY3 <Hair Hines - Last Filed: 01/06/19 21:36> Objective - Vital Signs/Intake and Output Vital Signs (last 24 hours): Temp Pulse Resp BP Pulse Ox 97.8 F 75 20 137/87 95 01/06/19 15:00 01/06/19 15:00 01/06/19 15:00 01/06/19 15:00 01/06/19 15:00 - Medications Medications: Current Medications Amlodipine Besylate (Norvasc) 10 mg PO DAILY [facility] Last Admin: 01/06/19 11:01 Dose: 10 mg Docusate Sodium (Colace Liquid) 100 mg PO TID [facility] Last Admin: 01/06/19 17:04 Dose: 100 mg Enoxaparin Sodium (Lovenox) 40 mg SC DAILY [facility] Last Admin: 12/29/18 09:52 Dose: 40 mg Lactulose (Enulose) 20 gm PO DAILY PRN PRN Reason: Constipation Last Admin: 01/06/19 14:48 Dose: 20 gm Mirtazapine (Remeron) 15 mg PO HS [facility] Last Admin: 01/05/19 21:33 Dose: 15 mg Ondansetron HCl (Zofran Inj) 4 mg IVP Q4 PRN PRN Reason: Nausea/Vomiting Pantoprazole Sodium (Protonix Inj) 40 mg IVP Q12H [facility] Last Admin: 01/06/19 17:04 Dose: 40 mg Simethicone (Mylicon Chew Tab) 80 mg PO Q6H PRN PRN Reason: GI distress Trazodone HCl (Desyrel) 50 mg PO HS [facility] Last Admin: 01/05/19 21:33 Dose: 50 mg - Labs Labs: 01/02/19 06:58 01/02/19 18:23 PT 13.0 SECONDS (9.7-12.2) H 12/31/18 06:24 INR 1.2 12/31/18 06:24 APTT 39 SECONDS (21-34) H 12/26/18 11:41 Attending/Attestation - Attestation I have personally seen and examined this patient.: Yes I have fully participated in the care of the patient.: Yes I have reviewed all pertinent clinical information, including history, physical exam and plan: Yes Notes (Text): Pt was seen and examined at bedside Agree with above note and assessment Jejunostomy was rescheduled due to lack of appropriate size of tube c.w current mx Plan d.w pt in detail.
--- NOTE | 2019-01-01 08:42 | CP.PCM.PN ---
<Natividad Salgado P - Last Filed: 01/01/19 17:37> Subjective - Date & Time of Evaluation Date of Evaluation: 01/01/19 Time of Evaluation: 07:00 - Subjective Subjective: Progress note for Dr. Hines. Patient seen and examined at bedside. Tolerating liquids. Denies pain, fever, chills, nausea, and vomiting. Surgery will be rescheduled for tomorrow afternoon. Objective - Vital Signs/Intake and Output Vital Signs (last 24 hours): Temp Pulse Resp BP Pulse Ox 98.7 F 74 20 127/75 97 01/01/19 08:22 01/01/19 08:22 01/01/19 08:22 01/01/19 08:22 01/01/19 08:22 Intake and Output: 01/01/19 01/01/19 06:59 18:59 Intake Total 440 1000 Balance 440 1000 - Medications Medications: Current Medications Amlodipine Besylate (Norvasc) 10 mg PO DAILY [facility] Last Admin: 12/31/18 11:00 Dose: 10 mg Docusate Sodium (Colace Liquid) 100 mg PO TID [facility] Last Admin: 12/31/18 17:50 Dose: 100 mg Enoxaparin Sodium (Lovenox) 40 mg SC DAILY [facility] Last Admin: 12/29/18 09:52 Dose: 40 mg Sodium Chloride (Sodium Chloride 0.9%) 1,000 mls @ 100 mls/hr IV .Q10H [facility] Last Admin: 12/31/18 14:00 Dose: Not Given Mirtazapine (Remeron) 15 mg PO HS [facility] Last Admin: 12/31/18 21:08 Dose: 15 mg Pantoprazole Sodium (Protonix Inj) 40 mg IVP Q12H [facility] Last Admin: 01/01/19 05:13 Dose: 40 mg Trazodone HCl (Desyrel) 50 mg PO HS [facility] Last Admin: 12/31/18 21:09 Dose: 50 mg - Labs Labs: 12/31/18 06:24 12/31/18 06:24 PT 13.0 SECONDS (9.7-12.2) H 12/31/18 06:24 INR 1.2 12/31/18 06:24 APTT 39 SECONDS (21-34) H 12/26/18 11:41 - Constitutional Appears: Non-toxic, No Acute Distress - Head Exam Head Exam: ATRAUMATIC, NORMOCEPHALIC - Eye Exam Eye Exam: Normal appearance - ENT Exam ENT Exam: Mucous Membranes Moist - Neck Exam Neck Exam: Full ROM - Respiratory Exam Respiratory Exam: NORMAL BREATHING PATTERN - Neurological Exam Neurological Exam: Alert, Awake, Oriented x3 - Psychiatric Exam Psychiatric exam: Normal Affect - Skin Skin Exam: Dry, Intact, Normal Color, Warm Assessment and Plan - Assessment and Plan (Free Text) Assessment: 63 y/o M w/ dysphagia 2/2 esophageal stricture 2/2 malignant appearing mass as s een on EGD Plan: - OR rescheduled for tomorrow afternoon - Patient will need Bx for full workup and staging Pt discussed w/ Dr. Donny Salgado, PGY-1 <Hair Hines - Last Filed: 01/06/19 21:38> Objective - Vital Signs/Intake and Output Vital Signs (last 24 hours): Temp Pulse Resp BP Pulse Ox 97.8 F 75 20 137/87 95 01/06/19 15:00 01/06/19 15:00 01/06/19 15:00 01/06/19 15:00 01/06/19 15:00 - Medications Medications: Current Medications Amlodipine Besylate (Norvasc) 10 mg PO DAILY [facility] Last Admin: 01/06/19 11:01 Dose: 10 mg Docusate Sodium (Colace Liquid) 100 mg PO TID [facility] Last Admin: 01/06/19 17:04 Dose: 100 mg Enoxaparin Sodium (Lovenox) 40 mg SC DAILY [facility] Last Admin: 12/29/18 09:52 Dose: 40 mg Lactulose (Enulose) 20 gm PO DAILY PRN PRN Reason: Constipation Last Admin: 01/06/19 14:48 Dose: 20 gm Mirtazapine (Remeron) 15 mg PO HS [facility] Last Admin: 01/05/19 21:33 Dose: 15 mg Ondansetron HCl (Zofran Inj) 4 mg IVP Q4 PRN PRN Reason: Nausea/Vomiting Pantoprazole Sodium (Protonix Inj) 40 mg IVP Q12H [facility] Last Admin: 01/06/19 17:04 Dose: 40 mg Simethicone (Mylicon Chew Tab) 80 mg PO Q6H PRN PRN Reason: GI distress Trazodone HCl (Desyrel) 50 mg PO HS [facility] Last Admin: 01/05/19 21:33 Dose: 50 mg - Labs Labs: 01/02/19 06:58 01/02/19 18:23 PT 13.0 SECONDS (9.7-12.2) H 12/31/18 06:24 INR 1.2 12/31/18 06:24 APTT 39 SECONDS (21-34) H 12/26/18 11:41 Attending/Attestation - Attestation I have personally seen and examined this patient.: Yes I have fully participated in the care of the patient.: Yes I have reviewed all pertinent clinical information, including history, physical exam and plan: Yes Notes (Text): Pt was seen and examined at bedside Agree with above note and assessment Jejunostomy tomorrow Consent NPO/IVF Plan d.w pt in detail. Risk and benefit explained in detail.
[2019-01-01] MEDS: Sodium Chloride 0.9% 1,000 ML IV SCH ×2 (08:53→19:30)
--- NOTE | 2019-01-02 03:26 | PN ---
DATE: 01/01/2019 SUBJECTIVE: The patient is a 63-year-old male. The patient was seen and examined on the bedside on 01/01/2019. Looking comfortable. No fever. No chills. No hematuria. No hematochezia. Tolerating liquid diet. Needs PEG tube. PHYSICAL EXAMINATION: VITAL SIGNS: Temperature 97.7, pulse 74, respiratory rate 20, blood pressure 127/75, pulse oximetry 97%. HEENT: Head: Normocephalic, atraumatic. Eyes: PERRLA. Extraocular muscles intact. Conjunctivae clear. Nose patent. NECK: Supple. No carotid bruit. No JVD or thyromegaly. CHEST: Bilaterally symmetrical. HEART: S1, S2 positive. LUNGS: Clear to auscultation. ABDOMEN: Soft. Bowel sounds present. No organomegaly. EXTREMITIES: No edema. No cyanosis. NEUROLOGICAL: The patient is awake and alert. Moving all four extremities. No focal deficits. MEDICATIONS: Reviewed by ct Norvasc, Colace, Lovenox, NS, Remeron, Protonix, and trazodone. LABORATORY DATA: White blood cell 6.8, hemoglobin 13.5, hematocrit 41.9, and platelets 221. Sodium 138, potassium 4, BUN 60, creatinine 0.9, and glucose 86. ASSESSMENT AND PLAN: Mr. Sandro Miranda is a 63-year-old male with dyspnea, esophageal stricture, looks like malignant, a mass was seen on esophagogastroduodenoscopy. According to Surgery, the patient is going for procedure tomorrow afternoon. Seen by Dr. Babar Mccarthy. Repeat labs. We will follow up. Hillary Pastor MD
[2019-01-02 07:11] LABS: HEMOGLOBIN 12.7 g/dL (12.0-18.0); MEAN CELL VOLUME 100.3 fL (80.0-94.0); MEAN CORPUSCULAR HEMOGLOBIN 33.3 pg (27.0-31.0); MEAN CORPUSCULAR HGB CONC 33.2 g/dL (33.0-37.0); MEAN PLATELET VOLUME 10.2 fL (7.2-11.7); RBC 3.8 Mil/uL (4.40-5.90); RED CELL DISTRIBUTION WIDTH 18.4 % (11.5-14.5); WHITE BLOOD COUNT 6.3 K/uL (4.8-10.8)
[2019-01-02 07:39] LABS: BLOOD UREA NITROGEN 12 mg/dL (9-20); GFR NON-AFRICAN AMERICAN > 60
[2019-01-02] MEDS: Sodium Chloride 0.9% 1,000 ML IV SCH (12:32)
[2019-01-02] MEDS ORDERED: Midazolam 2 MG/2 ML VIAL ONE (15:00)
[2019-01-02] MEDS ORDERED: Propofol 10 mg/ml Inj (20 ML) ONE (15:00)
[2019-01-02] MEDS ORDERED: Neostigmine 1:1000 (1 mg/ml) Inj ONE (15:07)
[2019-01-02] MEDS ORDERED: ceFAZolin 1 gm in NS 1 GM/100 ML BAG IVPB ONE (15:26)
[2019-01-02] MEDS ORDERED: Lidocaine/Epinephrine 1% 1:100000 10 ML IJ ONE (15:26)
[2019-01-02] MEDS ORDERED: metroNIDAZOLE IV 500 mg/100 ml 500 MG/100 ML BAG ONE (15:26)
[2019-01-02] MEDS ORDERED: Bupivacaine 0.25% 20 ML INJ IJ ONE (15:26)
[2019-01-02] MEDS: Bupivacaine Liposomal Inj 20 ml INJ ONE ×3 (15:50→17:08)
[2019-01-02] MEDS: Sodium Chloride 0.9% 20 ML IV ONE ×3 (15:52→17:08)
[2019-01-02] MEDS ORDERED: HYDROmorphone 0.5 mg/0.5 ml ISec IVP PRN (16:11)
[2019-01-02] MEDS ORDERED: Potassium Ch 20mEq in D5-1/2NS 1,000 ML IV SCH (16:30)
--- NOTE | 2019-01-02 17:31 | PCM.SURG1 ---
Surgeon's Initial Post Op Note - Surgeon's Notes Surgeon: Dr. Hines Field Care Advocate: Dr. Oliver PGY-4, [place] OMS-III Type of Anesthesia: General Endo, Local (Exparel) Pre-Operative Diagnosis: Esophageal obstructing mass Operative Findings: Supraumbilical ventral Hernia Post-Operative Diagnosis: Esophageal obstructing mass and supraumbilical ventral hernia Operation Performed: 1) Jejunostomy tube placement 2) supraumbilical ventral hernia repair Specimen/Specimens Removed: Supraumbilical ventral hernia Estimated Blood Loss: EBL {In ML}: 10 Blood Products Given: N/A Drains Used: No Drains (J tube connected to gravity drainage/springer bag) Post-Op Condition: Fair Date of Surgery/Procedure: 01/02/19 Time of Surgery/Procedure: 17:48
[2019-01-02] MEDS: HYDROmorphone 0.5 mg/0.5 ml ISec IVP PRN ×3 (17:32→18:05)
[2019-01-02] MEDS: Lactated Ringer's 1,000 ML IV SCH (19:06)
[2019-01-02] MEDS: Morphine 4 MG/ML VIAL IVP PRN (19:07)
--- NOTE | 2019-01-02 19:25 | PN ---
DATE: 01/02/2019 SUBJECTIVE: The patient is a 63-year-old male. The patient was seen and examined at bedside on 01/02/2019, status post J-tube placement. Looking comfortable. No fever. No chills. No hematuria or hematochezia. No swelling of the leg. No headache or dizziness. No chest pain or palpitation. PHYSICAL EXAMINATION: VITAL SIGNS: Temperature 98.5, pulse 65, blood pressure 154/81, respiratory rate 20. HEENT: Head: Normocephalic, atraumatic. Eyes: PERRLA. Extraocular muscles intact. Conjunctivae clear. Nose patent. NECK: Supple. No carotid bruit, JVD, or thyromegaly. CHEST: Bilaterally symmetrical. HEART: S1, S2 positive. LUNGS: Clear to auscultation. ABDOMEN: Soft, status post J-tube placement. Bowel sounds positive. EXTREMITIES: No edema. No cyanosis. NEUROLOGIC: The patient is awake, alert. Follows simple commands. MEDICATIONS: Trazodone, Dilaudid, Lovenox, Norvasc, Protonix, Remeron, Zofran. LABORATORY DATA: White blood cells 6.3, hemoglobin 12.7, hematocrit 38.1, platelets 241. Sodium 137, potassium 3.5, BUN 12, creatinine 0.9, glucose 74. ASSESSMENT AND PLAN: Mr. Sandro Miranda is a 63-year-old male with hypokalemia replaced, came with dysphagia. Esophagus x-ray done and upper endoscopy done by Dr. Thompson showed that the patient has large hiatal hernia and esophageal obstruction, dysphagia, diffuse esophagitis. Today, the patient went for jejunostomy feeding tube placement by Dr. Hines. Rule out malignancy. History of hypertension, history of ethanol abuse. Noncompliant. Repeat labs. We will follow up. Hillary Pastor MD
--- NOTE | 2019-01-02 21:51 | PN ---
DATE: 01/02/2019 LOCATION: 351, bed B. SUBJECTIVE: This is a 63-year-old male, seen and examined in rounds earlier today without any significant clinical changes or reported active bleeding. The entire chart is reviewed including but not limited to most recent lab and radiology study results, and today's lab results showed normal CBC with low potassium of 3.5 and blood glucose level random is 74. The patient is to be scheduled for possible jejunostomy feeding tube placement. PHYSICAL EXAMINATION: GENERAL: A 63-year-old male. VITAL SIGNS: Afebrile with pulse of 73, respiratory rate 18 to 20. HEENT: Showed pale, dry oral mucous membrane and nonicteric sclerae. LUNGS: Few scattered crepitations. Decreased air entry at bases. HEART: Positive S1 and S2. ABDOMEN: Soft. There was mild generalized tenderness. No mass or organomegaly. No rebound tenderness or guarding. EXTREMITIES: Without edema, clubbing or cyanosis. NEUROLOGIC: No reported new neurological deficits, sensory or motor. IMPRESSION: 1. Dysphagia. 2. Esophageal mass lesion, most likely carcinoma. 3. Known history of depression. 4. Known history of benign prostatic hypertrophy with hypertension. 5. Malnutrition secondary to above. SUGGESTIONS: 1. Continue current management. 2. Agree with jejunostomy tube. 3. Further recommendation to follow. Babar Mccarthy MD
--- NOTE | 2019-01-03 02:00 | PN ---
DATE: 12/31/2018 SUBJECTIVE: The patient is a 63-year-old male. The patient was seen and examined at the bedside on 12/31/2018. Looking comfortable. No fever. No chills. No hematuria, no hematochezia. No headache, no dizziness. No chest pain or palpitation, still cannot eat much, having dysphagia. PHYSICAL EXAMINATION: VITAL SIGNS: Temperature 98.6, heart rate 20, blood pressure 140/80, and pulse 80. HEENT: Head: Normocephalic, atraumatic. Eyes: PERRLA. Extraocular muscles intact. Conjunctivae clear. Nose patent. Mucous membrane moist. NECK: Supple. No carotid bruit, JVD, or thyromegaly. CHEST: Bilaterally symmetrical. HEART: S1, S2 positive. LUNGS: Clear to auscultation. ABDOMEN: Soft. Bowel sounds present. No organomegaly. EXTREMITIES: No edema. No cyanosis. NEUROLOGIC: The patient is awake, alert. Moving all four extremities. No focal deficits. MEDICATIONS: Reviewed by me. LABORATORY DATA: Reviewed by me. ASSESSMENT AND PLAN: Mr. Sandro Miranda is a 63-year-old male with dysphagia, with esophageal mass lesion, most likely cancer of the esophagus. Dr. Thompson did not have biopsy because of esophageal varices. Abnormal upper gastrointestinal with small bowel follow-through. Known history of depression, history of ethanol abuse, hypertension, benign prostatic hypertrophy, and waiting for percutaneous endoscopic gastrostomy tube placement because he cannot eat. Continue present treatment. Gastrointestinal and Surgery is on the case. Waiting for biopsy. Repeat laboratories. We will follow up. Hillary Pastor MD MTDJohn
[2019-01-03] MEDS: Lactated Ringer's 1,000 ML IV SCH ×5 (02:30→17:27)
--- NOTE | 2019-01-03 03:19 | OP ---
PROCEDURE DATE: 01/02/2019 PREOPERATIVE DIAGNOSES: 1. Dysphagia. 2. Esophageal stricture. POSTOPERATIVE DIAGNOSES: 1. Dysphagia. 2. Esophageal stricture. PROCEDURE DONE: 1. Open jejunostomy tube placement. 2. Jejunopexy. 3. Supraumbilical ventral hernial repair 2 x 2 cm size. SURGEON: The procedure was done by in Dr. Hines. PRINT PROJECT MANAGER: Karen Oliver DO, PGY-4 resident. ANESTHESIA: General endotracheal tube anesthesia. ESTIMATED BLOOD LOSS: EBL is around 10 mL. DRAIN: The J-tube was placed to gravity drainage. PATHOLOGY: The ventral hernial sac was sent to the pathology. COMPLICATIONS: None. INTRAOPERATIVE FINDINGS: The patient had a normal looking jejunum and there was no intraperitoneal carcinomatosis, and the patient also had 2 x 1 cm supraumbilical ventral hernia that was excised and the repair was done during the closure. DESCRIPTION OF PROCEDURE: On intraoperative steps, this 63-year-old male was diagnosed with esophageal stricture with dysphagia, and the patient was consented for the open J-tube placement. The patient was brought to the OR, placed supine on the operating table. After induction of the anesthesia, the abdomen was prepped and draped in usual sterile fashion. A supraumbilical midline incision was made and the peritoneal cavity was entered and the incision was extended. During the incision extension, the patient found to have a supraumbilical ventral hernia of 2 x 1 cm size. The hernial sac and content was excised and it was sent off the table for the pathology and now the proximal jejunum was identified. The pursestring suture was taken and a 20-Tunisian J-tube was introduced through the left upper quadrant incision and the same tube was also placed into the pursestring suture site and pursestring suture was tied. A Witzel tunnel was created and now the jejunopexy was done. The jejunum was fixed to the anterior abdominal wall on to the left side of the abdomen with interrupted silk suture and after that the tube was flushed and deemed was functioning without any leakage and the tube was connected to the drainage bed and the abdominal cavity was closed in two layers, the fascia with #1 loop PDS with interrupted Prolene suture at the ventral hernia site and the wound was closed with 0-Vicryl interrupted suture and 4-0 Monocryl continuous suture. Dry sterile dressing was applied. The jejunostomy tube was secured with the skin, and the patient was extubated in OR and sent to the postanesthesia care unit in stable condition. Hair Hines MD
[2019-01-03] MEDS: Morphine 4 MG/ML VIAL IVP PRN ×3 (05:22→22:17)
--- NOTE | 2019-01-03 08:46 | CP.PCM.PN ---
<Natividad Salgado P - Last Filed: 01/03/19 09:23> Subjective - Date & Time of Evaluation Date of Evaluation: 01/03/19 Time of Evaluation: 07:05 - Subjective Subjective: Progress Note for Dr. Hines 63 y/o male POD #1 s/p jejunostomy. Patient was seen and examined at bedside. He complains of having pain around the J tube and rates it 4/10. Morphine is helping with the pain. Patient denies PO intake, however as per nursing, patient was found ingesting sugar and water in the bathroom during the night. He denies bowel movement, but has been passing flatus. Denies fever, chills, chest pain, SOB, nausea, vomiting, diarrhea, dysuria. Objective - Vital Signs/Intake and Output Vital Signs (last 24 hours): Temp Pulse Resp BP Pulse Ox 97.8 F 79 20 165/93 H 97 01/03/19 07:37 01/03/19 07:37 01/03/19 07:37 01/03/19 07:37 01/03/19 07:37 Intake and Output: 01/03/19 01/03/19 06:59 18:59 Intake Total 1250 Output Total 305 Balance 945 - Medications Medications: Current Medications Amlodipine Besylate (Norvasc) 10 mg PO DAILY [facility] Last Admin: 01/02/19 10:48 Dose: 10 mg Docusate Sodium (Colace Liquid) 100 mg PO TID [facility] Last Admin: 01/02/19 18:54 Dose: Not Given Enoxaparin Sodium (Lovenox) 40 mg SC DAILY [facility] Last Admin: 12/29/18 09:52 Dose: 40 mg Lactated Ringer's (Lactated Ringer's) 1,000 mls @ 125 mls/hr IV .Q8H [facility] Last Admin: 01/03/19 05:27 Dose: 125 mls/hr Mirtazapine (Remeron) 15 mg PO HS [facility] Last Admin: 01/02/19 22:07 Dose: Not Given Morphine Sulfate (Morphine) 4 mg IVP Q4 PRN PRN Reason: Pain, moderate (4-7) Last Admin: 01/03/19 05:22 Dose: 4 mg Ondansetron HCl (Zofran Inj) 4 mg IVP Q4 PRN PRN Reason: Nausea/Vomiting Pantoprazole Sodium (Protonix Inj) 40 mg IVP Q12H [facility] Last Admin: 01/03/19 05:23 Dose: 40 mg Trazodone HCl (Desyrel) 50 mg PO HS [facility] Last Admin: 01/02/19 22:06 Dose: Not Given - Labs Labs: 01/02/19 06:58 01/02/19 18:23 PT 13.0 SECONDS (9.7-12.2) H 12/31/18 06:24 INR 1.2 12/31/18 06:24 APTT 39 SECONDS (21-34) H 12/26/18 11:41 - Head Exam Head Exam: ATRAUMATIC, NORMAL INSPECTION, NORMOCEPHALIC - Eye Exam Eye Exam: Normal appearance - Respiratory Exam Respiratory Exam: Clear to Ausculation Bilateral, NORMAL BREATHING PATTERN. absent: Rales, Rhonchi, Wheezes - Cardiovascular Exam Cardiovascular Exam: REGULAR RHYTHM, +S1, +S2 - GI/Abdominal Exam GI & Abdominal Exam: Soft, Tenderness (surrounding incision), Normal Bowel Sounds. absent: Distended, Firm, Rigid, Rebound Additional comments: Dressing is clean, dry and intact. J tube is in place attached to the gravity drainage bag. Minimal j-tube output overnight. - Neurological Exam Neurological Exam: Alert, Awake, Oriented x3 - Psychiatric Exam Psychiatric exam: Normal Affect, Normal Mood - Skin Skin Exam: Intact, Normal Color, Warm Assessment and Plan - Assessment and Plan (Free Text) Assessment: Patient is a 63 y/o male with past medical history of esophageal mass POD #1 s/p jejunostomy. Plan: Start J-tube trickle feeds Start CLD Inspiratory spirometry Encourage ambulation Continue monitoring bowel movements Further recs as per Dr. Hines. Natividad Salgado, PGY-1 <Hair Hines - Last Filed: 01/06/19 21:39> Objective - Vital Signs/Intake and Output Vital Signs (last 24 hours): Temp Pulse Resp BP Pulse Ox 97.8 F 75 20 137/87 95 01/06/19 15:00 01/06/19 15:00 01/06/19 15:00 01/06/19 15:00 01/06/19 15:00 - Medications Medications: Current Medications Amlodipine Besylate (Norvasc) 10 mg PO DAILY [facility] Last Admin: 01/06/19 11:01 Dose: 10 mg Docusate Sodium (Colace Liquid) 100 mg PO TID [facility] Last Admin: 01/06/19 17:04 Dose: 100 mg Enoxaparin Sodium (Lovenox) 40 mg SC DAILY [facility] Last Admin: 12/29/18 09:52 Dose: 40 mg Lactulose (Enulose) 20 gm PO DAILY PRN PRN Reason: Constipation Last Admin: 01/06/19 14:48 Dose: 20 gm Mirtazapine (Remeron) 15 mg PO HS [facility] Last Admin: 01/05/19 21:33 Dose: 15 mg Ondansetron HCl (Zofran Inj) 4 mg IVP Q4 PRN PRN Reason: Nausea/Vomiting Pantoprazole Sodium (Protonix Inj) 40 mg IVP Q12H [facility] Last Admin: 01/06/19 17:04 Dose: 40 mg Simethicone (Mylicon Chew Tab) 80 mg PO Q6H PRN PRN Reason: GI distress Trazodone HCl (Desyrel) 50 mg PO [facility] Last Admin: 01/05/19 21:33 Dose: 50 mg - Labs Labs: 01/02/19 06:58 01/02/19 18:23 PT 13.0 SECONDS (9.7-12.2) H 12/31/18 06:24 INR 1.2 12/31/18 06:24 APTT 39 SECONDS (21-34) H 12/26/18 11:41 Attending/Attestation - Attestation I have personally seen and examined this patient.: Yes I have fully participated in the care of the patient.: Yes I have reviewed all pertinent clinical information, including history, physical exam and plan: Yes Notes (Text): Pt was seen and examined at bedside Agree with above note and assessment Pt is improving, C/o incisional pain EGD tomorrow as per GI team NPO, IVF Plan d.w pt in detail.
--- NOTE | 2019-01-03 09:18 | CP.PCM.CON ---
<Atul Hastings - Last Filed: 01/03/19 09:21> History of Present Illness - History of Present Illness History of Present Illness: PGY6 GI Fellow Consult Note Patient is a 63yo [place]an-speaking male with PMHx significant for alcohol abuse, depression, HTN who presented to the ED with dysphagia. [employer] worker #[id number] used during interaction to communicate with patient. The patient states that for 5-6 weeks he was vomiting with any solid food intake. This progressed to the point where he could only tolerate small amounts of liquids by mouth prompting him to come to the ED. Initial EGD performed 12/26/18 revealed an esophageal stricture/malignant-appearing lesion in the mid-distal esophagus but was not biopsied due to possible identification of varices. Yesterday, a jejunostomy was placed to bypass the esophageal lesion and provide adequate nutrition. Our service has been consulted for a second GI opinion. Patient admits to 50lb weight loss in the last 2 months. No fever, chills, constipation, hematochezia, melena. Does note soreness at surgical site. 12 system ROS performed and negative except where stated in HPI PMHx: See HPI PSHx: Jejunostomy and ventral hernia repair (01/02/19), appendectomy FHx: Mother - DM; Father - from complications of liver disease Social: +Daily EtOH use (1/2 bottle vodka daily), +tobacco use, denies illicit drug use Endo: EGD as described above Past Patient History - Infectious Disease Hx of Infectious Diseases: None - Past Medical History & Family History Past Medical History?: Yes - Past Social History Smoking Status: Never Smoked - CARDIAC Hx Hypertension: Yes - PULMONARY Hx Respiratory Disorders: No - NEUROLOGICAL Hx Seizures: No - HEENT Hx HEENT Problems: No - RENAL Hx Chronic Kidney Disease: No - ENDOCRINE/METABOLIC Hx Endocrine Disorders: No - HEMATOLOGICAL/ONCOLOGICAL Hx Human Immunodeficiency Virus (HIV): No - INTEGUMENTARY Hx Dermatological Problems: No - MUSCULOSKELETAL/RHEUMATOLOGICAL Hx Musculoskeletal Disorders: No Hx Falls: No - GASTROINTESTINAL Hx Gastritis: Yes - GENITOURINARY/GYNECOLOGICAL Hx Sexually Transmitted Disorders: No - PSYCHIATRIC Hx Depression: Yes Hx Substance Use: No - SURGICAL HISTORY Hx Appendectomy: Yes - ANESTHESIA Hx Anesthesia: Yes Hx Anesthesia Reactions: No Hx Malignant Hyperthermia: No Meds Allergies/Adverse Reactions: Allergies Allergy/AdvReac Type Severity Reaction Status Date / Time No Known Allergies Allergy Verified 12/24/18 18:13 - Medications Medications: Current Medications Amlodipine Besylate (Norvasc) 10 mg PO DAILY [facility] Last Admin: 01/02/19 10:48 Dose: 10 mg Docusate Sodium (Colace Liquid) 100 mg PO TID [facility] Last Admin: 01/02/19 18:54 Dose: Not Given Enoxaparin Sodium (Lovenox) 40 mg SC DAILY [facility] Last Admin: 12/29/18 09:52 Dose: 40 mg Lactated Ringer's (Lactated Ringer's) 1,000 mls @ 125 mls/hr IV .Q8H [facility] Last Admin: 01/03/19 05:27 Dose: 125 mls/hr Mirtazapine (Remeron) 15 mg PO [facility] Last Admin: 01/02/19 22:07 Dose: Not Given Morphine Sulfate (Morphine) 4 mg IVP Q4 PRN PRN Reason: Pain, moderate (4-7) Last Admin: 01/03/19 05:22 Dose: 4 mg Ondansetron HCl (Zofran Inj) 4 mg IVP Q4 PRN PRN Reason: Nausea/Vomiting Pantoprazole Sodium (Protonix Inj) 40 mg IVP Q12H [facility] Last Admin: 01/03/19 05:23 Dose: 40 mg Trazodone HCl (Desyrel) 50 mg PO [facility] Last Admin: 01/02/19 22:06 Dose: Not Given Physical Exam - Constitutional Appears: Non-toxic, No Acute Distress - Eye Exam Eye Exam: EOMI, PERRL - ENT Exam ENT Exam: Mucous Membranes Moist - Respiratory Exam Respiratory Exam: Clear to Auscultation Bilateral. absent: Rales, Rhonchi, Wheezes - Cardiovascular Exam Cardiovascular Exam: RRR, +S1, +S2 - GI/Abdominal Exam GI & Abdominal Exam: Normal Bowel Sounds, Soft, Tenderness. absent: Distended, Firm, Guarding, Organomegaly, Rigid Additional comments: Jejunostomy tube in place - Extremities Exam Extremities exam: Positive for: normal inspection. Negative for: pedal edema - Neurological Exam Neurological exam: Alert, Oriented x3 - Psychiatric Exam Psychiatric exam: Normal Affect, Normal Mood - Skin Skin Exam: Dry, Warm Results - Vital Signs Recent Vital Signs: Last Vital Signs Temp 97.8 F 01/03/19 07:37 Pulse 79 01/03/19 07:37 Resp 20 01/03/19 07:37 BP 165/93 H 01/03/19 07:37 Pulse Ox 97 01/03/19 07:37 - Labs Result Diagrams: 01/02/19 06:58 01/02/19 18:23 Labs: Laboratory Results - last 24 hr 01/02/19 18:23 Potassium 3.7 Assessment & Plan - Assessment and Plan (Free Text) Assessment: Patient is a 63yo [place]an-speaking male with PMHx significant for alcohol abuse, depression, HTN who presented to the ED with dysphagia -Dysphagia due to malignant-appearing esophageal lesion -EtOH abuse -Depression -HTN Plan: -[email or web address] worker #[id number] used during interaction to communicate with patient. -Labs and clinical evaluation inconsistent with diagnosis of decompensated cirrhosis; may benefit from abdominal imaging such as U/S to evaluate liver parenchyma -Patient offered repeat EGD today with biopsy - explained benefit of obtaining biopsy in terms of making definitive tissue diagnosis in order to guide therapy along with determining if lesion is malignant -Patient understands severity of disease, including why he needed a feeding tube to bypass the esophageal obstruction to provide adequate nutrition -Risks explained to patient in that without diagnosis, treatment cannot be offered at this juncture and thus his condition can worsen or cause his demise -At present, patient adamantly refusing any further procedures or interventions despite understanding these benefits and risks as explained by me and the 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 Pastor, patient and, with his permission, with his niece Yaa on the telephone - Date & Time Date: 01/03/19 Time: 08:00 <Blair Wright - Last Filed: 01/03/19 14:17> Meds - Medications Medications: Current Medications Amlodipine Besylate (Norvasc) 10 mg PO DAILY [facility] Last Admin: 01/03/19 11:15 Dose: 10 mg Docusate Sodium (Colace Liquid) 100 mg PO TID [facility] Last Admin: 01/03/19 11:15 Dose: Not Given Enoxaparin Sodium (Lovenox) 40 mg SC DAILY [facility] Last Admin: 12/29/18 09:52 Dose: 40 mg Lactated Ringer's (Lactated Ringer's) 1,000 mls @ 125 mls/hr IV .Q8H [facility] Last Admin: 01/03/19 11:15 Dose: Not Given Mirtazapine (Remeron) 15 mg PO [facility] Last Admin: 01/02/19 22:07 Dose: Not Given Morphine Sulfate (Morphine) 4 mg IVP Q4 PRN PRN Reason: Pain, moderate (4-7) Last Admin: 01/03/19 12:17 Dose: 4 mg Ondansetron HCl (Zofran Inj) 4 mg IVP Q4 PRN PRN Reason: Nausea/Vomiting Pantoprazole Sodium (Protonix Inj) 40 mg IVP Q12H [facility] Last Admin: 01/03/19 05:23 Dose: 40 mg Trazodone HCl (Desyrel) 50 mg PO [facility] Last Admin: 01/02/19 22:06 Dose: Not Given Results - Vital Signs Recent Vital Signs: Last Vital Signs Temp 97.8 F 01/03/19 07:37 Pulse 79 01/03/19 07:37 Resp 20 01/03/19 07:37 BP 165/93 H 01/03/19 07:37 Pulse Ox 97 01/03/19 07:37 - Labs Result Diagrams: 01/02/19 06:58 01/02/19 18:23 Labs: Laboratory Results - last 24 hr 01/02/19 18:23 Potassium 3.7 Attending/Attestation - Attestation I have personally seen and examined this patient.: Yes I have fully participated in the care of the patient.: Yes I have reviewed all pertinent clinical information: Yes Notes (Text): 01/03/19 14:03 I have seen and examined patient with GI fellow. Consultation provided as second GI opinion. Agree with above documentation with the following additions. In brief, this is a 63 year old male with history of HTN, depression, ETOH ab use who initially presented to hospital with complaint of dysphagia. He reports progressive dysphagia for the past 5-6 weeks primarily to solid foods with an associated 50 pound weight loss over the past 2 months. He had an EGD performed by Dr. Thompson on 12/26 which revealed a mid/distal esophageal lesion with inability to traverse into stomach. Lesion was not biopsied due to suspicion of adjacent varices. He underwent surgical jejunostomy tube placement for ongoing nutritional support. 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
--- NOTE | 2019-01-03 14:20 | PN ---
DATE: 01/03/2019 LOCATION: 351, bed B. SUBJECTIVE: This 63-year-old male seen and examined in rounds without reported significant clinical changes or active bleeding with status post jejunostomy tube insertion, kept n.p.o. so far for now. The patient still has intermittent period of abdominal pain, on and off. The entire chart is reviewed including most recent lab and radiology study results, but today's lab results still pending. PHYSICAL EXAMINATION: GENERAL: A 63-year-old male, awake. VITAL SIGNS: Afebrile with pulse of 82, respiratory rate 20 to 22, blood pressure of 160/90. HEENT: Showed mildly pale dry oral mucous membrane. Nonicteric sclerae. LUNGS: Few scattered crepitation. Decreased air entry at bases. HEART: Positive S1 and S2. ABDOMEN: Soft with mild generalized tenderness. Jejunostomy tube is in place. No mass or organomegaly. No rebound tenderness or guarding. RECOMMENDATION: Further recommendations to follow. The patient will need peripheral hyperalimentation in addition to his jejunostomy feeding. No further aggressive GI workup. Babar Mccarthy MD
--- NOTE | 2019-01-03 14:45 | CON ---
DATE: 01/03/2019 HISTORY OF PRESENT ILLNESS: This is a 63-year-old man with the radiologic diagnosis of proximal esophageal carcinoma. The patient says that he has lost about 15 to 20 pounds relatively recently in the last couple of weeks. He is not able to really swallow and eat. He also has some loss of appetite. PHYSICAL EXAMINATION: SKIN: No petechiae. No bruises. HEENT: Anicteric. NODES: Nonpalpable in the axillary, cervical, supraclavicular, or inguinal regions. LUNGS: Clear. No vertebral dayana tenderness. The patient is able to lie flat in bed. HEART: S1, S2. ABDOMEN: No liver, no spleen, no tenderness. No rebound. EXTREMITIES: No edema. CENTRAL NERVOUS SYSTEM: No focal finding. LABORATORY DATA: The x-ray shows about a 0.5 cm inlet proximal stricture of the esophagus that is suspicious for carcinoma. ASSESSMENT AND PLAN: At this point what we need is a biopsy of the lesion to confirm a diagnosis. The patient will not be able to get a CAT scan with contrast because he is not able to swallow that contrast very well. So, we will have to get CAT/PET scan as an outpatient. Also, with his working diagnosis of esophageal carcinoma, he will need a CAT/PET scan as an outpatient followed by radiation therapy with chemotherapy weekly with it, either a taxane or [place]-based regimen. So, at this point, we need the biopsy and then as an outpatient. We can proceed with radiation therapy and chemotherapy and the CAT/PET scan, which will rule out distant metastases, but even if he has distant metastases, we have to control the esophagus where most of his symptoms are. So, either way, whether he had metastatic cancer or not, the treatment would include radiation therapy. So, at this point, biopsy of the esophagus is the most important critical issue here. Miguel Gonzalez MD
[2019-01-03] MEDS ORDERED: Simethicone 80 mg Chewtab PO ONE (15:20)
[2019-01-04] MEDS: Lactated Ringer's 1,000 ML IV SCH ×3 (02:04→17:16)
[2019-01-04] MEDS: Morphine 4 MG/ML VIAL IVP PRN ×3 (02:28→17:27)
--- NOTE | 2019-01-04 03:42 | PN ---
DATE: 01/03/2019 SUBJECTIVE: The patient is a 63-year-old male. The patient was seen and examined at the bedside on 01/03/2019. Looking comfortable. No fever. No chills. No hematuria. No hematochezia. No headache. No dizziness. No chest pain. No palpitation. PHYSICAL EXAMINATION: VITAL SIGNS: Noted by me stable. HEENT: Head: Normocephalic, atraumatic. Eyes: PERRLA. Extraocular muscles intact. Conjunctivae clear. Nose patent. Mucous membrane moist. NECK: Supple. No carotid bruit, JVD, or thyromegaly. HEART: S1 and S2 positive. ABDOMEN: Soft, nontender, and nondistended. NEUROLOGIC: aaox3 . f/u simple command LABORATORY DATA: We do not have recent labs today, but I reviewed old labs. ASSESSMENT AND PLAN: Mr. Sandro Miranda is a 63-year-old male with history of dysphagia. Heart rate went slow for jejunal tube. Discussion done with Infectious Disease, Gastroenterology and Surgical Consult called. Repeat labs. We will follow up. Hillary Pastor MD MTDD
[2019-01-04] MEDS ORDERED: Propofol 10 mg/ml Inj (20 ML) ONE (07:45)
[2019-01-04] MEDS ORDERED: Lactated Ringer's 500 ML IV SCH ×2 (08:00→08:15)
--- NOTE | 2019-01-04 09:45 | CP.PCM.PN ---
<Karen Oliver - Last Filed: 01/04/19 09:49> Subjective - Date & Time of Evaluation Date of Evaluation: 01/04/19 Time of Evaluation: 07:00 - Subjective Subjective: GENERAL SURGERY PROGRESS NOTE FOR DR. HINES Patient seen and examined at bedside. Pt reports pain in the abdomen around the incision site. Tube feeds were held for EGD today. Pt denies nausea or vomiting. Objective - Vital Signs/Intake and Output Vital Signs (last 24 hours): Temp Pulse Resp BP Pulse Ox 97.4 F L 75 18 127/81 100 01/04/19 08:07 01/04/19 08:37 01/04/19 08:37 01/04/19 08:37 01/04/19 08:37 Intake and Output: 01/04/19 01/04/19 06:59 18:59 Intake Total 250 400 Output Total 400 Balance -150 400 - Medications Medications: Current Medications Amlodipine Besylate (Norvasc) 10 mg PO DAILY [facility] Last Admin: 01/03/19 11:15 Dose: 10 mg Docusate Sodium (Colace Liquid) 100 mg PO TID [facility] Last Admin: 01/03/19 17:26 Dose: Not Given Enoxaparin Sodium (Lovenox) 40 mg SC DAILY [facility] Last Admin: 12/29/18 09:52 Dose: 40 mg Lactated Ringer's (Lactated Ringer's) 1,000 mls @ 125 mls/hr IV .Q8H [facility] Last Admin: 01/04/19 02:04 Dose: Not Given Lactated Ringer's (Lactated Ringer's 500ml) 500 mls @ 75 mls/hr IV .Q6H40M [facility] Mirtazapine (Remeron) 15 mg PO HS [facility] Last Admin: 01/03/19 22:17 Dose: 15 mg Morphine Sulfate (Morphine) 4 mg IVP Q4 PRN PRN Reason: Pain, moderate (4-7) Last Admin: 01/04/19 09:31 Dose: 4 mg Ondansetron HCl (Zofran Inj) 4 mg IVP Q4 PRN PRN Reason: Nausea/Vomiting Pantoprazole Sodium (Protonix Inj) 40 mg IVP Q12H [facility] Last Admin: 01/04/19 05:38 Dose: 40 mg Simethicone (Mylicon Chew Tab) 80 mg PO Q6H PRN PRN Reason: GI distress Trazodone HCl (Desyrel) 50 mg PO HS [facility] Last Admin: 01/03/19 22:18 Dose: 50 mg - Labs Labs: 01/02/19 06:58 01/02/19 18:23 PT 13.0 SECONDS (9.7-12.2) H 12/31/18 06:24 INR 1.2 12/31/18 06:24 APTT 39 SECONDS (21-34) H 12/26/18 11:41 - Constitutional Appears: Non-toxic, No Acute Distress - Head Exam Head Exam: ATRAUMATIC, NORMAL INSPECTION - Eye Exam Eye Exam: Normal appearance - Respiratory Exam Respiratory Exam: NORMAL BREATHING PATTERN. absent: Respiratory Distress - Cardiovascular Exam Cardiovascular Exam: +S1, +S2 - GI/Abdominal Exam GI & Abdominal Exam: Soft, Tenderness (austin-incisional tenderness). absent: Distended, Firm, Guarding, Rigid Additional comments: Dressing clean/dry/intact J tube in place - Neurological Exam Neurological Exam: Alert, Awake, Oriented x3 - Psychiatric Exam Psychiatric exam: Normal Affect, Normal Mood - Skin Skin Exam: Dry, Normal Color, Warm Assessment and Plan - Assessment and Plan (Free Text) Assessment: 63yo M with obstructing esophageal mass s/p 1) Jejunostomy tube placement 2) supraumbilical ventral hernia repair POD#2 - Repeat EGD was done today which showed a completely obstructing, likely malignant esophageal tumor in the upper 1/3 of the esophagus - Per GI recs, pt should be NPO as lesion is completely obstructing the esophagus - FU pathology from biopsy - Dr. Wesley (thoracic surgery) following - Discussed plan with Dr. Donny Oliver PGY-4 <Hair Hines - Last Filed: 01/06/19 21:41> Objective - Vital Signs/Intake and Output Vital Signs (last 24 hours): Temp Pulse Resp BP Pulse Ox 97.8 F 75 20 137/87 95 01/06/19 15:00 01/06/19 15:00 01/06/19 15:00 01/06/19 15:00 01/06/19 15:00 - Medications Medications: Current Medications Amlodipine Besylate (Norvasc) 10 mg PO DAILY [facility] Last Admin: 01/06/19 11:01 Dose: 10 mg Docusate Sodium (Colace Liquid) 100 mg PO TID [facility] Last Admin: 01/06/19 17:04 Dose: 100 mg Enoxaparin Sodium (Lovenox) 40 mg SC DAILY [facility] Last Admin: 12/29/18 09:52 Dose: 40 mg Lactulose (Enulose) 20 gm PO DAILY PRN PRN Reason: Constipation Last Admin: 01/06/19 14:48 Dose: 20 gm Mirtazapine (Remeron) 15 mg PO [facility] Last Admin: 01/05/19 21:33 Dose: 15 mg Ondansetron HCl (Zofran Inj) 4 mg IVP Q4 PRN PRN Reason: Nausea/Vomiting Pantoprazole Sodium (Protonix Inj) 40 mg IVP Q12H [facility] Last Admin: 01/06/19 17:04 Dose: 40 mg Simethicone (Mylicon Chew Tab) 80 mg PO Q6H PRN PRN Reason: GI distress Trazodone HCl (Desyrel) 50 mg PO [facility] Last Admin: 01/05/19 21:33 Dose: 50 mg - Labs Labs: 01/02/19 06:58 01/02/19 18:23 PT 13.0 SECONDS (9.7-12.2) H 12/31/18 06:24 INR 1.2 12/31/18 06:24 APTT 39 SECONDS (21-34) H 12/26/18 11:41 Attending/Attestation - Attestation I have personally seen and examined this patient.: Yes I have fully participated in the care of the patient.: Yes I have reviewed all pertinent clinical information, including history, physical exam and plan: Yes Notes (Text): Pt was seen and examined at bedside Agree with above note and assessment Pt had EGD today Nearly obstructing esophageal mass Plan d.w CT surgery, Wants to f/u pt as out pt Plan d.w pt in detail.
--- NOTE | 2019-01-04 10:46 | CP.PCM.PN ---
Subjective - Date & Time of Evaluation Date of Evaluation: 01/04/19 Time of Evaluation: 10:43 - Subjective Subjective: Patient seen and examined, no acute events overnight. s/p EGD today showing completely obstructing esophageal mass lesion consistent with presumed malignant lesion, multiple biopsies taken. Objective - Vital Signs/Intake and Output Vital Signs (last 24 hours): Temp Pulse Resp BP Pulse Ox 97.4 F L 75 18 127/81 100 01/04/19 08:07 01/04/19 08:37 01/04/19 08:37 01/04/19 08:37 01/04/19 08:37 Intake and Output: 01/04/19 01/04/19 06:59 18:59 Intake Total 250 400 Output Total 400 Balance -150 400 - Medications Medications: Current Medications Amlodipine Besylate (Norvasc) 10 mg PO DAILY [facility] Last Admin: 01/03/19 11:15 Dose: 10 mg Docusate Sodium (Colace Liquid) 100 mg PO TID [facility] Last Admin: 01/03/19 17:26 Dose: Not Given Enoxaparin Sodium (Lovenox) 40 mg SC DAILY [facility] Last Admin: 12/29/18 09:52 Dose: 40 mg Lactated Ringer's (Lactated Ringer's) 1,000 mls @ 125 mls/hr IV .Q8H [facility] Last Admin: 01/04/19 02:04 Dose: Not Given Mirtazapine (Remeron) 15 mg PO [facility] Last Admin: 01/03/19 22:17 Dose: 15 mg Morphine Sulfate (Morphine) 4 mg IVP Q4 PRN PRN Reason: Pain, moderate (4-7) Last Admin: 01/04/19 09:31 Dose: 4 mg Ondansetron HCl (Zofran Inj) 4 mg IVP Q4 PRN PRN Reason: Nausea/Vomiting Pantoprazole Sodium (Protonix Inj) 40 mg IVP Q12H [facility] Last Admin: 01/04/19 05:38 Dose: 40 mg Simethicone (Mylicon Chew Tab) 80 mg PO Q6H PRN PRN Reason: GI distress Trazodone HCl (Desyrel) 50 mg PO [facility] Last Admin: 01/03/19 22:18 Dose: 50 mg - Labs Labs: 01/02/19 06:58 01/02/19 18:23 PT 13.0 SECONDS (9.7-12.2) H 12/31/18 06:24 INR 1.2 12/31/18 06:24 APTT 39 SECONDS (21-34) H 12/26/18 11:41 Assessment and Plan - Assessment and Plan (Free Text) Assessment: ETOH abuse Depression Dysphagia s/p EGD showing proximal esophageal obstructing mass lesion Plan: - Patient should remain NPO given proximal nature of obstructing mass lesion, he is high risk of aspiration - Continue with jejunostomy tube feeding as tolerated - Follow up EGD biopsy results - Follow up oncology recommendations - Follow up CT surgical recommendations - Further management as per primary GI team. Will sign off case, please reconsult as necessary, thank you.
--- NOTE | 2019-01-04 14:52 | PN ---
DATE: 01/04/2019 LOCATION: 351, bed B. SUBJECTIVE: This 63-year-old male seen and examined and found without significant clinical changes or reported active bleeding, with reported alteration and change of blood pressure, but appeared to be somewhat awake and alert. The entire chart is reviewed including, but not limited to the most recent lab and radiology study results, current, and the previous medication list. The patient had an upper endoscopy added this morning by another culture room worker without contacting me or informing me about the procedure. PLAN: At this point, I will sign off the case and the case to be followed up by the new endoscopist. Babar Mccarthy MD
--- NOTE | 2019-01-05 04:33 | PN ---
DATE: 01/04/2019 SUBJECTIVE: The patient is a 63-year-old male. The patient was seen and examined at the bedside on 01/04/2019, complaining about pain. No fever. No chills. No hematuria. No hematochezia. No headache. No dizziness. No chest pain. No palpitations. Status post EGD showing a complete obstruction of esophagus with esophageal lesion consistent with presumed malignant lesion, multiple biopsies were taken by Dr. Blair Wright. The patient tolerated the procedure very well. PHYSICAL EXAMINATION: VITAL SIGNS: Temperature 97.4, pulse 75, respiratory rate 18, blood pressure 127/81, pulse oxymetry 100%. HEENT: Head: Normocephalic and atraumatic. Eyes: PERRLA. Extraocular muscles intact. Conjunctivae are clear. Nose patent. NECK: Supple. No carotid bruit. No JVD or thyromegaly. CHEST: Bilaterally symmetrical. HEART: S1, S2 positive. LUNGS: Clear to auscultation. ABDOMEN: Soft. Bowel sounds present. No organomegaly. EXTREMITIES: No edema. No cyanosis. NEUROLOGICAL: The patient is awake and alert. Moving all four extremities. No focal deficits. MEDICATIONS: Amlodipine, Colace, Lovenox, Lactated Ringer's, Remeron, morphine, Zofran, Protonix, Mylicon, and trazodone. LABORATORY DATA: White blood cells 6.3, hemoglobin 12.7, hematocrit 38.1, platelets 241. Potassium 3.7. ASSESSMENT AND PLAN: Mr. Sandro Miranda is a 63-year-old male with history of ethanol abuse, depression, dysphagia. He reports esophagogastroduodenoscopy showing presumed esophageal obstruction, mass lesion. According to Gastroenterology, the patient should be nothing by mouth. He is a high risk of aspiration. Continue with jejunostomy tube feeding as tolerated. Follow up Oncology recommendation. Dr. Blair Wright did the upper endoscopy with biopsy and signed of the case. Review Dr. Babar Mccarthy's notes also. Repeat labs. Out of bed, physical therapy. We will follow up. Hillary Pastor MD [facility] # [id number] KRYSTA
[2019-01-05] MEDS: Lactated Ringer's 1,000 ML IV SCH ×3 (05:38→18:20)
--- NOTE | 2019-01-05 12:13 | CON ---
DATE: 01/05/2019 ONCOLOGY CONSULTATION HISTORY OF PRESENT ILLNESS: This is a 63-year-old male with esophageal carcinoma. The patient was able to undergo his procedure yesterday for upper endoscopy. At that time, it was found this is basically completely obstructed in his esophagus. So at this point, several issues: 1. We are awaiting the confirmation of the diagnosis pathology. 2. The patient will require radiation therapy for the next six to seven weeks. He will not able to eat. Personally, he is not eating now and that will worsen his health. At this point, he is going to need a feeding tube to be placed prior to starting chemotherapy. So, I would advise feeding tube, also Port-A-Cath should be considered because with the radiation therapies possible, he will also get chemotherapy weekly with a taxane-based regimen. So at this point, 1. We are awaiting the confirmation of the pathology report. 2. We shall go ahead and put in a feeding tube. 3. Also consider a Port-A-Cath. Miguel Gonzalez MD
[2019-01-05] MEDS: Morphine 4 MG/ML VIAL IVP PRN (15:20)
--- NOTE | 2019-01-06 04:27 | PN ---
DATE: 01/05/2019 SUBJECTIVE: The patient is a 63-year-old male. The patient was seen and examined at the bedside on 01/05/2019. Complaining about abdominal pain. No fever. No chills. No hematuria. No hematochezia. Went for biopsy yesterday with upper endoscopy. His esophagus is completely obstructed as per Dr. Blair Wright. PHYSICAL EXAMINATION: VITAL SIGNS: Temperature 98.9, pulse 76, blood pressure 122/70, respiratory rate 20. HEENT: Head is normocephalic and atraumatic. Eyes: PERRLA. Extraocular muscles intact. Conjunctivae clear. Nose patent. Mucous membrane moist. NECK: Supple. No carotid bruits. No JVD or thyromegaly. CHEST: Bilateral symmetrical. HEART: S1 and S2 positive. LUNGS: Clear to auscultation. ABDOMEN: Soft. Bowel sounds present. No organomegaly. EXTREMITIES: No edema. No cyanosis. NEUROLOGIC: The patient is awake, alert. Moving all four extremities. No focal deficits. MEDICATIONS: Colace, trazodone, Lovenox, morphine, Mylicon chew tablets, Norvasc, Protonix injections, Remeron, Zofran. LABORATORY DATA: We do not have recent labs today, but I reviewed old labs. ASSESSMENT AND PLAN: Mr. Sandro Miranda is a 63-year-old male with hypokalemia, hypoglycemia. Drug screening negative. Serology human immunodeficiency virus 1 and [address] Gonzalez, oncologist. According to him, we are waiting the confirmation of the diagnosis with pathology. The patient may require radiation therapy for the next six to seven weeks. He will not be able to eat. The patient has gastrostomy tube orally. The patient will need also Port-A-Cath because of radiation therapy. Need chemotherapy also. History of ethanol abuse, hypertension, gastroesophageal reflux disease, dyspepsia, dysphagia. Repeat labs. Out of bed. Physical therapy. We will follow up. Hillary Pastor MD
[2019-01-06] MEDS: Morphine 4 MG/ML VIAL IVP PRN (09:08)
--- NOTE | 2019-01-07 01:49 | PN ---
DATE: 01/06/2019 SUBJECTIVE: The patient is a 63-year-old male. The patient was seen and examined at the bedside on 01/06/2019. Complaining about abdominal pain. Wants to eat. No fever. No chills. No hematuria. No hematochezia. No headache or dizziness. No chest pain or palpitation. PHYSICAL EXAMINATION: VITAL SIGNS: Temperature 97.8, pulse 75, blood pressure 113/84, and respiratory rate 20. HEENT: Head: Normocephalic and atraumatic. Eyes: PERRLA. Extraocular muscles intact. Conjunctivae clear. Nose patent. Mucous membrane moist. NECK: Supple. No carotid bruits. No JVD or thyromegaly. CHEST: Bilateral symmetrical. HEART: S1 and S2 positive. LUNGS: Clear to auscultation. ABDOMEN: Soft. Bowel sounds present. No organomegaly. EXTREMITIES: No edema. No cyanosis. NEUROLOGIC: The patient is awake, alert. Moving all four extremities. No focal deficits. MEDICATIONS: Colace, trazodone, Lactated Ringer's, Lovenox, Mycelex Dariel, Norvasc, Protonix, Remeron, and Zofran. LABORATORY DATA: White blood cells 6.3, hemoglobin 12.7, hematocrit 38.1, and platelets 241. Glucose 85, 109. ASSESSMENT AND PLAN: Mr. Sandro Miranda is a 63-year-old male. The patient refused blood workup. I urged to do blood workup but still the patient refused. History of hypokalemia, hypoglycemia, hypertension, came with dysphagia. Electrolyte imbalance. Seen by oncologist. Waiting for the biopsy result of upper endoscopy esophageal biopsy. Need the patient on radiation therapy and chemotherapy as per Dr. Gonzalez. Need Port-A-cath. Repeat labs. We will follow up. Hillary Pastor MD
--- NOTE | 2019-01-07 10:07 | CP.PCM.PN ---
<Emily Vasquez - Last Filed: 01/07/19 10:04> Subjective - Date & Time of Evaluation Date of Evaluation: 01/07/19 Time of Evaluation: 07:00 - Subjective Subjective: Surgery Progress note for Dr. Hines Pt seen and examined at bedside this AM. Patient is only minimally interactive, refusing to engage in conversation. Patient has been refusing tube feeds and labwork. Surgery was contacted by nursing yesterday stating Dr. Pastor wanted surgical re-evaluation for possible portacath placement. Pathology results not yet back Objective - Vital Signs/Intake and Output Vital Signs (last 24 hours): Temp Pulse Resp BP Pulse Ox 98.0 F 70 20 123/69 95 01/07/19 08:39 01/07/19 08:39 01/07/19 08:39 01/07/19 08:39 01/07/19 08:39 - Medications Medications: Current Medications Amlodipine Besylate (Norvasc) 10 mg PO DAILY [facility] Last Admin: 01/07/19 09:40 Dose: 10 mg Docusate Sodium (Colace Liquid) 100 mg PO TID [facility] Last Admin: 01/07/19 09:40 Dose: 100 mg Enoxaparin Sodium (Lovenox) 40 mg SC DAILY [facility] Last Admin: 12/29/18 09:52 Dose: 40 mg Lactulose (Enulose) 20 gm PO DAILY PRN PRN Reason: Constipation Last Admin: 01/06/19 14:48 Dose: 20 gm Mirtazapine (Remeron) [address] [facility] Last Admin: 01/06/19 21:53 Dose: 15 mg Ondansetron HCl (Zofran Inj) 4 mg IVP Q4 PRN PRN Reason: Nausea/Vomiting Pantoprazole Sodium (Protonix Inj) 40 mg IVP Q12H [facility] Last Admin: 01/07/19 05:14 Dose: 40 mg Simethicone (Mylicon Chew Tab) 80 mg PO Q6H PRN PRN Reason: GI distress Trazodone HCl (Desyrel) 50 mg PO HS [facility] Last Admin: 01/06/19 21:53 Dose: 50 mg - Labs Labs: 01/02/19 06:58 01/02/19 18:23 PT 13.0 SECONDS (9.7-12.2) H 12/31/18 06:24 INR 1.2 12/31/18 06:24 APTT 39 SECONDS (21-34) H 12/26/18 11:41 - Constitutional Appears: Well, Non-toxic, No Acute Distress - Head Exam Head Exam: ATRAUMATIC, NORMOCEPHALIC - Eye Exam Eye Exam: Normal appearance. absent: Conjunctival injection, Scleral icterus - ENT Exam ENT Exam: Mucous Membranes Moist, Normal Oropharynx - Respiratory Exam Respiratory Exam: NORMAL BREATHING PATTERN. absent: Accessory Muscle Use, Respiratory Distress - Cardiovascular Exam Cardiovascular Exam: RRR - GI/Abdominal Exam GI & Abdominal Exam: Soft. absent: Distended, Tenderness Additional comments: dressing over jejunostomy tube clean, dry, intact - Neurological Exam Neurological Exam: Alert, Awake - Psychiatric Exam Psychiatric exam: Depressed, Flat Affect - Skin Skin Exam: Dry, Normal Color, Warm Assessment and Plan - Assessment and Plan (Free Text) Assessment: 63M with obstructing esophageal mass of unknown origin POD#5 s/p jejunostomy tube placement for enteral nutrition Plan: Will follow up pathology report May consider portacath placement on Monday pending pathology results and oncology recs, and if patient agrees Continue medical management per primary as patient allows Discussed with Dr. Hines, who agrees with above Emily Vasquez PGY2 <Hair Hines - Last Filed: 01/11/19 17:58> Objective - Vital Signs/Intake and Output Vital Signs (last 24 hours): Temp Pulse Resp BP Pulse Ox 98.8 F 70 20 105/67 95 01/11/19 16:00 01/11/19 16:00 01/11/19 16:00 01/11/19 16:00 01/11/19 16:00 Intake and Output: 01/11/19 01/11/19 06:59 18:59 Intake Total 420 Output Total 250 Balance 170 - Medications Medications: Current Medications Amlodipine Besylate (Norvasc) 10 mg PO DAILY [facility] Last Admin: 01/11/19 10:03 Dose: 10 mg Docusate Sodium (Colace Liquid) 100 mg PO TID [facility] Last Admin: 01/11/19 14:34 Dose: 100 mg Enoxaparin Sodium (Lovenox) 40 mg SC DAILY [facility] Last Admin: 12/29/18 09:52 Dose: 40 mg Lactulose (Enulose) 20 gm PO DAILY PRN PRN Reason: Constipation Last Admin: 01/10/19 10:27 Dose: 20 gm Metoclopramide HCl (Reglan) 10 mg IVP [facility] Last Admin: 01/11/19 12:07 Dose: Not Given Mirtazapine (Remeron) 15 mg PO HS [facility] Last Admin: 01/10/19 21:29 Dose: 15 mg Ondansetron HCl (Zofran Inj) 4 mg IVP Q4 PRN PRN Reason: Nausea/Vomiting Oxycodone/Acetaminophen (Percocet 5/325 Mg Tab) 1 tab PO Q4H PRN PRN Reason: Pain, moderate (4-7) Stop: 01/12/19 18:04 Last Admin: 01/11/19 14:33 Dose: 1 tab Pantoprazole Sodium (Protonix Inj) 40 mg IVP Q12H [facility] Last Admin: 01/11/19 06:48 Dose: Not Given Simethicone (Mylicon Chew Tab) 80 mg PO Q6H PRN PRN Reason: GI distress Trazodone HCl (Desyrel) [address] [facility] Last Admin: 01/10/19 21:29 Dose: 50 mg - Labs Labs: 01/02/19 06:58 01/02/19 18:23 PT 13.0 SECONDS (9.7-12.2) H 12/31/18 06:24 INR 1.2 12/31/18 06:24 APTT 39 SECONDS (21-34) H 12/26/18 11:41 Attending/Attestation - Attestation I have personally seen and examined this patient.: Yes I have fully participated in the care of the patient.: Yes I have reviewed all pertinent clinical information, including history, physical exam and plan: Yes Notes (Text): Pt was seen and examined at bedside Agree with above note and assessment Advance diet to fulls if tolerated Awaiting oncology input. Portacath insertion Plan d.w pt in detail
--- NOTE | 2019-01-08 08:24 | PN ---
DATE: 01/07/2019 SUBJECTIVE: The patient is 63-year-old male. The patient was seen and examined on 01/07/2019. Looking comfortable. No fever. No chills. No nausea, vomiting or diarrhea. No hematuria or hematochezia. No headache. No dizziness. Complaining about abdominal pain. PHYSICAL EXAMINATION: VITAL SIGNS: Temperature 98, pulse 70, respiratory rate 20, blood pressure 122/59, and pulse oximetry 95. HEENT: Head: Normocephalic and atraumatic. Eyes: PERRLA. Extraocular muscles intact. Conjunctivae clear. Nose patent. NECK: Supple. No carotid bruits. No JVD or thyromegaly. CHEST: Bilaterally symmetrical. HEART: S1 and S2 positive. LUNGS: Clear to auscultation. ABDOMEN: Soft. Bowel sounds present. No organomegaly. EXTREMITIES: No edema, no cyanosis. NEUROLOGIC: The patient is awake and alert. Moving all four extremities. No focal deficits. MEDICATIONS: Amlodipine, Colace, Lovenox, lactulose, Remeron, Zofran, pantoprazole, Mylicon chew tablets, and trazodone. LABORATORY DATA: We do no have labs today, but reviewed old labs. The patient refusing most of the time labs. ASSESSMENT AND PLAN: Mr. 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 The patient is scheduled on Monday for Port-A-Cath placement. Continue medical management, Oncology team is on the case. Repeat labs. We will follow up. Hillary Pastor MD
--- NOTE | 2019-01-08 10:35 | CP.PCM.PN ---
<Karen Oliver - Last Filed: 01/08/19 16:20> Subjective - Date & Time of Evaluation Date of Evaluation: 01/08/19 Time of Evaluation: 07:00 - Subjective Subjective: GENERAL SURGERY PROGRESS NOTE FOR DR. NAYLOR Patient seen and examined at bedside. When examined this morning, pt's tube feeds were running at 40cc/hr but were unconnected from the feeding tube and the feeds were running into the trash can. Pt also on CLD however seen drinking milk and other non CLD items. Per nursing, pt noncompliant, frequently refusing lab draws and often unconnects himself from the tube feeds. Pt states that he is able to tolerate liquids if he takes small sips. Pt states that he is passing flatus and had a BM yesterday. Objective - Vital Signs/Intake and Output Vital Signs (last 24 hours): Temp Pulse Resp BP Pulse Ox 98.1 F 66 20 138/86 96 01/08/19 08:00 01/08/19 08:00 01/08/19 08:00 01/08/19 08:00 01/08/19 08:00 Intake and Output: 01/08/19 01/08/19 06:59 18:59 Intake Total 450 Balance 450 - Medications Medications: Current Medications Amlodipine Besylate (Norvasc) 10 mg PO DAILY [facility] Last Admin: 01/08/19 10:25 Dose: 10 mg Docusate Sodium (Colace Liquid) 100 mg PO TID [facility] Last Admin: 01/08/19 10:25 Dose: 100 mg Enoxaparin Sodium (Lovenox) 40 mg SC DAILY [facility] Last Admin: 12/29/18 09:52 Dose: 40 mg Lactulose (Enulose) 20 gm PO DAILY PRN PRN Reason: Constipation Last Admin: 01/06/19 14:48 Dose: 20 gm Mirtazapine (Remeron) 15 mg PO HS [facility] Last Admin: 01/07/19 21:22 Dose: 15 mg Ondansetron HCl (Zofran Inj) 4 mg IVP Q4 PRN PRN Reason: Nausea/Vomiting Pantoprazole Sodium (Protonix Inj) 40 mg IVP Q12H [facility] Last Admin: 01/08/19 05:36 Dose: 40 mg Simethicone (Mylicon Chew Tab) 80 mg PO Q6H PRN PRN Reason: GI distress Trazodone HCl (Desyrel) 50 mg PO HS [facility] Last Admin: 01/07/19 21:21 Dose: 50 mg - Labs Labs: 01/02/19 06:58 01/02/19 18:23 PT 13.0 SECONDS (9.7-12.2) H 12/31/18 06:24 INR 1.2 12/31/18 06:24 APTT 39 SECONDS (21-34) H 12/26/18 11:41 - Constitutional Appears: Non-toxic, No Acute Distress - Head Exam Head Exam: ATRAUMATIC, NORMAL INSPECTION - Eye Exam Eye Exam: EOMI, Normal appearance - Respiratory Exam Respiratory Exam: NORMAL BREATHING PATTERN. absent: Respiratory Distress - Cardiovascular Exam Cardiovascular Exam: +S1, +S2 - GI/Abdominal Exam GI & Abdominal Exam: Soft. absent: Distended, Firm, Guarding, Rigid, Tenderne ss, Rebound Additional comments: Dressing changed J tube in place, unconnected from tube feeds - Neurological Exam Neurological Exam: Alert, Awake - Psychiatric Exam Psychiatric exam: Normal Affect, Normal Mood - Skin Skin Exam: Dry, Normal Color Assessment and Plan - Assessment and Plan (Free Text) Assessment: 63yo M with obstructing esophageal mass (Path = squamous cell carcinoma) s/p Jejunostomy tube placement POD#6 - Pt tentatively booked for portacath tomorrow pending pt agreement and discussion with Dr. Gonzalez - Discussed plan with Dr. Donny Oliver PGY-4 <Hair Naylor - Last Filed: 01/11/19 18:00> Objective - Vital Signs/Intake and Output Vital Signs (last 24 hours): Temp Pulse Resp BP Pulse Ox 98.8 F 70 20 105/67 95 01/11/19 16:00 01/11/19 16:00 01/11/19 16:00 01/11/19 16:00 01/11/19 16:00 Intake and Output: 01/11/19 01/11/19 06:59 18:59 Intake Total 420 Output Total 250 Balance 170 - Medications Medications: Current Medications Amlodipine Besylate (Norvasc) 10 mg PO DAILY [facility] Last Admin: 01/11/19 10:03 Dose: 10 mg Docusate Sodium (Colace Liquid) 100 mg PO TID [facility] Last Admin: 01/11/19 14:34 Dose: 100 mg Enoxaparin Sodium (Lovenox) 40 mg SC DAILY [facility] Last Admin: 12/29/18 09:52 Dose: 40 mg Lactulose (Enulose) 20 gm PO DAILY PRN PRN Reason: Constipation Last Admin: 01/10/19 10:27 Dose: 20 gm Metoclopramide HCl (Reglan) 10 mg IVP [facility]S [facility] Last Admin: 01/11/19 12:07 Dose: Not Given Mirtazapine (Remeron) 15 mg PO [facility] Last Admin: 01/10/19 21:29 Dose: 15 mg Ondansetron HCl (Zofran Inj) 4 mg IVP Q4 PRN PRN Reason: Nausea/Vomiting Oxycodone/Acetaminophen (Percocet 5/325 Mg Tab) 1 tab PO Q4H PRN PRN Reason: Pain, moderate (4-7) Stop: 01/12/19 18:04 Last Admin: 01/11/19 14:33 Dose: 1 tab Pantoprazole Sodium (Protonix Inj) 40 mg IVP Q12H [facility] Last Admin: 01/11/19 06:48 Dose: Not Given Simethicone (Mylicon Chew Tab) 80 mg PO Q6H PRN PRN Reason: GI distress Trazodone HCl (Desyrel) 50 mg PO [facility] Last Admin: 01/10/19 21:29 Dose: 50 mg - Labs Labs: 01/02/19 06:58 01/02/19 18:23 PT 13.0 SECONDS (9.7-12.2) H 12/31/18 06:24 INR 1.2 12/31/18 06:24 APTT 39 SECONDS (21-34) H 12/26/18 11:41 Attending/Attestation - Attestation I have personally seen and examined this patient.: Yes I have fully participated in the care of the patient.: Yes I have reviewed all pertinent clinical information, including history, physical exam and plan: Yes Notes (Text): Pt was seen and examined at bedside Agree with above note and assessment Pt with esophageal cancer Portacath insertion tomorrow consent NPO, IVF Plan d.w pt in detail Risk and benefit explained in detail.
--- NOTE | 2019-01-08 12:45 | CP.PCM.CON ---
History of Present Illness - History of Present Illness History of Present Illness: Mr Miranda is a 63 year old male with a newly diagnosed esophageal mass. He was admitted to [facility] on December 24, 2018 with dysphagia. He had been vomiting food for 5-6 weeks prior to admission and was not able to tolerate solids. A CT of the chest on December 24, 2018 revealed an irregularly thickened esophageal walled esophagus. An upper endoscopy on December 26, 2018 revealed a malignant appearing lesion narrowing the lumen with severe stenosis. On January 02, 2019, he had a J - tube placed. 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 He will need PET scan as an outpatient for staging and localization of his disease. We were asked to see him for radiation therapy Review of Systems - Constitutional Constitutional: Weight Loss - Gastrointestinal Gastrointestinal: Nausea, Vomiting Past Patient History - Infectious Disease Hx of Infectious Diseases: None - Past Medical History & Family History Past Medical History?: Yes - Past Social History Smoking Status: Former Smoker Alcohol: Other (was an alcoholic) Home Situation {Lives}: Alone - CARDIAC Hx Hypertension: Yes - PULMONARY Hx Respiratory Disorders: No - NEUROLOGICAL Hx Seizures: No - HEENT Hx HEENT Problems: No - RENAL Hx Chronic Kidney Disease: No - ENDOCRINE/METABOLIC Hx Endocrine Disorders: No - HEMATOLOGICAL/ONCOLOGICAL Hx Human Immunodeficiency Virus (HIV): No - INTEGUMENTARY Hx Dermatological Problems: No - MUSCULOSKELETAL/RHEUMATOLOGICAL Hx Musculoskeletal Disorders: No Hx Falls: No - GASTROINTESTINAL Hx Gastritis: Yes - GENITOURINARY/GYNECOLOGICAL Hx Sexually Transmitted Disorders: No - PSYCHIATRIC Hx Depression: Yes Hx Substance Use: No - SURGICAL HISTORY Hx Appendectomy: Yes - ANESTHESIA Hx Anesthesia: Yes Hx Anesthesia Reactions: No Hx Malignant Hyperthermia: No Meds Allergies/Adverse Reactions: Allergies Allergy/AdvReac Type Severity Reaction Status Date / Time No Known Allergies Allergy Verified 12/24/18 18:13 - Medications Medications: Current Medications Amlodipine Besylate (Norvasc) 10 mg PO DAILY [facility] Last Admin: 01/08/19 10:25 Dose: 10 mg Docusate Sodium (Colace Liquid) 100 mg PO TID [facility] Last Admin: 01/08/19 10:25 Dose: 100 mg Enoxaparin Sodium (Lovenox) 40 mg SC DAILY [facility] Last Admin: 12/29/18 09:52 Dose: 40 mg Lactulose (Enulose) 20 gm PO DAILY PRN PRN Reason: Constipation Last Admin: 01/08/19 11:14 Dose: 20 gm Metoclopramide HCl (Reglan) 10 mg IVP [facility] Mirtazapine (Remeron) 15 mg PO [facility] Last Admin: 01/07/19 21:22 Dose: 15 mg Ondansetron HCl (Zofran Inj) 4 mg IVP Q4 PRN PRN Reason: Nausea/Vomiting Pantoprazole Sodium (Protonix Inj) 40 mg IVP Q12H [facility] Last Admin: 01/08/19 05:36 Dose: 40 mg Simethicone (Mylicon Chew Tab) 80 mg PO Q6H PRN PRN Reason: GI distress Trazodone HCl (Desyrel) 50 mg PO [facility] Last Admin: 01/07/19 21:21 Dose: 50 mg Physical Exam - Eye Exam Eye Exam: EOMI - ENT Exam ENT Exam: Mucous Membranes Moist - Respiratory Exam Respiratory Exam: Clear to Auscultation Bilateral - Cardiovascular Exam Cardiovascular Exam: REGULAR RHYTHM - GI/Abdominal Exam GI & Abdominal Exam: Normal Bowel Sounds - Neurological Exam Neurological exam: CN II-XII Intact, Oriented x3 Results - Vital Signs Recent Vital Signs: Last Vital Signs Temp 98.1 F 01/08/19 08:00 Pulse 66 01/08/19 08:00 Resp 20 01/08/19 08:00 BP 138/86 01/08/19 08:00 Pulse Ox 96 01/08/19 08:00 - Labs Result Diagrams: 01/02/19 06:58 01/02/19 18:23 Assessment & Plan - Assessment and Plan (Free Text) Assessment: Mr Miranda is a 63 year old male with a newly diagnosed esophageal mass. He appears to have locally advanced disease. He will need a PET scan for staging purposes. Most likely for locally advanced disease, he will benefit from concurrent chemoradiation. We spoke to him about the radiation therapy including the risks and benefits. We will arrange for a PET and radiation planning session as an outpatient. We will be coordinating his treatment with Dr Gonzalez
--- NOTE | 2019-01-08 17:38 | CON ---
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 He has a feeding tube in him. At this point, the patient will require radiation therapy if possible with chemotherapy, but the main issue is going to be radiation therapy. So, I have asked the nurse practitioner to arrange for him to be seen by Dr. Dumont radiation therapy over at [facility] to start the process of marking him up. He seems to be homeless, and so the question is going to be where does he go and when will that take place and then he can get his treatment as an outpatient. As far as chemotherapy is concerned, while he gets radiation therapy, we may, if work, give him the chemotherapy as an outpatient at [facility], but for now, I think the next step is radiation therapy and consultation with Dr. Dumont. Miguel Gonzalez MD
--- NOTE | 2019-01-09 02:38 | PN ---
DATE: 01/08/2019 SUBJECTIVE: The patient was seen and examined at bedside, looking comfortable. No fever, no chills. No hematuria, no hematochezia. No headache or dizziness. No chest pain. No palpitation. PHYSICAL EXAMINATION: VITAL SIGNS: Temperature 98.1, pulse 56, respiratory rate 20, blood pressure 120/80 , and pulse oximetry 96%. HEENT: Head: Normocephalic, atraumatic. Eyes: PERRLA. Extraocular muscles intact. Conjunctivae clear. Nose: Patent. NECK: Supple. No carotid bruits. No JVD or thyromegaly. CHEST: Bilaterally symmetrical. HEART: S1 and S2 positive. LUNGS: Clear to auscultation. ABDOMEN: Soft. Bowel sounds present. No organomegaly. EXTREMITIES: No edema, no cyanosis. NEUROLOGIC: The patient is awake and alert. Follows simple commands. MEDICATIONS: Norvasc, Colace, Lovenox, Lactulose, Remeron, Zofran, Protonix, Mylicon, and trazodone. LABORATORY DATA: White blood cells 6.3, hemoglobin 12.7, hematocrit 38.1, platelets 241. ASSESSMENT AND PLAN: Mr. Sandro Miranda is a 63-year-old male with obstructing esophageal mass. Pathology shows squamous cell carcinoma status post jejunostomy tube placement, postoperative day #6 for feeding. The patient is booked for Port-A-Cath tomorrow, as per Surgery. The patient was seen by Dr. Ariane Dumont, radiation oncologist. He appears to have locally advanced disease. According to Dr. Ariane Dumont, we need positron emission tomography scan for staging purpose, most likely for locally advanced disease. He will get benefit from concurrent chemoradiation. We spoke with him about the radiation therapy including the risk and benefits. We will arrange a positron emission tomography scan and radiation, planning a session as outpatient. Dr. Dumont is working with Dr. Gonzalez. I appreciate either Dr. Ariane Dumont, Dr. Hines, and Dr. Miguel Gonzalez's input. Gastrointestinal and deep venous prophylaxis. Repeat labs. We will follow up. Hillary Pasotr MD MTDJohn
[2019-01-09] MEDS ORDERED: Bupivacaine 0.25% 20 ML INJ IJ ONE (16:55)
[2019-01-09] MEDS ORDERED: HEPARIN-NS 5,000 UNITS/500 ML 5,000 UNIT/500 ML BAG IV ONE (16:55)
[2019-01-09] MEDS ORDERED: Lidocaine/Epinephrine 1% 1:100000 10 ML IJ ONE (16:55)
[2019-01-09] MEDS ORDERED: Midazolam 2 MG/2 ML VIAL ONE (16:59)
[2019-01-09] MEDS ORDERED: Propofol 10 mg/ml Inj (20 ML) ONE (17:00)
[2019-01-09] MEDS ORDERED: ceFAZolin 1 gm in NS 2 GM/200 ML BAG IVPB ONE (17:05)
[2019-01-09] MEDS ORDERED: HYDROmorphone 0.5 mg/0.5 ml ISec IVP PRN (18:00)
--- NOTE | 2019-01-09 18:05 | PCM.SURG1 ---
Surgeon's Initial Post Op Note - Surgeon's Notes Surgeon: Dr. Hines Infection Control Preventionist: Dr. Oliver PGY-4, Qamar OMS-III Type of Anesthesia: General LMA, Local Pre-Operative Diagnosis: Esophageal cancer Operative Findings: placement confirmed via Fluoro Post-Operative Diagnosis: Esophageal cancer Operation Performed: Right IJ Portacath Specimen/Specimens Removed: none Estimated Blood Loss: EBL {In ML}: 10 Blood Products Given: N/A Drains Used: No Drains Post-Op Condition: Fair Date of Surgery/Procedure: 01/09/19 Time of Surgery/Procedure: 18:07
--- NOTE | 2019-01-09 18:42 | RAD ---
HISTORY: s/p Right IJ portacath COMPARISON: Chest x-ray performed 12/28/18 TECHNIQUE: Chest, one view. FINDINGS: Right IJ approach Mediport catheter tip extends to the SVC. LUNGS: Large retrocardiac opacity consistent with hiatal hernia. No focal consolidation. Please note that chest x-ray has limited sensitivity for the detection of pulmonary masses. PLEURA: No significant pleural effusion identified. No definite pneumothorax . CARDIOVASCULAR: Heart size appears within normal limits. Atherosclerotic calcifications of the aorta. OSSEOUS STRUCTURES: Degenerative changes. VISUALIZED UPPER ABDOMEN: Unremarkable. OTHER FINDINGS: None. IMPRESSION: Right-sided MediPort. Large retrocardiac opacity consistent with large hiatal hernia demonstrated on CT of the chest performed 12/24/18.
[2019-01-09] MEDS: Oxycodone/Acetaminophen 5/325 mg Tab PO PRN (20:03)
[2019-01-10 01:01] VITALS: RESP 20
--- NOTE | 2019-01-10 03:15 | PN ---
DATE: 01/09/2019 SUBJECTIVE: The patient is a 63-year-old male. The patient is seen and examined at the bedside on 01/09/2019, looking comfortable. No fever, no chills. No hematuria or hematochezia. No headache or dizziness. No chest pain or palpitation. No fever, no chills. Went for Port-A-Cath placement. PHYSICAL EXAMINATION: VITAL SIGNS: Temperature 98, pulse 63, blood pressure 130/84, respiratory rate is 17. HEENT: Head: Normocephalic and atraumatic. Eyes: PERRLA. Extraocular muscles intact. Conjunctivae clear. Nose patent. NECK: Supple. No carotid bruits. No JVD or thyromegaly. CHEST: Bilaterally symmetrical. HEART: S1 and S2 positive. LUNGS: Clear to auscultation. ABDOMEN: Soft. Bowel sounds present. No organomegaly. EXTREMITIES: No edema, no cyanosis. NEUROLOGIC: The patient is awake and alert. Moving all four extremities. No focal deficits. MEDICATIONS: Colace, trazodone, lactulose, Lovenox, Mycelex, amlodipine, Percocet, pantoprazole, Reglan, mirtazapine, Zofran. LABORATORY DATA: We do not have labs today but I reviewed old labs. His sugars are 105, 89, 109. ASSESSMENT AND PLAN: Mr. Sandro Miranda is a 63-year-old male with hypokalemia, hypoglycemia, human immunodeficiency virus-1 and 2 antibody screen negative. Went for Port-A-Cath placement. Seen by Dr. Ariane Dumont and Dr. Gonzalez suggesting outpatient workup. The patient has obstructive esophageal mass. Pathology shows squamous cell carcinoma, status post jejunostomy tube placement post operative. Getting feeding with the J-tube, got Port-A-Cath today. Gastrointestinal and deep venous prophylaxis. Repeat labs. We will follow up. Hillary Pastor MD
--- NOTE | 2019-01-10 04:15 | OP ---
PROCEDURE DATE: 01/09/2019 PREOPERATIVE DIAGNOSIS: Esophageal cancer. POSTOPERATIVE DIAGNOSIS: Esophageal cancer. PROCEDURES DONE: 1. Right internal jugular Port-A-Cath insertion. 2. Ultrasound-guided venous access. 3. Intraoperative fluoroscopy. ANESTHESIA: General endotracheal tube anesthesia. ESTIMATED BLOOD LOSS: Around 10 mL. DRAINS: None. PATHOLOGY: None. COMPLICATIONS: None. INTRAOPERATIVE FINDINGS: The patient had a right IJ was patent. DESCRIPTION OF PROCEDURE: On the intraoperative steps, this 63-year-old male was diagnosed with esophageal cancer. The patient was consented for the Port-A-Cath insertion, brought to the OR, placed supine on the operating table. After induction of the anesthesia, the neck and upper chest were prepped and draped in the usual sterile fashion. The local anesthesia was injected. Ultrasound-guided venous access was done. Guidewire was placed. The incision was made in the infraclavicular area. Pouch was created. Catheter was turned from the pouch to the right IJ insertion site. The insertion site was dilated, and the catheter was placed through the dilator sheath, and the intraoperative fluoroscopy confirmation was done for the proper position. The catheter was connected to the port. Port was secured to the floor of the pouch, and the wound was closed in 2 layers. The port was accessed intraoperatively. It was functioning without any problem, and the port was flushed with heparin as well as the straight heparin, and dry sterile dressing was applied. The postoperative chest xray was ordered. The patient tolerated the procedure well. Count of instrument and gauze was correct. There was no apparent complication. The patient was extubated in OR and sent to the postanesthesia care unit in stable condition. Hair Hines MD KRYSTA
[2019-01-10] MEDS: Oxycodone/Acetaminophen 5/325 mg Tab PO PRN ×2 (06:40→18:27)
--- NOTE | 2019-01-10 08:01 | CP.PCM.PN ---
<Natividad Salgado P - Last Filed: 01/10/19 13:35> Subjective - Date & Time of Evaluation Date of Evaluation: 01/10/19 Time of Evaluation: 06:30 - Subjective Subjective: Progress note for Dr. Hines. Patient seen and examined at bedside. POD 1 s/p portacath placement; POD 8 s/p Jejunostomy tube placement. No acute events overnight. Patient complains of pain to R chest and to J-tube incision site. Denies nausea, vomiting, fever and chills. Patient's tube feedings is disconnected. Objective - Vital Signs/Intake and Output Vital Signs (last 24 hours): Temp Pulse Resp BP Pulse Ox 98.8 F 69 20 112/70 94 L 01/10/19 00:00 01/10/19 00:00 01/10/19 00:00 01/10/19 00:00 01/10/19 00:00 Intake and Output: 01/10/19 01/10/19 06:59 18:59 Intake Total 600 440 Output Total 300 Balance 600 140 - Medications Medications: Current Medications Amlodipine Besylate (Norvasc) 10 mg PO DAILY [facility] Last Admin: 01/09/19 10:05 Dose: Not Given Docusate Sodium (Colace Liquid) 100 mg PO TID [facility] Last Admin: 01/09/19 18:56 Dose: 100 mg Enoxaparin Sodium (Lovenox) 40 mg SC DAILY [facility] Last Admin: 12/29/18 09:52 Dose: 40 mg Lactulose (Enulose) 20 gm PO DAILY PRN PRN Reason: Constipation Last Admin: 01/08/19 11:14 Dose: 20 gm Metoclopramide HCl (Reglan) 10 mg IVP ACHS [facility] Last Admin: 01/09/19 21:44 Dose: Not Given Mirtazapine (Remeron) 15 mg PO HS [facility] Last Admin: 01/09/19 21:35 Dose: 15 mg Ondansetron HCl (Zofran Inj) 4 mg IVP Q4 PRN PRN Reason: Nausea/Vomiting Oxycodone/Acetaminophen (Percocet 5/325 Mg Tab) 1 tab PO Q4H PRN PRN Reason: Pain, moderate (4-7) Stop: 01/12/19 18:04 Last Admin: 01/10/19 06:40 Dose: 1 tab Pantoprazole Sodium (Protonix Inj) 40 mg IVP Q12H [facility] Last Admin: 01/10/19 06:05 Dose: 40 mg Simethicone (Mylicon Chew Tab) 80 mg PO Q6H PRN PRN Reason: GI distress Trazodone HCl (Desyrel) 50 mg PO HS [facility] Last Admin: 01/09/19 21:36 Dose: 50 mg - Labs Labs: 01/02/19 06:58 01/02/19 18:23 PT 13.0 SECONDS (9.7-12.2) H 12/31/18 06:24 INR 1.2 12/31/18 06:24 APTT 39 SECONDS (21-34) H 12/26/18 11:41 - Constitutional Appears: Non-toxic, No Acute Distress - Head Exam Head Exam: ATRAUMATIC, NORMOCEPHALIC - Eye Exam Eye Exam: Normal appearance - ENT Exam ENT Exam: Mucous Membranes Moist - Neck Exam Neck Exam: Normal Inspection - Respiratory Exam Respiratory Exam: NORMAL BREATHING PATTERN - Cardiovascular Exam Additional comments: Dressing to R chest c/d/i - GI/Abdominal Exam GI & Abdominal Exam: Soft. absent: Distended, Guarding, Rigid, Tenderness Additional comments: J-tube in left abdomen, dressing c/d/i - Extremities Exam Extremities Exam: Normal Inspection - Neurological Exam Neurological Exam: Alert, Awake, Oriented x3 - Psychiatric Exam Psychiatric exam: Normal Affect, Normal Mood - Skin Skin Exam: Dry, Normal Color, Warm Assessment and Plan - Assessment and Plan (Free Text) Assessment: 63yo M with obstructing esophageal mass (Path = squamous cell carcinoma) s/p Jejunostomy tube placement POD#6 and portacath insertion POD#1 Plan: No further surgical intervention. Will sign off. Follow up with Dr. Wesley as outpatient Management as per primary/[facility] Natividad Salgado, PGY-1 <Hair Hines - Last Filed: 01/11/19 18:01> Objective - Vital Signs/Intake and Output Vital Signs (last 24 hours): Temp Pulse Resp BP Pulse Ox 98.8 F 70 20 105/67 95 01/11/19 16:00 01/11/19 16:00 01/11/19 16:00 01/11/19 16:00 01/11/19 16:00 Intake and Output: 01/11/19 01/11/19 06:59 18:59 Intake Total 420 Output Total 250 Balance 170 - Medications Medications: Current Medications Amlodipine Besylate (Norvasc) 10 mg PO DAILY [facility] Last Admin: 01/11/19 10:03 Dose: 10 mg Docusate Sodium (Colace Liquid) 100 mg PO TID [facility] Last Admin: 01/11/19 14:34 Dose: 100 mg Enoxaparin Sodium (Lovenox) 40 mg SC DAILY [facility] Last Admin: 12/29/18 09:52 Dose: 40 mg Lactulose (Enulose) 20 gm PO DAILY PRN PRN Reason: Constipation Last Admin: 01/10/19 10:27 Dose: 20 gm Metoclopramide HCl (Reglan) 10 mg IVP [facility] Last Admin: 01/11/19 12:07 Dose: Not Given Mirtazapine (Remeron) 15 mg PO [facility] Last Admin: 01/10/19 21:29 Dose: 15 mg Ondansetron HCl (Zofran Inj) 4 mg IVP Q4 PRN PRN Reason: Nausea/Vomiting Oxycodone/Acetaminophen (Percocet 5/325 Mg Tab) 1 tab PO Q4H PRN PRN Reason: Pain, moderate (4-7) Stop: 01/12/19 18:04 Last Admin: 01/11/19 14:33 Dose: 1 tab Pantoprazole Sodium (Protonix Inj) 40 mg IVP Q12H [facility] Last Admin: 01/11/19 06:48 Dose: Not Given Simethicone (Mylicon Chew Tab) 80 mg PO Q6H PRN PRN Reason: GI distress Trazodone HCl (Desyrel) 50 mg PO [facility] Last Admin: 01/10/19 21:29 Dose: 50 mg - Labs Labs: 01/02/19 06:58 01/02/19 18:23 PT 13.0 SECONDS (9.7-12.2) H 12/31/18 06:24 INR 1.2 12/31/18 06:24 APTT 39 SECONDS (21-34) H 12/26/18 11:41 Attending/Attestation - Attestation I have personally seen and examined this patient.: Yes I have fully participated in the care of the patient.: Yes I have reviewed all pertinent clinical information, including history, physical exam and plan: Yes Notes (Text): Pt is improving clinically c.w tube feeds Can start chemotherapy after 5 days Plan d.w pt in detail
--- NOTE | 2019-01-10 08:43 | RAD ---
PROCEDURE: HISTORY: As above COMPARISON: None TECHNIQUE: Total fluoroscopic time utilized during the procedure: 7 point seconds ; 0.75 mGy FINDINGS: Submitted images from the current procedure: 2 Please refer to the physician's notes performing the procedure. IMPRESSION: Less than 1 hour fluoroscopic time utilized during performance of the procedure
--- NOTE | 2019-01-11 01:51 | PN ---
DATE: 01/10/2019 SUBJECTIVE: The patient is a 63-year-old male. The patient was seen and examined at the bedside on 01/10/2019, looking comfortable. Complaining about pain in the chest and abdominal pain. No nausea, vomiting, or diarrhea. No fever. No chills. No hematuria or hematochezia. PHYSICAL EXAMINATION: VITAL SIGNS: Temperature 98.8, pulse 69, respiratory rate 20, blood pressure 130/70, pulse oximetry 94. HEENT: Head normocephalic, atraumatic. Eyes PERRLA. Extraocular muscles intact. Conjunctivae clear. Nose patent. Mucous membrane moist. NECK: Supple. No carotid bruit. No JVD or thyromegaly. CHEST: Bilateral symmetrical. HEART: S1 and S2 positive. LUNGS: Clear to auscultation. ABDOMEN: Soft. Bowel sounds present. No organomegaly. EXTREMITIES: No edema. No cyanosis. NEUROLOGIC: The patient is awake and alert. Moving all four extremities. No focal deficits. MEDICATIONS: Norvasc, Colace, Lovenox, Lactulose, Reglan, Remeron, Zofran, Oxycodone, Pantoprazole, trazodone. LABORATORY DATA: We do not have recent labs today. The patient is very noncompliant, refusing labs all the time. ASSESSMENT AND PLAN: Ms. Sandro Miranda is a 63-year-old male with obstructive esophageal mass, has squamous cell carcinoma, status post jejunostomy tube placement POD #6, and Port-A-cath insertion POD #1. Inspector Subassembly/oncologist, Dr. Gonzalez, is on the case, history of hypertension, dysphagia. Gastrointestinal and deep venous thrombosis prophylaxes. Repeat labs. We will follow up. Hillary Pastor MD KRYSTA
[2019-01-11] MEDS: Oxycodone/Acetaminophen 5/325 mg Tab PO PRN ×2 (14:33→18:31)
--- NOTE | 2019-01-12 03:52 | PN ---
DATE: 01/11/2019 SUBJECTIVE: The patient is a 63-year-old male. The patient was seen and examined at the bedside on 01/11/2019. Looking comfortable. No fever. No chills. No hematuria or hematochezia. No headache or dizziness. No chest pain or palpitation. PHYSICAL EXAMINATION: VITAL SIGNS: Temperature 98.8, pulse 70, blood pressure 105/67, and respiratory rate 20. HEENT: Head: Normocephalic, atraumatic. Eyes: PERRLA. Extraocular muscles intact. Conjunctivae clear. Nose patent. Mucous membrane moist. NECK: Supple. No carotid bruit. No JVD or thyromegaly. CHEST: Bilaterally symmetrical. HEART: S1 and S2 positive. LUNGS: Clear to auscultation. ABDOMEN: Soft. Bowel sounds present. No organomegaly. EXTREMITIES: No edema. No cyanosis. NEUROLOGIC: The patient is awake and alert. Moving all four extremities. No focal deficits. MEDICATIONS: Colace, trazodone, lactulose, Lovenox, Mycelex, Mylicon chew, Norvasc, Percocet, pantoprazole, Reglan, Remeron, and Zofran. LABORATORY DATA: We do not have recent labs today. The patient refused labs. I reviewed old labs. Glucose is 72, 110, and 99. ASSESSMENT AND PLAN: Mr. Sandro Miranda is a 63-year-old male with obstructive esophageal mass, status post biopsy, has squamous cell carcinoma, status post jejunostomy tube placement, postoperative day #7, Port-A-cath insertion postoperative day #2. Caddy Packer/oncologist is on the case, Dr. Gonzalez. Positron emission tomography scan pending. History of hypertension and dysphagia. Degenerative joint disease. Loosing weight. Repeat laboratories. Now getting feeding with the jejunostomy tube. Refusing laboratories, urged to get labs. We will follow up. Hillary Pastor MD
[2019-01-12] MEDS: Oxycodone/Acetaminophen 5/325 mg Tab PO PRN ×2 (12:01→18:19)
--- NOTE | 2019-01-12 20:46 | PN ---
DATE: 01/12/2019 SUBJECTIVE: The patient is a 63-year-old male. The patient was seen and examined on the bedside on 01/12/2019. Looking comfortable. Complaining of pain, has Port-A-Cath placed, pain in J tube placement. Very noncompliant with continuous feeding. We will start bolus feeding. Even noncompliant for blood test, urged to be compliant. Discussion done with nursing staff. No fever. No chills. No hematuria or hematochezia. No headache or dizziness. PHYSICAL EXAMINATION: VITAL SIGNS: Temperature 98, pulse 74, blood pressure 114/74, respiratory rate 20, and pulse oximetry 97. HEENT: Head: Normocephalic and atraumatic. Eyes: PERRLA. Extraocular muscles intact. Conjunctivae clear. Nose patent. Mucous membrane moist. NECK: Supple. No carotid bruits, JVD or thyromegaly. CHEST: Bilaterally symmetrical. HEART: S1 and S2 positive. LUNGS: Clear to auscultation. ABDOMEN: Soft. Bowel sounds present. No organomegaly. EXTREMITIES: No edema, no cyanosis. NEUROLOGIC: The patient is awake and alert. Follows simple commands. MEDICATIONS: Colace, trazodone, lactulose, Lovenox, Mylicon, Norvasc, oxycodone, Reglan, Remeron, Zofran. LABORATORY DATA: We do not have recent labs because the patient is refusing labs everyday. Glucose 72, 110, 99, 120. ASSESSMENT AND PLAN: Mr. Sandro Miranda, a 63-year-old male, came with dysphagia, has esophageal mass. 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 Now has Port-A-Cath on the right side of the chest. Has jejunostomy tube placement for feeding. Oncologist is on the case. Urged to be compliant. History of hypertension. The patient lost 50 pounds in one month, former smoker. The patient is homeless. Plan to do rehab. Gastrointestinal and deep venous thrombosis prophylaxes. We will follow up. Hillary Pastor MD
[2019-01-13] MEDS: Simethicone 80 mg Chewtab PO PRN (12:23)
--- NOTE | 2019-01-14 00:59 | PN ---
DATE: 01/13/2019 SUBJECTIVE: The patient is a 63-year-old male. The patient is seen and examined at bedside on 01/13/2019. Complaining about sore throat. No fever. No chills. No headache. No dizziness. No chest pain. No palpitation. No nausea, vomiting or diarrhea. His brother's ex- was sitting on the bedside. Discussion done. Questions answered. PHYSICAL EXAMINATION: VITAL SIGNS: Temperature 97.8, pulse 73, blood pressure 176/84, respiratory rate 20. HEENT: Head is normocephalic and atraumatic. Eyes: PERRLA. Extraocular muscles intact. Conjunctivae clear. Nose patent. Mucous membranes moist. Throat looks like white patches of strep throat. NECK: Supple. No carotid bruit. No JVD or thyromegaly. CHEST: Bilaterally symmetrical. HEART: S1 and S2 positive. LUNGS: Clear to auscultation. ABDOMEN: Soft. Bowel sounds present. No organomegaly. EXTREMITIES: No edema. No cyanosis. NEUROLOGIC: The patient is awake and alert. Follows simple commands. MEDICATIONS: Colace, trazodone, lactulose, Lovenox, Mycelex, Mylicon chew tablet, Norvasc, Protonix, Reglan, Remeron, and Zofran. LABORATORY DATA: The patient is constantly refusing labs. We do not have recent labs. ASSESSMENT AND PLAN: Mr. Sandro Miranda is a 63-year-old male with strep throat. Ordered throat culture and sensitivity, throat swab. Discussion done with the patient's nurse. The patient is nothing by mouth. Started on Rocephin by mouth antibiotics. The patient has an esophageal mass. 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 Now has a Port-A-Cath in the chest. Has a jejunostomy tube placement for feeding. The patient is very noncompliant for constant feeding. Now, we made bolus feeding. Even with bolus feeding, he is not happy. He wants food by mouth. do not take food by mouth because which can cause him aspiration and pneumonia. The patient understands, waiting for the placement. I want to transfer the patient to [facility]. According to oncologist, workup will be done as an outpatient like PET scan for radiation therapy. Meanwhile repeat labs. Urged to do labs. We will follow up. Hillary Pastor MD [facility] # [id number] MTDJohn
[2019-01-14] MEDS: Mag&Al/Simet/Diphen/Lido 237 ML KIT PO SCH ×4 (11:18→21:52)
--- NOTE | 2019-01-15 09:20 | PN ---
DATE: 01/14/2019 SUBJECTIVE: The patient was seen and examined at the bedside on 01/14/2019. Complaining of sore throat, fatigue, and tiredness. No fevers, no chills, no hematochezia. No headache, no dizziness. No palpitations. PHYSICAL EXAMINATION: VITAL SIGNS: Temperature 98.6, pulse 84, blood pressure 106/68, respiratory rate 20. HEENT: Head: Atraumatic, normocephalic. Eyes: PERRLA. Extraocular muscles intact. Conjunctivae clear. Nose patent. Mucosal membranes moist. NECK: Supple. No carotid bruit. No JVD or thyromegaly. CHEST: Bilaterally symmetrical. HEART: S1 and S2 positive. LUNGS: Clear to auscultation. ABDOMEN: Soft. Positive bowel sounds. No organomegaly. EXTREMITIES: No edema. No cyanosis. NEUROLOGICAL: The patient is awake and alert; follows commands. MEDICATIONS: Ceftriaxone, docusate, trazodone, lactulose, Lovenox, Mylicon, Norvasc, Protonix, metoclopramide, Remeron, Zofran. LABORATORY DATA: We do not have any current labs today, but I reviewed old labs, glucose was 70 to 110. ASSESSMENT AND PLAN: Mr. Sandro Miranda is a 63-year-old male with hyperglycemia, gastroesophageal reflux disease, dyspepsia, hypertension, and anxiety, has pharyngitis; swab test done, history of dysphagia, has new squamous cell carcinoma of the esophagus, got Port-A-Cath, got jejunostomy tube for feeding. The patient is very noncompliant, did not want continuous feeding and bolus feeding was advised but he is not regular with bolus feeding. Getting Rocephin for sore throat. Refusing blood test every day, agreed to be compliant; waiting for placement. Need PET scan, radiation therapy but according to oncologist, this should be done as outpatient. Meanwhile continue gastrointestinal/genitourinary prophylaxis. Repeat labs. Will follow up. Hillary Pastor MD [facility]
[2019-01-15] MEDS: Mag&Al/Simet/Diphen/Lido 237 ML KIT PO SCH ×4 (11:00→22:41)
--- NOTE | 2019-01-15 21:22 | PN ---
DATE: 01/15/2019 SUBJECTIVE: The patient is a 63-year-old male. The patient was seen and examined at the bedside on 01/15/2019. Looking comfortable. No change in the status. Looks like a little bit angry, very noncompliant, refusing constantly blood workup. No fever, no chills. No hematuria or hematochezia. No headache. No dizziness. No chest pain. No palpitation. PHYSICAL EXAMINATION: VITAL SIGNS: Temperature 98.1, pulse 67, blood pressure 120/77, respiratory rate 20. HEENT: Head: Normocephalic, atraumatic. Eyes: PERRLA. Extraocular muscles intact. Conjunctivae clear. Nose patent. Mucous membranes moist. NECK: Supple. No carotid bruit. No JVD. No thyromegaly. CHEST: Bilaterally symmetrical. HEART: S1 and S2 positive. LUNGS: Clear to auscultation. ABDOMEN: Soft. Bowel sounds positive. No organomegaly. EXTREMITIES: No edema. No cyanosis. NEUROLOGICAL: The patient is awake and alert, moving all four extremities. No focal deficits. MEDICATIONS: Ceftriaxone, trazodone, lactulose, Lovenox, Mylicon, Norvasc, Protonix, Reglan, Remeron, and Zofran. LABORATORY DATA: We do not have recent labs today, but I reviewed old labs. ASSESSMENT AND PLAN: Mr. Sandro Miranda is a 63-year-old male with multiple medical problems, hyperglycemia, pharyngitis, getting intravenous antibiotics, esophageal mass, squamous cell carcinoma, got jejunostomy tube for feeding, has Port-A-Cath, getting ready for radiation, chemotherapy. Oncology is on the case. We will continue present treatment. Urged to be compliant. Need PET scan, repeat labs. We will follow up. Hillary Pastor MD [facility]
[2019-01-16] MEDS: Mag&Al/Simet/Diphen/Lido 237 ML KIT PO SCH ×4 (10:09→21:04)
[2019-01-17] MEDS: Mag&Al/Simet/Diphen/Lido 237 ML KIT PO SCH ×4 (10:00→22:27)
--- NOTE | 2019-01-17 14:37 | PN ---
DATE: 01/16/2019 SUBJECTIVE: The patient is 63-year-old male. The patient was seen and examined at bedside on 01/16/2019. Progress note is for 01/16/2019 and looking comfortable. No fever. No chills. No hematuria or hematochezia. No headache. No dizziness. No chest pain. No palpitation. Now complaining about cannot swallow, want to eat. PHYSICAL EXAMINATION: VITAL SIGNS: Temperature 98.5, pulse 72, blood pressure 126/72, respiratory rate 20. HEENT: Head: Normocephalic, atraumatic. Eyes: PERRLA. Extraocular movements intact. Conjunctivae clear. Nose patent. Mucous membrane moist. NECK: Supple. No carotid bruit. No JVD or thyromegaly. CHEST: Bilateral symmetrical. HEART: S1 and S2 positive. LUNGS: Clear to auscultation. ABDOMEN: Soft. Bowel sounds present. No organomegaly. EXTREMITIES: No edema. No cyanosis. NEUROLOGIC: The patient is awake, alert. Moving all extremities. No focal deficits. MEDICATIONS: Ceftriaxone, Colace, trazodone, lactulose, Lovenox, Mylicon, Norvasc, Remeron, Zofran, Protonix. LABORATORY DATA: We do not have recent labs. Today's last lab was 01/02/2019. The patient is very noncompliance, urged to get labs, but he is refusing. Sugars 72, 110, 99, 120. ASSESSMENT AND PLAN: Mr Ruben Jo is 63-year-old male, very, very noncompliant. Urged to be compliant, refusing even daily labs . Has a history of pharyngitis, getting intravenous antibiotics, esophageal mass, came to know has had squamous cell carcinoma, got jejunostomy tube for feeding aspiration and the patient had complete dysphagia. Sometimes complaining about abdominal pain as jejunostomy tube and Port-A-Cath in place. According to him, he is feeling fatigued and tired and losing weight. Urged him to be complaint. Needs PET scan and radiation therapy. There is insurance coverage problem, cannot start in the hospital, waiting to be done as outpatient. Oncologist is on the case. Now waiting for the patient to go to some rehab or long-term because the patient is homeless, [facility], cannot send there with jejunostomy tube. Gastrointestinal and deep venous thrombosis prophylaxis. Repeat labs. We will followup. Hillary Pastor MD [facility]
--- NOTE | 2019-01-17 22:37 | PN ---
DATE: 01/17/2019 SUBJECTIVE: The patient is a 63-year-old male. The patient was seen and examined at the bedside on 01/17/2019, looking comfortable. No big changes of status. No fever. No chills. No hematuria or hematochezia. No headache or dizziness. No chest pain. No palpitation. PHYSICAL EXAMINATION: VITAL SIGNS: Temperature 98.1, pulse 59, blood pressure 120/70, respiratory rate 20. HEENT: Head: Normocephalic and atraumatic. Eyes: PERRLA. Extraocular muscles intact. Conjunctivae clear. Nose patent. NECK: Supple. No carotid bruits. No JVD or thyromegaly. CHEST: Bilaterally symmetrical. HEART: S1 and S2 positive. LUNGS: Clear to auscultation. ABDOMEN: Soft. Bowel sounds present. No organomegaly. EXTREMITIES: No edema, no cyanosis. NEUROLOGIC: The patient is awake and alert, moving all extremities. No focal deficit. MEDICATIONS: Ceftriaxone, Colace, trazodone, lactulose, Lovenox, Mylicon, Norvasc, Protonix, Reglan, Remeron. LABORATORY DATA: We do not have labs because the patient is constantly refusing labs. Glucose 72, 110, 99 and 120. ASSESSMENT AND PLAN: Mr. Sandro Miranda is a 63-year-old male; very-very noncompliant, especially for blood workup, refusing all labs; has a history of pharyngitis, getting intravenous antibiotics, he already got a couple of days, I have to stop antibiotics; history of squamous cell carcinoma of the esophagus; came with dysphagia, got jejunostomy tube for feeding, getting feeding from jejunostomy tube but sometime refusing. He is at risk of aspiration. Discussion done with the patient. He has a Port-A-Cath, needs radiation therapy. Repeat labs. We will follow up. Hillary Pastor MD
[2019-01-18] MEDS: Mag&Al/Simet/Diphen/Lido 237 ML KIT PO SCH ×3 (10:15→17:13)
--- NOTE | 2019-01-18 16:05 | CP.PCM.PN ---
Subjective - Date & Time of Evaluation Date of Evaluation: 01/18/19 Time of Evaluation: 16:05 - Subjective Subjective: alert, oriented, ambulating well. Objective - Vital Signs/Intake and Output Vital Signs (last 24 hours): Temp Pulse Resp BP Pulse Ox 98.8 F 71 20 116/76 95 01/18/19 08:00 01/18/19 08:00 01/18/19 08:00 01/18/19 08:00 01/18/19 08:00 Intake and Output: 01/18/19 01/18/19 06:59 18:59 Intake Total 240 150 Balance 240 150 - Medications Medications: Current Medications Amlodipine Besylate (Norvasc) 10 mg PO DAILY [facility] Last Admin: 01/18/19 10:17 Dose: Not Given Docusate Sodium (Colace Liquid) 100 mg PO TID [facility] Last Admin: 01/18/19 13:59 Dose: Not Given Enoxaparin Sodium (Lovenox) 40 mg SC DAILY [facility] Last Admin: 12/29/18 09:52 Dose: 40 mg Lactulose (Enulose) 20 gm PO DAILY PRN PRN Reason: Constipation Last Admin: 01/10/19 10:27 Dose: 20 gm Metoclopramide HCl (Reglan) 10 mg IVP ACHS [facility] Last Admin: 01/18/19 11:52 Dose: 10 mg Mirtazapine (Remeron) 15 mg PO HS [facility] Last Admin: 01/18/19 00:03 Dose: 15 mg Pantoprazole Sodium (Protonix Susp) 40 mg PO Q12H [facility] Saliva Substitute (First Magic Mouthwash) 5 ml PO QID [facility] Last Admin: 01/18/19 13:59 Dose: Not Given Simethicone (Mylicon Chew Tab) 80 mg PO Q6H PRN PRN Reason: GI distress Last Admin: 01/13/19 12:23 Dose: 80 mg Trazodone HCl (Desyrel) 50 mg PO HS [facility] Last Admin: 01/18/19 00:00 Dose: 50 mg - Labs Labs: 01/02/19 06:58 01/02/19 18:23 PT 13.0 SECONDS (9.7-12.2) H 12/31/18 06:24 INR 1.2 12/31/18 06:24 APTT 39 SECONDS (21-34) H 12/26/18 11:41 Assessment and Plan - Assessment and Plan (Free Text) Assessment: 63 year old male , newly diagnosed with esophageal cancer, seen and examined. Alert,ambulatory, has pain on the throat. Unable to swallow solid foods. Has a newly placed jejunostomy yube in place. Also has port-a cath placed on right chest for future chemotherapy. To be followed up with DR Lisa Rivera in his office. Continous tube feeding for the night and clear liquid diet during the day for compliance.
--- NOTE | 2019-01-18 16:38 | PN ---
DATE: 01/18/2019 SUBJECTIVE: The patient seen and examined at the bedside on 01/18/2019, looking comfortable. No change in the status. No fever. No chills. No hematuria or hematochezia. No headache or dizziness. No chest pain. No palpitation. PHYSICAL EXAMINATION: VITAL SIGNS: Temperature 98.8, pulse 71, blood pressure 115/73, respiratory rate 20, oxygen saturation 95%. HEENT: Head: Normocephalic, atraumatic. Eyes: PERRLA. Extraocular muscles intact. Conjunctivae clear. Nose patent. Mucous membrane moist. NECK: Supple. No carotid bruits. No JVD or thyromegaly. CHEST: Bilaterally symmetrical. HEART: S1, S2 positive. LUNGS: Clear to auscultation. ABDOMEN: Soft. Bowel sounds present. No organomegaly. EXTREMITIES: No edema, no cyanosis. NEUROLOGIC: The patient is awake and alert, moving all four extremities. No focal deficit. MEDICATIONS: Colace, trazodone, lactulose, Magic mouthwash, Lovenox, Mylicon, Q-amlodipine, Protonix, Reglan, Remeron. LABORATORY DATA: We do not have labs; the patient is refusing labs. ASSESSMENT AND PLAN: Mr. Sandro Miranda is a 63-year-old male with hyperglycemia, anxiety, gastroesophageal reflux disease, dyspepsia, hypertension, constipation, history of strep throat improved. Discontinue Rocephin. Very noncompliant, refusing labs; urged to be compliant. Came with dysphagia, still has dysphagia. Endoscopy shows esophageal mass. Biopsy showed squamous cell carcinoma of the esophagus, got jejunostomy tube for feeding, getting feeding from jejunostomy tube used to be continuous, but patient is noncompliant with continuous, now getting boluses. He is at risk of aspiration, but non compliant, sometimes eating and drinking food. Has Port-A-Cath, waiting for the insurance approval for placement, so we can start the PET scan and radiation therapy. We will follow up. Hillary Pastor MD
[2019-01-18 16:53] VITALS: BP 133/71; PULSE 76; TEMP 98; O2SAT 96
[2019-01-18] MEDS ORDERED: Pantoprazole 40 mg Susp UD PO SCH (18:00)
[2019-01-18] MEDS: Simethicone 80 mg Chewtab PO PRN (18:40)
== END 2019-01-18 21:11 | DRG 172 ==
LOC: C.ER 17:49 → C.3T 12-25 00:15
PROVIDERS: ADMIT Internal Medicine; ATTEND Internal Medicine
PROC: 0DJ08ZZ Inspection of Upper Intestinal Tract, Via Natural or Artificial Opening Endoscopic (ICD-10-PCS; 2018-12-26)
PROC: 3E0H76Z Introduction of Nutritional Substance into Lower GI, Via Natural or Artificial Opening (ICD-10-PCS; 2019-01-04)
PROC: 0DHA3UZ Insertion of Feeding Device into Jejunum, Percutaneous Approach (ICD-10-PCS; principal; 2019-01-04 07:50)
PROC: 0JH63WZ Insertion of Totally Implantable Vascular Access Device into Chest Subcutaneous Tissue and Fascia, Percutaneous Approach (ICD-10-PCS; 2019-01-09)
DX: C15.3 Malignant neoplasm of upper third of esophagus (principal); K22.2 Esophageal obstruction; E87.6 Hypokalemia; E46 Unspecified protein-calorie malnutrition; F10.230 Alcohol dependence with withdrawal, uncomplicated; E78.00 Pure hypercholesterolemia, unspecified; E16.2 Hypoglycemia, unspecified; Y90.9 Presence of alcohol in blood, level not specified; F32.9 Major depressive disorder, single episode, unspecified; F41.9 Anxiety disorder, unspecified; I10 Essential (primary) hypertension; K44.9 Diaphragmatic hernia without obstruction or gangrene; K76.0 Fatty (change of) liver, not elsewhere classified; K70.9 Alcoholic liver disease, unspecified; I85.10 Secondary esophageal varices without bleeding

== ENCOUNTER 2019-02-09 10:51 | Inpatient (IN) | payer MEDICAID ==
[2019-02-09 10:51] VITALS: BMI 29.9
[2019-02-09 12:27] LABS: BASO % 0.3 % (0.0-2.0); EOS # 0.1 K/uL (0.0-0.7); EOS % 1.1 % (0.0-4.0); HEMOGLOBIN 13.5 g/dL (12.0-18.0); LYMPH # 1.1 K/uL (1.0-4.3); LYMPH % 12.9 % (20.0-40.0); MEAN CORPUSCULAR HEMOGLOBIN 31.4 pg (27.0-31.0); MEAN CORPUSCULAR HGB CONC 33.2 g/dL (33.0-37.0); MONO # 0.7 K/uL (0.0-0.8); MONO % 8.2 % (0.0-10.0); NEUT # 6.7 K/uL (1.8-7.0); NEUT % 77.5 % (50.0-75.0); RBC 4.31 Mil/uL (4.40-5.90); WHITE BLOOD COUNT 8.6 K/uL (4.8-10.8)
[2019-02-09 12:34] LABS: MEAN CELL VOLUME 94.6 fL (80.0-94.0)
[2019-02-09 12:42] LABS: ALB/GLOB RATIO 1.1 (1.0-2.1); AST/SGOT 19 U/L (17-59); BLOOD UREA NITROGEN 29 mg/dL (9-20); CALCIUM 9.6 mg/dl (8.6-10.4); GFR NON-AFRICAN AMERICAN > 60
[2019-02-09 12:43] LABS: ALT/SGPT < 6 U/L (21-72)
[2019-02-09 12:57] LABS: CK-MB < 0.22 ng/mL (0.0-3.38)
[2019-02-09 13:39] LABS: SQUAMOUS EPITHIAL 1 /hpf (0-5); URINE BILIRUBIN NEGATIVE (NEGATIVE); URINE BLOOD NEGATIVE (NEGATIVE); URINE CLARITY Hazy (Clear); URINE COLOR Amber (YELLOW); URINE GLUCOSE (UA) NORMAL (Normal); URINE LEUKOCYTE ESTERASE NEG Leu/uL (Negative); URINE PROTEIN 1+ mg/dL (NEGATIVE)
[2019-02-09] MEDS ORDERED: Potassium Chloride 20 mEq ER Tab PO STA (13:42)
[2019-02-09] MEDS ORDERED: Potassium Chloride 20 mEq/15 ml LIQ UD ONE (13:55)
--- NOTE | 2019-02-09 14:08 | C.PDOC ---
History Of Present Illness 63 y/o male presents to ED complaining of generalized weakness and feeling lightheaded x1 week. Patient was just discharged from [facility] today and brought to the ER for his complaints. Patient states he think he was discharged too early. He denies chest pain, SOB, palpitations, cough, fever, abdominal pain, nausea, vomiting, diarrhea, dysuria/hematuria. PMHx: BPH, depression, gastritis, HTN. esophageal CA Time Seen by Provider: 02/09/19 11:02 Chief Complaint (Nursing): Weakness/Neurological Deficit History Per: Patient History/Exam Limitations: no limitations Onset/Duration Of Symptoms: Days Current Symptoms Are (Timing): Still Present Past Medical History Reviewed: Historical Data, Nursing Documentation, Vital Signs Vital Signs: Last Vital Signs Temp 97.7 F 02/09/19 10:57 Pulse 77 02/09/19 10:57 Resp 20 02/09/19 10:57 BP 114/72 02/09/19 10:57 Pulse Ox 98 02/09/19 10:57 - Medical History PMH: Benign Prostatic Hyperplasia, Depression, Gastritis, HTN Surgical History: Appendectomy - [facility] Procedures ALCOHOL DETOXIFICATION (07/27/14) DETOXIFICATION SERVICES FOR SUBSTANCE ABUSE TREATMENT (10/11/17) INSERT VAD RESERVOIR IN CHEST SUBCU/FASCIA, PERC (12/25/18) INSERTION OF FEEDING DEVICE INTO JEJUNUM, PERC APPROACH (12/25/18) INSPECTION OF UPPER INTESTINAL TRACT, ENDO (12/25/18) INTRODUCTION OF NUTRITIONAL INTO LOW GI, VIA OPENING (12/25/18) TRANSFUSE NONAUT RED BLOOD CELLS IN PERIPH VEIN, PERC (10/26/17) Family History: States: No Known Family Hx - Social History Hx Tobacco Use: No Hx Alcohol Use: Yes Hx Substance Use: No - Immunization History Hx Tetanus Toxoid Vaccination: No Hx Influenza Vaccination: Yes Hx Pneumococcal Vaccination: No Review Of Systems Constitutional: Positive for: Weakness. Negative for: Fever, Chills Cardiovascular: Positive for: Light Headedness. Negative for: Chest Pain, Palpitations Respiratory: Negative for: Cough, Shortness of Breath Gastrointestinal: Negative for: Nausea, Vomiting, Abdominal Pain, Diarrhea Neurological: Negative for: Numbness, Incoordination, Headache, Dizziness Physical Exam - Physical Exam Appears: Well, Non-toxic, No Acute Distress, Chronically Ill Skin: Warm, Dry Head: Normacephalic Eye(s): bilateral: Normal Inspection, EOMI Oral Mucosa: Moist Neck: Supple Cardiovascular: Rhythm Regular Respiratory: Normal Breath Sounds, No Rales, No Rhonchi, No Wheezing Gastrointestinal/Abdominal: Normal Exam, Bowel Sounds, Soft, No Tenderness Extremity: Normal ROM, No Pedal Edema, No Calf Tenderness Extremity: Bilateral: Atraumatic, Normal Color And Temperature, Normal ROM Neurological/Psych: Oriented x3, Normal Speech, Normal Cognition, Normal Cranial Nerves, No Cerebellar Signs, Normal Motor, Normal Sensation ED Course And Treatment - Laboratory Results Result Diagrams: 02/18/19 06:44 02/20/19 11:25 Lab Results: Troponin I < 0.0120 ng/mL (0.00-0.120) 02/09/19 12:13 Total Bilirubin 0.7 mg/dL (0.2-1.3) 02/09/19 12:13 AST 19 U/L (17-59) 02/09/19 12:13 ALT < 6 U/L (21-72) L D 02/09/19 12:13 Alkaline Phosphatase 118 U/L (38-126) 02/09/19 12:13 Total Protein 7.7 g/dL (6.3-8.3) 02/09/19 12:13 Albumin 4.0 g/dL (3.5-5.0) 02/09/19 12:13 Globulin 3.7 gm/dL (2.2-3.9) 02/09/19 12:13 Albumin/Globulin Ratio 1.1 (1.0-2.1) 02/09/19 12:13 Urine Color Damari (YELLOW) 02/09/19 13:01 Urine Clarity Hazy (Clear) 02/09/19 13:01 Urine pH 5.0 (5.0-8.0) 02/09/19 13:01 Ur Specific Amonate 1.025 (1.003-1.030) 02/09/19 13:01 Urine Protein 1+ mg/dL (NEGATIVE) H 02/09/19 13:01 Urine Glucose (UA) Normal mg/dL (Normal) 02/09/19 13:01 Urine Ketones Negative mg/dL (NEGATIVE) 02/09/19 13:01 Urine Blood Negative (NEGATIVE) 02/09/19 13:01 Urine Nitrate Negative (NEGATIVE) 02/09/19 13:01 Urine Bilirubin Negative (NEGATIVE) 02/09/19 13:01 Urine Urobilinogen 4.0 mg/dL (0.2-1.0) 02/09/19 13:01 Ur Leukocyte Esterase Neg Demetrice/uL (Negative) 02/09/19 13:01 Urine WBC (Auto) 2 /hpf (0-5) 02/09/19 13:01 Urine RBC (Auto) < 1 /hpf (0-3) 02/09/19 13:01 Ur Squamous Epith Cells 1 /hpf (0-5) 02/09/19 13:01 Hyaline Casts 3-5 /lpf (0-2) H 02/09/19 13:01 ECG: Interpreted By Me, Viewed By Me (NSR 66 bpm, normal axis, no acute ST/T wave changes) O2 Sat by Pulse Oximetry: 98 (RA) Pulse Ox Interpretation: Normal - Other Rad CXR X-Ray: Read By Radiologist Interpretation: FINDINGS: LUNGS: Opacity at the left lung base may represent atelectasis. Otherwise no significant interval changes. PLEURA: No pneumothorax or pleural fluid seen. CARDIOVASCULAR: No aortic atherosclerotic calcification present. Normal. OSSEOUS STRUCTURES: No significant abnormalities. VISUALIZED UPPER ABDOMEN: Normal. OTHER FINDINGS: Right-sided Infusaport is seen in place. IMPRESSION: Small opacity at the left lung base may represent atelectasis. Progress Note: Blood work, UA ordered and reviewed. PO Kdur given for hypokalemia. - Physician Consult Information Physician Contacted: Germaine Baker Outcome Of Conversation: Discussed patient with medicine pharmaceutical salesperson, she agrees with admission for esophageal CA squamous call, hypokalemia, generalized weakness, failure to thrive, homelessness. Disposition - Disposition Disposition: HOSPITALIZED Disposition Time: 14:30 Condition: STABLE - Clinical Impression Clinical Impression: Homelessness, Failure to thrive, Hypokalemia, Generalized weakness, Squamous cell carcinoma of esophagus - Scribe Statement The provider has reviewed the documentation as recorded by the Selene Driscoll Provider Attestation: All medical record entries made by the Selene were at my direction and personally dictated by me. I have reviewed the chart and agree that the record accurately reflects my personal performance of the history, physical exam, medical decision making, and the department course for this patient. I have also personally directed, reviewed, and agree with the discharge instructions and disposition. Decision To Admit - Pt Status Changed To: Hospital Disposition Of: Inpatient - Admit Certification Admit to Inpatient:: After my assessment, the patient will require hospitalization for at least two midnights. This is because of the severity of symptoms shown, intensity of services needed, and/or the medical risk in this patient being treated as an outpatient. - InPatient: Physician Admission Certification: I certify that this patient requires 2 or more midnights of care for the following reason:: see notes - . Bed Request Type: Regular Admitting Physician: Germaine Baker Patient Diagnosis: Generalized weakness, Squamous cell carcinoma of esophagus, Hypokalemia, Failure to thrive, Homelessness
--- NOTE | 2019-02-09 16:44 | RAD ---
Date of service: 02/09/2019 PROCEDURE: CHEST RADIOGRAPH, 1 VIEW HISTORY: admission COMPARISON: Comparison is made with 01/09/2019 FINDINGS: LUNGS: Opacity at the left lung base may represent atelectasis. Otherwise no significant interval changes. PLEURA: No pneumothorax or pleural fluid seen. CARDIOVASCULAR: No aortic atherosclerotic calcification present. Normal. OSSEOUS STRUCTURES: No significant abnormalities. VISUALIZED UPPER ABDOMEN: Normal. OTHER FINDINGS: Right-sided Infusaport is seen in place. IMPRESSION: Small opacity at the left lung base may represent atelectasis.
[2019-02-09] MEDS ORDERED: Simethicone 80 mg Chewtab PO PRN (17:09)
[2019-02-09] MEDS ORDERED: Valproic Acid 250 mg/5 ml UD Cup PO SCH (18:00)
[2019-02-09] MEDS: Mag&Al/Simet/Diphen/Lido 237 ML KIT PO SCH ×2 (18:17→21:09)
[2019-02-09] MEDS: Valproic Acid 250 mg/5 ml UD Cup PEG SCH (18:32)
[2019-02-10] MEDS: Valproic Acid 250 mg/5 ml UD Cup PEG SCH ×2 (10:20→17:29)
[2019-02-10] MEDS: Mag&Al/Simet/Diphen/Lido 237 ML KIT PO SCH ×4 (10:20→22:27)
--- NOTE | 2019-02-10 10:33 | CP.PCM.HP ---
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 has peg tube Present on Admission - Present on Admission Any Indicators Present on Admission: No Review of Systems - Review of Systems Systems not reviewed;Unavailable: Acuity of Condition - Constitutional Constitutional: Fatigue, Weight Loss, Weakness - EENT Eyes: As Per HPI Ears: As Per HPI Nose/Mouth/Throat: As Per HPI - Cardiovascular Cardiovascular: As Per HPI - Respiratory Respiratory: As Per HPI - Gastrointestinal Additional comments: has peg tube for feeding - Genitourinary Genitourinary: As Per HPI - Reproductive: Male Reproductive:Male: As Per HPI - Musculoskeletal Musculoskeletal: As Per HPI - Integumentary Integumentary: As Per HPI - Neurological Neurological: As Per HPI - Psychiatric Psychiatric: As Per HPI - Endocrine Endocrine: Cold Intolorance - Hematologic/Lymphatic Hematologic: As Per HPI Past Patient History - Infectious Disease Hx of Infectious Diseases: None - Past Medical History & Family History Past Medical History?: Yes - Past Social History Smoking Status: Never Smoked - CARDIAC Hx Cardiac Disorders: No Hx Hypertension: Yes - PULMONARY Hx Respiratory Disorders: No - NEUROLOGICAL Hx Neurological Disorder: No Hx Seizures: No - HEENT Hx HEENT Problems: No - RENAL Hx Chronic Kidney Disease: No - ENDOCRINE/METABOLIC Hx Endocrine Disorders: No - HEMATOLOGICAL/ONCOLOGICAL Hx Blood Disorders: No Hx Human Immunodeficiency Virus (HIV): No - INTEGUMENTARY Hx Dermatological Problems: No - MUSCULOSKELETAL/RHEUMATOLOGICAL Hx Falls: No - GASTROINTESTINAL Hx Gastritis: Yes - GENITOURINARY/GYNECOLOGICAL Hx Sexually Transmitted Disorders: No Other/Comment: BPH - PSYCHIATRIC Hx Substance Use: No - SURGICAL HISTORY Hx Surgeries: Yes Hx Appendectomy: Yes Hx Vascular Access Device: Yes (R CHEST PORT) - ANESTHESIA Hx Anesthesia: Yes Hx Anesthesia Reactions: No Hx Malignant Hyperthermia: No Meds Allergies/Adverse Reactions: Allergies Allergy/AdvReac Type Severity Reaction Status Date / Time No Known Allergies Allergy Verified 02/09/19 11:03 Physical Exam - Constitutional Appears: Non-toxic - Head Exam Head Exam: ATRAUMATIC - Eye Exam Eye Exam: Normal appearance - ENT Exam ENT Exam: Mucous Membranes Moist - Neck Exam Neck exam: Positive for: Full Rom - Respiratory Exam Respiratory Exam: Clear to Auscultation Bilateral - Cardiovascular Exam Cardiovascular Exam: REGULAR RHYTHM - GI/Abdominal Exam GI & Abdominal Exam: Normal Bowel Sounds Additional comments: peg tube in place fuctioning - Rectal Exam Rectal Exam: Deferred - Extremities Exam Extremities exam: Positive for: normal inspection - Back Exam Back exam: NORMAL INSPECTION - Neurological Exam Neurological exam: Normal Gait - Psychiatric Exam Psychiatric exam: Normal Affect - Skin Skin Exam: Normal Color Results - Vital Signs Recent Vital Signs: Last Vital Signs Temp 98.2 F 02/10/19 08:04 Pulse 62 02/10/19 08:04 Resp 20 02/10/19 08:04 BP 105/70 02/10/19 08:04 Pulse Ox 96 02/10/19 08:04 - Labs Result Diagrams: 02/09/19 12:13 02/09/19 12:13 Labs: Laboratory Results - last 24 hr 02/09/19 02/09/19 02/09/19 12:13 12:13 13:01 WBC 8.6 RBC 4.31 L Hgb 13.5 Hct 40.8 MCV 94.6 H D MCH 31.4 H MCHC 33.2 RDW 17.0 H Plt Count 251 MPV 11.0 Neut % (Auto) 77.5 H Lymph % (Auto) 12.9 L [place] % (Auto) 8.2 Eos % (Auto) 1.1 Baso % (Auto) 0.3 Neut # (Auto) 6.7 Lymph # (Auto) 1.1 [place] # (Auto) 0.7 Eos # (Auto) 0.1 Baso # (Auto) 0.0 Sodium 137 Potassium 3.2 L Chloride 94 L Carbon Dioxide 32 H Anion Gap 14 BUN 29 H Creatinine 1.2 Est GFR ( Amer) > 60 Est GFR (Non-Af Amer) > 60 Random Glucose 109 D Calcium 9.6 Total Bilirubin 0.7 AST 19 ALT < 6 L D Alkaline Phosphatase 118 Total Creatine Kinase 23 L CK-MB (Mass) < 0.22 Troponin I < 0.0120 Total Protein 7.7 Albumin 4.0 Globulin 3.7 Albumin/Globulin Ratio 1.1 Urine Color Damari Urine Clarity Hazy Urine pH 5.0 Ur Specific Robards 1.025 Urine Protein 1+ H Urine Glucose (UA) Normal Urine Ketones Negative Urine Blood Negative Urine Nitrate Negative Urine Bilirubin Negative Urine Urobilinogen 4.0 Ur Leukocyte Esterase Neg Urine WBC (Auto) 2 Urine RBC (Auto) < 1 Ur Squamous Epith Cells 1 Hyaline Casts 3-5 H Assessment & Plan - Assessment and Plan (Free Text) Assessment: neare syncope generalised weekness oesophogeal cancer hx need treatment Plan: consult - Date & Time Date: 02/10/19 Time: 10:37
--- NOTE | 2019-02-10 12:37 | RAD ---
Date of service: 02/09/2019 HISTORY: PEG placement COMPARISON: None available. TECHNIQUE: 1 view obtained. FINDINGS: BOWEL: Normal. No obstruction. No free air. BONES: Normal. OTHER FINDINGS: Gastrostomy tube seen overlying the left mid abdomen. IMPRESSION: No active disease.
[2019-02-11] MEDS: Mag&Al/Simet/Diphen/Lido 237 ML KIT PO SCH ×4 (11:31→21:00)
--- NOTE | 2019-02-11 11:49 | CP.PCM.PN ---
Subjective - Date & Time of Evaluation Date of Evaluation: 02/11/19 Time of Evaluation: 11:45 - Subjective Subjective: Mr Miranda is a 63 year old gentleman who is known to our department. He has a locally advanced esophageal cancer status post PEG. He just started radiation, and was scheduled to begin chemotherapy at [facility] [place] Gonzalez [place]. While he was at [facility] and at the [facility], he was noncompliant with the PEG. He was adamant about eating by mouth even though we emphasized the importance of the PEG due to the obstructive nature of his tumor. His main complaints to us last week pertained to nutrition (partly due to his resistance with using the PEG) as well as his social situation since he is homeless. He had told us that he was going to be discharged by the [facility] on monday. While he is at [facility], we will continue his radiation. Dr Gonzalez is aware that the patient is admitted to [facility]. I am not sure how they will work out the details of his chemotherapy especially if he is an inpatient. He is a challenging case due to his perso nality and unwillingness to accept that he needs to use the PEG. Objective - Vital Signs/Intake and Output Vital Signs (last 24 hours): Temp Pulse Resp BP Pulse Ox 97.4 F L 88 20 114/78 98 02/11/19 08:06 02/11/19 08:06 02/11/19 08:06 02/11/19 08:06 02/11/19 08:06 Intake and Output: 02/11/19 02/11/19 06:59 18:59 Intake Total 520 Output Total 760 Balance -240 - Medications Medications: Current Medications Amlodipine Besylate (Norvasc) 10 mg PEG DAILY [facility] Last Admin: 02/10/19 10:20 Dose: 10 mg Docusate Sodium (Colace Liquid) 100 mg PO BID [facility] Last Admin: 02/10/19 17:28 Dose: 100 mg Mirtazapine (Remeron) 15 mg PEG HS [facility] Last Admin: 02/10/19 22:24 Dose: 15 mg Saliva Substitute (First Magic Mouthwash) 5 ml PO QID [facility] Last Admin: 02/11/19 11:31 Dose: Not Given Simethicone (Mylicon Chew Tab) 80 mg PO Q6H PRN PRN Reason: GI distress Trazodone HCl (Desyrel) 50 mg GT HS [facility] Last Admin: 02/10/19 22:27 Dose: 50 mg Valproate Sodium (Depakene Oral Soln) 250 mg PEG BID [facility] Last Admin: 02/10/19 17:29 Dose: 250 mg - Labs Labs: 02/09/19 12:13 02/09/19 12:13
[2019-02-11] MEDS: Valproic Acid 250 mg/5 ml UD Cup PEG SCH ×2 (13:07→17:48)
--- NOTE | 2019-02-11 18:13 | CP.PCM.PN ---
Subjective - Date & Time of Evaluation Date of Evaluation: 02/11/19 Time of Evaluation: 18:11 - Subjective Subjective: pt will start radiation therapy in am feels mouth dry Objective - Vital Signs/Intake and Output Vital Signs (last 24 hours): Temp Pulse Resp BP Pulse Ox 98.2 F 66 20 101/64 95 02/11/19 16:07 02/11/19 16:07 02/11/19 16:07 02/11/19 16:07 02/11/19 16:07 Intake and Output: 02/11/19 02/11/19 06:59 18:59 Intake Total 520 240 Output Total 760 60 Balance -240 180 - Medications Medications: Current Medications Amlodipine Besylate (Norvasc) 10 mg PEG DAILY [facility] Last Admin: 02/11/19 13:08 Dose: 10 mg Docusate Sodium (Colace Liquid) 100 mg PO BID [facility] Last Admin: 02/11/19 17:48 Dose: Not Given Mirtazapine (Remeron) 15 mg PEG HS [facility] Last Admin: 02/10/19 22:24 Dose: 15 mg Saliva Substitute (First Magic Mouthwash) 5 ml PO QID [facility] Last Admin: 02/11/19 17:48 Dose: 5 ml Simethicone (Mylicon Chew Tab) 80 mg PO Q6H PRN PRN Reason: GI distress Trazodone HCl (Desyrel) 50 mg GT HS [facility] Last Admin: 02/10/19 22:27 Dose: 50 mg Valproate Sodium (Depakene Oral Soln) 250 mg PEG BID [facility] Last Admin: 02/11/19 17:48 Dose: 250 mg - Labs Labs: 02/09/19 12:13 02/09/19 12:13 - Constitutional Appears: Non-toxic - Head Exam Head Exam: ATRAUMATIC - Eye Exam Eye Exam: Normal appearance - ENT Exam ENT Exam: Mucous Membranes Moist - Neck Exam Neck Exam: Full ROM - Respiratory Exam Respiratory Exam: Clear to Ausculation Bilateral - Cardiovascular Exam Cardiovascular Exam: REGULAR RHYTHM - GI/Abdominal Exam Additional comments: peg tube in place - Extremities Exam Extremities Exam: Full ROM - Back Exam Back Exam: NORMAL INSPECTION - Psychiatric Exam Psychiatric exam: Normal Affect - Skin Skin Exam: Intact Assessment and Plan - Assessment and Plan (Free Text) Assessment: syncope oesophogeal cancer s/peg tube feeding cont as ordered Plan: rt
--- NOTE | 2019-02-12 06:51 | PCM.RRT ---
<Kemi Stapleton - Last Filed: 02/12/19 07:07> UTILITY TRACTOR OPERATOR Nurses Assessment - Situation Date: 02/12/19 Time UTILITY TRACTOR OPERATOR was called: 06:35 UTILITY TRACTOR OPERATOR Responder Arrival Time:: 06:37 UTILITY TRACTOR OPERATOR Location:: Med/Oncology Room Number: 370-A UTILITY TRACTOR OPERATOR Reason for Call: Looks Sicker (dizzy, weak) UTILITY TRACTOR OPERATOR Called By: RN - IV IV Inserted during UTILITY TRACTOR OPERATOR?: No - Respiratory UTILITY TRACTOR OPERATOR Delivery Method: Room Air Received Nebulizer Treatments: No Was the Patient Ventilated with Bag/Mask 100% O2?: No Secretions Suctioned?: No Was the Patient Intubated?: No Was the Patient Placed on a Ventilator?: No - Stat Labs Ordered UTILITY TRACTOR OPERATOR Stat Labs Ordered: CBC, BMP CPR started during UTILITY TRACTOR OPERATOR?: No - Vital Signs Vital Signs: BP 102/70 HR 107 RR 20 spO2 96% on RA - Suman Coma Scale Coma Scale Eye Opening: Spontaneous Coma Scale Motor: Obeys Commands Movement Coma Scale Verbal: Oriented Coma Scale Total: 15 - Time UTILITY TRACTOR OPERATOR Ended Time UTILITY TRACTOR OPERATOR Ended: 07:08 - Vital Signs at end of UTILITY TRACTOR OPERATOR Vital Signs at end of UTILITY TRACTOR OPERATOR: BP 112/76 HR 69 RR 16 spO2 99% on RA - Recommendations Notifications: Attending Physician I.Reason for UTILITY TRACTOR OPERATOR - A) Acute Change in Patient: (Select all that apply): Acute change in mental status (dizzy, weak) Subjective: Patient was attempting to walk to the bathroom with the assistance of a nurse. Patient said he felt weak and dizzy and nearly fell. RN was able to catch him and place him in a chair and then called UTILITY TRACTOR OPERATOR. Upon arrival, patient was sitting in a chair in the bathroom. He was alert and oriented but said he felt like he had a dry mouth and was weak. Patient then said he needed to go to the bathroom and he had a M- nonbloody. Patient was moved to the bed and laid supine. He was given a drink of water. Blood glucose 99. Stat labs were ordered as there have not been labs since admission on 02/09. Patient denied pain. he says he feels weak and dehydrated. Patient was initially tachycardic but this resolved when he lied down. However, upon standing, BP dropped. Initial BP 102/70, HR 102 Trendelenburg BP 129/83, HR 66 Standing BP 74/56, HR 89 - Neurological Status (Select all that apply): Alert, Responsive, Oriented, Verbal, Follows Commands - Respiratory Oxygen Delivery Method: Room Air - Constitutional Appears: No Acute Distress, Chronically Ill, Other (Pallor) - Head Head Exam: ATRAUMATIC, NORMAL INSPECTION - Eyes Eye Exam: EOMI, Normal appearance, PERRL - Respiratory Exam Respiratory Exam: Clear to Ausculation Bilateral, NORMAL BREATHING PATTERN. absent: Respiratory Distress - Cardiovascular Exam Cardiovascular Exam: Tachycardia, +S1, +S2 - GI/Abdominal Exam GI & Abdominal Exam: Soft. 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 He is scheduled to go to [facility] for cancer treatment today (Dr. Dumont radiation oncologist, Dr. Gonzalez medical oncologist). He is currently receiving his nutrition via PEG. As per medical records, patient has been reluctant to be compliant with PEG. He is adament about continue to consume nutrition orally despite the obstructive nature of his tumor. Plan: - Place in Trendelenburg - Stat LR 2 L - Stat CBC, CMP, Mg, Ph, lactic acid, blood cultures - Repeat labs after hydration (approx 6 hrs) <Quinton Bonilla P - Last Filed: 02/12/19 07:54> Attending/Attestation - Attestation I have personally seen and examined this patient.: Yes I have fully participated in the care of the patient.: Yes I have reviewed all pertinent clinical information, including history, physical exam and plan: Yes Notes (Text): 02/12/19 07:52 Orthostatic symptoms, clinically dry, poor skin and muscle turgor, improvement on lay down, slow developing symptoms over few days + orthostatics, no recent blood loss history. Plan IVF rest Stat labs Repeat orthostatics and labs in 6 hr Inform primary team See orders for detail.
[2019-02-12] MEDS ORDERED: Lactated Ringer's 1,000 ML IV ONE ×2 (06:58→07:00)
[2019-02-12 07:30] LABS: BASO % 0.5 % (0.0-2.0); EOS # 0.1 K/uL (0.0-0.7); EOS % 2.3 % (0.0-4.0); HEMOGLOBIN 14.4 g/dL (12.0-18.0); LYMPH # 1.5 K/uL (1.0-4.3); MEAN CELL VOLUME 93.6 fL (80.0-94.0); MEAN CORPUSCULAR HEMOGLOBIN 31.8 pg (27.0-31.0); MEAN CORPUSCULAR HGB CONC 33.9 g/dL (33.0-37.0); MEAN PLATELET VOLUME 10.5 fL (7.2-11.7); MONO # 0.7 K/uL (0.0-0.8); MONO % 10.8 % (0.0-10.0); NEUT # 3.8 K/uL (1.8-7.0); NEUT % 62.4 % (50.0-75.0); NRBC % 0.1 % (0.0-2.0); RBC 4.52 Mil/uL (4.40-5.90); RED CELL DISTRIBUTION WIDTH 16.8 % (11.5-14.5); WHITE BLOOD COUNT 6.1 K/uL (4.8-10.8)
[2019-02-12 07:55] LABS: ALB/GLOB RATIO 1.1 (1.0-2.1); ALBUMIN 4.3 g/dL (3.5-5.0); AST/SGOT 19 U/L (17-59); BLOOD UREA NITROGEN 24 mg/dL (9-20); CALCIUM 9.7 mg/dl (8.6-10.4); GFR NON-AFRICAN AMERICAN > 60; INR 1.3; PROTHROMBIN TIME 13.9 SECONDS (9.7-12.2)
[2019-02-12 07:58] LABS: ALT/SGPT < 6 U/L (21-72)
--- NOTE | 2019-02-12 10:38 | CP.PCM.PN ---
Subjective - Date & Time of Evaluation Date of Evaluation: 02/12/19 Time of Evaluation: 10:35 - Subjective Subjective: pt had rapid response today had syncope Objective - Vital Signs/Intake and Output Vital Signs (last 24 hours): Temp Pulse Resp BP Pulse Ox 97.8 F 79 20 106/71 97 02/12/19 07:47 02/12/19 07:47 02/12/19 07:47 02/12/19 07:47 02/12/19 07:47 Intake and Output: 02/12/19 02/12/19 06:59 18:59 Intake Total 250 1220 Output Total 0 750 Balance 250 470 - Medications Medications: Current Medications Amlodipine Besylate (Norvasc) 10 mg PEG DAILY [facility] Last Admin: 02/11/19 13:08 Dose: 10 mg Docusate Sodium (Colace Liquid) 100 mg PO BID [facility] Last Admin: 02/11/19 17:48 Dose: Not Given Sodium Chloride (Sodium Chloride 0.9%) 1,000 mls @ 80 mls/hr IV .[id number] [facility] Mirtazapine (Remeron) 15 mg PEG HS [facility] Last Admin: 02/11/19 21:00 Dose: Not Given Potassium Chloride (Potassium Chloride Oral Soln) 40 meq GT Q4H [facility] Stop: 02/12/19 14:16 Saliva Substitute (First Magic Mouthwash) 5 ml PO QID [facility] Last Admin: 02/11/19 21:00 Dose: Not Given Simethicone (Mylicon Chew Tab) 80 mg PO Q6H PRN PRN Reason: GI distress Trazodone HCl (Desyrel) 50 mg GT HS [facility] Valproate Sodium (Depakene Oral Soln) 250 mg PEG BID [facility] Last Admin: 02/11/19 17:48 Dose: 250 mg - Labs Labs: 02/12/19 07:15 02/12/19 07:15 PT 13.9 SECONDS (9.7-12.2) H 02/12/19 07:15 INR 1.3 02/12/19 07:15 APTT 32 SECONDS (21-34) 02/12/19 07:15 - Constitutional Appears: Non-toxic - Head Exam Head Exam: ATRAUMATIC - Eye Exam Eye Exam: Normal appearance - ENT Exam ENT Exam: Mucous Membranes Moist - Neck Exam Neck Exam: Full ROM - Respiratory Exam Respiratory Exam: Decreased Breath Sounds - Cardiovascular Exam Cardiovascular Exam: REGULAR RHYTHM - GI/Abdominal Exam GI & Abdominal Exam: Normal Bowel Sounds Additional comments: peg tube - Rectal Exam Rectal Exam: NORMAL INSPECTION - Exam Exam: NORMAL INSPECTION - Back Exam Back Exam: NORMAL INSPECTION - Neurological Exam Neurological Exam: Alert, Awake, Oriented x3 - Psychiatric Exam Psychiatric exam: Flat Affect - Skin Skin Exam: Normal Color Assessment and Plan - Assessment and Plan (Free Text) Assessment: recurent syncope oesophogeal cancer peg tube Plan: neuro cons
[2019-02-12] MEDS: Mag&Al/Simet/Diphen/Lido 237 ML KIT PO SCH ×4 (11:00→21:50)
[2019-02-12] MEDS: Potassium Chloride 20 mEq/15 ml LIQ UD GT SCH ×2 (11:00→15:01)
[2019-02-12] MEDS: Valproic Acid 250 mg/5 ml UD Cup PEG SCH ×2 (11:00→17:51)
[2019-02-12] MEDS: Sodium Chloride 0.9% 1,000 ML IV SCH ×2 (11:00→22:30)
--- NOTE | 2019-02-12 23:46 | CP.PCM.CON ---
History of Present Illness - History of Present Illness History of Present Illness: 63 y/o male comes in complaining of generalized weakness and feeling lightheaded x1 week. Patient was just discharged from [facility] and brought to the ER for his complaints. He has chest pain and pain in the epigastrium and complains he is unable to eat or swallow well. He feels tingling and numbness in his lower extremities peripherally. He is eager to receive care for his Esophageal Cancer. Patient states he think he was discharged too early. Denies chest pain, SOB, cough, fever, abdominal pain, nausea, vomiting, or diarrhea. Chief Complaint (Nursing): Weakness/Neurological Deficit History Per: Patient History/Exam Limitations: no limitations Onset/Duration Of Symptoms: Days Current Symptoms Are (Timing): Still Present Past Medical History Reviewed: Historical Data, Nursing Documentation, Vital Signs Vital Signs: Last Vital Signs Temp 97.7 F 02/09/19 10:57 Pulse 77 02/09/19 10:57 Resp 20 02/09/19 10:57 BP 114/72 02/09/19 10:57 Pulse Ox 98 02/09/19 10:57 - Medical History PMH: Benign Prostatic Hyperplasia, Depression, Gastritis, HTN Denies: Diabetes, Hepatitis, HIV, Chronic Kidney Disease, Seizures, Sexually Transmitted Disease Surgical History: Appendectomy - [facility] Procedures ALCOHOL DETOXIFICATION (07/27/14) DETOXIFICATION SERVICES FOR SUBSTANCE ABUSE TREATMENT (10/11/17) INSERT VAD RESERVOIR IN CHEST SUBCU/FASCIA, PERC (12/25/18) INSERTION OF FEEDING DEVICE INTO JEJUNUM, PERC APPROACH (12/25/18) INSPECTION OF UPPER INTESTINAL TRACT, ENDO (12/25/18) INTRODUCTION OF NUTRITIONAL INTO LOW GI, VIA OPENING (12/25/18) TRANSFUSE NONAUT RED BLOOD CELLS IN PERIPH VEIN, PERC (10/26/17) Family History: States: No Known Family Hx - Social History Hx Tobacco Use: No Hx Alcohol Use: Yes Hx Substance Use: No - Immunization History Hx Tetanus Toxoid Vaccination: No Hx Influenza Vaccination: Yes Hx Pneumococcal Vaccination: No Review Of Systems Constitutional: Negative for: Fever, Chills Cardiovascular: Positive for: Light Headedness. Negative for: Chest Pain, Palpitations Respiratory: Negative for: Cough, Shortness of Breath Gastrointestinal: Negative for: Nausea, Vomiting, Abdominal Pain, Diarrhea Neurological: Positive for: Weakness Physical Exam - Physical Exam Appears: Non-toxic, No Acute Distress Skin: Warm, Dry Head: Atraumatic, Normacephalic Eye(s): bilateral: Normal Inspection, EOMI Oral Mucosa: Moist Neck: Supple Cardiovascular: Rhythm Regular, No Murmur Respiratory: Normal Breath Sounds, No Rales, No Rhonchi, No Wheezing Gastrointestinal/Abdominal: Soft, No Tenderness Extremity: Bilateral: Atraumatic, Normal Color And Temperature, Normal ROM Neurological/Psych: Oriented x3, Normal Speech, Normal Motor, Normal Sensation O2 Sat by Pulse Oximetry: 98 (RA) Pulse Ox Interpretation: Normal - Other Rad CXR X-Ray: Read By Radiologist Interpretation: FINDINGS: LUNGS: Opacity at the left lung base may represent atelectasis. Otherwise no significant interval changes. PLEURA: No pneumothorax or pleural fluid seen. CARDIOVASCULAR: No aortic atherosclerotic calcification present. Normal. OSSEOUS STRUCTURES: No significant abno rmalities. VISUALIZED UPPER ABDOMEN: Normal. OTHER FINDINGS: Right-sided Infusaport is seen in place. IMPRESSION: Small opacity at the left lung base may represent atelectasis. Progress Note: Labs and urine sent. Patient was given potassium chloride PO. He is a challenging case due to his personality and unwillingness to accept that he needs to use the PEG. The main neurological problem is syncope, R/O seizures. He is suffering from Esophageal cancer s/peg tube feeding Patient had rapid response today due to a syncopal spell. Past Patient History - Infectious Disease Hx of Infectious Diseases: None - Past Medical History & Family History Past Medical History?: Yes - Past Social History Smoking Status: Never Smoked - CARDIAC Hx Cardiac Disorders: No Hx Hypertension: Yes - PULMONARY Hx Respiratory Disorders: No - NEUROLOGICAL Hx Neurological Disorder: No Hx Seizures: No - HEENT Hx HEENT Problems: No - RENAL Hx Chronic Kidney Disease: No - ENDOCRINE/METABOLIC Hx Endocrine Disorders: No - HEMATOLOGICAL/ONCOLOGICAL Hx Blood Disorders: No Hx Human Immunodeficiency Virus (HIV): No - INTEGUMENTARY Hx Dermatological Problems: No - MUSCULOSKELETAL/RHEUMATOLOGICAL Hx Falls: No - GASTROINTESTINAL Hx Gastritis: Yes - GENITOURINARY/GYNECOLOGICAL Hx Sexually Transmitted Disorders: No Other/Comment: BPH - PSYCHIATRIC Hx Substance Use: No - SURGICAL HISTORY Hx Surgeries: Yes Hx Appendectomy: Yes Hx Vascular Access Device: Yes (R CHEST PORT) - ANESTHESIA Hx Anesthesia: Yes Hx Anesthesia Reactions: No Hx Malignant Hyperthermia: No Meds Allergies/Adverse Reactions: Allergies Allergy/AdvReac Type Severity Reaction Status Date / Time No Known Allergies Allergy Verified 02/09/19 11:03 - Medications Medications: Current Medications Amlodipine Besylate (Norvasc) 10 mg PEG DAILY [facility] Last Admin: 02/11/19 13:08 Dose: 10 mg Docusate Sodium (Colace Liquid) 100 mg PO BID [facility] Last Admin: 02/12/19 17:51 Dose: 100 mg Sodium Chloride (Sodium Chloride 0.9%) 1,000 mls @ 80 mls/hr IV .[id number] [facility] Last Admin: 02/12/19 11:00 Dose: 80 mls/hr Mirtazapine (Remeron) 15 mg PEG HS [facility] Last Admin: 02/12/19 21:42 Dose: 15 mg Saliva Substitute (First Magic Mouthwash) 5 ml PO QID [facility] Last Admin: 02/12/19 21:50 Dose: 5 ml Simethicone (Mylicon Chew Tab) 80 mg PO Q6H PRN PRN Reason: GI distress Trazodone HCl (Desyrel) 50 mg GT HS [facility] Last Admin: 02/12/19 21:42 Dose: 50 mg Valproate Sodium (Depakene Oral Soln) 250 mg PEG BID [facility] Last Admin: 02/12/19 17:51 Dose: 250 mg Physical Exam - Neurological Exam Additional comments: Mental Status: awake, Alert, oriented X 3 Estonian speaking, fluent coherent speech. Cranial Nerves II to XII: Normal eye movements, central pupils, reactive to light, swallowing is a problem for him. No Facial Asymmetry. Central tongeue. Motor: Normal Tone, generalized weakness 5-/5, mostly in peripheral lower extremities. DTR are hard to elicit. Toes are down going by plantar stimulation. Sensory: Reduced sensation peripherally Cerebellar: Normal FNT Stature and Gait: He feels weak and is lying down in bed. Results - Vital Signs Recent Vital Signs: Last Vital Signs Temp 98.3 F 02/12/19 16:00 Pulse 74 02/12/19 16:00 Resp 20 02/12/19 16:00 BP 108/72 02/12/19 16:00 Pulse Ox 95 02/12/19 16:00 - Labs Result Diagrams: 02/12/19 07:15 02/12/19 07:15 Labs: Laboratory Results - last 24 hr 02/12/19 02/12/19 02/12/19 06:39 07:15 07:15 WBC 6.1 RBC 4.52 Hgb 14.4 Hct 42.3 MCV 93.6 MCH 31.8 H MCHC 33.9 RDW 16.8 H Plt Count 279 MPV 10.5 Neut % (Auto) 62.4 Lymph % (Auto) 24.0 [place] % (Auto) 10.8 H Eos % (Auto) 2.3 Baso % (Auto) 0.5 Neut # (Auto) 3.8 Lymph # (Auto) 1.5 [place] # (Auto) 0.7 Eos # (Auto) 0.1 Baso # (Auto) 0.0 PT 13.9 H INR 1.3 APTT 32 Sodium Potassium Chloride Carbon Dioxide Anion Gap BUN Creatinine Est GFR ( Amer) Est GFR (Non-Af Amer) POC Glucose (mg/dL) 99 Random Glucose Lactic Acid Calcium Phosphorus Magnesium Total Bilirubin AST ALT Alkaline Phosphatase Total Protein Albumin Globulin Albumin/Globulin Ratio 02/12/19 02/12/19 07:15 07:15 WBC RBC Hgb Hct MCV MCH MCHC RDW Plt Count MPV Neut % (Auto) Lymph % (Auto) [place] % (Auto) Eos % (Auto) Baso % (Auto) Neut # (Auto) Lymph # (Auto) [place] # (Auto) Eos # (Auto) Baso # (Auto) PT INR APTT Sodium 135 Potassium 3.1 L Chloride 93 L Carbon Dioxide 34 H Anion Gap 12 BUN 24 H Creatinine 1.1 Est GFR ( Amer) > 60 Est GFR (Non-Af Amer) > 60 POC Glucose (mg/dL) Random Glucose 109 Lactic Acid 1.3 Calcium 9.7 Phosphorus 4.0 Magnesium 2.0 Total Bilirubin 0.8 AST 19 ALT < 6 L Alkaline Phosphatase 141 H Total Protein 8.2 Albumin 4.3 Globulin 3.9 Albumin/Globulin Ratio 1.1 Assessment & Plan (1) Abdominal pain Assessment and Plan: MIght be related to his Cancer Esophagus Status: Acute (2) Acute pansinusitis Assessment and Plan: He is receiving care for it. Status: Acute (3) Alcohol abuse Assessment and Plan: Looks like he underwent many attempts for his Drinking problems. Status: Acute (4) Alcohol intoxication Assessment and Plan: As documented, currently he looks controlled Status: Acute (5) Syncopal episodes Assessment and Plan: R/O seizures, R/o Other miscellaneous causes, as Alcohol abuse or withdrawal Status: Acute
[2019-02-13 07:39] LABS: BLOOD UREA NITROGEN 19 mg/dL (9-20); CALCIUM 9.4 mg/dl (8.6-10.4); GFR NON-AFRICAN AMERICAN > 60
[2019-02-13] MEDS: Sodium Chloride 0.9% 1,000 ML IV SCH (11:00)
[2019-02-13] MEDS: Mag&Al/Simet/Diphen/Lido 237 ML KIT PO SCH ×4 (11:00→21:53)
--- NOTE | 2019-02-13 11:03 | CP.PCM.PN ---
Subjective - Date & Time of Evaluation Date of Evaluation: 02/13/19 Time of Evaluation: 11:00 - Subjective Subjective: pt feels very weeke unable to swallow liquids will have rt today Objective - Vital Signs/Intake and Output Vital Signs (last 24 hours): Temp Pulse Resp BP Pulse Ox 98.0 F 83 20 117/74 96 02/13/19 07:14 02/13/19 07:14 02/13/19 07:14 02/13/19 07:14 02/13/19 07:14 Intake and Output: 02/13/19 02/13/19 06:59 18:59 Intake Total 250 240 Output Total 450 Balance 250 -210 - Medications Medications: Current Medications Amlodipine Besylate (Norvasc) 10 mg PEG DAILY [facility] Last Admin: 02/11/19 13:08 Dose: 10 mg Docusate Sodium (Colace Liquid) 100 mg PO BID [facility] Last Admin: 02/12/19 17:51 Dose: 100 mg Sodium Chloride (Sodium Chloride 0.9%) 1,000 mls @ 80 mls/hr IV .[id number] [facility] Last Admin: 02/12/19 11:00 Dose: 80 mls/hr Mirtazapine (Remeron) 15 mg PEG HS [facility] Last Admin: 02/12/19 21:42 Dose: 15 mg Saliva Substitute (First Magic Mouthwash) 5 ml PO QID [facility] Last Admin: 02/12/19 21:50 Dose: 5 ml Simethicone (Mylicon Chew Tab) 80 mg PO Q6H PRN PRN Reason: GI distress Trazodone HCl (Desyrel) 50 mg GT HS [facility] Last Admin: 02/12/19 21:42 Dose: 50 mg Valproate Sodium (Depakene Oral Soln) 250 mg PEG BID [facility] Last Admin: 02/12/19 17:51 Dose: 250 mg - Labs Labs: 02/12/19 07:15 02/13/19 06:30 PT 13.9 SECONDS (9.7-12.2) H 02/12/19 07:15 INR 1.3 02/12/19 07:15 APTT 32 SECONDS (21-34) 02/12/19 07:15 - Constitutional Appears: Non-toxic - Head Exam Head Exam: NORMOCEPHALIC - Eye Exam Eye Exam: Normal appearance Pupil Exam: NORMAL ACCOMODATION - ENT Exam ENT Exam: Normal Exam - Neck Exam Neck Exam: Normal Inspection - Cardiovascular Exam Cardiovascular Exam: REGULAR RHYTHM - GI/Abdominal Exam GI & Abdominal Exam: Normal Bowel Sounds Additional comments: peg in place - Extremities Exam Extremities Exam: Full ROM - Back Exam Back Exam: NORMAL INSPECTION - Neurological Exam Neurological Exam: Alert, Awake, Oriented x3 - Psychiatric Exam Psychiatric exam: Depressed - Skin Skin Exam: Normal Color Assessment and Plan - Assessment and Plan (Free Text) Assessment: generalised weekness cancer oesophogas peg tube s/p recurent syncope Plan: as per orders
[2019-02-13] MEDS: Valproic Acid 250 mg/5 ml UD Cup PEG SCH ×2 (11:11→17:29)
--- NOTE | 2019-02-13 20:44 | CP.PCM.PN ---
Subjective - Date & Time of Evaluation Date of Evaluation: 02/13/19 Time of Evaluation: 20:41 - Subjective Subjective: He is walking around, accepted to have the EEG but declined the Carotid Doppler. Vital signs are normal Low 25 hydroxy Vitamin D He is eager to have his Cancer Esophagus treated. He is reported to be non compliant with medical care and nursing care. Objective - Vital Signs/Intake and Output Vital Signs (last 24 hours): Temp Pulse Resp BP Pulse Ox 97.4 F L 89 20 114/76 97 02/13/19 16:00 02/13/19 16:00 02/13/19 16:00 02/13/19 16:00 02/13/19 16:00 Intake and Output: 02/13/19 02/14/19 18:59 06:59 Intake Total 1130 Output Total 450 Balance 680 - Medications Medications: Current Medications Amlodipine Besylate (Norvasc) 10 mg PEG DAILY [facility] Last Admin: 02/13/19 11:18 Dose: 10 mg Calcium Carbonate (Oscal) 500 mg PO BID [facility] Docusate Sodium (Colace Liquid) 100 mg PO BID [facility] Last Admin: 02/13/19 17:35 Dose: Not Given Ergocalciferol (Drisdol 50,000 Intl Units Cap) 1 cap PO Q7D [facility] Sodium Chloride (Sodium Chloride 0.9%) 1,000 mls @ 80 mls/hr IV .[id number] [facility] Last Admin: 02/13/19 11:00 Dose: 80 mls/hr Mirtazapine (Remeron) 15 mg PEG HS [facility] Last Admin: 02/12/19 21:42 Dose: 15 mg Saliva Substitute (First Magic Mouthwash) 5 ml PO QID [facility] Last Admin: 02/13/19 17:28 Dose: 5 ml Simethicone (Mylicon Chew Tab) 80 mg PO Q6H PRN PRN Reason: GI distress Trazodone HCl (Desyrel) 50 mg GT HS [facility] Last Admin: 02/12/19 21:42 Dose: 50 mg Valproate Sodium (Depakene Oral Soln) 250 mg PEG BID [facility] Last Admin: 02/13/19 17:29 Dose: Not Given - Labs Labs: 02/12/19 07:15 02/13/19 06:30 PT 13.9 SECONDS (9.7-12.2) H 02/12/19 07:15 INR 1.3 02/12/19 07:15 APTT 32 SECONDS (21-34) 02/12/19 07:15 Assessment and Plan (1) Abdominal pain Status: Acute (2) Acute pansinusitis Status: Acute (3) Alcohol abuse Status: Chronic (4) Alcohol intoxication Status: Chronic (5) Syncopal episodes Status: Acute
[2019-02-13] MEDS ORDERED: Ergocalciferol 50,000 Intl Units Cap PO SCH (20:45)
--- NOTE | 2019-02-13 22:50 | CON ---
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 He has been in the hospital for quite a long time. He has a diagnosis . He has a PEG. He was at one of the nursing homes and he was starting radiation therapy on Monday, along with that plans were made for him to get at [facility] weekly on Tuesdays a chemotherapy with cisplatin at 15 mg/m2. He did start the radiation therapy and then he was re-admitted again. We have been having problems, #1 with where he can live; he was homeless, I believe, beforehand. The second thing is that he refuses to use a PEG even in the hospital. He often has refused to use a PEG. He is not really eating almost anything and he throws up whatever he is eating often times and so he is getting more and more dehydrated. PHYSICAL EXAMINATION: SKIN: No lesions. HEENT: Anicteric. NODES: Nonpalpable in the axillary, cervical, supraclavicular, or inguinal regions. LUNGS: Clear at present. No rhonchi or wheezing. No vertebral tenderness. ABDOMEN: No liver, no spleen. The PEG is clean, not infected. EXTREMITIES: No edema. CENTRAL NERVOUS SYSTEM: No focal findings. ASSESSMENT AND PLAN: At this point, he had a rapid response yesterday due to the dehydration and not eating, but we will continue the radiation therapy. I do not know how he is going to be stronger to take the chemo with it, but the main issue is to continue the radiation therapy Dr. Dumont will let us know what the situation is. Miguel Gonzalez MD
--- NOTE | 2019-02-14 07:22 | CARD ---
APPROVED REPORT Date of service: 02/09/2019 EKG Measurement Heart [id number] <Conclusion> Normal sinus rhythm Normal ECG
--- NOTE | 2019-02-14 10:54 | EEG ---
DATE: 02/13/2019 The record was obtained for history of syncopal spell, rule out seizures. The record was obtained while the patient was awake and drowsy. The record was symmetrically equal on both sides with a velocity of 8 cycles per second. The waves were fairly formed and fairly organized with posterior distribution with fairly normal amplitude. The record did not show any abnormal discharges. The photic stimulation was performed which did not produce any changes. The hyperventilation was omitted. There woods no spikes, no polyspikes. No sharp wave, no focal slowing, and no paroxysmal discharges. There were eye movement artifacts, electrode artifacts, sweat artifacts, and muscle movement artifacts. There were periods of drowsiness during which attenuation and slowing of the record was seen, and theta waves were seen. In summary, this is a normal awake and drowsy EEG. Clinical correlation is recommended. Maggi Stephens MD
[2019-02-14] MEDS: Mag&Al/Simet/Diphen/Lido 237 ML KIT PO SCH ×4 (11:15→21:41)
[2019-02-14] MEDS: Valproic Acid 250 mg/5 ml UD Cup PEG SCH ×2 (11:15→17:25)
[2019-02-14] MEDS: Sodium Chloride 0.9% 1,000 ML IV SCH (12:03)
--- NOTE | 2019-02-14 18:33 | CP.PCM.PN ---
Subjective - Date & Time of Evaluation Date of Evaluation: 02/14/19 Time of Evaluation: 18:30 - Subjective Subjective: pt started radition today feels weeke pain neck Objective - Vital Signs/Intake and Output Vital Signs (last 24 hours): Temp Pulse Resp BP Pulse Ox 97.5 F L 60 20 120/72 95 02/14/19 16:41 02/14/19 16:41 02/14/19 16:41 02/14/19 16:41 02/14/19 16:41 Intake and Output: 02/14/19 02/14/19 06:59 18:59 Intake Total 120 460 Balance 120 460 - Medications Medications: Current Medications Amlodipine Besylate (Norvasc) 10 mg PEG DAILY [facility] Last Admin: 02/14/19 11:15 Dose: Not Given Calcium Carbonate (Oscal) 500 mg PO BID [facility] Last Admin: 02/14/19 17:26 Dose: Not Given Docusate Sodium (Colace Liquid) 100 mg PO BID [facility] Last Admin: 02/14/19 17:25 Dose: Not Given Ergocalciferol (Drisdol 50,000 Intl Units Cap) 1 cap PO Q7D [facility] Sodium Chloride (Sodium Chloride 0.9%) 1,000 mls @ 80 mls/hr IV .[id number] [facility] Last Admin: 02/14/19 12:03 Dose: Not Given Mirtazapine (Remeron) 15 mg PEG HS [facility] Last Admin: 02/13/19 21:54 Dose: Not Given Saliva Substitute (First Magic Mouthwash) 5 ml PO QID [facility] Last Admin: 02/14/19 17:26 Dose: Not Given Simethicone (Mylicon Chew Tab) 80 mg PO Q6H PRN PRN Reason: GI distress Trazodone HCl (Desyrel) 50 mg GT HS [facility] Last Admin: 02/13/19 21:53 Dose: Not Given Valproate Sodium (Depakene Oral Soln) 250 mg PEG BID [facility] Last Admin: 02/14/19 17:25 Dose: Not Given - Labs Labs: 02/12/19 07:15 02/13/19 06:30 PT 13.9 SECONDS (9.7-12.2) H 02/12/19 07:15 INR 1.3 02/12/19 07:15 APTT 32 SECONDS (21-34) 02/12/19 07:15 - Constitutional Appears: In Acute Distress - Head Exam Head Exam: ATRAUMATIC - Eye Exam Eye Exam: Normal appearance Pupil Exam: NORMAL ACCOMODATION - ENT Exam ENT Exam: Mucous Membranes Moist - Neck Exam Neck Exam: Full ROM - Respiratory Exam Respiratory Exam: Decreased Breath Sounds - Cardiovascular Exam Cardiovascular Exam: REGULAR RHYTHM - GI/Abdominal Exam GI & Abdominal Exam: Normal Bowel Sounds Additional comments: peg in place - Rectal Exam Rectal Exam: NORMAL INSPECTION - Exam Exam: NORMAL INSPECTION - Extremities Exam Extremities Exam: Full ROM - Back Exam Back Exam: NORMAL INSPECTION - Neurological Exam Neurological Exam: Alert, Awake, Oriented x3 - Psychiatric Exam Psychiatric exam: Normal Affect - Skin Skin Exam: Pallor Assessment and Plan - Assessment and Plan (Free Text) Assessment: oesophogeal cancer recurent syncope aneamia generalised weekness Plan: cont as ordered
--- NOTE | 2019-02-14 23:09 | CP.PCM.PN ---
Subjective - Date & Time of Evaluation Date of Evaluation: 02/14/19 Time of Evaluation: 22:00 - Subjective Subjective: He was started on Radiation therapy for his Cancer Esophagus. He is combative and difficult to deal with. He does not follow the medical advice and the nurses guidance. This might be related to his reactive depression due to his bad news about cancer Esophagus with a past history of excessive drinking and advice about stopping drinking as it might cause serious complications. His EEG is negative. Objective - Vital Signs/Intake and Output Vital Signs (last 24 hours): Temp Pulse Resp BP Pulse Ox 97.5 F L 60 20 120/72 95 02/14/19 16:41 02/14/19 16:41 02/14/19 16:41 02/14/19 16:41 02/14/19 16:41 Intake and Output: 02/14/19 02/15/19 18:59 06:59 Intake Total 460 Balance 460 - Medications Medications: Current Medications Amlodipine Besylate (Norvasc) 10 mg PEG DAILY [facility] Last Admin: 02/14/19 11:15 Dose: Not Given Calcium Carbonate (Oscal) 500 mg PO BID [facility] Last Admin: 02/14/19 17:26 Dose: Not Given Docusate Sodium (Colace Liquid) 100 mg PO BID [facility] Last Admin: 02/14/19 17:25 Dose: Not Given Ergocalciferol (Drisdol 50,000 Intl Units Cap) 1 cap PO Q7D [facility] Sodium Chloride (Sodium Chloride 0.9%) 1,000 mls @ 80 mls/hr IV .[id number] [facility] Last Admin: 02/14/19 12:03 Dose: Not Given Mirtazapine (Remeron) 15 mg PEG HS [facility] Last Admin: 02/14/19 21:42 Dose: Not Given Saliva Substitute (First Magic Mouthwash) 5 ml PO QID [facility] Last Admin: 02/14/19 21:41 Dose: Not Given Simethicone (Mylicon Chew Tab) 80 mg PO Q6H PRN PRN Reason: GI distress Trazodone HCl (Desyrel) 50 mg GT HS [facility] Last Admin: 02/14/19 21:41 Dose: Not Given Valproate Sodium (Depakene Oral Soln) 250 mg PEG BID [facility] Last Admin: 02/14/19 17:25 Dose: Not Given - Labs Labs: 02/12/19 07:15 02/13/19 06:30 PT 13.9 SECONDS (9.7-12.2) H 02/12/19 07:15 INR 1.3 02/12/19 07:15 APTT 32 SECONDS (21-34) 02/12/19 07:15 Assessment and Plan (1) Abdominal pain Status: Acute (2) Acute pansinusitis Status: Acute (3) Alcohol abuse Status: Chronic (4) Alcohol intoxication Status: Chronic (5) Syncopal episodes Status: Acute
[2019-02-15] MEDS: Sodium Chloride 0.9% 1,000 ML IV SCH (00:49)
[2019-02-15] MEDS: Valproic Acid 250 mg/5 ml UD Cup PEG SCH ×2 (09:36→18:00)
[2019-02-15] MEDS: Mag&Al/Simet/Diphen/Lido 237 ML KIT PO SCH ×4 (09:37→21:27)
--- NOTE | 2019-02-15 12:22 | CP.PCM.PN ---
Subjective - Date & Time of Evaluation Date of Evaluation: 02/15/19 Time of Evaluation: 12:20 - Subjective Subjective: pt weeke receaved rt yesterday Objective - Vital Signs/Intake and Output Vital Signs (last 24 hours): Temp Pulse Resp BP Pulse Ox 97.9 F 64 20 110/70 98 02/15/19 08:40 02/15/19 08:40 02/15/19 08:40 02/15/19 08:40 02/15/19 08:40 Intake and Output: 02/15/19 02/15/19 06:59 18:59 Intake Total 360 Balance 360 - Medications Medications: Current Medications Amlodipine Besylate (Norvasc) 10 mg PEG DAILY [facility] Last Admin: 02/15/19 09:39 Dose: Not Given Calcium Carbonate (Oscal) 500 mg PO BID [facility] Last Admin: 02/15/19 09:37 Dose: Not Given Docusate Sodium (Colace Liquid) 100 mg PO BID [facility] Last Admin: 02/15/19 09:36 Dose: Not Given Ergocalciferol (Drisdol 50,000 Intl Units Cap) 1 cap PO Q7D [facility] Mirtazapine (Remeron) 15 mg PEG HS [facility] Last Admin: 02/14/19 21:42 Dose: Not Given Saliva Substitute (First Magic Mouthwash) 5 ml PO QID [facility] Last Admin: 02/15/19 09:37 Dose: Not Given Simethicone (Mylicon Chew Tab) 80 mg PO Q6H PRN PRN Reason: GI distress Trazodone HCl (Desyrel) 50 mg GT HS [facility] Last Admin: 02/14/19 21:41 Dose: Not Given Valproate Sodium (Depakene Oral Soln) 250 mg PEG BID [facility] Last Admin: 02/15/19 09:36 Dose: Not Given - Labs Labs: 02/12/19 07:15 02/13/19 06:30 PT 13.9 SECONDS (9.7-12.2) H 02/12/19 07:15 INR 1.3 02/12/19 07:15 APTT 32 SECONDS (21-34) 02/12/19 07:15 - Constitutional Appears: Non-toxic - Head Exam Head Exam: ATRAUMATIC - Eye Exam Eye Exam: Normal appearance Pupil Exam: NORMAL ACCOMODATION - ENT Exam ENT Exam: Mucous Membranes Moist - Neck Exam Neck Exam: Normal Inspection - Respiratory Exam Respiratory Exam: Clear to Ausculation Bilateral - Cardiovascular Exam Cardiovascular Exam: REGULAR RHYTHM - GI/Abdominal Exam GI & Abdominal Exam: Normal Bowel Sounds Additional comments: peg tube in place - Exam Exam: NORMAL INSPECTION - Extremities Exam Extremities Exam: Full ROM - Back Exam Back Exam: NORMAL INSPECTION - Neurological Exam Neurological Exam: Alert, Oriented x3 - Psychiatric Exam Psychiatric exam: Normal Affect - Skin Skin Exam: Pallor Assessment and Plan - Assessment and Plan (Free Text) Assessment: ca boesophogus recurent syncope aneamia generalised weekness Plan: refered to disch planing to arrange for long stay rehab
--- NOTE | 2019-02-15 13:21 | VASCLAB ---
Date of service: 02/14/2019 PROCEDURE: Carotid Duplex Exam. HISTORY: CVA COMPARISON: None available. TECHNIQUE: Grayscale and duplex Doppler evaluation of the cervical carotid and vertebral arteries were performed. The common carotid, carotid bifurcations and cervical Internal Carotid Artery (ICA) and proximal External Carotid Artery (ECA) were evaluated. The vertebral arteries were evaluated for gross patency and flow direction. Report prepared by Sabino Phoenix, BS, RVT FINDINGS: RIGHT CAROTID ARTERIES: 1. Common Carotid Artery: No significant focal plaque formation of the right common carotid artery. Maximum Peak Systolic velocity: 67 cm/sec: End-diastolic velocity 14 cm/sec. 2. Carotid Bifurcation: plaque formation. Maximum Peak Systolic velocity: 88 cm/sec: End-diastolic velocity 17 cm/sec. 3. Internal Carotid Artery: Plaque description: 3.1. Proximal Segment: Peak systolic velocity 93 cm/sec: End-diastolic velocity 25 cm/sec - % stenosis 0-15% 3.2. Middle Segment: Peak systolic velocity 98 cm/sec: End-diastolic velocity 30 cm/sec - % stenosis 0-15% 3.3. Distal Segment: Peak systolic velocity 47 cm/sec: End-diastolic velocity 16 cm/sec - % stenosis 0-15% 4. External Carotid Artery: No significant focal plaque formation. Peak systolic velocity 67 cm/sec 5. ICA/CCA Ratio: 1.5 LEFT CAROTID ARTERIES: 1. Common Carotid Artery: No significant focal plaque formation of the left common carotid artery. Maximum Peak Systolic velocity: 67 cm/sec: End-diastolic velocity 16 cm/sec. 2. Carotid Bifurcation: plaque formation. Maximum Peak Systolic velocity: 62 cm/sec: End-diastolic velocity 12 cm/sec. 3. Internal Carotid Artery: Plaque description: 3.1. Proximal Segment: Peak systolic velocity 73 cm/sec: End-diastolic velocity 23 cm/sec - % stenosis 0-15% 3.2. Middle Segment: Peak systolic velocity 53 cm/sec: End-diastolic velocity 16 cm/sec - % stenosis 0-15% 3.3. Distal Segment: Peak systolic velocity 60 cm/sec: End-diastolic velocity 20 cm/sec - % stenosis 0-15% 4. External Carotid Artery: No significant focal plaque formation. Peak systolic velocity 73 cm/sec 5. ICA/CCA Ratio: 1.1 VERTEBRAL ARTERIES: 1. Right Vertebral Artery: The right vertebral artery flow direction is antegrade. 2. Left Vertebral Artery: The left vertebral artery flow direction is antegrade. OTHER FINDINGS: 1. Right Brachial Blood pressure: 100 mmHg. 2. Left Brachial Blood pressure: 96 mmHg. 3. No atherosclerotic calcification present IMPRESSION: RIGHT: Duplex scan does not suggest hemodynamically significant stenosis of the right extracranial carotid arteries. LEFT: Duplex scan does not suggest hemodynamically significant stenosis of the left extracranial carotid arteries.
--- NOTE | 2019-02-15 14:50 | CP.PCM.PN ---
Subjective - Date & Time of Evaluation Date of Evaluation: 02/15/19 Time of Evaluation: 14:46 - Subjective Subjective: Patient received Radiation Therapy today at [facility] He is satisfied and says his swallowing is better. His CBC is showing anemia. There are no fainting spells. C.X.R shows opacities on the left lung base. Negative Carotid Doppler. He refused his MRI Brain. His EEG was negative. His V.S are normal. He is able to walk around and talk clearly, coherently in both Faroese and Pashto. He is mainly Pashto speaking while carrying an Faroese name. Objective - Vital Signs/Intake and Output Vital Signs (last 24 hours): Temp Pulse Resp BP Pulse Ox 97.9 F 64 20 110/70 98 02/15/19 08:40 02/15/19 08:40 02/15/19 08:40 02/15/19 08:40 02/15/19 08:40 Intake and Output: 02/15/19 02/15/19 06:59 18:59 Intake Total 360 700 Balance 360 700 - Medications Medications: Current Medications Amlodipine Besylate (Norvasc) 10 mg PEG DAILY [facility] Last Admin: 02/15/19 09:39 Dose: Not Given Calcium Carbonate (Oscal) 500 mg PO BID [facility] Last Admin: 02/15/19 09:37 Dose: Not Given Docusate Sodium (Colace Liquid) 100 mg PO BID [facility] Last Admin: 02/15/19 09:36 Dose: Not Given Ergocalciferol (Drisdol 50,000 Intl Units Cap) 1 cap PO Q7D [facility] Mirtazapine (Remeron) 15 mg PEG HS [facility] Last Admin: 02/14/19 21:42 Dose: Not Given Saliva Substitute (First Magic Mouthwash) 5 ml PO QID [facility] Last Admin: 02/15/19 13:31 Dose: Not Given Simethicone (Mylicon Chew Tab) 80 mg PO Q6H PRN PRN Reason: GI distress Trazodone HCl (Desyrel) 50 mg GT HS [facility] Last Admin: 02/14/19 21:41 Dose: Not Given Valproate Sodium (Depakene Oral Soln) 250 mg PEG BID [facility] Last Admin: 02/15/19 09:36 Dose: Not Given - Labs Labs: 02/12/19 07:15 02/13/19 06:30 PT 13.9 SECONDS (9.7-12.2) H 02/12/19 07:15 INR 1.3 02/12/19 07:15 APTT 32 SECONDS (21-34) 02/12/19 07:15 Assessment and Plan (1) Abdominal pain Status: Acute (2) Acute pansinusitis Status: Acute (3) Alcohol abuse Status: Chronic (4) Alcohol intoxication Status: Chronic (5) Syncopal episodes Status: Acute
[2019-02-16] MEDS: Mag&Al/Simet/Diphen/Lido 237 ML KIT PO SCH ×4 (10:45→21:09)
[2019-02-16] MEDS: Valproic Acid 250 mg/5 ml UD Cup PEG SCH ×2 (11:08→17:08)
--- NOTE | 2019-02-16 12:12 | CP.PCM.PN ---
Subjective - Date & Time of Evaluation Date of Evaluation: 02/16/19 Time of Evaluation: 12:09 - Subjective Subjective: receiving radiatuion therapy no more syncope feels weeke Objective - Vital Signs/Intake and Output Vital Signs (last 24 hours): Temp Pulse Resp BP Pulse Ox 97.9 F 84 20 124/85 96 02/16/19 07:00 02/16/19 07:00 02/16/19 07:00 02/16/19 07:00 02/16/19 07:00 - Medications Medications: Current Medications Amlodipine Besylate (Norvasc) 10 mg PEG DAILY [facility] Last Admin: 02/16/19 11:08 Dose: Not Given Calcium Carbonate (Oscal) 500 mg PO BID [facility] Last Admin: 02/16/19 11:08 Dose: Not Given Docusate Sodium (Colace Liquid) 100 mg PO BID [facility] Last Admin: 02/16/19 11:08 Dose: Not Given Ergocalciferol (Drisdol 50,000 Intl Units Cap) 1 cap PO Q7D [facility] Mirtazapine (Remeron) 15 mg PEG HS [facility] Last Admin: 02/15/19 21:28 Dose: Not Given Saliva Substitute (First Magic Mouthwash) 5 ml PO QID [facility] Last Admin: 02/16/19 10:45 Dose: 5 ml Simethicone (Mylicon Chew Tab) 80 mg PO Q6H PRN PRN Reason: GI distress Trazodone HCl (Desyrel) 50 mg GT HS [facility] Last Admin: 02/15/19 21:27 Dose: Not Given Valproate Sodium (Depakene Oral Soln) 250 mg PEG BID [facility] Last Admin: 02/16/19 11:08 Dose: Not Given - Labs Labs: 02/12/19 07:15 02/13/19 06:30 PT 13.9 SECONDS (9.7-12.2) H 02/12/19 07:15 INR 1.3 02/12/19 07:15 APTT 32 SECONDS (21-34) 02/12/19 07:15 - Constitutional Appears: Non-toxic - Head Exam Head Exam: ATRAUMATIC - Eye Exam Eye Exam: Normal appearance Pupil Exam: NORMAL ACCOMODATION - ENT Exam ENT Exam: Mucous Membranes Moist - Neck Exam Neck Exam: Full ROM - Respiratory Exam Respiratory Exam: NORMAL BREATHING PATTERN - Cardiovascular Exam Cardiovascular Exam: REGULAR RHYTHM - GI/Abdominal Exam GI & Abdominal Exam: Normal Bowel Sounds - Exam Exam: NORMAL INSPECTION - Extremities Exam Extremities Exam: Normal Inspection - Neurological Exam Neurological Exam: Alert, Awake, Oriented x3 - Psychiatric Exam Psychiatric exam: Normal Affect - Skin Skin Exam: Normal Color Assessment and Plan - Assessment and Plan (Free Text) Assessment: cancer oesophogus on rt peg tube s/p sycope generalised weekness Plan: cont treatment
--- NOTE | 2019-02-16 21:38 | CP.PCM.PN ---
Subjective - Date & Time of Evaluation Date of Evaluation: 02/16/19 Time of Evaluation: 21:35 - Subjective Subjective: Not compliant with his medicine, refused his 1800 PM medicine. He is suffering from any syncopal spells and his radiation therapy treatment has helped him and he is satisfied. He needs to continue his radiation therapy. He is more awake and feels weak. Normal Vital signs. He has negative microbiological cultures. Objective - Vital Signs/Intake and Output Vital Signs (last 24 hours): Temp Pulse Resp BP Pulse Ox 99.1 F 66 20 116/75 96 02/16/19 15:30 02/16/19 15:30 02/16/19 15:30 02/16/19 15:30 02/16/19 15:30 Intake and Output: 02/16/19 02/17/19 18:59 06:59 Intake Total 550 Balance 550 - Medications Medications: Current Medications Amlodipine Besylate (Norvasc) 10 mg PEG DAILY [facility] Last Admin: 02/16/19 11:08 Dose: Not Given Calcium Carbonate (Oscal) 500 mg PO BID [facility] Last Admin: 02/16/19 17:09 Dose: Not Given Docusate Sodium (Colace Liquid) 100 mg PO BID [facility] Last Admin: 02/16/19 17:08 Dose: Not Given Ergocalciferol (Drisdol 50,000 Intl Units Cap) 1 cap PO Q7D [facility] Mirtazapine (Remeron) 15 mg PEG HS [facility] Last Admin: 02/16/19 21:09 Dose: Not Given Saliva Substitute (First Magic Mouthwash) 5 ml PO QID [facility] Last Admin: 02/16/19 21:09 Dose: Not Given Simethicone (Mylicon Chew Tab) 80 mg PO Q6H PRN PRN Reason: GI distress Trazodone HCl (Desyrel) 50 mg GT HS [facility] Last Admin: 02/16/19 21:09 Dose: Not Given Valproate Sodium (Depakene Oral Soln) 250 mg PEG BID [facility] Last Admin: 02/16/19 17:08 Dose: Not Given - Labs Labs: 02/12/19 07:15 02/13/19 06:30 PT 13.9 SECONDS (9.7-12.2) H 02/12/19 07:15 INR 1.3 02/12/19 07:15 APTT 32 SECONDS (21-34) 02/12/19 07:15 Assessment and Plan (1) Abdominal pain Status: Acute (2) Acute pansinusitis Status: Acute (3) Alcohol abuse Status: Chronic (4) Alcohol intoxication Status: Chronic (5) Syncopal episodes Status: Acute
[2019-02-17] MEDS: Mag&Al/Simet/Diphen/Lido 237 ML KIT PO SCH ×4 (09:48→21:10)
[2019-02-17] MEDS: Valproic Acid 250 mg/5 ml UD Cup PEG SCH ×2 (09:50→17:01)
--- NOTE | 2019-02-17 11:53 | CP.PCM.PN ---
Subjective - Date & Time of Evaluation Date of Evaluation: 02/17/19 Time of Evaluation: 11:50 - Subjective Subjective: pt seen in bed receiving radition therapy has peg weeke Objective - Vital Signs/Intake and Output Vital Signs (last 24 hours): Temp Pulse Resp BP Pulse Ox 98 F 63 20 113/75 95 02/17/19 00:00 02/17/19 00:00 02/17/19 00:00 02/17/19 00:00 02/17/19 00:00 Intake and Output: 02/17/19 02/17/19 06:59 18:59 Intake Total 350 Balance 350 - Medications Medications: Current Medications Amlodipine Besylate (Norvasc) 10 mg PEG DAILY [facility] Last Admin: 02/17/19 09:50 Dose: Not Given Calcium Carbonate (Oscal) 500 mg PO BID [facility] Last Admin: 02/17/19 09:51 Dose: Not Given Docusate Sodium (Colace Liquid) 100 mg PO BID [facility] Last Admin: 02/17/19 09:50 Dose: Not Given Ergocalciferol (Drisdol 50,000 Intl Units Cap) 1 cap PO Q7D [facility] Mirtazapine (Remeron) 15 mg PEG HS [facility] Last Admin: 02/16/19 21:09 Dose: Not Given Saliva Substitute (First Magic Mouthwash) 5 ml PO QID [facility] Last Admin: 02/17/19 09:48 Dose: 5 ml Simethicone (Mylicon Chew Tab) 80 mg PO Q6H PRN PRN Reason: GI distress Trazodone HCl (Desyrel) 50 mg GT HS [facility] Last Admin: 02/16/19 21:09 Dose: Not Given Valproate Sodium (Depakene Oral Soln) 250 mg PEG BID [facility] Last Admin: 02/17/19 09:50 Dose: Not Given - Labs Labs: 02/12/19 07:15 02/13/19 06:30 PT 13.9 SECONDS (9.7-12.2) H 02/12/19 07:15 INR 1.3 02/12/19 07:15 APTT 32 SECONDS (21-34) 02/12/19 07:15 - Constitutional Appears: Non-toxic - Head Exam Head Exam: ATRAUMATIC - Eye Exam Eye Exam: Normal appearance Pupil Exam: NORMAL ACCOMODATION - ENT Exam ENT Exam: Mucous Membranes Moist - Neck Exam Neck Exam: Normal Inspection - Respiratory Exam Respiratory Exam: Decreased Breath Sounds - Cardiovascular Exam Cardiovascular Exam: REGULAR RHYTHM - GI/Abdominal Exam GI & Abdominal Exam: Normal Bowel Sounds Additional comments: peg in place - Rectal Exam Rectal Exam: NORMAL INSPECTION - Exam Exam: NORMAL INSPECTION - Extremities Exam Extremities Exam: Normal Capillary Refill - Back Exam Back Exam: NORMAL INSPECTION - Neurological Exam Neurological Exam: Oriented x3 - Psychiatric Exam Psychiatric exam: Normal Affect - Skin Skin Exam: Normal Color Assessment and Plan - Assessment and Plan (Free Text) Assessment: 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
--- NOTE | 2019-02-18 00:22 | CP.PCM.PN ---
Subjective - Date & Time of Evaluation Date of Evaluation: 02/17/19 Time of Evaluation: 23:15 - Subjective Subjective: Patient is non compliant with his medicine. He is weak. He is moved close to the nurses station for better observation. V.S. are normal. 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 No Syncopal spells are reported. Objective - Vital Signs/Intake and Output Vital Signs (last 24 hours): Temp Pulse Resp BP Pulse Ox 98.1 F 91 H 20 116/79 95 02/17/19 08:00 02/17/19 16:00 02/17/19 16:00 02/17/19 16:00 02/17/19 16:00 Intake and Output: 02/17/19 02/18/19 18:59 06:59 Intake Total 740 100 Balance 740 100 - Medications Medications: Current Medications Amlodipine Besylate (Norvasc) 10 mg PEG DAILY [facility] Last Admin: 02/17/19 09:50 Dose: Not Given Calcium Carbonate (Oscal) 500 mg PO BID [facility] Last Admin: 02/17/19 17:02 Dose: Not Given Docusate Sodium (Colace Liquid) 100 mg PO BID [facility] Last Admin: 02/17/19 17:01 Dose: Not Given Ergocalciferol (Drisdol 50,000 Intl Units Cap) 1 cap PO Q7D [facility] Mirtazapine (Remeron) 15 mg PEG HS [facility] Last Admin: 02/17/19 21:10 Dose: Not Given Saliva Substitute (First Magic Mouthwash) 5 ml PO QID [facility] Last Admin: 02/17/19 21:10 Dose: Not Given Simethicone (Mylicon Chew Tab) 80 mg PO Q6H PRN PRN Reason: GI distress Trazodone HCl (Desyrel) 50 mg GT HS [facility] Last Admin: 02/17/19 21:15 Dose: Not Given Valproate Sodium (Depakene Oral Soln) 250 mg PEG BID [facility] Last Admin: 02/17/19 17:01 Dose: Not Given - Labs Labs: 02/12/19 07:15 02/13/19 06:30 PT 13.9 SECONDS (9.7-12.2) H 02/12/19 07:15 INR 1.3 02/12/19 07:15 APTT 32 SECONDS (21-34) 02/12/19 07:15 Assessment and Plan (1) Abdominal pain Status: Acute (2) Acute pansinusitis Status: Acute (3) Alcohol abuse Status: Chronic (4) Alcohol intoxication Status: Chronic (5) Syncopal episodes Status: Acute
[2019-02-18 06:54] LABS: MEAN CORPUSCULAR HEMOGLOBIN 31.5 pg (27.0-31.0); MEAN CORPUSCULAR HGB CONC 33.9 g/dL (33.0-37.0); MEAN PLATELET VOLUME 10.7 fL (7.2-11.7); RBC 4.12 Mil/uL (4.40-5.90); RED CELL DISTRIBUTION WIDTH 16.7 % (11.5-14.5); WHITE BLOOD COUNT 5.8 K/uL (4.8-10.8)
[2019-02-18 07:17] LABS: ALBUMIN 3.7 g/dL (3.5-5.0); ALT/SGPT < 6 U/L (21-72); AST/SGOT 19 U/L (17-59); BLOOD UREA NITROGEN 25 mg/dL (9-20); CALCIUM 9.5 mg/dl (8.6-10.4); GFR NON-AFRICAN AMERICAN > 60
[2019-02-18] MEDS: Valproic Acid 250 mg/5 ml UD Cup PEG SCH ×2 (10:02→18:00)
[2019-02-18] MEDS: Mag&Al/Simet/Diphen/Lido 237 ML KIT PO SCH ×4 (10:02→21:31)
[2019-02-18] MEDS: Potassium Chloride 20 mEq/15 ml LIQ UD PO SCH ×2 (16:00→20:00)
[2019-02-18] MEDS: Acetaminophen 650mg/20.3ml solution UD GT PRN (16:00)
--- NOTE | 2019-02-18 17:01 | CP.PCM.PN ---
Subjective - Date & Time of Evaluation Date of Evaluation: 02/18/19 Time of Evaluation: 16:58 - Subjective Subjective: has rt today has less diarhea with ensure feels weeke and dizzy Objective - Vital Signs/Intake and Output Vital Signs (last 24 hours): Temp Pulse Resp BP Pulse Ox 97.6 F 81 20 112/76 97 02/18/19 16:08 02/18/19 16:08 02/18/19 16:08 02/18/19 16:08 02/18/19 16:08 Intake and Output: 02/18/19 02/18/19 06:59 18:59 Intake Total 100 650 Balance 100 650 - Medications Medications: Current Medications Acetaminophen (Tylenol 650mg/20.3ml Solution Ud) 650 mg GT Q6H PRN PRN Reason: Pain, moderate (4-7) Last Admin: 02/18/19 16:00 Dose: 650 mg Amlodipine Besylate (Norvasc) 10 mg PEG DAILY [facility] Last Admin: 02/18/19 10:02 Dose: Not Given Calcium Carbonate (Oscal) 500 mg PO BID [facility] Last Admin: 02/18/19 10:02 Dose: Not Given Docusate Sodium (Colace Liquid) 100 mg PO BID [facility] Last Admin: 02/18/19 10:02 Dose: Not Given Ergocalciferol (Drisdol 50,000 Intl Units Cap) 1 cap PO Q7D [facility] Mirtazapine (Remeron) 15 mg PEG HS [facility] Last Admin: 02/17/19 21:10 Dose: Not Given Potassium Chloride (Potassium Chloride Oral Soln) 40 meq PO Q4H [facility] Stop: 02/18/19 19:46 Last Admin: 02/18/19 16:00 Dose: 40 meq Saliva Substitute (First Magic Mouthwash) 5 ml PO QID [facility] Last Admin: 02/18/19 13:02 Dose: Not Given Simethicone (Mylicon Chew Tab) 80 mg PO Q6H PRN PRN Reason: GI distress Trazodone HCl (Desyrel) 50 mg GT HS [facility] Last Admin: 02/17/19 21:15 Dose: Not Given Valproate Sodium (Depakene Oral Soln) 250 mg PEG BID [facility] Last Admin: 02/18/19 10:02 Dose: Not Given - Labs Labs: 02/18/19 06:44 02/18/19 06:44 PT 13.9 SECONDS (9.7-12.2) H 02/12/19 07:15 INR 1.3 02/12/19 07:15 APTT 32 SECONDS (21-34) 02/12/19 07:15 - Constitutional Appears: Non-toxic - Head Exam Head Exam: ATRAUMATIC - Eye Exam Eye Exam: Normal appearance Pupil Exam: NORMAL ACCOMODATION - Neck Exam Neck Exam: Full ROM - Respiratory Exam Respiratory Exam: NORMAL BREATHING PATTERN - Cardiovascular Exam Cardiovascular Exam: REGULAR RHYTHM - GI/Abdominal Exam GI & Abdominal Exam: Normal Bowel Sounds Additional comments: peg tube - Exam Exam: NORMAL INSPECTION External exam: NORMAL EXTERNAL EXAM - Extremities Exam Extremities Exam: Full ROM - Back Exam Back Exam: NORMAL INSPECTION - Neurological Exam Neurological Exam: Alert, Awake, Normal Gait, Oriented x3 - Psychiatric Exam Psychiatric exam: Normal Affect - Skin Skin Exam: Normal Color Assessment and Plan - Assessment and Plan (Free Text) Assessment: dizziness weeke ca oesophogus s/p recurent syncope generalised weekness Plan: continu treatment
--- NOTE | 2019-02-19 01:47 | CP.PCM.PN ---
Subjective - Date & Time of Evaluation Date of Evaluation: 02/18/19 Time of Evaluation: 23:20 - Subjective Subjective: Patient remains nom compliant with his medicine. He refused most of his medicine. He received a session of Radiation therapy at [facility]. He walks around in his room. He received Potassium supplementation for his low Potassium and Tylenol for his Headache, otherwise he refused all other medications. He has less diarrhea while receiving Ensure. Objective - Vital Signs/Intake and Output Vital Signs (last 24 hours): Temp Pulse Resp BP Pulse Ox 97.6 F 81 20 112/76 97 02/18/19 16:08 02/18/19 16:08 02/18/19 16:08 02/18/19 16:08 02/18/19 16:08 Intake and Output: 02/18/19 02/19/19 18:59 06:59 Intake Total 650 Balance 650 - Medications Medications: Current Medications Acetaminophen (Tylenol 650mg/20.3ml Solution Ud) 650 mg GT Q6H PRN PRN Reason: Pain, moderate (4-7) Last Admin: 02/18/19 16:00 Dose: 650 mg Amlodipine Besylate (Norvasc) 10 mg PEG DAILY [facility] Last Admin: 02/18/19 10:02 Dose: Not Given Calcium Carbonate (Oscal) 500 mg PO BID [facility] Last Admin: 02/18/19 18:00 Dose: Not Given Docusate Sodium (Colace Liquid) 100 mg PO BID [facility] Last Admin: 02/18/19 18:00 Dose: Not Given Ergocalciferol (Drisdol 50,000 Intl Units Cap) 1 cap PO Q7D [facility] Mirtazapine (Remeron) 15 mg PEG HS [facility] Last Admin: 02/18/19 21:54 Dose: Not Given Saliva Substitute (First Magic Mouthwash) 5 ml PO QID [facility] Last Admin: 02/18/19 21:31 Dose: Not Given Simethicone (Mylicon Chew Tab) 80 mg PO Q6H PRN PRN Reason: GI distress Trazodone HCl (Desyrel) 50 mg GT HS [facility] Last Admin: 02/18/19 21:30 Dose: Not Given Valproate Sodium (Depakene Oral Soln) 250 mg PEG BID [facility] Last Admin: 02/18/19 18:00 Dose: Not Given - Labs Labs: 02/18/19 06:44 02/18/19 06:44 PT 13.9 SECONDS (9.7-12.2) H 02/12/19 07:15 INR 1.3 02/12/19 07:15 APTT 32 SECONDS (21-34) 02/12/19 07:15 Assessment and Plan (1) Abdominal pain Status: Acute (2) Acute pansinusitis Status: Acute (3) Alcohol abuse Status: Chronic (4) Alcohol intoxication Status: Chronic (5) Syncopal episodes Status: Acute
[2019-02-19] MEDS: Mag&Al/Simet/Diphen/Lido 237 ML KIT PO SCH ×4 (09:44→21:04)
[2019-02-19] MEDS: Valproic Acid 250 mg/5 ml UD Cup PEG SCH ×2 (09:44→17:12)
--- NOTE | 2019-02-19 12:24 | CP.PCM.PN ---
Subjective - Date & Time of Evaluation Date of Evaluation: 02/19/19 Time of Evaluation: 12:21 - Subjective Subjective: pain under ribs l side Objective - Vital Signs/Intake and Output Vital Signs (last 24 hours): Temp Pulse Resp BP Pulse Ox 97.8 F 100 H 20 111/82 95 02/19/19 05:30 02/19/19 05:30 02/19/19 05:30 02/19/19 05:30 02/19/19 05:30 Intake and Output: 02/19/19 02/19/19 06:59 18:59 Intake Total 400 Balance 400 - Medications Medications: Current Medications Acetaminophen (Tylenol 650mg/20.3ml Solution Ud) 650 mg GT Q6H PRN PRN Reason: Pain, moderate (4-7) Last Admin: 02/18/19 16:00 Dose: 650 mg Amlodipine Besylate (Norvasc) 10 mg PEG DAILY [facility] Last Admin: 02/19/19 09:43 Dose: 10 mg Calcium Carbonate (Oscal) 500 mg PO BID [facility] Last Admin: 02/19/19 09:44 Dose: Not Given Docusate Sodium (Colace Liquid) 100 mg PO BID [facility] Last Admin: 02/19/19 09:44 Dose: Not Given Ergocalciferol (Drisdol 50,000 Intl Units Cap) 1 cap PO Q7D [facility] Mirtazapine (Remeron) 15 mg PEG HS [facility] Last Admin: 02/18/19 21:54 Dose: Not Given Saliva Substitute (First Magic Mouthwash) 5 ml PO QID [facility] Last Admin: 02/19/19 09:44 Dose: Not Given Simethicone (Mylicon Chew Tab) 80 mg PO Q6H PRN PRN Reason: GI distress Trazodone HCl (Desyrel) 50 mg GT HS [facility] Last Admin: 02/18/19 21:30 Dose: Not Given Valproate Sodium (Depakene Oral Soln) 250 mg PEG BID [facility] Last Admin: 02/19/19 09:44 Dose: Not Given - Labs Labs: 02/18/19 06:44 02/18/19 06:44 PT 13.9 SECONDS (9.7-12.2) H 02/12/19 07:15 INR 1.3 02/12/19 07:15 APTT 32 SECONDS (21-34) 02/12/19 07:15 - Constitutional Appears: Non-toxic - Head Exam Head Exam: ATRAUMATIC - Eye Exam Pupil Exam: NORMAL ACCOMODATION - ENT Exam ENT Exam: Mucous Membranes Moist - Neck Exam Neck Exam: Full ROM - Respiratory Exam Respiratory Exam: Clear to Ausculation Bilateral - Cardiovascular Exam Cardiovascular Exam: REGULAR RHYTHM - GI/Abdominal Exam Additional comments: peg in place - Exam Exam: NORMAL INSPECTION - Extremities Exam Extremities Exam: Normal Inspection - Back Exam Back Exam: NORMAL INSPECTION - Neurological Exam Neurological Exam: Alert, Awake, Oriented x3 - Psychiatric Exam Psychiatric exam: Normal Affect - Skin Skin Exam: Normal Color Assessment and Plan - Assessment and Plan (Free Text) Assessment: pain under rib will do xray oesophogeal cancer cont radiation therapy s/p syncope generalised weekness homeless arrange for placement skilled nursing Plan: as ordered
[2019-02-19] MEDS: Acetaminophen 650mg/20.3ml solution UD GT PRN (16:01)
--- NOTE | 2019-02-19 23:56 | CP.PCM.PN ---
Subjective - Date & Time of Evaluation Date of Evaluation: 02/19/19 Time of Evaluation: 22:10 - Subjective Subjective: He feels pain in his ribs. An X Ray is ordered to R/O Mets No Syncopal spells. Normal V/S. No Syncopal spells. Objective - Vital Signs/Intake and Output Vital Signs (last 24 hours): Temp Pulse Resp BP Pulse Ox 98.1 F 84 20 113/78 96 02/19/19 23:41 02/19/19 23:41 02/19/19 23:41 02/19/19 23:41 02/19/19 23:41 Intake and Output: 02/19/19 02/20/19 18:59 06:59 Intake Total 400 350 Balance 400 350 - Medications Medications: Current Medications Acetaminophen (Tylenol 650mg/20.3ml Solution Ud) 650 mg GT Q6H PRN PRN Reason: Pain, moderate (4-7) Last Admin: 02/19/19 16:01 Dose: 650 mg Amlodipine Besylate (Norvasc) 10 mg PEG DAILY [facility] Last Admin: 02/19/19 09:43 Dose: 10 mg Calcium Carbonate (Oscal) 500 mg PO BID [facility] Last Admin: 02/19/19 17:12 Dose: Not Given Docusate Sodium (Colace Liquid) 100 mg PO BID [facility] Last Admin: 02/19/19 17:12 Dose: Not Given Ergocalciferol (Drisdol 50,000 Intl Units Cap) 1 cap PO Q7D [facility] Mirtazapine (Remeron) 15 mg PEG HS [facility] Last Admin: 02/19/19 21:04 Dose: Not Given Saliva Substitute (First Magic Mouthwash) 5 ml PO QID [facility] Last Admin: 02/19/19 21:04 Dose: Not Given Simethicone (Mylicon Chew Tab) 80 mg PO Q6H PRN PRN Reason: GI distress Trazodone HCl (Desyrel) 50 mg GT HS [facility] Last Admin: 02/19/19 21:04 Dose: Not Given Valproate Sodium (Depakene Oral Soln) 250 mg PEG BID [facility] Last Admin: 02/19/19 17:12 Dose: Not Given - Labs Labs: 02/18/19 06:44 02/18/19 06:44 PT 13.9 SECONDS (9.7-12.2) H 02/12/19 07:15 INR 1.3 02/12/19 07:15 APTT 32 SECONDS (21-34) 02/12/19 07:15 Assessment and Plan (1) Abdominal pain Status: Acute (2) Acute pansinusitis Status: Acute (3) Alcohol abuse Status: Chronic (4) Alcohol intoxication Status: Chronic (5) Syncopal episodes Status: Acute
[2019-02-20] MEDS: Mag&Al/Simet/Diphen/Lido 237 ML KIT PO SCH ×4 (09:32→21:18)
[2019-02-20] MEDS: Valproic Acid 250 mg/5 ml UD Cup PEG SCH ×2 (09:32→18:19)
[2019-02-20] MEDS: Acetaminophen 650mg/20.3ml solution UD GT PRN (09:43)
--- NOTE | 2019-02-20 10:56 | CP.PCM.PN ---
Subjective - Date & Time of Evaluation Date of Evaluation: 02/20/19 Time of Evaluation: 10:53 - Subjective Subjective: pt c/o of painbelow l rib very tender Objective - Vital Signs/Intake and Output Vital Signs (last 24 hours): Temp Pulse Resp BP Pulse Ox 98.1 F 70 20 107/71 95 02/20/19 05:30 02/20/19 05:30 02/20/19 05:30 02/20/19 05:30 02/20/19 05:30 Intake and Output: 02/20/19 02/20/19 06:59 18:59 Intake Total 350 400 Balance 350 400 - Medications Medications: Current Medications Acetaminophen (Tylenol 650mg/20.3ml Solution Ud) 650 mg GT Q6H PRN PRN Reason: Pain, moderate (4-7) Last Admin: 02/20/19 09:43 Dose: 650 mg Amlodipine Besylate (Norvasc) 10 mg PEG DAILY [facility] Last Admin: 02/20/19 09:32 Dose: Not Given Calcium Carbonate (Oscal) 500 mg PO BID [facility] Last Admin: 02/20/19 09:33 Dose: Not Given Docusate Sodium (Colace Liquid) 100 mg PO BID [facility] Last Admin: 02/20/19 09:58 Dose: 100 mg Ergocalciferol (Drisdol 50,000 Intl Units Cap) 1 cap PO Q7D [facility] Mirtazapine (Remeron) 15 mg PEG HS [facility] Last Admin: 02/19/19 21:04 Dose: Not Given Saliva Substitute (First Magic Mouthwash) 5 ml PO QID [facility] Last Admin: 02/20/19 09:32 Dose: Not Given Simethicone (Mylicon Chew Tab) 80 mg PO Q6H PRN PRN Reason: GI distress Trazodone HCl (Desyrel) 50 mg GT HS [facility] Last Admin: 02/19/19 21:04 Dose: Not Given Valproate Sodium (Depakene Oral Soln) 250 mg PEG BID [facility] Last Admin: 02/20/19 09:32 Dose: Not Given - Labs Labs: 02/18/19 06:44 02/18/19 06:44 PT 13.9 SECONDS (9.7-12.2) H 02/12/19 07:15 INR 1.3 02/12/19 07:15 APTT 32 SECONDS (21-34) 02/12/19 07:15 - Constitutional Appears: Non-toxic, In Acute Distress - Eye Exam Eye Exam: Normal appearance Pupil Exam: NORMAL ACCOMODATION - ENT Exam ENT Exam: Mucous Membranes Moist - Neck Exam Neck Exam: Full ROM - Respiratory Exam Respiratory Exam: Decreased Breath Sounds - Cardiovascular Exam Cardiovascular Exam: REGULAR RHYTHM - GI/Abdominal Exam GI & Abdominal Exam: Normal Bowel Sounds Additional comments: peg tube in place - Exam Exam: NORMAL INSPECTION - Extremities Exam Extremities Exam: Full ROM - Back Exam Back Exam: NORMAL INSPECTION - Neurological Exam Neurological Exam: Alert, Awake, Oriented x3 - Skin Skin Exam: Normal Color Assessment and Plan - Assessment and Plan (Free Text) Assessment: ac pain below l rib and tenderness Plan: xray and pain med
[2019-02-20] MEDS ORDERED: Oxycodone/Acetaminophen 5/325 mg Tab PO PRN (11:01)
[2019-02-20 11:47] LABS: BLOOD UREA NITROGEN 29 mg/dL (9-20); CALCIUM 9.8 mg/dl (8.6-10.4); GFR NON-AFRICAN AMERICAN 51
[2019-02-20] MEDS: Acetaminophen 650mg/20.3ml solution UD PO PRN (19:15)
--- NOTE | 2019-02-20 22:40 | CP.PCM.PN ---
Subjective - Date & Time of Evaluation Date of Evaluation: 02/20/19 Time of Evaluation: 21:50 - Subjective Subjective: He received his Radiation therapy session today at [facility]. He has normal Vital Signs. He keeps on refusing his medicine and accept only Tylenol. He is non compliant and does not follow nursing directions. Objective - Vital Signs/Intake and Output Vital Signs (last 24 hours): Temp Pulse Resp BP Pulse Ox 98.3 F 67 20 107/71 96 02/20/19 15:00 02/20/19 15:00 02/20/19 15:00 02/20/19 05:30 02/20/19 15:00 Intake and Output: 02/20/19 02/21/19 18:59 06:59 Intake Total 400 Balance 400 - Medications Medications: Current Medications Acetaminophen (Tylenol 650mg/20.3ml Solution Ud) 650 mg PO Q6 PRN PRN Reason: Pain, Mild (1-3) Last Admin: 02/20/19 19:15 Dose: 650 mg Amlodipine Besylate (Norvasc) 10 mg PEG DAILY [facility] [place] Last Admin: 02/20/19 09:32 Dose: Not Given Calcium Carbonate (Oscal) 500 mg PO BID [facility] Last Admin: 02/20/19 18:19 Dose: Not Given Docusate Sodium (Colace Liquid) 100 mg PO BID [facility] Last Admin: 02/20/19 18:19 Dose: Not Given Ergocalciferol (Drisdol 50,000 Intl Units Cap) 1 cap PO Q7D [facility] [place] Last Admin: 02/20/19 21:18 Dose: Not Given Mirtazapine (Remeron) 15 mg PEG HS [facility] Last Admin: 02/20/19 21:18 Dose: Not Given Oxycodone/Acetaminophen (Percocet 5/325 Mg Tab) 1 tab PO Q6H PRN PRN Reason: Pain, moderate (4-7) Stop: 02/23/19 11:02 Saliva Substitute (First Magic Mouthwash) 5 ml PO QID [facility] Last Admin: 02/20/19 21:18 Dose: Not Given Simethicone (Mylicon Chew Tab) 80 mg PO Q6H PRN PRN Reason: GI distress Trazodone HCl (Desyrel) 50 mg GT HS [facility] [place] Last Admin: 02/20/19 21:18 Dose: Not Given Valproate Sodium (Depakene Oral Soln) 250 mg PEG BID [facility] Last Admin: 02/20/19 18:19 Dose: Not Given - Labs Labs: 02/18/19 06:44 02/20/19 11:25 PT 13.9 SECONDS (9.7-12.2) H 02/12/19 07:15 INR 1.3 02/12/19 07:15 APTT 32 SECONDS (21-34) 02/12/19 07:15 Assessment and Plan (1) Abdominal pain Status: Acute (2) Acute pansinusitis Status: Acute (3) Alcohol abuse Status: Chronic (4) Alcohol intoxication Status: Chronic (5) Syncopal episodes Status: Acute
[2019-02-21] MEDS: Valproic Acid 250 mg/5 ml UD Cup PEG SCH ×3 (09:37→18:04)
[2019-02-21] MEDS: Mag&Al/Simet/Diphen/Lido 237 ML KIT PO SCH ×5 (09:37→21:34)
--- NOTE | 2019-02-21 16:48 | PCM.FALL ---
Post Fall Progress Note - Post Fall Fall Date: 02/21/19 Fall Time: 04:30 - Post Fall Exam Vital Sign: Temp Pulse Resp BP Pulse Ox 98.5 F 76 20 107/71 95 02/21/19 15:00 02/21/19 15:00 02/21/19 15:00 02/21/19 15:00 02/21/19 15:00 Skull Exam: Positive for: Scalp wound Eye Exam: Positive for: Pupils equal, Pupils reactive Ear Exam: Negative for: Discharge, Bleeding Nose Exam: Negative for: Discharge, Bleeding Skin Exam: Positive for: Lacerations (1 cm laceration to posteral scalp, with some blood surrounding.) Mouth Exam: Negative for: Tongue bitten, Teeth dislodge Neck Exam: Negative for: Tenderness, Tingling, Weakness Spinal Exam: Negative for: Tenderness, Tingling, Weakness Chest Exam: Negative for: Difficulty breathing, Tenderness in collar bones, Tenderness in ribs Abdomen Exam: Negative for: Tenderness Pelvic Exam: Negative for: Tenderness, Hematuria Arm Exam: Negative for: Deformity, Alteration in range of movement Leg Exam: Negative for: Deformity, Alteration in range of movement Impression/Plan: House doctor note. Code start called 4:30PM. Patient walking to bathroom when he felt dizzy, which he states occurs time to time and fell backward hitting the back of his head on the floor. Fall was witnessed by a bystander who corroborates the story. Unwitnessed by nurse, but nurses were nearby, heard the fall and found patient on the floor. +1cm posterior head lac, slight bleeding. Vitals post fall: 108/79, 96 SpO2 room air, 94 HR and 97.4 axillary temp. Patient AAOx3. No loss of consciousness, no neck pain. Slight pain to area of wound, otherwise no complaints. Head CT w/o contrast ordered stat. Patient refusing stitches and birdie, will clean wound and dress with gauze. Dr. Baker at bedside and aware, agrees with plan.
--- NOTE | 2019-02-21 17:00 | CP.PCM.PN ---
Subjective - Date & Time of Evaluation Date of Evaluation: 02/21/19 Time of Evaluation: 16:57 - Subjective Subjective: sliped and feell in bath room alert oriented no loss of coscios Objective - Vital Signs/Intake and Output Vital Signs (last 24 hours): Temp Pulse Resp BP Pulse Ox 98.5 F 76 20 107/71 95 02/21/19 15:00 02/21/19 15:00 02/21/19 15:00 02/21/19 15:00 02/21/19 15:00 Intake and Output: 02/21/19 02/21/19 06:59 18:59 Intake Total 650 300 Balance 650 300 - Medications Medications: Current Medications Acetaminophen (Tylenol 650mg/20.3ml Solution Ud) 650 mg PO Q6 PRN PRN Reason: Pain, Mild (1-3) Last Admin: 02/20/19 19:15 Dose: 650 mg Amlodipine Besylate (Norvasc) 10 mg PEG DAILY [facility] Last Admin: 02/21/19 10:55 Dose: 10 mg Calcium Carbonate (Oscal) 500 mg PO BID [facility] Last Admin: 02/21/19 10:56 Dose: Not Given Docusate Sodium (Colace Liquid) 100 mg PO BID [facility] Last Admin: 02/21/19 10:56 Dose: Not Given Ergocalciferol (Drisdol 50,000 Intl Units Cap) 1 cap PO Q7D [facility] Last Admin: 02/20/19 21:18 Dose: Not Given Mirtazapine (Remeron) 15 mg PEG HS [facility] Last Admin: 02/20/19 21:18 Dose: Not Given Oxycodone/Acetaminophen (Percocet 5/325 Mg Tab) 1 tab PO Q6H PRN PRN Reason: Pain, moderate (4-7) Stop: 02/23/19 11:02 Saliva Substitute (First Magic Mouthwash) 5 ml PO QID [facility] Last Admin: 02/21/19 13:42 Dose: 5 ml Simethicone (Mylicon Chew Tab) 80 mg PO Q6H PRN PRN Reason: GI distress Trazodone HCl (Desyrel) 50 mg GT HS [facility] Last Admin: 02/20/19 21:18 Dose: Not Given Valproate Sodium (Depakene Oral Soln) 250 mg PEG BID [facility] Last Admin: 02/21/19 10:56 Dose: Not Given - Labs Labs: 02/18/19 06:44 02/20/19 11:25 PT 13.9 SECONDS (9.7-12.2) H 02/12/19 07:15 INR 1.3 02/12/19 07:15 APTT 32 SECONDS (21-34) 02/12/19 07:15 - Constitutional Appears: Non-toxic - Head Exam Head Exam: ATRAUMATIC, NORMOCEPHALIC - Eye Exam Eye Exam: Normal appearance Pupil Exam: NORMAL ACCOMODATION - ENT Exam ENT Exam: Mucous Membranes Moist - Respiratory Exam Respiratory Exam: NORMAL BREATHING PATTERN - Cardiovascular Exam Cardiovascular Exam: REGULAR RHYTHM - GI/Abdominal Exam GI & Abdominal Exam: Normal Bowel Sounds Additional comments: peg tube in place - Rectal Exam Rectal Exam: NORMAL INSPECTION - Exam Exam: NORMAL INSPECTION - Back Exam Back Exam: NORMAL INSPECTION - Neurological Exam Neurological Exam: Alert, Awake, Normal Gait, Oriented x3 - Psychiatric Exam Psychiatric exam: Normal Affect - Skin Skin Exam: Normal Color Assessment and Plan - Assessment and Plan (Free Text) Assessment: s/f today recurent sycope oesophgeal cancer Plan: ct he
--- NOTE | 2019-02-21 17:59 | CT ---
Date of service: 02/21/2019 PROCEDURE: CT HEAD WITHOUT CONTRAST. HISTORY: s/p fall COMPARISON: Noncontrast head CT performed 01/12/18 TECHNIQUE: Axial computed tomography images were obtained through the head/brain without intravenous contrast. Radiation dose: Total exam DLP = 1044.13 mGy-cm. This CT exam was performed using one or more of the following dose reduction techniques: Automated exposure control, adjustment of the mA and/or kV according to patient size, and/or use of iterative reconstruction technique. FINDINGS: HEMORRHAGE: No intracranial hemorrhage. BRAIN: Diffuse atrophy with prominence of the ventricles and sulci noted. No mass effect or edema. Intracranial atherosclerosis. Scattered periventricular and subcortical white matter hypodensities, which are nonspecific, but often seen with chronic microvascular ischemic disease. Please note that MRI with diffusion imaging is more sensitive in the detection of acute ischemic event. VENTRICLES: No hydrocephalus. CALVARIUM: Unremarkable. PARANASAL SINUSES: Mucosal thickening of the ethmoid air cells and left frontal sinus. MASTOID AIR CELLS: Unremarkable as visualized. No inflammatory changes. OTHER FINDINGS: None. IMPRESSION: No acute intracranial pathology identified.
[2019-02-21] MEDS ORDERED: Bacitracin 500 Units/gm Oint Foilpak UD TOP ONE (19:33)
--- NOTE | 2019-02-22 00:29 | CP.PCM.PN ---
Subjective - Date & Time of Evaluation Date of Evaluation: 02/21/19 Time of Evaluation: 23:40 - Subjective Subjective: Patient fell in the bathroom on the back of the head and had lacerations. He was taken care of immediately and had a negative CT Brain, He is on a low dose of Depakote 250 mg BID, which is not enough to control any possible seizures. He needs a new EEG and should be placed on a medicine for seizures as he has been suffering from recurrent syncope and near syncope/ I will discuss the issue with Dr Germaine Baker in order to select the best choice of Anti Epileptic medicine. Normal V.S are documented. He has no signs of lateralization. He is still non compliant with his medicine. He received today his dose of Radiation Therapy at [facility]. Objective - Vital Signs/Intake and Output Vital Signs (last 24 hours): Temp Pulse Resp BP Pulse Ox 97.6 F 66 18 116/61 95 02/21/19 20:30 02/21/19 20:30 02/21/19 20:30 02/21/19 20:30 02/21/19 20:30 Intake and Output: 02/21/19 02/22/19 18:59 06:59 Intake Total 300 350 Balance 300 350 - Medications Medications: Current Medications Acetaminophen (Tylenol 650mg/20.3ml Solution Ud) 650 mg PO Q6 PRN PRN Reason: Pain, Mild (1-3) Last Admin: 02/20/19 19:15 Dose: 650 mg Amlodipine Besylate (Norvasc) 10 mg PEG DAILY [facility] Last Admin: 02/21/19 10:55 Dose: 10 mg Calcium Carbonate (Oscal) 500 mg PO BID [facility] Last Admin: 02/21/19 18:04 Dose: Not Given Docusate Sodium (Colace Liquid) 100 mg PO BID [facility] Last Admin: 02/21/19 18:04 Dose: Not Given Ergocalciferol (Drisdol 50,000 Intl Units Cap) 1 cap PO Q7D [facility] Last Admin: 02/20/19 21:18 Dose: Not Given Mirtazapine (Remeron) 15 mg PEG HS [facility] Last Admin: 02/21/19 21:37 Dose: 15 mg Oxycodone/Acetaminophen (Percocet 5/325 Mg Tab) 1 tab PO Q6H PRN PRN Reason: Pain, moderate (4-7) Stop: 02/23/19 11:02 Saliva Substitute (First Magic Mouthwash) 5 ml PO QID [facility] Last Admin: 02/21/19 21:34 Dose: Not Given Simethicone (Mylicon Chew Tab) 80 mg PO Q6H PRN PRN Reason: GI distress Trazodone HCl (Desyrel) 50 mg GT HS [facility] Last Admin: 02/21/19 21:37 Dose: 50 mg Valproate Sodium (Depakene Oral Soln) 250 mg PEG BID [facility] Last Admin: 02/21/19 18:04 Dose: Not Given - Labs Labs: 02/18/19 06:44 02/20/19 11:25 PT 13.9 SECONDS (9.7-12.2) H 02/12/19 07:15 INR 1.3 02/12/19 07:15 APTT 32 SECONDS (21-34) 02/12/19 07:15 Assessment and Plan (1) Abdominal pain Status: Acute (2) Acute pansinusitis Status: Acute (3) Alcohol abuse Status: Chronic (4) Alcohol intoxication Status: Chronic (5) Syncopal episodes Status: Acute
[2019-02-22] MEDS: Valproic Acid 250 mg/5 ml UD Cup PEG SCH ×2 (09:33→18:13)
[2019-02-22] MEDS: Mag&Al/Simet/Diphen/Lido 237 ML KIT PO SCH ×4 (09:34→21:09)
--- NOTE | 2019-02-22 12:50 | CP.PCM.PN ---
Subjective - Date & Time of Evaluation Date of Evaluation: 02/22/19 Time of Evaluation: 12:47 - Subjective Subjective: feels weeke Objective - Vital Signs/Intake and Output Vital Signs (last 24 hours): Temp Pulse Resp BP Pulse Ox 98.2 F 68 20 105/72 99 02/22/19 08:00 02/22/19 08:00 02/22/19 08:00 02/22/19 08:00 02/22/19 08:00 Intake and Output: 02/22/19 02/22/19 06:59 18:59 Intake Total 350 Balance 350 - Medications Medications: Current Medications Acetaminophen (Tylenol 650mg/20.3ml Solution Ud) 650 mg PO Q6 PRN PRN Reason: Pain, Mild (1-3) Last Admin: 02/20/19 19:15 Dose: 650 mg Amlodipine Besylate (Norvasc) 10 mg PEG DAILY [facility] Last Admin: 02/22/19 09:34 Dose: Not Given Calcium Carbonate (Oscal) 500 mg PO BID [facility] Last Admin: 02/22/19 09:34 Dose: Not Given Docusate Sodium (Colace Liquid) 100 mg PO BID [facility] Last Admin: 02/22/19 09:33 Dose: Not Given Ergocalciferol (Drisdol 50,000 Intl Units Cap) 1 cap PO Q7D [facility] Last Admin: 02/20/19 21:18 Dose: Not Given Mirtazapine (Remeron) 15 mg PEG HS [facility] Last Admin: 02/21/19 21:37 Dose: 15 mg Oxycodone/Acetaminophen (Percocet 5/325 Mg Tab) 1 tab PO Q6H PRN PRN Reason: Pain, moderate (4-7) Stop: 02/23/19 11:02 Saliva Substitute (First Magic Mouthwash) 5 ml PO QID [facility] Last Admin: 02/22/19 09:34 Dose: Not Given Simethicone (Mylicon Chew Tab) 80 mg PO Q6H PRN PRN Reason: GI distress Trazodone HCl (Desyrel) 50 mg GT HS [facility] Last Admin: 02/21/19 21:37 Dose: 50 mg Valproate Sodium (Depakene Oral Soln) 250 mg PEG BID [facility] Last Admin: 02/22/19 09:33 Dose: Not Given - Labs Labs: 02/18/19 06:44 02/20/19 11:25 PT 13.9 SECONDS (9.7-12.2) H 02/12/19 07:15 INR 1.3 02/12/19 07:15 APTT 32 SECONDS (21-34) 02/12/19 07:15 - Constitutional Appears: Non-toxic - Head Exam Head Exam: ATRAUMATIC - Eye Exam Eye Exam: Normal appearance Pupil Exam: NORMAL ACCOMODATION - ENT Exam ENT Exam: Mucous Membranes Moist - Neck Exam Neck Exam: Normal Inspection - Respiratory Exam Respiratory Exam: Clear to Ausculation Bilateral - Cardiovascular Exam Cardiovascular Exam: REGULAR RHYTHM - GI/Abdominal Exam GI & Abdominal Exam: Normal Bowel Sounds - Exam Exam: NORMAL INSPECTION - Extremities Exam Extremities Exam: Normal Inspection - Back Exam Back Exam: NORMAL INSPECTION - Neurological Exam Neurological Exam: Alert, Awake, Oriented x3 - Psychiatric Exam Psychiatric exam: Normal Affect - Skin Skin Exam: Normal Color Assessment and Plan - Assessment and Plan (Free Text) Assessment: weeke cancer oesophogus brain ischemia small vessel disead atrophy recurent syncope Plan: cont med arange for placement
--- NOTE | 2019-02-22 20:16 | CP.PCM.PN ---
Subjective - Date & Time of Evaluation Date of Evaluation: 02/22/19 Time of Evaluation: 20:08 - Subjective Subjective: No syncopal spells, no falling since his falling 2 days ago in the bathroom without LOC with scalp lacerations in the back of the scalp He is non compliant and does not follow directions. He refused his EEG and his Radiation Therapy today and Dr Germaine Baker is aware of that. I discussed his condition with Dr Germaine Baker. we will D/C Depakote and start Lamictal instead, which might help his seizures and his Paranoid Features, without a serious need for measuring Lamictal level, or CBC Diff for platelets or LFT, as Depakote affects the Platelets and the LFT. VS are normal. Objective - Vital Signs/Intake and Output Vital Signs (last 24 hours): Temp Pulse Resp BP Pulse Ox 98.2 F 68 20 105/72 99 02/22/19 08:00 02/22/19 08:00 02/22/19 08:00 02/22/19 08:00 02/22/19 08:00 - Medications Medications: Current Medications Acetaminophen (Tylenol 650mg/20.3ml Solution Ud) 650 mg PO Q6 PRN PRN Reason: Pain, Mild (1-3) Last Admin: 02/20/19 19:15 Dose: 650 mg Amlodipine Besylate (Norvasc) 10 mg PEG DAILY [facility] Last Admin: 02/22/19 09:34 Dose: Not Given Calcium Carbonate (Oscal) 500 mg PO BID [facility] Last Admin: 02/22/19 18:13 Dose: Not Given Docusate Sodium (Colace Liquid) 100 mg PO BID [facility] Last Admin: 02/22/19 18:13 Dose: Not Given Ergocalciferol (Drisdol 50,000 Intl Units Cap) 1 cap PO Q7D [facility] Last Admin: 02/20/19 21:18 Dose: Not Given Mirtazapine (Remeron) 15 mg PEG HS [facility] Last Admin: 02/21/19 21:37 Dose: 15 mg Oxycodone/Acetaminophen (Percocet 5/325 Mg Tab) 1 tab PO Q6H PRN PRN Reason: Pain, moderate (4-7) Stop: 02/23/19 11:02 Saliva Substitute (First Magic Mouthwash) 5 ml PO QID [facility] Last Admin: 02/22/19 18:13 Dose: Not Given Simethicone (Mylicon Chew Tab) 80 mg PO Q6H PRN PRN Reason: GI distress Trazodone HCl (Desyrel) 50 mg GT HS [facility] Last Admin: 02/21/19 21:37 Dose: 50 mg Valproate Sodium (Depakene Oral Soln) 250 mg PEG BID [facility] Last Admin: 02/22/19 18:13 Dose: Not Given - Labs Labs: 02/18/19 06:44 02/20/19 11:25 PT 13.9 SECONDS (9.7-12.2) H 02/12/19 07:15 INR 1.3 02/12/19 07:15 APTT 32 SECONDS (21-34) 02/12/19 07:15 Assessment and Plan (1) Abdominal pain Status: Acute (2) Acute pansinusitis Status: Acute (3) Alcohol abuse Status: Chronic (4) Alcohol intoxication Status: Chronic (5) Syncopal episodes Status: Acute
[2019-02-23 01:36] VITALS: RESP 20
[2019-02-23] MEDS: Mag&Al/Simet/Diphen/Lido 237 ML KIT PO SCH ×3 (10:31→21:12)
--- NOTE | 2019-02-23 10:37 | CP.PCM.PN ---
Subjective - Date & Time of Evaluation Date of Evaluation: 02/23/19 Time of Evaluation: 10:34 - Subjective Subjective: pt c/o of dizziness loose balance weeke Objective - Vital Signs/Intake and Output Vital Signs (last 24 hours): Temp Pulse Resp BP Pulse Ox 98.4 F 80 20 90/66 L 97 02/23/19 00:00 02/23/19 00:00 02/23/19 00:00 02/23/19 00:00 02/23/19 00:00 Intake and Output: 02/23/19 02/23/19 06:59 18:59 Intake Total 550 Balance 550 - Medications Medications: Current Medications Acetaminophen (Tylenol 650mg/20.3ml Solution Ud) 650 mg PO Q6 PRN PRN Reason: Pain, Mild (1-3) Last Admin: 02/20/19 19:15 Dose: 650 mg Amlodipine Besylate (Norvasc) 10 mg PEG DAILY [facility] Last Admin: 02/22/19 09:34 Dose: Not Given Aspirin (Aspirin Chewable) 81 mg PO DAILY [facility] Calcium Carbonate (Oscal) 500 mg PO BID [facility] Last Admin: 02/22/19 18:13 Dose: Not Given Docusate Sodium (Colace Liquid) 100 mg PO BID [facility] Last Admin: 02/22/19 18:13 Dose: Not Given Ergocalciferol (Drisdol 50,000 Intl Units Cap) 1 cap PO Q7D [facility] Last Admin: 02/20/19 21:18 Dose: Not Given Lamotrigine (Lamictal) 25 mg PO Q12 [facility] Stop: 03/01/19 10:01 Last Admin: 02/22/19 22:08 Dose: Not Given Lamotrigine (Lamictal) 50 mg PO Q12H [facility] Lamotrigine (Lamictal) 75 mg PO Q12H [facility] Mirtazapine (Remeron) 15 mg PEG HS [facility] Last Admin: 02/22/19 21:51 Dose: Not Given Oxycodone/Acetaminophen (Percocet 5/325 Mg Tab) 1 tab PO Q6H PRN PRN Reason: Pain, moderate (4-7) Stop: 02/23/19 11:02 Saliva Substitute (First Magic Mouthwash) 5 ml PO QID [facility] Last Admin: 02/22/19 21:09 Dose: Not Given Simethicone (Mylicon Chew Tab) 80 mg PO Q6H PRN PRN Reason: GI distress Trazodone HCl (Desyrel) 50 mg GT HS [facility] Last Admin: 02/22/19 21:51 Dose: Not Given Vitamin B Complex/Vit C/Folic Acid (Nephro-Delgado) 1 tab PO 0800 [facility] - Labs Labs: 02/18/19 06:44 02/20/19 11:25 PT 13.9 SECONDS (9.7-12.2) H 02/12/19 07:15 INR 1.3 02/12/19 07:15 APTT 32 SECONDS (21-34) 02/12/19 07:15 - Constitutional Appears: In Acute Distress - Head Exam Head Exam: ATRAUMATIC - Eye Exam Eye Exam: Normal appearance Pupil Exam: NORMAL ACCOMODATION - ENT Exam ENT Exam: Mucous Membranes Moist - Neck Exam Neck Exam: Full ROM - Respiratory Exam Respiratory Exam: Decreased Breath Sounds - Cardiovascular Exam Cardiovascular Exam: REGULAR RHYTHM - Exam Exam: NORMAL INSPECTION - Back Exam Back Exam: NORMAL INSPECTION - Neurological Exam Neurological Exam: Alert, Awake, Oriented x3 - Psychiatric Exam Psychiatric exam: Anxious - Skin Skin Exam: Normal Color Assessment and Plan - Assessment and Plan (Free Text) Assessment: oesophobus week recurent syncope brain small vessel ischemia brain atrophy Plan: ordered asa vitamins cont curent tretment
--- NOTE | 2019-02-23 20:16 | CP.PCM.PN ---
Subjective - Date & Time of Evaluation Date of Evaluation: 02/23/19 Time of Evaluation: 20:09 - Subjective Subjective: He developed a new near syncopal spell at the nursing station and was transferred to his room in a wheel chair. Like usual he was objecting having any blood work or help. His V.S are normal and he has a History of Alcohol abuse and cancer Esophagus. He was started on Po Lamictal 25 mg Q 12 hrs that can help seizures and behavioral problems, as paranoia, Bipolar disorder as well as other problems that might be a factor in his condition of being non compliant, combative and refusing his medicine. He has to continue his Radiation Therapy for cancer Esophagus. Objective - Vital Signs/Intake and Output Vital Signs (last 24 hours): Temp Pulse Resp BP Pulse Ox 98.4 F 80 20 90/66 L 97 02/23/19 00:00 02/23/19 00:00 02/23/19 00:00 02/23/19 00:00 02/23/19 00:00 Intake and Output: 02/23/19 02/24/19 18:59 06:59 Intake Total 150 Balance 150 - Medications Medications: Current Medications Acetaminophen (Tylenol 650mg/20.3ml Solution Ud) 650 mg PO Q6 PRN PRN Reason: Pain, Mild (1-3) Last Admin: 02/20/19 19:15 Dose: 650 mg Amlodipine Besylate (Norvasc) 10 mg PEG DAILY [facility] Last Admin: 02/23/19 10:31 Dose: Not Given Aspirin (Aspirin Chewable) 81 mg PO DAILY [facility] Last Admin: 02/23/19 10:44 Dose: 81 mg Calcium Carbonate (Oscal) 500 mg PO BID [facility] Last Admin: 02/23/19 17:18 Dose: Not Given Docusate Sodium (Colace Liquid) 100 mg PO BID [facility] Last Admin: 02/23/19 17:17 Dose: Not Given Ergocalciferol (Drisdol 50,000 Intl Units Cap) 1 cap PO Q7D [facility] Last Admin: 02/20/19 21:18 Dose: Not Given Lamotrigine (Lamictal) 25 mg PO Q12 [facility] Stop: 03/01/19 10:01 Last Admin: 02/23/19 10:44 Dose: 25 mg Lamotrigine (Lamictal) 50 mg PO Q12H [facility] Lamotrigine (Lamictal) 75 mg PO Q12H [facility] Mirtazapine (Remeron) 15 mg PEG HS [facility] Last Admin: 02/22/19 21:51 Dose: Not Given Saliva Substitute (First Magic Mouthwash) 5 ml PO QID [facility] Last Admin: 02/23/19 17:17 Dose: Not Given Simethicone (Mylicon Chew Tab) 80 mg PO Q6H PRN PRN Reason: GI distress Trazodone HCl (Desyrel) 50 mg GT HS [facility] Last Admin: 02/22/19 21:51 Dose: Not Given Vitamin B Complex/Vit C/Folic Acid (Nephro-Delgado) 1 tab PO 0800 [facility] - Labs Labs: 02/18/19 06:44 02/20/19 11:25 PT 13.9 SECONDS (9.7-12.2) H 02/12/19 07:15 INR 1.3 02/12/19 07:15 APTT 32 SECONDS (21-34) 02/12/19 07:15 Assessment and Plan (1) Abdominal pain Status: Acute (2) Acute pansinusitis Status: Acute (3) Alcohol abuse Status: Chronic (4) Alcohol intoxication Status: Chronic (5) Syncopal episodes Status: Acute
[2019-02-24] MEDS: Multivitamin Vitamin B Complex (Nephro-Vite) Tab PO SCH ×2 (09:06→11:05)
[2019-02-24] MEDS: Mag&Al/Simet/Diphen/Lido 237 ML KIT PO SCH ×4 (10:13→21:25)
--- NOTE | 2019-02-24 10:42 | CP.PCM.PN ---
Subjective - Date & Time of Evaluation Date of Evaluation: 02/24/19 Time of Evaluation: 10:39 - Subjective Subjective: pt weeke gets dizzy recurent syncope on tretment for cancer oesophogus Objective - Vital Signs/Intake and Output Vital Signs (last 24 hours): Temp Pulse Resp BP Pulse Ox 98.4 F 72 20 134/83 97 02/23/19 23:58 02/23/19 23:58 02/23/19 23:58 02/23/19 23:58 02/23/19 23:58 Intake and Output: 02/24/19 02/24/19 06:59 18:59 Intake Total 300 Balance 300 - Medications Medications: Current Medications Acetaminophen (Tylenol 650mg/20.3ml Solution Ud) 650 mg PO Q6 PRN PRN Reason: Pain, Mild (1-3) Last Admin: 02/20/19 19:15 Dose: 650 mg Amlodipine Besylate (Norvasc) 10 mg PEG DAILY [facility] Last Admin: 02/24/19 10:04 Dose: Not Given Aspirin (Aspirin Chewable) 81 mg PO DAILY [facility] Last Admin: 02/24/19 10:04 Dose: 81 mg Calcium Carbonate (Oscal) 500 mg PO BID [facility] Last Admin: 02/24/19 10:05 Dose: 500 mg Docusate Sodium (Colace Liquid) 100 mg PO BID [facility] Last Admin: 02/24/19 10:05 Dose: 100 mg Ergocalciferol (Drisdol 50,000 Intl Units Cap) 1 cap PO Q7D [facility] Last Admin: 02/20/19 21:18 Dose: Not Given Lamotrigine (Lamictal) 25 mg PO Q12 [facility] Stop: 03/01/19 10:01 Last Admin: 02/24/19 10:08 Dose: 25 mg Lamotrigine (Lamictal) 50 mg PO Q12H [facility] Lamotrigine (Lamictal) 75 mg PO Q12H [facility] Mirtazapine (Remeron) 15 mg PEG HS [facility] Last Admin: 02/23/19 21:12 Dose: Not Given Saliva Substitute (First Magic Mouthwash) 5 ml PO QID [facility] Last Admin: 02/24/19 10:13 Dose: 5 ml Simethicone (Mylicon Chew Tab) 80 mg PO Q6H PRN PRN Reason: GI distress Trazodone HCl (Desyrel) 50 mg GT HS [facility] Last Admin: 02/23/19 21:12 Dose: Not Given Vitamin B Complex/Vit C/Folic Acid (Nephro-Delgado) 1 tab PO 0800 [facility] Last Admin: 02/24/19 09:06 Dose: Not Given - Labs Labs: 02/18/19 06:44 02/20/19 11:25 PT 13.9 SECONDS (9.7-12.2) H 02/12/19 07:15 INR 1.3 02/12/19 07:15 APTT 32 SECONDS (21-34) 02/12/19 07:15 - Constitutional Appears: Non-toxic - Head Exam Head Exam: ATRAUMATIC - Eye Exam Eye Exam: Normal appearance Pupil Exam: NORMAL ACCOMODATION - ENT Exam ENT Exam: Mucous Membranes Moist - Neck Exam Neck Exam: Full ROM - Respiratory Exam Respiratory Exam: Clear to Ausculation Bilateral - Cardiovascular Exam Cardiovascular Exam: REGULAR RHYTHM - GI/Abdominal Exam Additional comments: peg tube in place - Exam Exam: NORMAL INSPECTION - Neurological Exam Neurological Exam: Abnormal Gait, Alert, Awake, Oriented x3 - Psychiatric Exam Psychiatric exam: Normal Affect - Skin Skin Exam: Normal Color Assessment and Plan - Assessment and Plan (Free Text) Assessment: generalised weekness recurent sycope iscimic brain ca oesophogus Plan: continu treatment arrange for [facility] placement rehab
--- NOTE | 2019-02-24 22:01 | CP.PCM.PN ---
Subjective - Date & Time of Evaluation Date of Evaluation: 02/24/19 Time of Evaluation: 21:58 - Subjective Subjective: He is weak and non compliant. There are plans for placement in a [facility] Rehab for further care and management. No reported new syncopal spells. He is supposed to stay on Lamictal for 2 years after the last spell of syncope with at least a dose of 150 mg Q 12 hrs up to 250 mg Q 12 hrs. P/E is unchanged. Objective - Vital Signs/Intake and Output Vital Signs (last 24 hours): Temp Pulse Resp BP Pulse Ox 98.6 F 66 20 106/73 97 02/24/19 15:00 02/24/19 15:00 02/24/19 15:00 02/24/19 15:00 02/24/19 15:00 Intake and Output: 02/24/19 02/25/19 18:59 06:59 Intake Total 200 Balance 200 - Medications Medications: Current Medications Acetaminophen (Tylenol 650mg/20.3ml Solution Ud) 650 mg PO Q6 PRN PRN Reason: Pain, Mild (1-3) Last Admin: 02/20/19 19:15 Dose: 650 mg Amlodipine Besylate (Norvasc) 10 mg PEG DAILY [facility] Last Admin: 02/24/19 10:04 Dose: Not Given Aspirin (Aspirin Chewable) 81 mg PO DAILY [facility] Last Admin: 02/24/19 10:04 Dose: 81 mg Calcium Carbonate (Oscal) 500 mg PO BID [facility] Last Admin: 02/24/19 17:31 Dose: 500 mg Docusate Sodium (Colace Liquid) 100 mg PO BID [facility] Last Admin: 02/24/19 17:31 Dose: Not Given Ergocalciferol (Drisdol 50,000 Intl Units Cap) 1 cap PO Q7D [facility] Last Admin: 02/20/19 21:18 Dose: Not Given Lamotrigine (Lamictal) 25 mg PO Q12 [facility] Stop: 03/01/19 10:01 Last Admin: 02/24/19 21:19 Dose: 25 mg Lamotrigine (Lamictal) 50 mg PO Q12H [facility] Lamotrigine (Lamictal) 75 mg PO Q12H [facility] Mirtazapine (Remeron) 15 mg PEG HS [facility] Last Admin: 02/24/19 21:20 Dose: 15 mg Saliva Substitute (First Magic Mouthwash) 5 ml PO QID [facility] Last Admin: 02/24/19 21:25 Dose: Not Given Simethicone (Mylicon Chew Tab) 80 mg PO Q6H PRN PRN Reason: GI distress Trazodone HCl (Desyrel) 50 mg GT HS [facility] Last Admin: 02/24/19 21:22 Dose: 50 mg Vitamin B Complex/Vit C/Folic Acid (Nephro-Delgado) 1 tab PO 0800 [facility] Last Admin: 02/24/19 11:05 Dose: 1 tab - Labs Labs: 02/18/19 06:44 02/20/19 11:25 PT 13.9 SECONDS (9.7-12.2) H 02/12/19 07:15 INR 1.3 02/12/19 07:15 APTT 32 SECONDS (21-34) 02/12/19 07:15 Assessment and Plan (1) Abdominal pain Status: Acute (2) Acute pansinusitis Status: Acute (3) Alcohol abuse Status: Chronic (4) Alcohol intoxication Status: Chronic (5) Syncopal episodes Status: Acute
[2019-02-25] MEDS: Multivitamin Vitamin B Complex (Nephro-Vite) Tab PO SCH (08:36)
[2019-02-25] MEDS: Mag&Al/Simet/Diphen/Lido 237 ML KIT PO SCH ×3 (11:00→21:19)
--- NOTE | 2019-02-25 23:13 | PN ---
DATE: 02/25/2019 SUBJECTIVE: The patient was seen and examined at the bedside on 02/25/2019. The patient is still on one-to-one, feeling dizzy, history of fall. A CAT scan of the head was done. Neurologist is on the case. No fever, no chills, no hematuria, no hematochezia. Feeling fatigued and tired. PHYSICAL EXAMINATION: VITAL SIGNS: Temperature 98.4, pulse 72, respiratory rate 20, blood pressure 130/80, pulse oximetry 97%. HEENT: Head: Normocephalic, atraumatic. Eyes: PERRLA. Extraocular movements are intact. Conjunctivae clear. Nose patent. Mucous membranes moist. NECK: Supple. No carotid bruits. No JVD or thyromegaly. CHEST: Bilaterally symmetrical. HEART: S1, S2 positive. LUNGS: Clear to auscultation. ABDOMEN: Soft. Bowel sounds present. No organomegaly. EXTREMITIES: No edema. No cyanosis. NEUROLOGIC: The patient is awake, alert, follows simple commands. MEDICATIONS: Tylenol, amlodipine, aspirin, calcium, docusate, vitamin D, Lamictal, Remeron, and vitamins. LABORATORY DATA: White blood cells 5.8, hemoglobin 13, hematocrit 38.3, platelets 204. Sodium 150, potassium 3.9, BUN 27, creatinine 1.4, and glucose 131. ASSESSMENT AND PLAN: Mr. Sandro Miranda is a 63-year-old male with hyperglycemia, generalized weakness, fatigue, recurrent syncopal attack, carcinoma of esophagus, getting radiation therapy. We will put re-consult with Dr. Gonzalez for chemotherapy. The patient is at risk of aspiration pneumonia, that is why he is on clear liquid diet, has jejunostomy tube placement, getting feeding with the jejunostomy tube. Appreciate Dr. Germaine Baker's help. Dr. Maggi Stephens, neurologist is on the case. Fall precautions, repeat laboratories. We will follow up. Hillary Pastor MD
--- NOTE | 2019-02-25 23:50 | CP.PCM.PN ---
Subjective - Date & Time of Evaluation Date of Evaluation: 02/25/19 Time of Evaluation: 22:30 - Subjective Subjective: Patient is still non compliant and refusing to take his medicine. He could not get his radiation therapy as the machine was broken. There are no reported seizures or syncopal spells. Objective - Vital Signs/Intake and Output Vital Signs (last 24 hours): Temp Pulse Resp BP Pulse Ox 98.1 F 88 20 109/78 95 02/25/19 16:25 02/25/19 16:25 02/25/19 16:25 02/25/19 16:25 02/25/19 16:25 Intake and Output: 02/25/19 02/26/19 18:59 06:59 Intake Total 240 250 Balance 240 250 - Medications Medications: Current Medications Acetaminophen (Tylenol 650mg/20.3ml Solution Ud) 650 mg PO Q6 PRN PRN Reason: Pain, Mild (1-3) Last Admin: 02/20/19 19:15 Dose: 650 mg Amlodipine Besylate (Norvasc) 10 mg PEG DAILY [facility] Last Admin: 02/25/19 11:00 Dose: 10 mg Aspirin (Aspirin Chewable) 81 mg PO DAILY [facility] Last Admin: 02/25/19 11:00 Dose: 81 mg Calcium Carbonate (Oscal) 500 mg PO BID [facility] Last Admin: 02/25/19 17:14 Dose: Not Given Docusate Sodium (Colace Liquid) 100 mg PO BID [facility] Last Admin: 02/25/19 17:14 Dose: Not Given Ergocalciferol (Drisdol 50,000 Intl Units Cap) 1 cap PO Q7D [facility] Last Admin: 02/20/19 21:18 Dose: Not Given Lamotrigine (Lamictal) 25 mg PO Q12 [facility] Stop: 03/01/19 10:01 Last Admin: 02/25/19 21:19 Dose: Not Given Lamotrigine (Lamictal) 50 mg PO Q12H [facility] Lamotrigine (Lamictal) 75 mg PO Q12H [facility] Mirtazapine (Remeron) 15 mg PEG HS [facility] Last Admin: 02/25/19 21:20 Dose: Not Given Multivitamins/Vitamin C (Multi-Delyn Liquid) 10 ml PO DAILY [facility] Saliva Substitute (First Magic Mouthwash) 5 ml PO QID [facility] Last Admin: 02/25/19 21:19 Dose: Not Given Simethicone (Mylicon Chew Tab) 80 mg PO Q6H PRN PRN Reason: GI distress Trazodone HCl (Desyrel) 50 mg GT HS [facility] Last Admin: 02/25/19 21:19 Dose: Not Given - Labs Labs: 02/18/19 06:44 02/20/19 11:25 PT 13.9 SECONDS (9.7-12.2) H 02/12/19 07:15 INR 1.3 02/12/19 07:15 APTT 32 SECONDS (21-34) 02/12/19 07:15 Assessment and Plan (1) Abdominal pain Status: Acute (2) Acute pansinusitis Status: Acute (3) Alcohol abuse Status: Chronic (4) Alcohol intoxication Status: Chronic (5) Syncopal episodes Status: Acute
[2019-02-26] MEDS ORDERED: Multiple Vitamins Oral Solution PO SCH (10:00)
[2019-02-26] MEDS: Mag&Al/Simet/Diphen/Lido 237 ML KIT PO SCH ×2 (10:32→17:26)
[2019-02-26 16:25] VITALS: BP 106/70; PULSE 67; TEMP 98.8; O2SAT 97
[2019-02-26] MEDS: Acetaminophen 650mg/20.3ml solution UD PO PRN (19:48)
--- NOTE | 2019-02-26 21:12 | PN ---
DATE: 02/26/2019 SUBJECTIVE: The patient is a 63-year-old male. The patient was seen and examined at the bedside on 02/26/2019. Looking comfortable. The patient is still noncompliant, refusing taking his medication and eating whatever he wants to eat. Yesterday, he missed his radiation therapy because machine was broken, but today he got his radiation therapy early in the morning, still on one-to-one for fall precautions. No fever, no chills, no hematuria, no hematochezia. No headache or dizziness. No chest pain. No palpitation. PHYSICAL EXAMINATION: VITAL SIGNS: Temperature 98.1, pulse 88, respiratory rate 20, blood pressure 109/78, pulse oximetry 95%. HEENT: Head: Normocephalic, atraumatic. Eyes: PERRLA. Extraocular movements are intact. Conjunctivae clear. Nose patent. Mucous membranes moist. NECK: Supple. No carotid bruits. No JVD or thyromegaly. CHEST: Bilaterally symmetrical. HEART: S1, S2 positive. LUNGS: Clear to auscultation. ABDOMEN: Soft. Bowel sounds present. No organomegaly. EXTREMITIES: No edema. No cyanosis. NEUROLOGIC: The patient is awake, alert. Moving all four extremities. No focal deficits. MEDICATIONS: Tylenol, amlodipine, aspirin, Os-Maximino, docusate, vitamin D, Lamictal, Mylicon and trazodone. LABORATORY DATA: We do not have recent labs today because the patient is constantly refusing the labs. ASSESSMENT AND PLAN: Mr. Sandro Miranda is a 63-year-old male who came with abdominal pain, acute pansinusitis, history of alcohol abuse, alcohol intoxication, syncopal episode, ataxia, history of falling, has squamous cell carcinoma of esophageus, getting radiation therapy. Chemotherapy is pending because of the patient's noncompliance. Feeling fatigued and tired. Out of bed, physical therapy. Gastrointestinal and deep venous thrombosis prophylaxis. We will follow up. Hillary Pastor MD MTDJohn
--- NOTE | 2019-02-26 23:33 | CP.PCM.PN ---
Subjective - Date & Time of Evaluation Date of Evaluation: 02/26/19 Time of Evaluation: 20:45 - Subjective Subjective: Patient is still non compliant. He was transferred to a Rehab facility at [facility] for further management. There is no further syncopal dpells. He is supposed to continue his Lamictal for syncopal spells and behavioral di fficulties. Objective - Vital Signs/Intake and Output Vital Signs (last 24 hours): Temp Pulse Resp BP Pulse Ox 98.8 F 67 20 106/70 97 02/26/19 16:23 02/26/19 16:23 02/26/19 16:23 02/26/19 16:23 02/26/19 16:23 Intake and Output: 02/26/19 02/27/19 18:59 06:59 Intake Total 420 Balance 420 - Labs Labs: 02/18/19 06:44 02/20/19 11:25 PT 13.9 SECONDS (9.7-12.2) H 02/12/19 07:15 INR 1.3 02/12/19 07:15 APTT 32 SECONDS (21-34) 02/12/19 07:15 Assessment and Plan (1) Abdominal pain Status: Acute (2) Acute pansinusitis Status: Acute (3) Alcohol abuse Status: Chronic (4) Alcohol intoxication Status: Chronic (5) Syncopal episodes Status: Acute
== END 2019-02-26 21:23 | DRG 172 ==
LOC: C.ER 10:51 → C.9E 14:30 → C.3T 15:46
PROVIDERS: ADMIT Internal Medicine; ATTEND Internal Medicine
PROC: DDY Radiation Therapy, Gastrointestinal System, Other Radiation (ICD-10-PCS; principal; 2019-02-26)
DX: C15.9 Malignant neoplasm of esophagus, unspecified (principal); E86.0 Dehydration; E87.6 Hypokalemia; R55 Syncope and collapse; F10.129 Alcohol abuse with intoxication, unspecified; R62.7 Adult failure to thrive; Z59.0 Homelessness; N40.0 Benign prostatic hyperplasia without lower urinary tract symptoms; Z91.19 Patient's noncompliance with other medical treatment and regimen; R63.4 Abnormal weight loss; Z86.73 Personal history of transient ischemic attack (TIA), and cerebral infarction without residual deficits; I10 Essential (primary) hypertension; F31.9 Bipolar disorder, unspecified; Z93.1 Gastrostomy status; J01.40 Acute pansinusitis, unspecified; D63.0 Anemia in neoplastic disease; I67.82 Cerebral ischemia; S01.00XA Unspecified open wound of scalp, initial encounter; W18.30XA Fall on same level, unspecified, initial encounter

== ENCOUNTER 2019-03-15 11:02 | Emergency (ER) | payer MEDICAID ==
[2019-03-15 11:13] VITALS: BMI 23.1
[2019-03-15 11:46] VITALS: O2SAT 95
--- NOTE | 2019-03-15 12:13 | C.PDOC ---
History Of Present Illness 64 yr old M w/ hx of squamos cell CA currently on radiation therapy p/w Benign Prostatic Hyperplasia, Depression, Gastritis, HTN p/w dypshagia. PT notes dysphagia since yesterday with difficulty swallowing solids. He notes ability to swallow fluids. He denies any throat pain or rash. He denies any trauma or fall. He notes recent radiation therapy to his chest for squamous cell CA. Pt also notes painful urination and is concerned he might have a urinary tract infection. No rash or ulcer. No fall or trauma. No recent sexual activity. No Back pain or tenderness. No abdominal pain. No other complaints. PMD: [place] Time Seen by Provider: 03/15/19 12:03 Chief Complaint (Nursing): ENT Problem Past Medical History Vital Signs: Last Vital Signs Temp 97.6 F 03/15/19 11:46 Pulse 68 03/15/19 11:46 Resp 22 03/15/19 11:46 BP 119/82 03/15/19 11:46 Pulse Ox 95 03/15/19 11:46 Primary Care Provider: Hillary Pastor - Medical History PMH: Benign Prostatic Hyperplasia, Depression, Gastritis, HTN Denies: Diabetes, Hepatitis, HIV, Chronic Kidney Disease, Seizures, Sexually Transmitted Disease Surgical History: Appendectomy - [facility] Procedures ALCOHOL DETOXIFICATION (07/27/14) CONTACT RADIATION OF ESOPHAGUS (02/09/19) DETOXIFICATION SERVICES FOR SUBSTANCE ABUSE TREATMENT (10/11/17) INSERT VAD RESERVOIR IN CHEST SUBCU/FASCIA, PERC (12/25/18) INSERTION OF FEEDING DEVICE INTO JEJUNUM, PERC APPROACH (12/25/18) INSPECTION OF UPPER INTESTINAL TRACT, ENDO (12/25/18) INTRODUCTION OF NUTRITIONAL INTO LOW GI, VIA OPENING (12/25/18) TRANSFUSE NONAUT RED BLOOD CELLS IN PERIPH VEIN, PERC (10/26/17) Family History: States: Unknown Family Hx - Social History Hx Tobacco Use: No Hx Alcohol Use: No Hx Substance Use: No - Immunization History Hx Tetanus Toxoid Vaccination: No Hx Influenza Vaccination: Yes Hx Pneumococcal Vaccination: No Review Of Systems Constitutional: Negative for: Fever, Chills, Weakness Eyes: Negative for: Pain, Vision Change ENT: Positive for: Throat Pain. Negative for: Ear Pain, Ear Discharge, Nose Congestion, Mouth Pain Cardiovascular: Negative for: Chest Pain, Palpitations, Orthopnea, Edema Respiratory: Negative for: Cough, Shortness of Breath, SOB with Excertion, Pleuritic Pain Gastrointestinal: Negative for: Nausea, Vomiting, Abdominal Pain, Constipation, Melena Genitourinary: Positive for: Dysuria. Negative for: Frequency, Incontinence, Hematuria, Penile Discharge, Scrotal Pain, Rash, Penile Pain Musculoskeletal: Negative for: Neck Pain Skin: Negative for: Rash, Lesions, Jaundice Neurological: Negative for: Weakness, Numbness Physical Exam - Physical Exam Appears: Well, No Acute Distress Skin: Normal Color, Warm, Dry Head: Atraumatic, Normacephalic Eye(s): bilateral: Normal Inspection, PERRL, EOMI Nose: Normal Oral Mucosa: Moist Tongue: Normal Appearing Throat: Normal, No Erythema, No Exudate, No Drooling, No Mass Neck: Normal, Normal ROM, No Midline Cervical Tenderness, Supple, Other (no meningeal signs) Chest: No Deformity, Other (R port site c/d/i, no redness or crepitus or pain) Cardiovascular: Rhythm Regular, No Edema, No JVD Respiratory: Normal Breath Sounds Gastrointestinal/Abdominal: Soft, No Tenderness, No Mass, No Distention, No Guarding, Other (Peg tube noted, no blockage noted, no crepitus or erythema to peg tube site) Back: Normal Inspection, No CVA Tenderness, No Vertebral Tenderness Male Genital: Normal Inspection, No Testicular Tenderness, No Testicular Swelling, No Inguinal Tenderness, No Inguinal Swelling, No Scrotal Swelling, No Circumcised Extremity: Normal ROM Neurological/Psych: Oriented x3, Normal Speech, Normal Cognition, No Cerebellar Signs, Normal Motor ED Course And Treatment - Laboratory Results Result Diagrams: 03/15/19 12:25 03/15/19 12:25 O2 Sat by Pulse Oximetry: 95 Medical Decision Making Medical Decision Makin yr old male w/ hx of squamous cell ca on active radiation therapy p/w dysphagia and dysuria. No recent sex, no sex within the year per pt. No hx of STDS or penile rash or lymphadenopathy in groin. No ulcers or rash. Throat w/ out mass noted on exam, no erythema. Pt non-drooling in NAD, speaking full sentences, protecting airway. Given recent radiation will seek CT neck as well as labs, cxr. Pending imaging, labs Pt in NAD 1253 labs largely unremarkable cxr on my read unremarkable pending CT results, UA 1309 no CVAt on re-exam UA w/ UTI. CT w/ mural thickening of upper esophagus: pt has known dx of squamous cell CA 1314 Pt has G tube on reassessment:Non-clogged on exam. pt notes he is supposed to be using it to eat, but has not been because he wants to eat food directly Appreciate consult w/ DR. Pastor- per PMD pt was just d/c from [place] w/ G tube, and is supposed to be using G tube and NPO. I endorsed the the patient thathe need to use his G tube to eat. He notes that he has formula food at home to use it and will starts using it instead of eating from his mouth. He is agreeable to plan will rx with rocephin and x1 and prescribed abx for home via G tube. He is agreeable to plan. Disposition - Disposition Referrals: [facility] [Outside] [facility] [Outside] [facility] [Outside] Hillary Pastor MD [Staff Provider] - Chintan Hoffman MD [Staff Provider] - Blair Wright MD [Staff Provider] - Disposition: HOME/ ROUTINE Disposition Time: 13:16 Condition: STABLE Additional Instructions: ALANA SOSA, thank you for letting us take care of you today. Your provider was Ulisses Gordon and you were treated for THROAT PAIN. The emergency medical care you received today was directed at your acute symptoms. If you were prescribed any medication, please fill it and take as directed. It may take several days for your symptoms to resolve. Return to the Emergency Department if your symptoms worsen, do not improve, or if you have any other problems. Please contact your doctor or call one of the physicians/clinics you have been referred to that are listed on the Patient Visit Information form that is included in your discharge packet. Bring any paperwork you were given at discharge with you along with any medications you are taking to your follow up visit. Our treatment cannot replace ongoing medical care by a primary care provider outside of the emergency department. Thank you for allowing the [facility] team to be part of your care today. If you had an X-Ray or CT scan: A Radiologist will review the ED reading if any change in treatment is needed we will contact you. If you had a blood, urine, or wound culture: It will take several days for the results, if any change in treatment is needed we will contact you. If you had an STI test: It will take 48 hours for the results. Please call after 1 week if you have not heard back. Prescriptions: Ciprofloxacin 500 mg PEG BID 14 Days #160 ml Instructions: Urinary Tract Infection, Adult (DC), Dysphagia (DC) Forms: [employer] (Hungarian) Print Language: SOUTH KOREAN - Clinical Impression Clinical Impression: UTI (urinary tract infection), Dysphagia
[2019-03-15] MEDS ORDERED: Sodium Chloride 0.9% 1,000 ML IV SCH (12:30)
[2019-03-15 12:32] LABS: BASO % 0.6 % (0.0-2.0); EOS % 0.7 % (0.0-4.0); HEMOGLOBIN 11.7 g/dL (12.0-18.0); LYMPH # 0.3 K/uL (1.0-4.3); LYMPH % 5.8 % (20.0-40.0); MEAN CELL VOLUME 91.7 fL (80.0-94.0); MEAN CORPUSCULAR HEMOGLOBIN 31.1 pg (27.0-31.0); MEAN CORPUSCULAR HGB CONC 33.9 g/dL (33.0-37.0); MEAN PLATELET VOLUME 9.2 fL (7.2-11.7); MONO # 0.4 K/uL (0.0-0.8); MONO % 7.6 % (0.0-10.0); NEUT # 4.7 K/uL (1.8-7.0); NEUT % 85.3 % (50.0-75.0); NRBC % 0.2 % (0.0-2.0); PLATELET COUNT 257 K/uL (130-400); RBC 3.77 Mil/uL (4.40-5.90); RED CELL DISTRIBUTION WIDTH 16.8 % (11.5-14.5); WHITE BLOOD COUNT 5.5 K/uL (4.8-10.8)
[2019-03-15] MEDS ORDERED: Sodium Chloride 0.9% 1,000 ML ONE (12:33)
--- NOTE | 2019-03-15 12:42 | RAD ---
Date of service: 03/15/2019 HISTORY: Dysphagia COMPARISON: 02/09/2019. TECHNIQUE: Chest PA and lateral FINDINGS: Right MediPort terminates in the SVC. LINES AND TUBES: None. LUNG AND PLEURA: The lungs are well inflated and clear. No pleural effusion or pneumothorax. HEART AND MEDIASTINUM: The heart is not enlarged. No aortic atherosclerotic calcifications present. The hilar and mediastinal contours are within normal limits. SKELETAL STRUCTURES: The bony structures are within normal limits for the patient's age. VISUALIZED UPPER ABDOMEN: Normal. OTHER FINDINGS: None. IMPRESSION: No active pulmonary disease.
[2019-03-15 12:48] LABS: ALBUMIN 3.6 g/dL (3.5-5.0); ALT/SGPT 11 U/L (21-72); AST/SGOT 15 U/L (17-59); BLOOD UREA NITROGEN 18 mg/dL (9-20); CALCIUM 9.6 mg/dl (8.6-10.4); GFR NON-AFRICAN AMERICAN > 60
[2019-03-15 13:02] LABS: BANDS 1 % (0-2); LYMPHOCYTE 5 % (20-40); NEUTROPHIL 85 % (50-75); TOTAL CELLS COUNTED 100
--- NOTE | 2019-03-15 13:02 | CT ---
Date of service: 03/15/2019 PROCEDURE: CT NECK WITHOUT CONTRAST HISTORY: Dysphagia COMPARISON: None available. TECHNIQUE: CT of the neck without intravenous contrast. Coronal and sagittal reformats generated. Radiation dose: Total exam DLP = 438.24 mGy-cm. This CT exam was performed using one or more of the following dose reduction techniques: Automated exposure control, adjustment of the mA and/or kV according to patient size, and/or use of iterative reconstruction technique. FINDINGS: Incompletely imaged is apparent moderate to severe circumferential mural thickening in the upper thoracic esophagus and resultant moderate dilatation of fluid-filled proximal esophagus. An irregular bird's beak appearance is identified in the proximal esophagus. NASOPHARYNX: No bulky mass. SUPRAHYOID NECK: No bulky mass in the oropharynx, oral cavity, parapharyngeal space and retropharyngeal space. INFRAHYOID NECK: No bulky mass in the larynx, hypopharynx, and supraglottic space. Vocal cords intact. MASS: None. GLANDS: Parotid and submandibular glands unremarkable. Normal size thyroid gland, without nodule. LYMPH NODES: Normal. No lymphadenopathy. CERVICAL SPINE: No fracture or focal lesion. Multilevel degenerative disc disease in the cervical spine with moderate cervical kyphosis and degenerative 4 mm anterior listhesis of C2 on C3. OTHER FINDINGS: The visualized lungs are clear. There is mild polypoid mucosal thickening in the right maxillary sinus. There is complete opacification of the left maxillary sinus with abnormal soft tissue in the infundibulum and obstruction of the ostiomeatal complex. 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 IMPRESSION: 1. No gross abnormality in the soft tissues of the neck on this noncontrast CT examination. 2. incompletely imaged moderate to severe circumferential mural thickening in the upper thoracic esophagus with resultant moderate dilatation of the proximal esophagus which contains layering fluid. Findings are concerning for upper esophageal malignant stricture/mass. Correlation with esophagogram/CT thorax with oral contrast in the esophagus/endoscopy would be helpful for further evaluation.
[2019-03-15 13:03] LABS: ANISOCYTOSIS SLIGHT; EOSINOPHIL 2 % (0-4); MONOCYTE 7 % (0-10); OVALOCYTES SLIGHT; PLATELET ESTIMATE NORMAL (NORMAL)
[2019-03-15 13:04] LABS: SQUAMOUS EPITHIAL 7 /hpf (0-5); URINE BILIRUBIN 1+ (NEGATIVE); URINE BLOOD NEGATIVE (NEGATIVE); URINE CLARITY Hazy (Clear); URINE COLOR Amber (YELLOW); URINE GLUCOSE (UA) NORMAL (Normal); URINE LEUKOCYTE ESTERASE TRACE Leu/uL (Negative); URINE PROTEIN 2+ mg/dL (NEGATIVE); URINE URIC ACID CRYSTALS FEW /hpf (<OCC)
[2019-03-15] MEDS ORDERED: cefTRIAXone IV 1 gm in Dextros 50 ML IVPB ONE (13:07)
[2019-03-15 17:20] VITALS: BP 110/67; PULSE 86; RESP 18; TEMP 98.4
--- NOTE | 2019-03-16 14:27 | CARD ---
APPROVED REPORT Date of service: 03/15/2019 EKG Measurement Heart [id number] <Conclusion> Normal sinus rhythm Septal infarct, age undetermined Abnormal ECG
== END 2019-03-15 17:19 | disposition home or self-care (01) ==
LOC: C.ER 11:02
DX: N39.0 Urinary tract infection, site not specified (principal); R13.10 Dysphagia, unspecified; I10 Essential (primary) hypertension; N40.1 Benign prostatic hyperplasia with lower urinary tract symptoms
CPT/HCPCS: 70490; 71046; 80053; 81001; 85025; 87070; 87430; 93005; 99284; J0696; J7030

== ENCOUNTER 2019-03-21 12:15 | Emergency (ER) | payer MEDICAID ==
[2019-03-21 12:15] VITALS: BMI 23.1
[2019-03-21 12:27] VITALS: BP 136/84; PULSE 82; RESP 18; TEMP 97.4; O2SAT 99
== END 2019-03-21 12:30 | disposition left against medical advice (07) ==
LOC: C.ER 12:15 → MERGE 12:15 → C.ER 12:30
DX: Z02.89 Encounter for other administrative examinations (principal); R07.0 Pain in throat

== ENCOUNTER 2019-03-26 18:21 | Emergency (ER) | payer MEDICAID ==
[2019-03-26 18:21] VITALS: BMI 23.1
[2019-03-26] MEDS ORDERED: Sodium Chloride 0.9% 1,000 ML IV ONE (19:11)
--- NOTE | 2019-03-26 19:21 | C.PDOC ---
History Of Present Illness 64 year old male with PMHx of esophagus CA presents to the ED c/o vomiting, abdominal pain and no bowel movement for the past 4 days. Patient has a PEG tube in place. Patient also c/o feeling weak for the past few days. Patient denies fever, chills, diarrhea, rash, CP, SOB, palpitations. Chief Complaint (Nursing): GI Problem History Per: Patient History/Exam Limitations: no limitations Onset/Duration Of Symptoms: Days (4) Current Symptoms Are (Timing): Still Present Location Of Pain/Discomfort: Diffuse Quality Of Discomfort: "Pain" Associated Symptoms: Nausea, Vomiting, Constipation. denies: Diarrhea Recent travel outside of the [place]: No Additional History Per: Patient Past Medical History Reviewed: Historical Data, Nursing Documentation, Vital Signs Vital Signs: Last Vital Signs Temp 97.3 F L 03/26/19 18:30 Pulse 87 03/26/19 18:30 Resp 18 03/26/19 18:30 BP 126/96 H 03/26/19 18:30 Pulse Ox 99 03/26/19 18:30 Primary Care Provider: Clinic,Med Surg - Medical History PMH: Benign Prostatic Hyperplasia, Depression, Gastritis, HTN Denies: Diabetes, Hepatitis, HIV, Chronic Kidney Disease, Seizures, Sexually Transmitted Disease Surgical History: Appendectomy Denies: Coronary Stent, Pacemaker - [facility] Procedures ALCOHOL DETOXIFICATION (07/27/14) CHANGE FEEDING DEVICE IN LOW INTEST TRACT, SHOT PEENING OPERATOR APPROACH (03/02/19) CONTACT RADIATION OF ESOPHAGUS (02/09/19) DETOXIFICATION SERVICES FOR SUBSTANCE ABUSE TREATMENT (10/11/17) INSERT VAD RESERVOIR IN CHEST SUBCU/FASCIA, PERC (12/25/18) INSERTION OF FEEDING DEVICE INTO JEJUNUM, PERC APPROACH (12/25/18) INSPECTION OF UPPER INTESTINAL TRACT, ENDO (12/25/18) INTRODUCTION OF NUTRITIONAL INTO LOW GI, VIA OPENING (12/25/18) NEBULIZER THERAPY (02/07/14) PHYSICAL THERAPY NEC (03/31/14) TRANSFUSE NONAUT RED BLOOD CELLS IN PERIPH VEIN, PERC (10/26/17) Family History: States: Unknown Family Hx - Social History Hx Tobacco Use: No Hx Alcohol Use: No Hx Substance Use: No - Immunization History Hx Tetanus Toxoid Vaccination: No Hx Influenza Vaccination: Yes Hx Pneumococcal Vaccination: No Review Of Systems Constitutional: Negative for: Fever, Chills Cardiovascular: Negative for: Chest Pain Respiratory: Negative for: Shortness of Breath Gastrointestinal: Positive for: Vomiting, Abdominal Pain, Constipation. Negative for: Diarrhea Genitourinary: Negative for: Dysuria, Hematuria Skin: Negative for: Rash Neurological: Negative for: Weakness, Numbness Physical Exam - Physical Exam Appears: Non-toxic, No Acute Distress Skin: Normal Color, Warm, Dry Head: Atraumatic, Normacephalic Eye(s): bilateral: Normal Inspection Oral Mucosa: Moist Neck: Normal ROM, Supple Chest: Symmetrical Cardiovascular: Rhythm Regular Respiratory: Normal Breath Sounds, No Rales, No Rhonchi, No Wheezing Gastrointestinal/Abdominal: Soft, Tenderness (generalized mostly upper quadrants), No Guarding, No Rebound, Other (PEG tube ) Extremity: Normal ROM, No Tenderness, No Swelling Neurological/Psych: Oriented x3, Normal Speech, Normal Cognition Gait: Steady ED Course And Treatment - Laboratory Results Result Diagrams: 03/26/19 20:15 03/26/19 19:24 O2 Sat by Pulse Oximetry: 99 (ON RA) Pulse Ox Interpretation: Normal Medical Decision Making Medical Decision Making: Plan: * CT abd/pelvis * Labs * Fleet enema * IV fluids * UA Refused enema Disposition Counseled Patient/Family Regarding: Diagnosis - Disposition Referrals: [facility] [Outside] Disposition: HOME/ ROUTINE Disposition Time: 00:12 Condition: STABLE Prescriptions: Amoxicillin [Trimox] 500 mg PEG TID 7 Days #210 ml Docusate [Colace LIQUID] 10 ml GT TID #20 udc Instructions: Constipation in Adults, Fecal Impaction (DC), Urinary Tract Infections in Adults Forms: [facility] (Greek) - POA Present On Arrival: None - Clinical Impression Clinical Impression: Constipation, UTI (urinary tract infection) - Scribe Statement The provider has reviewed the documentation as recorded by the Scribe Chris Torres All medical record entries made by the Scribe were at my direction and personally dictated by me. I have reviewed the chart and agree that the record accurately reflects my personal performance of the history, physical exam, medical decision making, and the department course for this patient. I have also personally directed, reviewed, and agree with the discharge instructions and disposition.
[2019-03-26 19:49] LABS: ALBUMIN 3.8 g/dL (3.5-5.0); CALCIUM 9.4 mg/dl (8.6-10.4)
[2019-03-26] MEDS ORDERED: Sodium Chloride 0.9% 1,000 ML ONE (20:10)
[2019-03-26 20:20] LABS: BASO % 0.5 % (0.0-2.0); EOS # 0.1 K/uL (0.0-0.7); EOS % 0.9 % (0.0-4.0); HEMOGLOBIN 11.9 g/dL (12.0-18.0); LYMPH # 0.3 K/uL (1.0-4.3); LYMPH % 4.4 % (20.0-40.0); MEAN CORPUSCULAR HEMOGLOBIN 30.4 pg (27.0-31.0); MEAN CORPUSCULAR HGB CONC 34.2 g/dL (33.0-37.0); MEAN PLATELET VOLUME 8.6 fL (7.2-11.7); MONO # 0.5 K/uL (0.0-0.8); MONO % 7.7 % (0.0-10.0); NEUT # 5.4 K/uL (1.8-7.0); NEUT % 86.5 % (50.0-75.0); NRBC % 0.1 % (0.0-2.0); PLATELET COUNT 213 K/uL (130-400); RBC 3.91 Mil/uL (4.40-5.90); WHITE BLOOD COUNT 6.2 K/uL (4.8-10.8)
[2019-03-26] MEDS ORDERED: Potassium Chloride 20 mEq 100 ML ONE (20:29)
[2019-03-26] MEDS ORDERED: Iohexol 300 100 ML IJ ONE (20:51)
[2019-03-26 21:14] LABS: BANDS 1 % (0-2); EOSINOPHIL 2 % (0-4); LYMPHOCYTE 7 % (20-40); MONOCYTE 6 % (0-10); NEUTROPHIL 84 % (50-75); PLATELET ESTIMATE NORMAL (NORMAL); TOTAL CELLS COUNTED 100
[2019-03-26 22:56] LABS: SQUAMOUS EPITHIAL 2 /hpf (0-5); URINE BACTERIA FEW (<OCC); URINE BILIRUBIN 1+ (NEGATIVE); URINE BLOOD NEGATIVE (NEGATIVE); URINE CALCIUM OXALATE CRYSTALS FEW /hpf (<OCC); URINE CLARITY Hazy (Clear); URINE COLOR Amber (YELLOW); URINE GLUCOSE (UA) NORMAL (Normal); URINE LEUKOCYTE ESTERASE 2+ Leu/uL (Negative); URINE PROTEIN 1+ mg/dL (NEGATIVE)
[2019-03-27 00:36] VITALS: BP 91/54; PULSE 66; RESP 20; TEMP 97.9; O2SAT 100
--- NOTE | 2019-03-27 11:37 | CT ---
Date of service: 03/26/2019 PROCEDURE: CT Abdomen and Pelvis with contrast HISTORY: abd pain COMPARISON: 05/31/2014 TECHNIQUE: Contrast dose: 100 mL Omnipaque 300 Radiation dose: Total exam DLP = 367.39 mGy-cm. This CT exam was performed using one or more of the following dose reduction techniques: Automated exposure control, adjustment of the mA and/or kV according to patient size, and/or use of iterative reconstruction technique. FINDINGS: LOWER THORAX: Moderate hiatal hernia. No infiltrate/effusion. LIVER: Unremarkable. No gross lesion or ductal dilatation. GALLBLADDER AND BILE DUCTS: Unremarkable. PANCREAS: Unremarkable. No gross lesion or ductal dilatation. SPLEEN: Unremarkable. ADRENALS: Unremarkable. No mass. KIDNEYS AND URETERS: Unremarkable. No hydronephrosis. No solid mass. VASCULATURE: Unremarkable. No aortic aneurysm. There is atherosclerotic calcification of the abdominal aorta. BOWEL: No bowel obstruction. Jejunostomy tube noted. No abnormal bowel loops. APPENDIX: Normal appendix. PERITONEUM: Unremarkable. No free fluid. No free air. LYMPH NODES: Unremarkable. No enlarged lymph nodes. BLADDER: Nondistended REPRODUCTIVE: Unremarkable prostate BONES: No acute fracture. Grade 1 retrolisthesis at L2-3. Severe degenerative disc disease at L4-5 and L5-S1. OTHER FINDINGS: None. IMPRESSION: No acute abnormality. Nonacute findings as above. Moderate hiatal hernia. Jejunostomy tube noted. The preliminary findings for this examination were reported by [facility] Radiology at 12:01 a.m. on 03/27/2019. There is concurrence of this report with the preliminary findings.
== END 2019-03-27 01:04 | disposition home or self-care (01) ==
LOC: C.ER 18:21
DX: K59.00 Constipation, unspecified (principal); N39.0 Urinary tract infection, site not specified
CPT/HCPCS: 74177; 80053; 81001; 83690; 85025; 87086; 96365; 96366; 99285; J3480; J7030; Q9967